=== PATIENT | male | born 1955 | race Caucasian/White ===

== ENCOUNTER → 2017-04-21 | Outpatient (CLI) | payer BC ==
[2017-04-21 16:24] LABS: CH 31.6; HDW 2.68; HGB 14.8 gm/dL (13.0-17.5); MCH 30.8 pg (25.0-35.0); MCV 93.5 fL (80.0-100.0); Mean Platelet Volume 7.1; RBC 4.81 m/uL (4.30-5.90); RDW 14.5 % (11.5-15.5); WBC 5.9 k/uL (3.8-10.6)
[2017-04-21 16:36] LABS: Anion Gap 13 mmol/L; Blood Urea Nitrogen 20 mg/dL (9-20); Carbon Dioxide 25 mmol/L (22-30); Chloride 104 mmol/L (98-107); Non-African American GFR(MDRD) >60 (>60 ml/min/1.73 sqM); Sodium 142 mmol/L (137-145)
== END | disposition home or self-care (01) ==
LOC: LABPAT 15:51
PROVIDERS: ATTEND Internal Medicine Cardiovascular Disease
DX: Z01.812 Encounter for preprocedural laboratory examination (principal); I25.10 Atherosclerotic heart disease of native coronary artery without angina pectoris; R07.9 Chest pain, unspecified
CPT/HCPCS: 80051; 82565; 84520; 85027

== ENCOUNTER → 2017-07-10 | Day surgery (SDC) | payer BC ==
[2017-07-05 10:02] VITALS: BMI 28.3
[~2017-07-10] MED LIST: ALPRAZolam 0.25 MG TAB PO PRN; ALPRAZolam 0.5 MG TAB PO PRN; ASPIRIN 325 MG TAB PO SCH; ASPIRIN 325 MG TAB PO STA; ATORVASTATIN 80 MG TAB PO STA; FENOFIBRATE 160 MG TAB PO SCH; FUROSEMIDE 20 MG TAB PO PRN; IBUPROFEN 800 MG TAB PO SCH; IOHEXOL 350 MG/ML 125ML BOTTLE INJ ONE; IV FLUID CONTINUATION 1,000 ML IV ONE; LIDOCAINE 2% INJ 20 MG/ML (20 ML MDV) ONE; LIDOCAINE 2% INJ 20 MG/ML SQ ONE; LOSARTAN 50 MG TAB PO SCH; METOPROLOL SUCCINATE (ER) 50 MG TAB.ER.24H PO SCH; MIDAZOLAM 2 MG/2 ML VIAL IV ONE; MIDAZOLAM 2 MG/2 ML VIAL ONE; MULTIVITAMINS, THERA 1 EACH TAB PO SCH; NITROGLYCERIN SL TABS 0.4 MG TAB SUBLINGUAL PRN; PANTOPRAZOLE 40 MG TABLET PO SCH; SODIUM CHLORIDE 0.9% 1,000 ML in EMPTY BAG 1 BAG IV ONE; amLODIPine 5 MG TAB ONE; amLODIPine 5 MG TAB PO ONE; amLODIPine 5 MG TAB PO STA; fentaNYL (PF) 50 MCG/ML 2 ML AMP IV ONE; fentaNYL (PF) 50 MCG/ML 2 ML AMP ONE; predniSONE 20 MG TAB PO PRN
[2017-07-10 10:14] VITALS: RESP 16
[2017-07-10 10:45] LABS: Basophils % (A) 0 %; CHCM 32.3; Eosinophils % (A) 0 %; HCT 45.7 % (39.0-53.0); HDW 2.37; HGB 14.8 gm/dL (13.0-17.5); Luc # (Auto) 0.03; Luc % (Auto) 0; Lymphocytes # (A) 0.9 k/uL (1.0-4.8); Lymphocytes % (A) 9 %; MCH 30.3 pg (25.0-35.0); MCHC 32.4 g/dL (31.0-37.0); MCV 93.5 fL (80.0-100.0); Mean Platelet Volume 7.3; Monocytes # (A) 0.3 k/uL (0-1.0); Monocytes % (A) 3 %; Neutrophils # (A) 8.7 k/uL (1.3-7.7); Neutrophils % (A) 87 %; RBC 4.89 m/uL (4.30-5.90); RDW 15.2 % (11.5-15.5); WBC (Perox) 10.16
[2017-07-10 11:09] LABS: Anion Gap 16 mmol/L; Blood Urea Nitrogen 24 mg/dL (9-20); Calcium 9.7 mg/dL (8.4-10.2); Carbon Dioxide 19 mmol/L (22-30); Chloride 108 mmol/L (98-107); Glucose 121 mg/dL (74-99); Non-African American GFR(MDRD) >60 (>60 ml/min/1.73 sqM); Sodium 143 mmol/L (137-145)
[2017-07-10 11:13] LABS: Potassium 4.7 mmol/L (3.5-5.1)
--- NOTE | 2017-07-10 11:50 | P.PCN ---
Date of Procedure: 07/10/17 Preoperative Diagnosis: Recurrent chest pains Postoperative Diagnosis: Stable coronary artery disease Procedure(s) Performed: Left heart catheterization with selective injection of the SHAFFER graft and 2 vein grafts. No LV gram Description of Procedure: HISTORY: This is a 61-year-old gentleman with history of ischemic heart disease and previous bypass surgery with SHAFFER graft to the LAD, vein graft to the diagonal and vein graft to the OM branch. Patient also had stent placement of the RCA. Patient is brought in for cardiac cath because of recurrent chest pains relieved with nitroglycerin. His stress test, however, did not reveal any inducible ischemia. CONSENT:I have discussed the risks, benefits and alternative therapies for the above-mentioned procedure and for both sedation/analgesia as well as necessary blood product administration, if indicated, as they pertain to this patient. The patient has indicated understanding and acceptance of the risks and procedures discussed. PROCEDURE: Patient was brought to the lab in a fasting state. Patient was given some IV sedation. The right groin is infiltrated with lidocaine and right femoral artery was entered using Seldinger technique. A 6-Brazilian catheter was left in place and selective coronary arteriography and left ventriculography was performed. Patient tolerated the procedure well. Femoral angiogram was performed and Angio-Seal was applied for hemostasis. No immediate complications were noted and patient was transferred to [facility] in a stable condition Conscious Sedation: Versed : 1 mg Fentanyl : 50 g Duration : 27 minutes HEMODYNAMICS: . The aortic pressure is about 160/88. Left ankle end-diastolic pressure is about 16. There was no gradient across the aortic valve SELECTIVE CORONARY ARTERIOGRAPHY: LEFT MAIN: This is a long with a diffuse plaque throughout its length. THE LEFT ANTERIOR DESCENDING CORONARY ARTERY: This is totally occluded after the diagonal branch. There is competitive flow in the diagonal branch from the vein graft THE LEFT CIRCUMFLEX AND IS CORONARY ARTERY: . This is totally occluded in the proximal portion THE RIGHT CORONARY ARTERY: . This is a large caliber vessel with a diffuse mild plaque with patent stents in the proximal portion. No Sigmund obstructive disease is noted. THE SHAFFER GRAFT TO THE LAD: This is small and atrophic. THE VEIN GRAFT TO THE OM BRANCH: The vein graft to the OM branch is patent both at proximal and distal anastomosis and also throughout his body. The OM branch, beyond the insertion site is patent. The vein graft to the DIAGONAL: This is patent throat its length and also at the proximal and distal anastomosis. This provides excellent flow to the diagonal and also the LAD distribution. LEFT VENTRICULOGRAPHY: This was not performed FINAL IMPRESSION: . Stable coronary artery disease with patent vein graft to the diagonal and also patent vein graft to the OM branch. The right coronary artery has mild diffuse plaque but no significant focal disease. The stents in the right coronary artery are patent. The SHAFFER graft is atretic. PLAN: Maximal medical therapy with risk factor modification. Prognosis fair PROGNOSIS: []
[2017-07-10 13:24] VITALS: TEMP 98.2
[2017-07-10 18:01] VITALS: PULSE 70
[2017-07-10 18:09] VITALS: BP 152/80
== END | disposition home or self-care (01) ==
LOC: CATHCVL 09:44
PROVIDERS: ATTEND Internal Medicine Cardiovascular Disease
DX: I25.118 Atherosclerotic heart disease of native coronary artery with other forms of angina pectoris (principal); I25.82 Chronic total occlusion of coronary artery; I10 Essential (primary) hypertension; G89.29 Other chronic pain; I47.2 Ventricular tachycardia; Z95.1 Presence of aortocoronary bypass graft; Z87.891 Personal history of nicotine dependence; Z79.82 Long term (current) use of aspirin; Z79.52 Long term (current) use of systemic steroids; Z79.899 Other long term (current) drug therapy; E78.00 Pure hypercholesterolemia, unspecified; Z95.5 Presence of coronary angioplasty implant and graft; Z88.8 Allergy status to other drugs, medicaments and biological substances; Z91.041 Radiographic dye allergy status; Z82.49 Family history of ischemic heart disease and other diseases of the circulatory system
CPT/HCPCS: 93459; 80048; 85025; C1760; C1894; C1769; J2001; J2250; J3010; Q9967

== ENCOUNTER → 2019-01-31 | Outpatient (CLI) | payer BC, MEDICARE ==
--- NOTE | 2019-01-31 14:58 | XR ---
EXAMINATION TYPE: XR chest 2V DATE OF EXAM: 01/31/2019 COMPARISON: Prior chest x-ray 10/21/2013 HISTORY: History cardiovascular disease, Z00.00 TECHNIQUE: Frontal and lateral views of the chest are obtained. FINDINGS: Patient is post median sternotomy. No evident airspace disease, pneumothorax, or pleural e ffusion. Cardiac mediastinal silhouette, pulmonary vascularity and steph are stable. There are promine nt lung volumes, increased AP diameter of the chest suggesting underlying COPD. Coronary artery calci fications are present. IMPRESSION: No acute cardiopulmonary process.
== END | disposition home or self-care (01) ==
LOC: RADXRMAIN 10:53
PROVIDERS: ATTEND Family Medicine
DX: Z00.00 Encounter for general adult medical examination without abnormal findings (principal)
CPT/HCPCS: 71046

== ENCOUNTER 2019-03-14 07:59 | Observation (INO) | payer BC, MEDICARE ==
[2019-03-14] MEDS ORDERED: SODIUM CHLORIDE 0.9% 500 ML 500 ML IV STA (08:29)
[2019-03-14] MEDS ORDERED: KETOROLAC 30 MG/ML 1 ML VIAL IVP STA (08:29)
[2019-03-14] MEDS ORDERED: METOCLOPRAMIDE 5 MG/ML 2 ML VIAL IVP STA (08:29)
[2019-03-14] MEDS ORDERED: SODIUM CHLORIDE 0.9% 1,000 ML IV STA (08:29)
--- NOTE | 2019-03-14 08:56 | ED ---
General Adult HPI - General Chief complaint: Abdominal Pain Stated complaint: Flank pain Time Seen by Provider: 03/14/19 08:13 Source: patient, RN notes reviewed Mode of arrival: wheelchair Limitations: no limitations - History of Present Illness Initial comments: Patient is a pleasant 64-year-old male presenting to the emergency Department with complaints of right-sided flank pain. Onset of symptoms was around an hour ago. Discomfort was sudden and severe. Discomfort is still somewhat severe however improved, rated 7/10. Patient was going to the bathroom at the time of onset. Patient does have nausea without vomiting. No constipation or diarrhea. No fevers. No history of similar symptoms previously. Patient does have history of previous hernia right inguinal region however this feels different. Patient states discomfort is right flank and radiates towards the testicle. - Related Data Home Medications Medication Instructions Recorded Confirmed ALPRAZolam [Xanax] 0.5 mg PO TID PRN 07/02/14 03/14/19 Aspirin 325 mg PO DAILY 07/02/14 03/14/19 Fenofibrate Nanocrystallized 145 mg PO DAILY 07/02/14 03/14/19 [Tricor] Metoprolol Succinate (ER) [Toprol 50 mg PO DAILY 07/02/14 03/14/19 XL] Nitroglycerin Sl Tabs [Nitrostat] 0.4 mg PO Q5M PRN 07/02/14 03/14/19 Omeprazole [PriLOSEC] 20 mg PO DAILY 07/02/14 03/14/19 Furosemide [Lasix] 20 mg PO DAILY PRN 04/24/17 03/14/19 Ibuprofen 800 mg PO BID 04/24/17 03/14/19 Losartan Potassium 100 mg PO DAILY 07/05/17 03/14/19 Multivitamins, Thera [Multivitamin 1 tab PO DAILY 07/05/17 03/14/19 (formulary)] Methocarbamol [Robaxin] 500 mg PO QID PRN 03/14/19 03/14/19 Previous Rx's Medication Instructions Recorded amLODIPine BESYLATE [Norvasc] 5 mg PO DAILY #30 tablet 07/10/17 Allergies Allergy/AdvReac Type Severity Reaction Status Date / Time hydrocodone [From [place]] Allergy Rash/Hives Verified 03/14/19 08:19 Iodinated Contrast- Oral and Allergy Rash/Hives Verified 03/14/19 08:19 IV Dye [Iodinated Contrast Media - IV Dye] shellfish derived Allergy Rash/Hives Verified 03/14/19 08:19 MRI dye Allergy Rash/Hives Uncoded 07/10/17 10:08 Review of Systems ROS Statement: Those systems with pertinent positive or pertinent negative responses have been documented in the HPI. ROS Other: All systems not noted in ROS Statement are negative. Constitutional: Denies: fever Eyes: Denies: eye pain ENT: Denies: ear pain Respiratory: Denies: cough Cardiovascular: Denies: chest pain Endocrine: Denies: fatigue Gastrointestinal: Reports: as per HPI, nausea Genitourinary: Denies: dysuria, hematuria Musculoskeletal: Denies: back pain Skin: Denies: rash Neurological: Denies: weakness Past Medical History Past Medical History: Coronary Artery Disease (CAD), Chest Pain / Angina, GERD/Reflux, Hyperlipidemia, Hypertension, Osteoarthritis (OA) Additional Past Medical History / Comment(s): CHRONIC BACK PAIN, DDD, see Dr. Sapp H & P History of Any Multi-Drug Resistant Organisms: None Reported Past Surgical History: Back Surgery, Coronary Bypass/CABG, Heart Catheterization With Stent, Hernia Repair, Tonsillectomy Additional Past Surgical History / Comment(s): HERNIA X4, HYDROCELE, CABG X3 ( 1997) , CARDIAC STENT X1 (12/30/2002), nick rotator cuff repair Past Anesthesia/Blood Transfusion Reactions: Postoperative Nausea & Vomiting (PONV) Date of Last Stent Placement:: 12/30/2002 Past Psychological History: Anxiety Smoking Status: Former smoker Past Alcohol Use History: Occasional Past Drug Use History: None Reported - Past Family History Father Family Medical History: Diabetes Mellitus, Deep Vein Thrombosis (DVT), Renal Disease Additional Family Medical History / Comment(s): ANEURYSM General Exam Limitations: no limitations General appearance: alert, other (Patient does appear uncomfortable) Head exam: Present: normocephalic Eye exam: Present: normal appearance, PERRL ENT exam: Present: normal oropharynx Neck exam: Present: normal inspection Respiratory exam: Present: normal lung sounds bilaterally Cardiovascular Exam: Present: regular rate, normal rhythm Expanded Peripheral pulses: 2+: Posterior Tibialis (R), Posterior Tibialis (L), Dorsalis Pedis (R), Dorsalis Pedis (L) GI/Abdominal exam: Present: soft, tenderness (Minimal tenderness right flank), normal bowel sounds. Absent: distended, guarding, rebound, rigid, pulsatile mass Extremities exam: Present: normal inspection. Absent: pedal edema, calf tenderness Back exam: Present: normal inspection. Absent: CVA tenderness (R) Neurological exam: Present: alert Psychiatric exam: Present: normal affect, normal mood Skin exam: Present: normal color Course Vital Signs 03/14/19 08:01 Temperature 97.5 F L Pulse Rate 66 Respiratory 20 Rate Blood Pressure 169/103 O2 Sat by Pulse 96 Oximetry Medical Decision Making - Medical Decision Making Patient reevaluated and significantly improved. Discomfort is now 3/10. Patient again reevaluated and despite further medication states his discomfort is starting to increase. Abdomen is soft with mild to moderate tenderness right flank. Patient and family are updated on results. Secondary to continued discomfort patient will be held. Case was discussed in detail with Dr. Douglas, who will admit covering for Dr. Green. She does agree to surgical consultation. - Lab Data Result diagrams: 03/14/19 08:15 03/14/19 08:15 Lab Results 03/14/19 03/14/19 03/14/19 Range/Units 08:15 08:15 08:15 WBC 7.3 (3.8-10.6) k/uL RBC 4.28 L (4.30-5.90) m/uL Hgb 13.0 (13.0-17.5) gm/dL Hct 40.4 (39.0-53.0) % MCV 94.5 (80.0-100.0) fL MCH 30.3 (25.0-35.0) pg MCHC 32.1 (31.0-37.0) g/dL RDW 16.2 H (11.5-15.5) % Plt Count 270 (150-450) k/uL Neutrophils % 50 % Lymphocytes % 33 % Monocytes % 9 % Eosinophils % 4 % Basophils % 1 % Neutrophils # 3.6 (1.3-7.7) k/uL Lymphocytes # 2.4 (1.0-4.8) k/uL Monocytes # 0.7 (0-1.0) k/uL Eosinophils # 0.3 (0-0.7) k/uL Basophils # 0.0 (0-0.2) k/uL Anisocytosis Slight PT 12.9 H (9.0-12.0) sec INR 1.3 H (<1.2) APTT 25.6 (22.0-30.0) sec Sodium 143 (137-145) mmol/L Potassium 4.5 (3.5-5.1) mmol/L Chloride 107 (98-107) mmol/L Carbon Dioxide 23 (22-30) mmol/L Anion Gap 13 mmol/L BUN 24 H (9-20) mg/dL Creatinine 0.97 (0.66-1.25) mg/dL Est GFR (CKD-EPI)AfAm >90 (>60 ml/min/1.73 sqM) Est GFR (CKD-EPI)NonAf 82 (>60 ml/min/1.73 sqM) Glucose 111 H (74-99) mg/dL Calcium 9.0 (8.4-10.2) mg/dL Total Bilirubin 0.4 (0.2-1.3) mg/dL AST 26 (17-59) U/L ALT <6 L (21-72) U/L Alkaline Phosphatase 125 (38-126) U/L Total Protein 11.5 H (6.3-8.2) g/dL Albumin 3.7 (3.5-5.0) g/dL Amylase 67 (30-110) U/L Lipase 162 (23-300) U/L Urine Color Urine Appearance (Clear) Urine pH (5.0-8.0) Ur Specific [place] (1.001-1.035) Urine Protein (Negative) Urine Glucose (UA) (Negative) Urine Ketones (Negative) Urine Blood (Negative) Urine Nitrite (Negative) Urine Bilirubin (Negative) Urine Urobilinogen (<2.0) mg/dL Ur Leukocyte Esterase (Negative) Urine RBC (0-5) /hpf Urine WBC (0-5) /hpf Ur Squamous Epith Cells (0-4) /hpf Urine Mucus (None) /hpf 03/14/19 Range/Units 08:15 WBC (3.8-10.6) k/uL RBC (4.30-5.90) m/uL Hgb (13.0-17.5) gm/dL Hct (39.0-53.0) % MCV (80.0-100.0) fL MCH (25.0-35.0) pg MCHC (31.0-37.0) g/dL RDW (11.5-15.5) % Plt Count (150-450) k/uL Neutrophils % % Lymphocytes % % Monocytes % % Eosinophils % % Basophils % % Neutrophils # (1.3-7.7) k/uL Lymphocytes # (1.0-4.8) k/uL Monocytes # (0-1.0) k/uL Eosinophils # (0-0.7) k/uL Basophils # (0-0.2) k/uL Anisocytosis PT (9.0-12.0) sec INR (<1.2) APTT (22.0-30.0) sec Sodium (137-145) mmol/L Potassium (3.5-5.1) mmol/L Chloride (98-107) mmol/L Carbon Dioxide (22-30) mmol/L Anion Gap mmol/L BUN (9-20) mg/dL Creatinine (0.66-1.25) mg/dL Est GFR (CKD-EPI)AfAm (>60 ml/min/1.73 sqM) Est GFR (CKD-EPI)NonAf (>60 ml/min/1.73 sqM) Glucose (74-99) mg/dL Calcium (8.4-10.2) mg/dL Total Bilirubin (0.2-1.3) mg/dL AST (17-59) U/L ALT (21-72) U/L Alkaline Phosphatase (38-126) U/L Total Protein (6.3-8.2) g/dL Albumin (3.5-5.0) g/dL Amylase (30-110) U/L Lipase (23-300) U/L Urine Color Yellow Urine Appearance Clear (Clear) Urine pH 6.0 (5.0-8.0) Ur Specific [place] 1.012 (1.001-1.035) Urine Protein Negative (Negative) Urine Glucose (UA) Negative (Negative) Urine Ketones Negative (Negative) Urine Blood Large H (Negative) Urine Nitrite Negative (Negative) Urine Bilirubin Negative (Negative) Urine Urobilinogen <2.0 (<2.0) mg/dL Ur Leukocyte Esterase Negative (Negative) Urine RBC >182 H (0-5) /hpf Urine WBC 1 (0-5) /hpf Ur Squamous Epith Cells <1 (0-4) /hpf Urine Mucus Rare H (None) /hpf Disposition Clinical Impression: Abdominal pain Disposition: ADMITTED IP TO THIS HOSP Is patient prescribed a controlled substance at d/c from ED?: No Referrals: Angel Verma DO [Primary Care Provider] - 1-2 days Decision Time: 12:53
[2019-03-14 08:57] LABS: Anisocytosis Slight; Appearance,Urine Clear (Clear); Basophils % (A) 1 %; Bilirubin,Urine Negative (Negative); Blood,Urine Large (Negative); Color,Urine Yellow; Eosinophils # (A) 0.3 k/uL (0-0.7); Eosinophils % (A) 4 %; Glucose,Urine (UA) Negative (Negative); HCT 40.4 % (39.0-53.0); Ketones,Urine Negative (Negative); Leukocyte Esterase,Urine Negative (Negative); Lymphocytes # (A) 2.4 k/uL (1.0-4.8); Lymphocytes % (A) 33 %; MCH 30.3 pg (25.0-35.0); MCHC 32.1 g/dL (31.0-37.0); MCV 94.5 fL (80.0-100.0); Monocytes # (A) 0.7 k/uL (0-1.0); Monocytes % (A) 9 %; Mucus,Urine Rare /hpf; Neutrophils # (A) 3.6 k/uL (1.3-7.7); Neutrophils % (A) 50 %; Nitrite,Urine Negative (Negative); Platelet Count 270 k/uL (150-450); Protein,Urine Negative (Negative); RBC 4.28 m/uL (4.30-5.90); RBC,Urine >182 /hpf (0-5); RDW 16.2 % (11.5-15.5); Specific Gravity,Urine 1.012 (1.001-1.035); Squamous Epithelial Cell,Urine <1 /hpf (0-4); Urobilinogen,Urine <2.0 mg/dL (<2.0); WBC 7.3 k/uL (3.8-10.6); WBC,Urine 1 /hpf (0-5)
[2019-03-14 09:04] LABS: ALT <6 U/L (21-72); AST 26 U/L (17-59); African American GFR (CKD) >90 (>60 ml/min/1.73 sqM); Albumin 3.7 g/dL (3.5-5.0); Alkaline Phosphatase 125 U/L (38-126); Amylase 67 U/L (30-110); Anion Gap 13 mmol/L; Blood Urea Nitrogen 24 mg/dL (9-20); Carbon Dioxide 23 mmol/L (22-30); Chloride 107 mmol/L (98-107); Glucose 111 mg/dL (74-99); Potassium 4.5 mmol/L (3.5-5.1); Sodium 143 mmol/L (137-145); Total Bilirubin 0.4 mg/dL (0.2-1.3)
[2019-03-14 09:07] LABS: INR 1.3 (<1.2); Partial Thromboplastin Time 25.6 sec (22.0-30.0); Prothrombin Time 12.9 sec (9.0-12.0)
--- NOTE | 2019-03-14 09:10 | XR ---
EXAMINATION TYPE: XR KUB DATE OF EXAM: 03/14/2019 9:03 AM CLINICAL HISTORY: Abdominal pain on the right TECHNIQUE: Single upright image of the abdomen is obtained. COMPARISON: None. FINDINGS: Few scattered small bowel air-fluid levels are seen within nondilated centralized bowel, pr edominating right paracentrally. There is a 5 mm calculus in the left upper quadrant. Mild levoscolio sis of the upper lumbar spine. Lung bases are well aerated. Partially visualized enlarged cardiomedia stinal silhouette. No acute osseous pathology. No dilated large or small bowel. No evidence of pneumo peritoneum. Partially visualized sternotomy wires demonstrate dehiscence of 2 of the sternotomy wires . IMPRESSION: Few air-fluid levels within nondilated small bowel suggests mild ileus. Nonobstructing 5 mm probable left renal calculus is also incidentally seen.
[2019-03-14 09:14] LABS: Total Protein 11.5 g/dL (6.3-8.2)
--- NOTE | 2019-03-14 09:30 | CT ---
EXAMINATION TYPE: CT abdomen pelvis wo con DATE OF EXAM: 03/14/2019 COMPARISON: None HISTORY: Lower pelvic pain CT DLP: 803.7 mGycm Automated exposure control for dose reduction was used. TECHNIQUE: Helical acquisition of images was performed from the lung bases through the pelvis. FINDINGS: LUNG BASES: Heart is enlarged and there is coronary artery calcification. Sternotomy wires are seen. LIVER/GB: No significant abnormality is appreciated. PANCREAS: No significant abnormality is seen. SPLEEN: No significant abnormality is seen. ADRENALS: No significant abnormality is seen. KIDNEYS: There are multiple bilateral less than 5 mm renal calculi with no hydronephrosis. ADENOPATHY: None visualized. OSSEOUS STRUCTURES: Multilevel degenerative disc disease noted. Cystic change involving the left hip likely is related to a herniation pit. Mild arthropathy of the hips bilaterally. Sclerotic density i nvolving the anterior, the acetabulum on the left likely related to bone. BOWEL: Bowel gas pattern nonspecific. Diverticulosis of the colon noted. Does appear to be mild diff use bowel wall thickening which may be related to incomplete distention rather than colitis correlate clinically. Appendix not seen with certainty. OTHER: Small fat-containing periumbilical hernia noted. Aorta of normal caliber with atherosclerotic changes. Prostate prominent in size. Incidental note made of a left retroaortic renal vein. IMPRESSION: 1. Nonobstructing bilateral renal calculi 2. Diverticulosis of the colon with no CT evidence of diverticulitis. There does appear to be diffuse mild bowel wall thickening of the colon. This could be on the basis of incomplete distention rather than colitis correlate clinically. No pericolonic inflammatory changes.
[2019-03-14] MEDS ORDERED: HYDROmorphone 1 MG/ML 1 ML SYRINGE IVP STA (10:49)
--- NOTE | 2019-03-14 11:24 | US ---
EXAMINATION TYPE: US scrotum with doppler. Grayscale and color Doppler Duplex imaging performed of t he scrotum. DATE OF EXAM: 03/14/2019 COMPARISON: NONE CLINICAL HISTORY: Pain. RLQ pain that radiates to groin, h/o hydrocelectomy years ago on the right EXAM MEASUREMENTS: TESTICLES: Right Testicle: 4.0 x 3.0 x 2.7 cm Left Testicle: 3.7 x 3.0 x 2.8 cm EPIDIDYMIS HEAD: Right Epididymis: 1.6 cm Left Epididymis: 0.9 cm Doppler performed to assess for testicular vascularity; good bilateral color flow and waveforms are s een. There is no evidence of testicular torsion. Presence of hydroceles: left side only Presence of varicoceles: no IMPRESSION: No sonographic evidence of testicular torsion during the examination. Trace left hydrocel e is incidentally seen.
[2019-03-14] MEDS ORDERED: ONDANSETRON 4 MG/2 ML VIAL IVP STA (12:54)
[2019-03-14] MEDS ORDERED: DICYCLOMINE 10 MG/ML 2 ML AMP IM STA (12:55)
[2019-03-14] MEDS ORDERED: HYDROmorphone 0.5 MG/0.5 ML SYRINGE IVP PRN (12:55)
[2019-03-14] MEDS ORDERED: NALOXONE 0.4 MG/ML 1 ML VIAL IV PRN (12:55)
[2019-03-14] MEDS ORDERED: ONDANSETRON 4 MG/2 ML VIAL IVP PRN (12:55)
--- NOTE | 2019-03-14 13:20 | P.HPIM ---
History of Present Illness H&P Date: 03/14/19 Chief Complaint: Abdominal pain This 64-year-old gentleman patient of Dr. Verma. He has underlying history of CAD hyperglycemia hypertension hyperlipidemia, admitted emergency room secondary to abdominal pain right flank area, 7 out of 10, with nausea and no vomiting. Patient does not have any constipation or diarrhea no fever, no previous symptoms in the past, patient has a previous hernia in the right inguinal area She was seen in emergency room with imaging studies include an abdomen pelvis CT showing bilateral calculi less than 5 mm, with no hydronephrosis, gallbladder and no abnormalities seen, multiple DJD, C6 in the left hip secondary to admission. Sclerotic density involving the anterior acetabulum on the left, abdomen shows diverticulosis of colon with mild diffuse thickening possibly related to incomplete distention rather than colitis fat-containing umbilical hernia aorta of normal caliber with atherosclerotic changes prominent prostate, scrotal ultrasound shows no testicular torsion left hydrocele trace incidentally seen on of 1.3 double basic count 7.3 urinalysis RBC over 182, urine WBC of 1 Review of Systems Constitutional: Reports as per HPI, Denies anorexia, Denies chills, Denies chronic headaches, Denies chronic pain, Denies daytime sleepiness, Denies fatigue, Denies fever, Denies lethargy, Denies malaise, Denies night sweats, Denies poor appetite, Denies sweats, Denies weakness, Denies weight gain, Denies weight loss Ears, nose, mouth and throat: Reports as per HPI Cardiovascular: Reports as per HPI Respiratory: Reports as per HPI Gastrointestinal: Reports as per HPI, Reports abdominal pain, Reports loss of appetite Genitourinary: Reports as per HPI, Reports dysuria, Reports testicular pain Musculoskeletal: Reports as per HPI, Denies arm numbness/tingling, Denies atrophy, Denies fractures, Denies frequent falls, Denies gait dysfunction, Denies hot joints, Denies leg numbness/tingling, Denies limitation of motion, Denies loss of height, Denies low back pain, Denies morning stiffness, Denies muscle cramps, Denies muscle weakness, Denies myalgias, Denies neck pain, Denies neck stiffness, Denies prior amputations, Denies redness of joints, Denies shooting arm pain, Denies shooting leg pain Integumentary: Reports as per HPI, Denies acne, Denies boils, Denies brittle nails, Denies change in hair/nails, Denies color changes, Denies darkening of skin, Denies depigmentation, Denies dryness, Denies foot/leg ulcers, Denies growths, Denies hirsutism, Denies lesions, Denies onychomycosis, Denies prur itus, Denies rash, Denies sores, Denies striae, Denies unusual bruising, Denies wounds Neurological: Reports as per HPI, Denies aphasia, Denies ataxia, Denies balance difficulties, Denies burning pain, Denies change in mentation, Denies change in smell/taste, Denies change in speech, Denies confusion, Denies convulsions, Denies double vision, Denies gait dysfunction, Denies head injury, Denies headaches, Denies hearing difficulties, Denies lack of coordination, Denies loss of vision, Denies memory loss, Denies migraines, Denies motor disturbance, Denies numbness, Denies paralysis, Denies paresthesias, Denies seizures, Denies sensory deficit, Denies spasticity, Denies syncope, Denies tic, Denies tingling, Denies transient paralysis, Denies tremors, Denies vertigo, Denies weakness, Denies visual changes Psychiatric: Reports as per HPI, Denies anhedonia, Denies anxiety, Denies anxiety attacks, Denies change in appetite, Denies change in libido, Denies change in sleep habits, Denies confusion, Denies depression, Denies difficulty concentrating, Denies disorientation, Denies hallucinations, Denies hopelessness, Denies hypersomnia, Denies insomnia, Denies irritability, Denies memory loss, Denies mood swings, Denies paranoia, Denies sadness/tearfulness, Denies sleep disturbances, Denies suicidal ideation Endocrine: Reports as per HPI Hematologic/Lymphatic: Reports as per HPI Allergic/Immunologic: Reports as per HPI, Denies allergic rhinitis, Denies anaphylaxis, Denies angioedema, Denies gluten intolerance, Denies persistent infections, Denies seasonal allergies, Denies urticaria, Denies wheezing Past Medical History Past Medical History: Coronary Artery Disease (CAD), Chest Pain / Angina, GERD/Reflux, Hyperlipidemia, Hypertension, Osteoarthritis (OA) Additional Past Medical History / Comment(s): CHRONIC BACK PAIN, DDD, see Dr. Sapp H & P History of Any Multi-Drug Resistant Organisms: None Reported Past Surgical History: Back Surgery, Coronary Bypass/CABG, Heart Catheterization With Stent, Hernia Repair, Tonsillectomy Additional Past Surgical History / Comment(s): HERNIA X4, HYDROCELE, CABG X3 ( 1997) , CARDIAC STENT X1 (12/30/2002), nick rotator cuff repair Past Anesthesia/Blood Transfusion Reactions: Postoperative Nausea & Vomiting (PONV) Date of Last Stent Placement:: 12/30/2002 Past Psychological History: Anxiety Smoking Status: Former smoker Past Alcohol Use History: Occasional Past Drug Use History: None Reported - Past Family History Father Family Medical History: Diabetes Mellitus, Deep Vein Thrombosis (DVT), Renal Disease Additional Family Medical History / Comment(s): ANEURYSM Medications and Allergies Home Medications Medication Instructions Recorded Confirmed Type ALPRAZolam [Xanax] 0.5 mg PO TID PRN 07/02/14 03/14/19 History Aspirin 325 mg PO DAILY 07/02/14 03/14/19 History Fenofibrate Nanocrystallized 145 mg PO DAILY 07/02/14 03/14/19 History [Tricor] Metoprolol Succinate (ER) [Toprol 50 mg PO DAILY 07/02/14 03/14/19 History XL] Nitroglycerin Sl Tabs [Nitrostat] 0.4 mg PO Q5M PRN 07/02/14 03/14/19 History Omeprazole [PriLOSEC] 20 mg PO DAILY 07/02/14 03/14/19 History Furosemide [Lasix] 20 mg PO DAILY PRN 04/24/17 03/14/19 History Ibuprofen 800 mg PO BID 04/24/17 03/14/19 History Losartan Potassium 100 mg PO DAILY 07/05/17 03/14/19 History Multivitamins, Thera [Multivitamin 1 tab PO DAILY 07/05/17 03/14/19 History (formulary)] amLODIPine BESYLATE [Norvasc] 5 mg PO DAILY #30 tablet 07/10/17 03/14/19 Rx Methocarbamol [Robaxin] 500 mg PO QID PRN 03/14/19 03/14/19 History Allergies Allergy/AdvReac Type Severity Reaction Status Date / Time hydrocodone [From [place]] Allergy Rash/Hives Verified 03/14/19 08:19 Iodinated Contrast- Oral and Allergy Rash/Hives Verified 03/14/19 08:19 IV Dye [Iodinated Contrast Media - IV Dye] shellfish derived Allergy Rash/Hives Verified 03/14/19 08:19 MRI dye Allergy Rash/Hives Uncoded 07/10/17 10:08 Physical Exam Vitals: Vital Signs Temp Pulse Resp BP Pulse Ox 03/14/19 08:01 97.5 F L 66 20 169/103 96 Intake and Output 03/13/19 03/14/19 03/14/19 22:59 06:59 14:59 Other: Voiding Method Toilet Urinal Weight 102.058 kg - Constitutional General appearance: cooperative, no acute distress - EENT Eyes: anicteric sclerae, EOMI, PERRLA, dentition normal, normal appearance ENT: NA/AT, normal oropharynx - Neck Neck: normal ROM - Respiratory Respiratory: bilateral: CTA, negative: diminished, dullness, rales, rhonchi - Cardiovascular Rhythm: regular Heart sounds: normal: S1, S2 Abnormal Heart Sounds: no systolic murmur, no diastolic murmur, no rub, no S3 Gallop, no S4 Gallop, no click, no other - Gastrointestinal General gastrointestinal: normal bowel sounds, soft - Integumentary Integumentary: decreased turgor, normal - Neurologic Neurologic: CNII-XII intact - Musculoskeletal Musculoskeletal: strength equal bilaterally - Psychiatric Psychiatric: A&O x's 3, appropriate affect, intact judgment & insight Results CBC & Chem 7: 03/14/19 08:15 03/14/19 08:15 Labs: Abnormal Lab Results - Last 24 Hours (Table) 03/14/19 03/14/19 03/14/19 Range/Units 08:15 08:15 08:15 RBC 4.28 L (4.30-5.90) m/uL RDW 16.2 H (11.5-15.5) % PT 12.9 H (9.0-12.0) sec INR 1.3 H (<1.2) BUN 24 H (9-20) mg/dL Glucose 111 H (74-99) mg/dL ALT <6 L (21-72) U/L Total Protein 11.5 H (6.3-8.2) g/dL Urine Blood (Negative) Urine RBC (0-5) /hpf Urine Mucus (None) /hpf 03/14/19 Range/Units 08:15 RBC (4.30-5.90) m/uL RDW (11.5-15.5) % PT (9.0-12.0) sec INR (<1.2) BUN (9-20) mg/dL Glucose (74-99) mg/dL ALT (21-72) U/L Total Protein (6.3-8.2) g/dL Urine Blood Large H (Negative) Urine RBC >182 H (0-5) /hpf Urine Mucus Rare H (None) /hpf Thrombosis Risk Factor Assmnt - DVT/VTE Prophylaxis DVT/VTE Prophylaxis: Low risk, early ambulation encouraged Assessment and Plan Plan: 1. acute uncontrolledRenal colic, related with possibly passage of stone, has microscopic hematuria, CAT scan of the abdomen failed to reveal any hydronephrosis, scrotal ultrasound failed to reveal any torsion, continue to IV hydrate, will request ultrasound of the kidneys if pain still persists, initiate Flomax, for UPJ spasms monitor for post void residual, no antibiotic needed, sec ond opinion and general surgery, observe overnight, normal calcium, doubt other metabolic causes. Doubt ischemic colitis, however general surgery will be seen with the patient, had right inguinal hernia repair 3, with mesh, CAT scan failed to reveal any significant abnormalities with the groin area. With straining urine, collect any kidney stone for analysis if available check renal ultrasound, doubt the gallbladder pathology. 2, nephroliathiasis without hydronephrosis, moderate bilateral multiple, possibly had acute passage of right kidney stone, Flomax initiated 2. Hyperproteinemia without proteinuria significance unknown possibly related to hydration and nutrition 3. CAD with prior CABG and cardiac stent, followed with cardiology outpatient currently asymptomatic continue cardiac maintenance home medication 4. GERD, on maintenance PPI 5. Osteoarthritis 6. Hypertension on Norvasc 5 mg daily losartan 100 mg daily metoprolol ER and Lasix 7. Hyperglycemia
[2019-03-14] MEDS: SODIUM CHLORIDE 0.9% 1,000 ML IV SCH ×2 (13:34→20:39)
[2019-03-14] MEDS ORDERED: FUROSEMIDE 20 MG TAB PO PRN (14:11)
[2019-03-14] MEDS ORDERED: NITROGLYCERIN SL TABS 0.4 MG TAB SUBLINGUAL PRN (14:11)
[2019-03-14] MEDS ORDERED: METHOCARBAMOL 500 MG TAB PO PRN (14:11)
[2019-03-14] MEDS ORDERED: ALPRAZolam 0.5 MG TAB PO PRN (14:11)
[2019-03-14 15:20] VITALS: RESP 18
--- NOTE | 2019-03-14 15:52 | US ---
EXAMINATION TYPE: US kidneys/renal and bladder DATE OF EXAM: 03/14/2019 COMPARISON: NONE CLINICAL HISTORY: trnal colic. Right flank pain. No previous hx of renal stones. EXAM MEASUREMENTS: Right Kidney: 12.7 x 6.0 x 5.7 cm Left Kidney: 14.0 x 5.3 x 6.1 cm Right Kidney: No hydronephrosis or masses seen. Left Kidney: Mid echogenic focus seen with shadow = 0.9 x 0.7 cm Bladder: distended, wnl Bilateral Jets seen There is no evidence for hydronephrosis at this point in time. No right-sided nephrolithiasis is see n. No masses are identified. The urinary bladder is anechoic. Bilateral ureteral jets are seen. Heterogenous prostate gland is incidentally seen on few images. IMPRESSION: Nonobstructing left renal calculus measuring 9 mm. No hydronephrosis or nephrolithiasis o f the right kidney. No hydronephrosis on the left.
[2019-03-14] MEDS: HYDROmorphone 1 MG/ML 1 ML SYRINGE IVP PRN ×2 (16:39→22:15)
[2019-03-14] MEDS ORDERED: TAMSULOSIN 0.4 MG CAP.ER.24H PO SCH (18:30)
--- NOTE | 2019-03-14 22:15 | P.GSCN ---
History of Present Illness Consult date: 03/14/19 Requesting physician: Lulu Douglas History of present illness: Patient seen and evaluated. He reports 10 out of 10 pain from the right flank to the right pelvis and testicle. He has history of multiple inguinal hernia surgeries one on the left [address] studies consistent with kidney stones. Denies any left upper and left lower quadrant abdominal pain. CT of the abdomen and pelvis independently reviewed without any free air or free fluid or bowel obstruction. Radiology report also reviewed for questionable colitis however clinical exam disc concordant with reading. Recommend start of diet. Also recommend Flomax including IV fluid hydration for treatment of kidney stones. No surgical intervention needed at this time. Patient may be discharged once medically stable. Past Medical History Past Medical History: Coronary Artery Disease (CAD), Chest Pain / Angina, GERD/Reflux, Hyperlipidemia, Hypertension, Osteoarthritis (OA), Pneumonia, Vascular Disorder Additional Past Medical History / Comment(s): Ischemic heart disease, nonsustained VT, tachycardia, PAD L leg, varicosities, bilateral leg edema at times, hiatal hernia, hemorrhoids, arthritis multiple joints, back pain, DDD, spinal stenosis, vertigo, sinus problems History of Any Multi-Drug Resistant Organisms: None Reported Past Surgical History: Back Surgery, Coronary Bypass/CABG, Heart Catheterization With Stent, Hernia Repair, Tonsillectomy Additional Past Surgical History / Comment(s): Cardiac caths, PCI with stnet to RCA in 2002, 1997 CABG 3 vessel, colonoscopy/benign polypectomy, low back surgery, bilateral rotator cuff repairs, R inguinal hernia repair x3 and L inguinal hernia repair x1, R hydrocele with surgery. Past Anesthesia/Blood Transfusion Reactions: Postoperative Nausea & Vomiting (PONV) Date of Last Stent Placement:: 12/30/2002 Smoking Status: Former smoker - Past Family History Father Family Medical History: CVA/TIA, Diabetes Mellitus, Deep Vein Thrombosis (DVT), Renal Disease, Vascular Disorder Additional Family Medical History / Comment(s): Abdominal aortic aneurysm Mother Family Medical History: Myocardial Infarction (MT) Additional Family Medical History / Comment(s): Mother of a MT at the age of 44yrs. Medications and Allergies Home Medications Medication Instructions Recorded Confirmed Type ALPRAZolam [Xanax] 0.5 mg PO TID PRN 07/02/14 03/14/19 History Aspirin 325 mg PO DAILY 07/02/14 03/14/19 History Fenofibrate Nanocrystallized 145 mg PO DAILY 07/02/14 03/14/19 History [Tricor] Metoprolol Succinate (ER) [Toprol 50 mg PO DAILY 07/02/14 03/14/19 History XL] Nitroglycerin Sl Tabs [Nitrostat] 0.4 mg PO Q5M PRN 07/02/14 03/14/19 History Omeprazole [PriLOSEC] 20 mg PO DAILY 07/02/14 03/14/19 History Furosemide [Lasix] 20 mg PO DAILY PRN 04/24/17 03/14/19 History Ibuprofen 800 mg PO BID 04/24/17 03/14/19 History Losartan Potassium 100 mg PO DAILY 07/05/17 03/14/19 History Multivitamins, Thera [Multivitamin 1 tab PO DAILY 07/05/17 03/14/19 History (formulary)] amLODIPine BESYLATE [Norvasc] 5 mg PO DAILY #30 tablet 07/10/17 03/14/19 Rx Methocarbamol [Robaxin] 500 mg PO QID PRN 03/14/19 03/14/19 History Allergies Allergy/AdvReac Type Severity Reaction Status Date / Time hydrocodone [From [place]] Allergy Rash/Hives Verified 03/14/19 08:19 Iodinated Contrast- Oral and Allergy Rash/Hives Verified 03/14/19 08:19 IV Dye [Iodinated Contrast Media - IV Dye] shellfish derived Allergy Rash/Hives Verified 03/14/19 08:19 MRI dye Allergy Rash/Hives Uncoded 07/10/17 10:08 Surgical - Exam Vital Signs Temp Pulse Resp BP Pulse Ox 97.5 F L 66 20 169/103 96 03/14/19 08:01 03/14/19 08:01 03/14/19 08:01 03/14/19 08:01 03/14/19 08:01 Results - Labs 03/14/19 08:15 03/14/19 08:15 Abnormal Lab Results - Last 24 Hours (Table) 03/14/19 03/14/19 03/14/19 Range/Units 08:15 08:15 08:15 RBC 4.28 L (4.30-5.90) m/uL RDW 16.2 H (11.5-15.5) % PT 12.9 H (9.0-12.0) sec INR 1.3 H (<1.2) BUN 24 H (9-20) mg/dL Glucose 111 H (74-99) mg/dL ALT <6 L (21-72) U/L Total Protein 11.5 H (6.3-8.2) g/dL Urine Blood (Negative) Urine RBC (0-5) /hpf Urine Mucus (None) /hpf 03/14/19 Range/Units 08:15 RBC (4.30-5.90) m/uL RDW (11.5-15.5) % PT (9.0-12.0) sec INR (<1.2) BUN (9-20) mg/dL Glucose (74-99) mg/dL ALT (21-72) U/L Total Protein (6.3-8.2) g/dL Urine Blood Large H (Negative) Urine RBC >182 H (0-5) /hpf Urine Mucus Rare H (None) /hpf Diabetes panel 03/14/19 Range/Units 08:15 Sodium 143 (137-145) mmol/L Potassium 4.5 (3.5-5.1) mmol/L Chloride 107 (98-107) mmol/L Carbon Dioxide 23 (22-30) mmol/L BUN 24 H (9-20) mg/dL Creatinine 0.97 (0.66-1.25) mg/dL Glucose 111 H (74-99) mg/dL Calcium 9.0 (8.4-10.2) mg/dL AST 26 (17-59) U/L ALT <6 L (21-72) U/L Alkaline Phosphatase 125 (38-126) U/L Total Protein 11.5 H (6.3-8.2) g/dL Albumin 3.7 (3.5-5.0) g/dL Calcium panel 03/14/19 Range/Units 08:15 Calcium 9.0 (8.4-10.2) mg/dL Albumin 3.7 (3.5-5.0) g/dL Pituitary panel 03/14/19 Range/Units 08:15 Sodium 143 (137-145) mmol/L Potassium 4.5 (3.5-5.1) mmol/L Chloride 107 (98-107) mmol/L Carbon Dioxide 23 (22-30) mmol/L BUN 24 H (9-20) mg/dL Creatinine 0.97 (0.66-1.25) mg/dL Glucose 111 H (74-99) mg/dL Calcium 9.0 (8.4-10.2) mg/dL Adrenal panel 03/14/19 Range/Units 08:15 Sodium 143 (137-145) mmol/L Potassium 4.5 (3.5-5.1) mmol/L Chloride 107 (98-107) mmol/L Carbon Dioxide 23 (22-30) mmol/L BUN 24 H (9-20) mg/dL Creatinine 0.97 (0.66-1.25) mg/dL Glucose 111 H (74-99) mg/dL Calcium 9.0 (8.4-10.2) mg/dL Total Bilirubin 0.4 (0.2-1.3) mg/dL AST 26 (17-59) U/L ALT <6 L (21-72) U/L Alkaline Phosphatase 125 (38-126) U/L Total Protein 11.5 H (6.3-8.2) g/dL Albumin 3.7 (3.5-5.0) g/dL
[2019-03-15] MEDS: SODIUM CHLORIDE 0.9% 1,000 ML IV SCH (04:09)
[2019-03-15] MEDS ORDERED: PANTOPRAZOLE 40 MG TABLET PO SCH (07:30)
[2019-03-15 08:01] LABS: Basophils % (A) 0 %; Eosinophils # (A) 0.1 k/uL (0-0.7); Eosinophils % (A) 1 %; HCT 37.2 % (39.0-53.0); HGB 11.4 gm/dL (13.0-17.5); Lymphocytes # (A) 1.4 k/uL (1.0-4.8); Lymphocytes % (A) 22 %; MCH 29.2 pg (25.0-35.0); MCHC 30.8 g/dL (31.0-37.0); MCV 94.8 fL (80.0-100.0); Mean Platelet Volume 6.7; Monocytes # (A) 0.4 k/uL (0-1.0); Monocytes % (A) 6 %; Neutrophils # (A) 4.5 k/uL (1.3-7.7); Neutrophils % (A) 69 %; Platelet Count 220 k/uL (150-450); RBC 3.92 m/uL (4.30-5.90); RDW 15.5 % (11.5-15.5); WBC 6.5 k/uL (3.8-10.6)
[2019-03-15 08:14] LABS: African American GFR (CKD) >90 (>60 ml/min/1.73 sqM); Anion Gap 10 mmol/L; Blood Urea Nitrogen 18 mg/dL (9-20); Calcium 8.3 mg/dL (8.4-10.2); Carbon Dioxide 25 mmol/L (22-30); Chloride 106 mmol/L (98-107); Glucose 134 mg/dL (74-99); Potassium 4.5 mmol/L (3.5-5.1); Sodium 141 mmol/L (137-145); Uric Acid 6.8 mg/dL (3.5-8.5)
[2019-03-15 08:57] VITALS: BP 170/88; PULSE 68; TEMP 98.2
[2019-03-15] MEDS ORDERED: amLODIPine 5 MG TAB PO SCH (09:00)
[2019-03-15] MEDS ORDERED: LOSARTAN 50 MG TAB PO SCH (09:00)
[2019-03-15] MEDS ORDERED: METOPROLOL SUCCINATE (ER) 25 MG TAB.ER.24H PO SCH (09:00)
[2019-03-15] MEDS ORDERED: FENOFIBRATE 160 MG TAB PO SCH (09:00)
[2019-03-15] MEDS ORDERED: MULTIVITAMINS, THERA 1 EACH TAB PO SCH (09:00)
[2019-03-15] MEDS ORDERED: PANTOPRAZOLE 40 MG/10 ML VIAL IV SCH (09:00)
--- NOTE | 2019-03-15 12:45 | P.DS ---
Providers Date of admission: 03/14/19 12:55 Expected date of discharge: 03/15/19 Attending physician: Lulu Douglas Consults: 03/14/19 14:13 Consult Physician Routine Consulting Provider: Avel Tavera Consult Reason/Comments: renal colic hematuria Do you want consulting provider notified?: Yes Primary care physician: Angel Verma [facility] Course: This 64-year-old gentleman patient of Dr. Verma. He has underlying history of CAD hyperglycemia hypertension hyperlipidemia, admitted emergency room secondary to abdominal pain right flank area, 7 out of 10, with nausea and no vomiting. Patient does not have any constipation or diarrhea no fever, no previous symptoms in the past, patient has a previous hernia in the right inguinal area She was seen in emergency room with imaging studies include an abdomen pelvis CT showing bilateral calculi less than 5 mm, with no hydronephrosis, gallbladder and no abnormalities seen, multiple DJD, C6 in the left hip secondary to admission. Sclerotic density involving the anterior acetabulum on the left, abdomen shows diverticulosis of colon with mild diffuse thickening possibly related to incomplete distention rather than colitis fat-containing umbilical hernia aorta of normal caliber with atherosclerotic changes prominent prostate, scrotal ultrasound shows no testicular torsion left hydrocele trace incidentally seen on of 1.3 double basic count 7.3 urinalysis RBC over 182, urine WBC of 1 8/2: Patient has been seen by general surgery and questionable colitis has been ruled out based on exam. Patient is currently completely pain free. He has been seen by neurologist and thought is that he has passed a kidney stone. Patient is tolerating diet. He is urinating well. Patient will be discharged home today in stable condition. Discharge diagnoses: 1. Acute uncontrolled renal colic, related to passage of stone 2. Nephroliathiasis without hydronephrosis, moderate bilateral multiple 3. Hyperproteinemia without proteinuria significance unknown 4. CAD with prior CABG and cardiac stent 5. GERD 6. Osteoarthritis, generalized 7. Hypertension 8. Hyperglycemia Discharge plan: Home Impression and plan of care have been directed as dictated by the signing physician. Humera Knight nurse practitioner acting as scribe for signing physician. Patient Condition at Discharge: Good Plan - Discharge Summary Discharge Rx Participant: No New Discharge Prescriptions: New Tamsulosin [Flomax] 0.4 mg PO PC-SUPPER #30 cap.er.24h Continue Omeprazole [PriLOSEC] 20 mg PO DAILY Nitroglycerin Sl Tabs [Nitrostat] 0.4 mg PO Q5M PRN PRN Reason: Chest Pain Metoprolol Succinate (ER) [Toprol XL] 50 mg PO DAILY Fenofibrate Nanocrystallized [Tricor] 145 mg PO DAILY Aspirin 325 mg PO DAILY ALPRAZolam [Xanax] 0.5 mg PO TID PRN PRN Reason: Anxiety Ibuprofen 800 mg PO BID Furosemide [Lasix] 20 mg PO DAILY PRN PRN Reason: Edema Multivitamins, Thera [Multivitamin (formulary)] 1 tab PO DAILY Losartan Potassium 100 mg PO DAILY amLODIPine BESYLATE [Norvasc] 5 mg PO DAILY #30 tablet Methocarbamol [Robaxin] 500 mg PO QID PRN PRN Reason: Pain Discharge Medication List ALPRAZolam [Xanax] 0.5 mg PO TID PRN 07/02/14 [History] Aspirin 325 mg PO DAILY 07/02/14 [History] Fenofibrate Nanocrystallized [Tricor] 145 mg PO DAILY 07/02/14 [History] Metoprolol Succinate (ER) [Toprol XL] 50 mg PO DAILY 07/02/14 [History] Nitroglycerin Sl Tabs [Nitrostat] 0.4 mg PO Q5M PRN 07/02/14 [History] Omeprazole [PriLOSEC] 20 mg PO DAILY 07/02/14 [History] Furosemide [Lasix] 20 mg PO DAILY PRN 04/24/17 [History] Ibuprofen 800 mg PO BID 04/24/17 [History] Losartan Potassium 100 mg PO DAILY 07/05/17 [History] Multivitamins, Thera [Multivitamin (formulary)] 1 tab PO DAILY 07/05/17 [History] amLODIPine BESYLATE [Norvasc] 5 mg PO DAILY #30 tablet 07/10/17 [Rx] Methocarbamol [Robaxin] 500 mg PO QID PRN 03/14/19 [History] Tamsulosin [Flomax] 0.4 mg PO PC-SUPPER #30 cap.er.24h 03/15/19 [Rx] Follow up Appointment(s)/Referral(s): Avel Tavera MD [STAFF PHYSICIAN] - 2 Weeks Angel Verma DO [Primary Care Provider] - 1 Week Activity/Diet/Wound Care/Special Instructions: Take Flomax for 7days. Strain urine at home. Discharge Disposition: HOME SELF-CARE
--- NOTE | 2019-03-15 13:02 | P.GSCN ---
History of Present Illness Consult date: 03/15/19 Reason for Consult: Kidney stones Requesting physician: Lulu Douglas History of present illness: The patient is a 64-year-old white male with no prior history of urolithiasis. Yesterday morning, he experienced acute onset of right flank pain, radiating to the right testicle. This was associated with nausea and vomiting. A computed tomography scan showed bilateral small renal calculi, but no ureteral calculi were seen and there was no evidence of hydronephrosis. He is feeling somewhat better this morning. Review of Systems - Constitutional Reports chills, Denies fever - Gastrointestinal Reports nausea, Reports vomiting - Genitourinary Reports flank pain, Denies dysuria, Denies hematuria, Denies urinary frequency Past Medical History Past Medical History: Coronary Artery Disease (CAD), Chest Pain / Angina, GERD/Reflux, Hyperlipidemia, Hypertension, Osteoarthritis (OA), Pneumonia, Vascular Disorder Additional Past Medical History / Comment(s): Ischemic heart disease, nonsustained VT, tachycardia, PAD L leg, varicosities, bilateral leg edema at times, hiatal hernia, hemorrhoids, arthritis multiple joints, back pain, DDD, spinal stenosis, vertigo, sinus problems History of Any Multi-Drug Resistant Organisms: None Reported Past Surgical History: Back Surgery, Coronary Bypass/CABG, Heart Catheterization With Stent, Hernia Repair, Tonsillectomy Additional Past Surgical History / Comment(s): Cardiac caths, PCI with stnet to RCA in 2002, 1997 CABG 3 vessel, colonoscopy/benign polypectomy, low back surgery, bilateral rotator cuff repairs, R inguinal hernia repair x3 and L inguinal hernia repair x1, R hydrocele with surgery. Past Anesthesia/Blood Transfusion Reactions: Postoperative Nausea & Vomiting (PONV) Date of Last Stent Placement:: 12/30/2002 Smoking Status: Former smoker - Past Family History Father Family Medical History: CVA/TIA, Diabetes Mellitus, Deep Vein Thrombosis (DVT), Renal Disease, Vascular Disorder Additional Family Medical History / Comment(s): Abdominal aortic aneurysm Mother Family Medical History: Myocardial Infarction ([place]) Additional Family Medical History / Comment(s): Mother of a [place] at the age of 44yrs. Medications and Allergies Home Medications Medication Instructions Recorded Confirmed Type ALPRAZolam [Xanax] 0.5 mg PO TID PRN 07/02/14 03/14/19 History Aspirin 325 mg PO DAILY 07/02/14 03/14/19 History Fenofibrate Nanocrystallized 145 mg PO DAILY 07/02/14 03/14/19 History [Tricor] Metoprolol Succinate (ER) [Toprol 50 mg PO DAILY 07/02/14 03/14/19 History XL] Nitroglycerin Sl Tabs [Nitrostat] 0.4 mg PO Q5M PRN 07/02/14 03/14/19 History Omeprazole [PriLOSEC] 20 mg PO DAILY 07/02/14 03/14/19 History Furosemide [Lasix] 20 mg PO DAILY PRN 04/24/17 03/14/19 History Ibuprofen 800 mg PO BID 04/24/17 03/14/19 History Losartan Potassium 100 mg PO DAILY 07/05/17 03/14/19 History Multivitamins, Thera [Multivitamin 1 tab PO DAILY 07/05/17 03/14/19 History (formulary)] amLODIPine BESYLATE [Norvasc] 5 mg PO DAILY #30 tablet 07/10/17 03/14/19 Rx Methocarbamol [Robaxin] 500 mg PO QID PRN 03/14/19 03/14/19 History Tamsulosin [Flomax] 0.4 mg PO PC-SUPPER #30 cap.er.24h 03/15/19 Rx Allergies Allergy/AdvReac Type Severity Reaction Status Date / Time hydrocodone [From [place]] Allergy Rash/Hives Verified 03/14/19 08:19 Iodinated Contrast- Oral and Allergy Rash/Hives Verified 03/14/19 08:19 IV Dye [Iodinated Contrast Media - IV Dye] shellfish derived Allergy Rash/Hives Verified 03/14/19 08:19 MRI dye Allergy Rash/Hives Uncoded 07/10/17 10:08 Surgical - Exam Vital Signs Temp Pulse Resp BP Pulse Ox 97.5 F L 66 20 169/103 96 03/14/19 08:03/14/19 08:03/14/19 08:03/14/19 08:03/14/19 08:01 - General well developed, well nourished, no distress - Respiratory normal respiratory effort - Abdomen Abdomen: soft, tender (Minimal right-sided tenderness to palpation), no guarding, no rigid, no rebound - Genitourinary normal penis with no external lesions, testicles non-tender Results - Labs 03/15/19 07:16 03/15/19 07:16 Abnormal Lab Results - Last 24 Hours (Table) 03/14/19 03/14/19 03/14/19 Range/Units 08:15 08:15 08:15 RBC 4.28 L (4.30-5.90) m/uL RDW 16.2 H (11.5-15.5) % PT 12.9 H (9.0-12.0) sec INR 1.3 H (<1.2) BUN 24 H (9-20) mg/dL Glucose 111 H (74-99) mg/dL ALT <6 L (21-72) U/L Total Protein 11.5 H (6.3-8.2) g/dL Urine Blood (Negative) Urine RBC (0-5) /hpf Urine Mucus (None) /hpf 03/14/19 Range/Units 08:15 RBC (4.30-5.90) m/uL RDW (11.5-15.5) % PT (9.0-12.0) sec INR (<1.2) BUN (9-20) mg/dL Glucose (74-99) mg/dL ALT (21-72) U/L Total Protein (6.3-8.2) g/dL Urine Blood Large H (Negative) Urine RBC >182 H (0-5) /hpf Urine Mucus Rare H (None) /hpf Diabetes panel 03/14/19 Range/Units 08:15 Sodium 143 (137-145) mmol/L Potassium 4.5 (3.5-5.1) mmol/L Chloride 107 (98-107) mmol/L Carbon Dioxide 23 (22-30) mmol/L BUN 24 H (9-20) mg/dL Creatinine 0.97 (0.66-1.25) mg/dL Glucose 111 H (74-99) mg/dL Calcium 9.0 (8.4-10.2) mg/dL AST 26 (17-59) U/L ALT <6 L (21-72) U/L Alkaline Phosphatase 125 (38-126) U/L Total Protein 11.5 H (6.3-8.2) g/dL Albumin 3.7 (3.5-5.0) g/dL Calcium panel 08/01/19 Range/Units 08:15 Calcium 9.0 (8.4-10.2) mg/dL Albumin 3.7 (3.5-5.0) g/dL Pituitary panel 03/14/19 Range/Units 08:15 Sodium 143 (137-145) mmol/L Potassium 4.5 (3.5-5.1) mmol/L Chloride 107 (98-107) mmol/L Carbon Dioxide 23 (22-30) mmol/L BUN 24 H (9-20) mg/dL Creatinine 0.97 (0.66-1.25) mg/dL Glucose 111 H (74-99) mg/dL Calcium 9.0 (8.4-10.2) mg/dL Adrenal panel 03/14/19 Range/Units 08:15 Sodium 143 (137-145) mmol/L Potassium 4.5 (3.5-5.1) mmol/L Chloride 107 (98-107) mmol/L Carbon Dioxide 23 (22-30) mmol/L BUN 24 H (9-20) mg/dL Creatinine 0.97 (0.66-1.25) mg/dL Glucose 111 H (74-99) mg/dL Calcium 9.0 (8.4-10.2) mg/dL Total Bilirubin 0.4 (0.2-1.3) mg/dL AST 26 (17-59) U/L ALT <6 L (21-72) U/L Alkaline Phosphatase 125 (38-126) U/L Total Protein 11.5 H (6.3-8.2) g/dL Albumin 3.7 (3.5-5.0) g/dL - Imaging CT scan - abdomen: report reviewed, image reviewed US - kidney/bladder: report reviewed, image reviewed Assessment and Plan (1) Calculus of kidney Current Visit: Yes Status: Acute Code(s): N20.0 - CALCULUS OF KIDNEY SNOMED Code(s): 88189916 Plan: The patient's symptoms are classic for renal colic. However, the computed tomography scan and ultrasound showed no evidence of ureteral calculi or hydronephrosis. I explained to him that it is possible he passed a calculus prior to the computed tomography scan being performed, and that his symptoms may be gradually resolving. As stated, he is feeling better and wishes to be discharged home today. He was given my card to follow-up as needed. He was encouraged to increase his oral fluid intake (particularly water, lemonade, and orange juice), to decrease the likelihood of future stone formation. Please notify me if I can be of any further assistance.
== END 2019-03-15 12:53 | disposition home or self-care (01) ==
LOC: EC 07:59 → 1SOBS 12:55
PROVIDERS: ADMIT Family Medicine; ATTEND Family Medicine
DX: N20.0 Calculus of kidney (principal); I25.10 Atherosclerotic heart disease of native coronary artery without angina pectoris; I10 Essential (primary) hypertension; E78.5 Hyperlipidemia, unspecified; F41.9 Anxiety disorder, unspecified; E88.09 Other disorders of plasma-protein metabolism, not elsewhere classified; K21.9 Gastro-esophageal reflux disease without esophagitis; R73.9 Hyperglycemia, unspecified; M15.9 Polyosteoarthritis, unspecified; G89.29 Other chronic pain; I47.2 Ventricular tachycardia; Z95.5 Presence of coronary angioplasty implant and graft; Z95.1 Presence of aortocoronary bypass graft; I73.9 Peripheral vascular disease, unspecified; M48.00 Spinal stenosis, site unspecified; I83.90 Asymptomatic varicose veins of unspecified lower extremity; Z79.82 Long term (current) use of aspirin; Z79.899 Other long term (current) drug therapy; Z79.1 Long term (current) use of non-steroidal anti-inflammatories (NSAID); Z91.041 Radiographic dye allergy status; Z88.5 Allergy status to narcotic agent; Z91.013 Allergy to seafood; Z87.01 Personal history of pneumonia (recurrent); Z87.891 Personal history of nicotine dependence; Z86.010 Personal history of colon polyps; Z83.3 Family history of diabetes mellitus; Z83.2 Family history of diseases of the blood and blood-forming organs and certain disorders involving the immune mechanism; Z82.49 Family history of ischemic heart disease and other diseases of the circulatory system; Z84.1 Family history of disorders of kidney and ureter; Z82.3 Family history of stroke
CPT/HCPCS: 96375 ×2; 96376 ×2; 96361; 96374; 99285; 36415; 80053; 80048; 82150; 83605; 83690; 84550; 85025 ×2; 85610; 85730; 81001; 74018; 93975; 76870; 76770; 74176; G0378 ×2; J2765; J2405; J1885; J1170 ×2; C9113

== ENCOUNTER 2019-10-18 10:37 | Emergency (ER) | payer BC, MEDICARE ==
[2019-10-18] MEDS ORDERED: hydrALAZINE HCL 20 MG/ML 1 ML VIAL IVP STA (11:16)
--- NOTE | 2019-10-18 11:16 | ED ---
General Adult HPI - General Chief complaint: Chest Pain Stated complaint: Left rib pain Time Seen by Provider: 10/18/19 11:00 Source: patient, RN notes reviewed, old records reviewed Mode of arrival: ambulatory Limitations: no limitations - History of Present Illness Initial comments: 64-year-old male presenting for evaluation of left-sided chest pain. Pain is been present for the past one week. Pain is localized to the left lateral chest wall. Denies injury. Pain is been constant for one week, worse with movement. Patient is able to pinpoint the exact location of his pain. He was seen by his chiropractor earlier today and recommended that the patient come to the emergency department for evaluation. He has a history of CAD status post CABG. He denies nausea vomiting. Denies diaphoresis. Denies radiating pain. Patient states he otherwise feels well. No lower extremity pain or swelling. No dyspnea. - Related Data Home Medications Medication Instructions Recorded Confirmed ALPRAZolam [Xanax] 0.5 mg PO TID PRN 07/02/14 10/18/19 Aspirin 325 mg PO DAILY 07/02/14 10/18/19 Fenofibrate Nanocrystallized 145 mg PO DAILY 07/02/14 10/18/19 [Tricor] Nitroglycerin Sl Tabs [Nitrostat] 0.4 mg PO Q5M PRN 07/02/14 10/18/19 Omeprazole [PriLOSEC] 20 mg PO DAILY 07/02/14 10/18/19 Furosemide [Lasix] 20 mg PO DAILY PRN 04/24/17 10/18/19 Losartan Potassium 100 mg PO DAILY 07/05/17 10/18/19 Multivitamins, Thera [Multivitamin 1 tab PO DAILY 07/05/17 10/18/19 (formulary)] Black Seed Oil 1 tab PO BID 10/18/19 10/18/19 Ibuprofen [Motrin Ib] 800 mg PO Q8H PRN 10/18/19 10/18/19 Metoprolol Succinate [Toprol XL] 100 mg PO HS 10/18/19 10/18/19 Turmeric/Cerc/Biop 1 tab PO DAILY 10/18/19 10/18/19 Vits A,C,E/Lutein/Minerals 1 tab PO HS 10/18/19 10/18/19 [Ocuvite with Lutein Tablet] tiZANidine HCL [Zanaflex] 2 mg PO DAILY PRN 10/18/19 10/18/19 Previous Rx's Medication Instructions Recorded amLODIPine BESYLATE [Norvasc] 5 mg PO DAILY #30 tablet 07/10/17 Allergies Allergy/AdvReac Type Severity Reaction Status Date / Time hydrocodone [From [place]] Allergy Rash/Hives Verified 10/18/19 12:21 Iodinated Contrast Media Allergy Rash/Hives Verified 10/18/19 12:21 [Iodinated Contrast Media - IV Dye] shellfish derived Allergy Rash/Hives Verified 10/18/19 12:21 MRI dye Allergy Rash/Hives Uncoded 10/18/19 10:44 Review of Systems ROS Statement: Those systems with pertinent positive or pertinent negative responses have been documented in the HPI. ROS Other: All systems not noted in ROS Statement are negative. Past Medical History Past Medical History: Coronary Artery Disease (CAD), Chest Pain / Angina, GERD/Reflux, Hyperlipidemia, Hypertension, Myocardial Infarction ([place]), O steoarthritis (OA), Pneumonia, Vascular Disorder Additional Past Medical History / Comment(s): Ischemic heart disease, nonsustained VT, tachycardia, PAD L leg, varicosities, bilateral leg edema at times, hiatal hernia, hemorrhoids, arthritis multiple joints, back pain, DDD, spinal stenosis, vertigo, sinus problems History of Any Multi-Drug Resistant Organisms: None Reported Past Surgical History: Back Surgery, Coronary Bypass/CABG, Heart Catheterization With Stent, Hernia Repair, Tonsillectomy Additional Past Surgical History / Comment(s): Cardiac caths, PCI with stnet to RCA in 2002, 1997 CABG 3 vessel, colonoscopy/benign polypectomy, low back surgery, bilateral rotator cuff repairs, R inguinal hernia repair x3 and L inguinal hernia repair x1, R hydrocele with surgery. Past Anesthesia/Blood Transfusion Reactions: Postoperative Nausea & Vomiting (PONV) Date of Last Stent Placement:: 12/30/2002 Past Psychological History: Anxiety Smoking Status: Former smoker Past Alcohol Use History: Occasional Past Drug Use History: None Reported - Past Family History Father Family Medical History: CVA/TIA, Diabetes Mellitus, Deep Vein Thrombosis (DVT), Renal Disease, Vascular Disorder Additional Family Medical History / Comment(s): Abdominal aortic aneurysm Mother Family Medical History: Myocardial Infarction ([place]) Additional Family Medical History / Comment(s): Mother of a [place] at the age of 44yrs. General Exam Limitations: no limitations General appearance: alert, in no apparent distress Head exam: Present: atraumatic, normocephalic Eye exam: Present: normal appearance, PERRL ENT exam: Present: normal exam Neck exam: Present: normal inspection. Absent: tenderness, meningismus Respiratory exam: Present: normal lung sounds bilaterally, chest wall tenderness (Left lateral focal tenderness corresponding with the patient's pain complaint.). Absent: respiratory distress, wheezes Cardiovascular Exam: Present: regular rate, normal rhythm GI/Abdominal exam: Present: soft. Absent: distended, tenderness Extremities exam: Present: normal inspection, normal capillary refill. Absent: pedal edema, calf tenderness Neurological exam: Present: alert, oriented X3, CN II-XII intact. Absent: motor sensory deficit Psychiatric exam: Present: normal affect, normal mood Skin exam: Present: warm, dry, intact. Absent: cyanosis, diaphoretic Course Vital Signs 10/18/19 10/18/19 10/18/19 10:42 11:27 11:36 Temperature 97.9 F Pulse Rate 87 74 81 Respiratory 16 18 18 Rate Blood Pressure 200/111 172/109 182/113 O2 Sat by Pulse 99 96 98 Oximetry 10/18/19 11:59 Temperature Pulse Rate Respiratory Rate Blood Pressure 149/107 O2 Sat by Pulse Oximetry EKG Findings - EKG Comments: EKG Findings:: EKG: Normal sinus rhythm, rate of 68, MN interval 186, QRS duration 90, QTC 463, no ST segment elevation Medical Decision Making - Medical Decision Making 64-year-old with focal tenderness on the left lateral chest wall. Worse with movement. Patient does indicate after additional history that he may have twisted the wrong way approximately one week ago at the onset of these symptoms while working on his boat. Chest x-ray negative for focal pneumonia, no pneumothorax, no displaced rib fracture. He had an elevated protein and a minimally elevated alkaline phosphatase, given these elevations, CT was performed which is negative for any acute only pathology in the left lateral rib. I did reevaluate the patient, blood pressure is down trending. Patient is very eager for discharge. Pain is reproducible, atypical, no typical features to suspect a coronary cause of his pain. His vitals are otherwise stable with the exception of elevated blood pressure which patient states he does have very difficult to manage blood pressure and follows closely with his primary care physician on a monthly basis. - Lab Data Result diagrams: 10/18/19 11:13 10/18/19 11:13 Lab Results 10/18/19 10/18/19 10/18/19 Range/Units 11:13 11:13 11:13 WBC 8.7 (3.8-10.6) k/uL RBC 4.40 (4.30-5.90) m/uL Hgb 13.6 (13.0-17.5) gm/dL Hct 41.8 (39.0-53.0) % MCV 95.0 (80.0-100.0) fL MCH 30.9 (25.0-35.0) pg MCHC 32.5 (31.0-37.0) g/dL RDW 15.8 H (11.5-15.5) % Plt Count 270 (150-450) k/uL Neutrophils % 67 % Lymphocytes % 21 % Monocytes % 8 % Eosinophils % 2 % Basophils % 0 % Neutrophils # 5.8 (1.3-7.7) k/uL Lymphocytes # 1.9 (1.0-4.8) k/uL Monocytes # 0.7 (0-1.0) k/uL Eosinophils # 0.2 (0-0.7) k/uL Basophils # 0.0 (0-0.2) k/uL PT 12.2 H (9.0-12.0) sec INR 1.2 H (<1.2) APTT 24.7 (22.0-30.0) sec Sodium 141 (137-145) mmol/L Potassium 4.5 (3.5-5.1) mmol/L Chloride 106 (98-107) mmol/L Carbon Dioxide 21 L (22-30) mmol/L Anion Gap 14 mmol/L BUN 22 H (9-20) mg/dL Creatinine 0.80 (0.66-1.25) mg/dL Est GFR (CKD-EPI)AfAm >90 (>60 ml/min/1.73 sqM) Est GFR (CKD-EPI)NonAf >90 (>60 ml/min/1.73 sqM) Glucose 87 (74-99) mg/dL Calcium 9.5 (8.4-10.2) mg/dL Magnesium 1.8 (1.6-2.3) mg/dL Total Bilirubin 0.4 (0.2-1.3) mg/dL AST 27 (17-59) U/L ALT 19 (4-49) U/L Alkaline Phosphatase 130 H (38-126) U/L Troponin I (0.000-0.034) ng/mL Total Protein 10.7 H (6.3-8.2) g/dL Albumin 3.8 (3.5-5.0) g/dL 10/18/19 Range/Units 11:13 WBC (3.8-10.6) k/uL RBC (4.30-5.90) m/uL Hgb (13.0-17.5) gm/dL Hct (39.0-53.0) % MCV (80.0-100.0) fL MCH (25.0-35.0) pg MCHC (31.0-37.0) g/dL RDW (11.5-15.5) % Plt Count (150-450) k/uL Neutrophils % % Lymphocytes % % Monocytes % % Eosinophils % % Basophils % % Neutrophils # (1.3-7.7) k/uL Lymphocytes # (1.0-4.8) k/uL Monocytes # (0-1.0) k/uL Eosinophils # (0-0.7) k/uL Basophils # (0-0.2) k/uL PT (9.0-12.0) sec INR (<1.2) APTT (22.0-30.0) sec Sodium (137-145) mmol/L Potassium (3.5-5.1) mmol/L Chloride (98-107) mmol/L Carbon Dioxide (22-30) mmol/L Anion Gap mmol/L BUN (9-20) mg/dL Creatinine (0.66-1.25) mg/dL Est GFR (CKD-EPI)AfAm (>60 ml/min/1.73 sqM) Est GFR (CKD-EPI)NonAf (>60 ml/min/1.73 sqM) Glucose (74-99) mg/dL Calcium (8.4-10.2) mg/dL Magnesium (1.6-2.3) mg/dL Total Bilirubin (0.2-1.3) mg/dL AST (17-59) U/L ALT (4-49) U/L Alkaline Phosphatase (38-126) U/L Troponin I <0.012 (0.000-0.034) ng/mL Total Protein (6.3-8.2) g/dL Albumin (3.5-5.0) g/dL Disposition Clinical Impression: Chest wall pain, Hypertension Disposition: HOME SELF-CARE Condition: Fair Instructions (If sedation given, give patient instructions): Chest Pain (ED), Hypertension (ED) Is patient prescribed a controlled substance at d/c from ED?: No Referrals: Angel Verma DO [Primary Care Provider] - 1-2 days Time of Disposition: 13:43
[2019-10-18 11:27] LABS: Basophils % (A) 0 %; Eosinophils # (A) 0.2 k/uL (0-0.7); Eosinophils % (A) 2 %; HCT 41.8 % (39.0-53.0); HGB 13.6 gm/dL (13.0-17.5); Lymphocytes # (A) 1.9 k/uL (1.0-4.8); Lymphocytes % (A) 21 %; MCH 30.9 pg (25.0-35.0); MCHC 32.5 g/dL (31.0-37.0); Mean Platelet Volume 6.8; Monocytes # (A) 0.7 k/uL (0-1.0); Monocytes % (A) 8 %; Neutrophils # (A) 5.8 k/uL (1.3-7.7); Neutrophils % (A) 67 %; Platelet Count 270 k/uL (150-450); RDW 15.8 % (11.5-15.5); WBC 8.7 k/uL (3.8-10.6)
--- NOTE | 2019-10-18 11:42 | XR ---
EXAMINATION TYPE: XR chest 2V DATE OF EXAM: 10/18/2019 COMPARISON: 01/31/2019 HISTORY: Chest pain. Lower rib pain. No known injury. TECHNIQUE: Frontal and lateral views of the chest are obtained. FINDINGS: There is no focal air space opacity, pleural effusion, or pneumothorax seen. The cardiac silhouette size is enlarged with post CABG change. The osseous structures are grossly intact. Mild multilevel degenerative change of the spine. IMPRESSION: No acute cardiopulmonary process. If there is focal rib pain rib series would be recomme nded.
[2019-10-18 11:57] LABS: INR 1.2 (<1.2); Partial Thromboplastin Time 24.7 sec (22.0-30.0); Prothrombin Time 12.2 sec (9.0-12.0)
[2019-10-18 12:11] LABS: ALT 19 U/L (4-49); AST 27 U/L (17-59); African American GFR (CKD) >90 (>60 ml/min/1.73 sqM); Albumin 3.8 g/dL (3.5-5.0); Alkaline Phosphatase 130 U/L (38-126); Anion Gap 14 mmol/L; Blood Urea Nitrogen 22 mg/dL (9-20); Calcium 9.5 mg/dL (8.4-10.2); Carbon Dioxide 21 mmol/L (22-30); Chloride 106 mmol/L (98-107); Glucose 87 mg/dL (74-99); Magnesium 1.8 mg/dL (1.6-2.3); Non-African American GFR(CKD) >90 (>60 ml/min/1.73 sqM); Potassium 4.5 mmol/L (3.5-5.1); Sodium 141 mmol/L (137-145); Total Bilirubin 0.4 mg/dL (0.2-1.3); Total Protein 10.7 g/dL (6.3-8.2)
--- NOTE | 2019-10-18 13:24 | CT ---
EXAMINATION TYPE: CT chest wo con DATE OF EXAM: 10/18/2019 COMPARISON: None HISTORY: Left lateral rib pain. CT DLP: 513.1 mGycm, Automated exposure control for dose reduction was used. CONTRAST: None TECHNIQUE: Axial images were obtained at 5 mm thick sections. Reconstructed images are reviewed on t [employer] computer in the coronal plane. FINDINGS: Portion of the thyroid visualized is normal. No suspicious lung nodules or focal infiltrates are present. There is pleural calcification along the anterior right pleural margin. No enlarged mediastinal or hilar adenopathy is evident. The ascending aorta diameter at the level o f the main pulmonary artery is 3.5 cm. The main pulmonary artery diameter at the bifurcation is 2.4 cm. Dense coronary artery calcification is present. Limited CT sections are obtained through the upper abdomen. Multiple nonobstructing bilateral renal s tones are present. No suspicious rib abnormalities identified on the left. No pneumo thorax is evident. IMPRESSIONS: 1. No suspicious left lateral rib abnormality to account for the patient's left rib pain. 2. Anterior mid right pleural calcified plaque.
[2019-10-18 13:55] VITALS: BP 179/114; PULSE 76; RESP 16; TEMP 97.6
== END 2019-10-18 13:52 | disposition home or self-care (01) ==
LOC: EC 10:37
DX: R07.89 Other chest pain (principal); I10 Essential (primary) hypertension; I25.119 Atherosclerotic heart disease of native coronary artery with unspecified angina pectoris; E78.5 Hyperlipidemia, unspecified; I25.2 Old myocardial infarction; F41.9 Anxiety disorder, unspecified; Z79.82 Long term (current) use of aspirin; Z79.899 Other long term (current) drug therapy; Z88.5 Allergy status to narcotic agent; Z91.041 Radiographic dye allergy status; Z91.013 Allergy to seafood; Z95.1 Presence of aortocoronary bypass graft; Z87.891 Personal history of nicotine dependence
CPT/HCPCS: 36415; 93005; 80053; 83735; 84484; 85025; 85610; 85730; 71046; 71250; 99285; 96374; J0360

== ENCOUNTER → 2020-05-07 | Outpatient (CLI) | payer BC, MEDICARE ==
--- NOTE | 2020-05-08 08:03 | MR ---
EXAMINATION TYPE: MR pam/lspine wo con DATE OF EXAM: 05/07/2020 COMPARISON: MRI lumbar spine July 26, 2013. CT chest October 18, 2019. HISTORY: Mid/lower back pain after heavy lifting. Hx lumbar surgery. TECHNIQUE: Multiplanar, multisequence imaging of the thoracic and lumbar spine are performed without IV contrast. FINDINGS: T-SPINE: FINDINGS: Spinal cord shows normal course, caliber, and signal as it courses the thoracic spine. Sonja tebral body heights and alignment are satisfactory. Disc space heights fairly well maintained. Mild m ultilevel anterior spurring. Bone marrow signal intensity is preserved. Tiny posterior disc herniatio ns noted mildly effacing the anterior thecal sac at T7-T8 and T8-T9 levels on sagittal images. Review of the axial images shows no significant spinal canal stenosis or neural foraminal narrowing a t any thoracic level. Mild facet arthropathy lower thoracic levels. Possible small dermal fatty lesi on axial image 1 series 801 versus external marker. No suspicious incidental finding in the visualize d thorax or upper abdomen. IMPRESSION: Mild multilevel spurring and additional mild multilevel degenerative changes as detailed above. L-SPINE: Sagittal images of the lumbar spine show vertebral body heights to remain satisfactory. Stable grade 1 retrolisthesis L3 on L4. Multilevel disc desiccation is redemonstrated. Fairly moderate multilevel disc space narrowing L1-L2 through the L3-L4 levels with vacuum disc phenomenon, there is heterogeneo us bone uptake to endplate changes L2-L3 and L3-L4 levels with moderate spurring. Interval progressio n from 2013 MRI noted. The conus medullaris remains normal in position and signal ending mid L1 level . Axial images show T12-L1 level to remain within normal limits. Axial images at L1-L2 level show [id number] broad disc bulge mildly effacing anterior thecal sa c with mild facet arthropathy bilaterally mildly effacing right posterior lateral thecal sac. Patent bilateral neural foramina. Slight interval progression from prior MRI. Axial images at L2-L3 level show moderate broad disc bulge effacing anterior thecal sac. There is mod erate facet degenerative change and ligament flavum hypertrophy. There is mild left and moderate righ t-sided inferior neural foraminal narrowing. Degenerative Progression from prior MRI noted. Axial images at the L3-L4 level shows spondylolisthesis with posterior spur disc complex effacing ant erior thecal sac. There is interval bilateral laminectomy defects and spinous process resection. Post erior decompression noted. Moderate to severe lateral facet arthropathy remains present. Mild right a nd moderate left-sided neural foraminal narrowing noted. Axial images at the L4-L5 level show mild to moderate facet arthropathy bilaterally. There is mild br oad disc bulge minimally effacing the anterior thecal sac. There is moderate right and mild to modera te left-sided neural foraminal narrowing noted. Axial images at the L5-S1 level show moderate facet arthropathy bilaterally. There is central disc pr otrusion but spinal canal is preserved. There is suggestion of small intradural cyst or cystic lesion axial image 7 causing anterior displacement of the right-sided nerve roots measuring 5 to 6 mm. This is only identified on one axial level. This is not identified on prior study. It is less well seen o n sagittal sequences. There is [id number] right and moderate to severe left-sided neural forami nal narrowing. Paraspinal muscle bulk is maintained. IMPRESSION: Interval successful posterior decompression L3-L4 level. Slightly more prominent spondylo listhesis L3-L4 level. Multilevel degenerative changes as detailed above with interval progression fr om 2012 MRI.
== END | disposition home or self-care (01) ==
LOC: RADMRIMAIN 16:23
PROVIDERS: ATTEND Family Medicine
DX: M48.061 Spinal stenosis, lumbar region without neurogenic claudication (principal); M51.26 Other intervertebral disc displacement, lumbar region; M43.16 Spondylolisthesis, lumbar region; M47.814 Spondylosis without myelopathy or radiculopathy, thoracic region; Z98.890 Other specified postprocedural states
CPT/HCPCS: 72146; 72148

== ENCOUNTER → 2020-07-03 | Outpatient (CLI) | payer BC, MEDICARE ==
--- NOTE | 2020-07-03 16:04 | CT ---
EXAMINATION TYPE: CT thor lumbar spine wo con DATE OF EXAM: 07/03/2020 COMPARISON: MRI thoracolumbar spine 05/07/2020 HISTORY: chronic back pain, no injury CT DLP: 1844.[address] of the thoracic and lumbar spine was performed. Bone and soft tissue window settings a re submitted as well as coronal and sagittal reconstructions. Mild loss of height involving superior endplates of T10, T11, T12 and to a lesser extent L1. There is no evidence for bony retropulsion. These fractures were not present on prior study of 05/07/2020. The re are multiple lucent lesions throughout the visualized thoracic and lumbar spine compatible with me tastatic disease. Partially imaged sacrum demonstrates large osseous mass. The findings are compatibl e with diffuse metastatic disease. Visualized portions of the ileum also demonstrate lytic lesions. Severe degenerative disc disease at L2-3 and L3-4 with vacuum disc noted. Decompressive laminectomy a t L3-4. Central stenosis at L2-3. IMPRESSION: 1. Multiple lytic lesions are seen throughout the thoracic and lumbar spine including mass within the sacrum and iliac wings as visualized. The findings are compatible with metastatic disease. 2. Loss of vertebral body height involving T10-L1 mild in degree without bony retropulsion. 3 degenerative disc disease and central stenosis at L2-3.
--- NOTE | 2020-07-03 16:37 | XR ---
Scoliosis survey HISTORY: Back pain Frontal lateral views of the thoracic lumbar spine submitted on [address] scan same date. Patient is post median sternotomy. There is a spinal curvature. Artifact noted over the right upper c hest. There is multilevel spondylosis present within the thoracic and lumbar spine. Multilevel loss o f disc height is present at the intervertebral levels in the lumbar spine, especially L3-4, L2-3, L1- 2, there is a anterior wedge compression deformity at T12, to lesser extent T10. Spot compression tho ught to be less than 5 degrees. Posterior right seventh rib fracture is displaced. Sclerosis present in the posterior elements. There are calcified pleural plaques. Low bone mineralization limits exam s ensitivity. Laminectomies have been performed at L3. IMPRESSION: Degenerative disc disease, facet arthropathy, mild spinal curvature. Postop changes. Prob able remote rib fracture. Metastatic disease. Correlate for possible myeloma
== END | disposition home or self-care (01) ==
LOC: RADCTMAIN 15:28
PROVIDERS: ATTEND Orthopaedic Surgery
DX: M48.061 Spinal stenosis, lumbar region without neurogenic claudication (principal); M51.36 Other intervertebral disc degeneration, lumbar region; R22.2 Localized swelling, mass and lump, trunk
CPT/HCPCS: 72082; 72128; 72131

== ENCOUNTER → 2020-07-08 | Outpatient (CLI) | payer BC, MEDICARE ==
--- NOTE | 2020-07-09 14:16 | MR ---
EXAMINATION TYPE: MR lumbar spine wo/w con DATE OF EXAM: 07/08/2020 COMPARISON: CT lumbar spine July 03, 2020 HISTORY: LBP and numbness for 20+ years, BLE weakness, hx laminectomy 4 yrs ago. Spondylosis, lumbar lesion. TECHNIQUE: Multiplanar, multisequence images of the lumbar spine is performed without and with IV contrast, util izing 10 mL intravenous Gadavist FINDINGS: Sagittal images of the lumbar spine show vertebral body heights remaining satisfactory. Per sistent grade 1 retrolisthesis L3 on L4. Multilevel disc desiccation. Moderate to advanced disc space narrowing with heterogeneous Modic type II endplate changes L2-L3 and L3-L4 levels. Moderate to adva nced anterior spurring. Posterior decompression at this level with spinous process resection. The con us medullaris is normal in position and signal ending mid L1 level. No suspicious postcontrast enhanc ement. Mild chronic height loss T12 level redemonstrated. Axial images at T12-L1 level shows mild facet arthropathy bilaterally and ligamentum flavum hypertrop hy. Axial images at L1-L2 level show mild facet arthropathy bilaterally. Mild to moderate broad disc bulg e mildly effaces the anterior thecal sac, there is mild left-sided anterior inferior neural foraminal narrowing. Axial images at L2-L3 level shows moderate facet arthropathy and ligamentum flavum hypertrophy mildly effacing right posterior lateral thecal sac. Posterior spur disc complex mildly effaces the anterior thecal sac. Asymmetric moderate right-sided neural foraminal narrowing due to foraminal disc compone nt axial image 24 and sagittal image 13. Axial images at L3-L4 level show spondylolisthesis. There is moderate facet arthropathy bilaterally. Posterior spinous process resection. Posterior bony projection effaces the left anterolateral thecal sac. Moderate bilateral neural foraminal narrowing is present. Axial images at L4-L5 level mild to moderate facet arthropathy. Mild broad disc bulge with tiny centr al disc protrusion minimally effaces the anterior thecal sac. Patent bilateral neural foramina. Axial images at L5-S1 levels of [id number] facet arthropathy. There is focal central disc protr usion but spinal canal is preserved and there is increased epidural fat. There is mild left and moder ate right-sided inferior neural foraminal narrowing. No suspicious incidental retroperitoneal findings. IMPRESSION: Successful posterior decompression L3 level. Multilevel degenerative changes greatest at L2-L3 and L3-L4 levels as detailed above.
== END | disposition home or self-care (01) ==
LOC: RADMRIMAIN 20:12
PROVIDERS: ATTEND Orthopaedic Surgery
DX: M47.816 Spondylosis without myelopathy or radiculopathy, lumbar region (principal); Z98.890 Other specified postprocedural states
CPT/HCPCS: 72158; A9585

== ENCOUNTER → 2020-07-10 | Outpatient (CLI) | payer BC, MEDICARE ==
--- NOTE | 2020-07-11 09:45 | MR ---
EXAMINATION TYPE: MR cspine/tspine wo/w con DATE OF EXAM: 07/10/2020 COMPARISON: MRI thoracic spine May 07, 2020. MRI cervical spine November 24, 2011. CT thoracic spi ne July 03, 2020. HISTORY: Thoracic lesion, Cervicalgia, back pain. TECHNIQUE: Multiplanar, multisequence imaging of cervical and thoracic spine are performed without an d with IV contrast, patient injected with 10 cc of gadolinium . FINDINGS: Cervical spine: FINDINGS: Coronal images show slight levoconvex scoliotic curvature centered mid to lower cervical sp ine. Sagittal images of the cervical spine show the craniocervical junction to remain within normal l imits. The cervical and upper thoracic spinal cord remains normal in caliber and signal. Vertebral alignment is stable and satisfactory and sagittal images. The vertebral body and intravertebral disk heights are normal. The bone marrow signal intensity shows diffuse low T1 and T2 signal with hetero geneous enhancement. No definitive focal lesion. Axial images show from uncovertebral facet degenerative changes causing mild bilateral neural foramin al narrowing at C3-C4 and C4-C5 levels. There is more prominent uncovertebral facet degenerative oglesby ge causing [id number] bilateral neural foraminal narrowing at C5-C6 level. No disc herniation i s evident. IMPRESSION: Diffuse diminished T1 and T2 signal with heterogeneous enhancement could reflect underlyi ng myeloproliferative disorder. Correlate clinically. Pjvf-[id number] multilevel facet arthropathy. No suspicious focal disc herniation. Thoracic spine: Spinal cord redemonstrates normal course, caliber, and signal as it courses the thoracic spine. Align ment remains satisfactory. New mild height loss involving the superior T10 endplate and mild height l oss involving T12 endplate with linear T1 signal suggesting acute or subacute fracture extending ante riorly. Mild height loss superior T11 endplate. T11 and T12 vertebra sagittal image 9 into the anteri or thecal sac. Mild to moderate anterior spurring lower thoracic spine redemonstrated. Disc space hei ghts maintained. Bone marrow signal intensity shows diffuse low T1 and T2 signal with areas of hetero geneous increased T2 signal now present multifocal late. There areas heterogeneous postcontrast enhan cement with more focal enhancement at several levels including for reference the T2 vertebra sagittal image 6 series 1301 for reference and the T8 vertebra centrally same image for reference. Persistent small multiple focal disc herniations minimally effacing the anterior thecal sac in the mid to lower thoracic spine. Review of the axial images shows no significant spinal canal stenosis or neural foraminal narrowing a t any thoracic level. No suspicious incidental finding in the visualized thorax or upper abdomen. IMPRESSION: Diffuse abnormal bone marrow signal with heterogeneous enhancement. More suspicious focal lesions in the thoracic spine. Correlate for myeloproliferative disorder and/or diffuse osseous meta static disease. New acute or subacute compression type fracture deformities lower thoracic spine with slight retropulsion, possible pathologic fractures.
== END | disposition home or self-care (01) ==
LOC: RADMRIMAIN 07:10
PROVIDERS: ATTEND Orthopaedic Surgery
DX: M47.812 Spondylosis without myelopathy or radiculopathy, cervical region (principal); S24.11 Complete lesion of thoracic spinal cord; R93.7 Abnormal findings on diagnostic imaging of other parts of musculoskeletal system
CPT/HCPCS: 72156; 72157; A9585

== ENCOUNTER → 2020-07-13 | Outpatient (CLI) | payer BC, MEDICARE ==
[2020-07-13 13:38] LABS: Anisocytosis Slight; Basophils % (A) 0 %; Eosinophils # (A) 0.1 k/uL (0-0.7); Eosinophils % (A) 1 %; HGB 13.6 gm/dL (13.0-17.5); Lymphocytes # (A) 1.6 k/uL (1.0-4.8); Lymphocytes % (A) 21 %; MCH 30.9 pg (25.0-35.0); MCHC 33.1 g/dL (31.0-37.0); MCV 93.4 fL (80.0-100.0); Mean Platelet Volume 6.9; Monocytes # (A) 0.6 k/uL (0-1.0); Monocytes % (A) 8 %; Neutrophils # (A) 5.2 k/uL (1.3-7.7); Neutrophils % (A) 68 %; Platelet Count 252 k/uL (150-450); RBC 4.39 m/uL (4.30-5.90); RDW 17.3 % (11.5-15.5); WBC 7.7 k/uL (3.8-10.6)
[2020-07-13 14:50] LABS: Erythrocyte Sedimentation Rate 93 mm/hr (0-15)
[2020-07-14 00:26] LABS: ALT 44 U/L (10-49); AST 28 U/L (14-35); African American GFR (CKD) 102.8 (60.0-200.0); Alkaline Phosphatase 116 U/L (41-126); BUN/Creat Ratio 38.89 Ratio (12.00-20.00); C Reactive Protein <0.4 mg/dL (0.0-0.8); Calcium 9.6 mg/dL (8.7-10.3); Carbon Dioxide 24.7 mmol/L (21.6-31.8); Chloride 97 mmol/L (96-109); Globulin 8.2 g/dL (1.6-3.3); Glucose 88 mg/dL (70-110); Non-African American GFR(CKD) 88.7 (60.0-200.0); Protein, Total 11.4 g/dL (6.2-8.2); Sodium 134 mmol/L (135-145); Total Bilirubin 0.3 mg/dL (0.3-1.2); Total Protein 11.5 g/dL (6.2-8.2)
[2020-07-14 13:17] LABS: Albumin 2.91 g/dL (3.80-4.90); Gamma Globulin 2.11 g/dL (0.70-1.50)
[2020-07-15 11:27] LABS: Free Kappa Lt Chain Qnt, Urine 0.195 mg/dL (0.140-2.420)
== END | disposition home or self-care (01) ==
LOC: LABWHC1 12:40
PROVIDERS: ATTEND Orthopaedic Surgery
DX: C90.00 Multiple myeloma not having achieved remission (principal)
CPT/HCPCS: 36415; 80053; 83883; 84165; 84166; 85025; 85652; 86140; 86335

== ENCOUNTER → 2020-07-20 | Outpatient (CLI) | payer BC, MEDICARE ==
--- NOTE | 2020-07-21 08:42 | CT ---
EXAMINATION TYPE: CT ChestAbdPelvis wo con DATE OF EXAM: 07/20/2020 COMPARISON: Chest CT October 18, 2019. CT abdomen and pelvis March 14, 2019. Recent MRI exams. HISTORY: Multiple myeloma CT DLP: 1500 mGycm. Automated Exposure Control for Dose Reduction was Utilized. TECHNIQUE: CT scan of the thorax, abdomen and pelvis is performed without or lower IV contrast. FINDINGS: LUNGS: Calcified pleural plaque anterior right midlung redemonstrated. Lungs remain predominantly adonay ar. Right lower lung dependent atelectasis. No pleural effusion or pneumothorax. MEDIASTINUM: There are no new greater than 1 cm hilar or mediastinal lymph nodes. No cardiomegaly o r pericardial effusion is seen. Post-CABG changes with mediastinal clips and sternal wires is redemo nstrated. LIVER/GB: No significant abnormality is appreciated. PANCREAS: No significant abnormality is seen. SPLEEN: No significant abnormality is seen. ADRENALS: No significant abnormality is seen. KIDNEYS: Tiny nonobstructing bilateral renal calculi are again seen. No hydronephrosis noted bilatera lly. BOWEL: No significant abnormality is seen. GENITAL ORGANS: Enlarged prostate gland consistent with BPH redemonstrated. LYMPH NODES: No greater than 1cm abdominal or pelvic lymph nodes are appreciated. OSSEOUS STRUCTURES: Extensive bony changes from prior CT studies correlate with recent MRI exams as t here is now diffuse multifocal predominantly lytic with some sclerotic appearance throughout the osse ous structures, largest lytic lesion right acetabulum posterior wall shows breakthrough towards the h ip joint with soft tissue mass axial image 115. Consider making patient nonweightbearing on right hip to prevent pathologic fracture. Smaller lesion left posterior acetabulum noted on same image now chris aking through the anterior wall of the posterior column. There is involvement of the bilateral ribs, small soft tissue component noted in the posterior ninth rib where there is healed pathologic fractur e. Several mild pathologic compression fracture deformities throughout the thoracolumbar spine at sit e of myeloma now present correlates with recent MRI OTHER: No significant additional abnormality is seen. IMPRESSION: Marked diffuse abnormal osseous replacement consistent with significant myeloma developme nt from CT studies March 2019 and October 2019 which correlates with recent MRI. Involvement in both hip joints right larger and more significant than left noted.
== END | disposition home or self-care (01) ==
LOC: RADCTMAIN 16:12
PROVIDERS: ATTEND Orthopaedic Surgery
DX: C90.00 Multiple myeloma not having achieved remission (principal); Z91.048 Other nonmedicinal substance allergy status
CPT/HCPCS: 71250; 74176

== ENCOUNTER → 2020-07-25 | Outpatient (CLI) | payer BC, MEDICARE ==
--- NOTE | 2020-07-27 12:20 | PE ---
EXAMINATION TYPE: PET CT fusion whole body DATE OF EXAM: 07/25/2020 COMPARISON: Whole body CT July 20, 2020. Recent MRI spine studies. HISTORY: Multiple myeloma. TECHNIQUE: Following the intravenous administration of 10.6 mCi of F-18 FDG, whole body images are p erformed from the top of skull to the bottom of feet. Images are reviewed on the computer in the cor onal, axial, and sagittal planes. Reconstructed rotating images are created on independent workstati on and reviewed on the computer. A localization and attenuation correction CT is performed in conju nction with the PET scan. SCAN: Initial Scan FINDINGS: HEAD AND NECK: No areas of abnormal hypermetabolic uptake or suspicious hypermetabolic lytic lesions CHEST, MEDIASTINUM, AND HILAR REGION: No area of abnormal hypermetabolic uptake. ABDOMEN AND PELVIS: No areas of abnormal hypermetabolic uptake. OSSEOUS STRUCTURES: Scattered lytic and sclerotic osseous lesions, for reference there is slightly hy permetabolic left T3 lytic lesion on axial image 103, max SUV is 4.78. There is mild hypermetabolic in anterolateral left mid to lower rib lesion axial image 173, max SUV i s 4.89. Additional mild hypermetabolic lesions correspond to the numerous tiny lytic foci throughout the pelv is including both hips and throughout the abnormal bone in the spine best seen on recent MRI studies. Extremities: No suspicious areas of abnormal hypermetabolic uptake. OTHER CT: Mild calcified plaque bilateral carotid bulb level. Post CABG changes with mediastinal clips and sternal wires. Dependent atelectasis in both lungs. The liver is diffusely low dense consistent with diffuse fatty infiltration. Mild/moderate calcified plaque of the aorta extends into branch vessels. Few scattered pelvic phleboliths. IMPRESSION: Diffuse osseous involvement from myeloma as seen on recent MRI and CT studies correlates with PET/CT. No solid organ involvement or suspicious soft tissue masses to suggest plasmacytoma.
== END | disposition home or self-care (01) ==
LOC: RADPETMAIN 10:26
PROVIDERS: ATTEND Internal Medicine Hematology & Oncology
DX: C90.00 Multiple myeloma not having achieved remission (principal)
CPT/HCPCS: 78816; A9552

== ENCOUNTER 2020-07-30 05:40 | Day surgery (SDC) | payer BC, MEDICARE ==
[2020-07-29 09:04] VITALS: BMI 30.4
[2020-07-30] MEDS ORDERED: LIDOCAINE 1% (10MG/ML) FOR IV START INTRADERMA PRN (05:42)
[2020-07-30] MEDS ORDERED: LACTATED RINGERS 1,000 ML IV SCH (05:42)
[2020-07-30 06:13] VITALS: TEMP 97.8
[2020-07-30] MEDS ORDERED: LACTATED RINGERS 1,000 ML IV ONE (06:23)
[2020-07-30] MEDS ORDERED: PROPOFOL 10 MG/ML 20 ML VIAL IV ONE (07:05)
[2020-07-30 07:47] VITALS: BP 138/81; PULSE 71; RESP 16
[2020-07-30 08:13] LABS: Anisocytosis Slight; HCT 38.9 % (39.0-53.0); HGB 12.3 gm/dL (13.0-17.5); MCHC 31.5 g/dL (31.0-37.0); MCV 95.1 fL (80.0-100.0); Mean Platelet Volume 7.2; Platelet Count 157 k/uL (150-450); RBC 4.09 m/uL (4.30-5.90); RDW 17.1 % (11.5-15.5); Reticulocyte % 1.4 % (0.5-2.0); WBC 5.2 k/uL (3.8-10.6)
[2020-07-30 08:42] LABS: Eosinophils # (M) 0.36 k/uL (0-0.7); Lymphocytes # (M) 1.66 k/uL (1.0-4.8); Monocytes # (M) 0.68 k/uL (0-1.0); Neutrophils % (M) 48 %; Nucleated Red Blood Cells 0 /100 WBC (0-0); Total Cells Counted 100
[2020-07-30 08:43] LABS: Poikilocytosis (M) Present; Rouleaux Present
--- NOTE | 2020-07-30 09:39 | PCN ---
PROCEDURE NOTE DATE OF PROCEDURE: 07/30/2020. PROCEDURE: Bone marrow aspirate and biopsy. SITE: Right iliac crest. ANESTHESIA: Local with IV systemic sedation. PREOPERATIVE DIAGNOSIS: Multiple myeloma. POSTOPERATIVE DIAGNOSIS: Multiple myeloma. DETAILS: Utilizing sterile technique, the skin overlying the right iliac crest was prepared with Betadine and alcohol. After adequate sterile draping, local anesthesia with 1% lidocaine and systemic sedation size 11.4 inch Jamshidi needle was utilized to access the periosteum with ease. A total of 15 mL of aspirate as well as requested 5 mm bone core biopsies were obtained. The patient tolerated the procedure well. There was no immediate procedure-related complications. TOTAL BLOOD LOSS: Less than 1 mL. RESULTS: Pending. MMODL / IJN: [id number] /
== END 2020-07-30 08:05 | disposition home or self-care (01) ==
LOC: OR 05:40
PROVIDERS: ATTEND Internal Medicine Hematology & Oncology
DX: C90.00 Multiple myeloma not having achieved remission (principal); D64.9 Anemia, unspecified; I10 Essential (primary) hypertension; M15.9 Polyosteoarthritis, unspecified; G89.29 Other chronic pain; M54.5 Low back pain; I25.10 Atherosclerotic heart disease of native coronary artery without angina pectoris; E78.5 Hyperlipidemia, unspecified; K21.9 Gastro-esophageal reflux disease without esophagitis; Z91.048 Other nonmedicinal substance allergy status; Z79.891 Long term (current) use of opiate analgesic; Z79.899 Other long term (current) drug therapy; Z79.82 Long term (current) use of aspirin; Z90.89 Acquired absence of other organs; Z98.890 Other specified postprocedural states; Z87.19 Personal history of other diseases of the digestive system; Z87.39 Personal history of other diseases of the musculoskeletal system and connective tissue; Z86.19 Personal history of other infectious and parasitic diseases; Z87.891 Personal history of nicotine dependence; Z95.1 Presence of aortocoronary bypass graft; Z88.5 Allergy status to narcotic agent; Z91.013 Allergy to seafood; Z91.041 Radiographic dye allergy status
CPT/HCPCS: 85025; 85045; 38222; J2704

== ENCOUNTER 2020-09-06 15:47 | Observation (INO) | payer BC, MEDICARE ==
[2020-09-06] MEDS ORDERED: SODIUM CHLORIDE 0.9% 1,000 ML IV ONE (16:13)
[2020-09-06 16:25] LABS: Anisocytosis Slight; HCT 39.7 % (39.0-53.0); HGB 12.7 gm/dL (13.0-17.5); MCH 29.9 pg (25.0-35.0); MCHC 32.1 g/dL (31.0-37.0); MCV 93.1 fL (80.0-100.0); Mean Platelet Volume 12.4; RBC 4.26 m/uL (4.30-5.90); WBC 3.8 k/uL (3.8-10.6)
--- NOTE | 2020-09-06 16:32 | ED ---
General Adult HPI - General Chief complaint: Shortness of Breath Stated complaint: SOB Time Seen by Provider: 09/06/20 15:56 Source: patient Mode of arrival: ambulatory Limitations: no limitations - History of Present Illness Initial comments: Is a 65-year-old male with a history of CAD and recent diagnosis of multiple myeloma who presents emergency department for exertional shortness of breath and lightheadedness. The patient states that this started over the last few days. He states that when he is at rest he has no symptoms. No shortness of breath or lightheadedness however soon as he stands up or attempts to walk he became very lightheaded and short of breath. He states he intermittently gets some chest tightness however does not seem to be related to the other symptoms. He does have nitroglycerin at home that he takes however he states he has not had to take this over the last few days. He states that earlier in the week he did hav e 2 days rate was having quite a bit of nausea and vomiting with diarrhea. Denies any dark or bloody stools or blood in the vomit. He states that he did start on some chemotherapy (Revlimid and velcade) a couple of weeks ago and gets 2 injections per week. He is otherwise tolerated the chemotherapy well. He denies having any orthopnea. Denies any history of congestive heart failure. No heart palpitations. No lower extremity edema or pain. No history of PE or DVT. The patient does have a contrast ALLERGY which he states he gets shortness of breath and hives. No fevers/chills. No cough. He denies any other complaints. - Related Data Home Medications Medication Instructions Recorded Confirmed ALPRAZolam [Xanax] 0.5 mg PO TID PRN 07/02/14 09/06/20 Omeprazole [PriLOSEC] 20 mg PO BID 07/02/14 09/06/20 Losartan Potassium 100 mg PO DAILY 07/05/17 09/06/20 Acetaminophen-Codeine 300-30mg 1 tab PO Q12H PRN 07/14/20 09/06/20 [Tylenol w/codeine #3] Acetaminophen Tab [Tylenol Tab] 1,000 mg PO Q6HR PRN 09/06/20 09/06/20 Acyclovir 400 mg PO BID 09/06/20 09/06/20 Aspirin EC [Ecotrin] 325 mg PO DAILY 09/06/20 09/06/20 Dexamethasone [Decadron] 40 mg PO FR 09/06/20 09/06/20 Lenalidomide [Revlimid] 25 mg PO HS 09/06/20 09/06/20 Metoprolol Succinate (ER) [Toprol 100 mg PO BID 09/06/20 09/06/20 Xl] Morphine Sulfate ER [Ms Contin] 15 mg PO Q12HR PRN 09/06/20 09/06/20 Nitroglycerin Sl Tabs [Nitrostat] 0.4 mg SUBLINGUAL Q5M PRN 09/06/20 09/06/20 Prochlorperazine [Compazine] 10 mg PO QID PRN 09/06/20 09/06/20 Sulfamethox-Tmp 800-160Mg [Bactrim 1 tab PO MOWEFR 09/06/20 09/06/20 DS 800-160 mg] amLODIPine [Norvasc] 10 mg PO DAILY 09/06/20 09/06/20 Allergies Allergy/AdvReac Type Severity Reaction Status Date / Time hydrocodone [From [facility]ave] Allergy Rash/Hives Verified 09/06/20 17:30 Iodinated Contrast Media Allergy Rash/Hives Verified 09/06/20 17:30 [Iodinated Contrast Media - IV Dye] shellfish derived Allergy Rash/Hives Verified 09/06/20 17:30 MRI dye Allergy Rash/Hives Uncoded 07/29/20 08:53 Review of Systems ROS Statement: Those systems with pertinent positive or pertinent negative responses have been documented in the HPI. ROS Other: All systems not noted in ROS Statement are negative. Past Medical History Past Medical History: Coronary Artery Disease (CAD), Cancer, Chest Pain / Angina, GERD/Reflux, Hyperlipidemia, Hypertension, Myocardial Infarction (RI), Osteoarthritis (OA), Pneumonia, Vascular Disorder Additional Past Medical History / Comment(s): Ischemic heart disease, nonsustained VT, tachycardia, PAD L leg, varicosities, bilateral leg edema at times, hiatal hernia, hemorrhoids, arthritis multiple joints, back pain, DDD, spinal stenosis, vertigo, sinus problems, multiple myeloma History of Any Multi-Drug Resistant Organisms: None Reported Past Surgical History: Back Surgery, Coronary Bypass/CABG, Heart Catheterization With Stent, Hernia Repair, Tonsillectomy Additional Past Surgical History / Comment(s): Cardiac caths, PCI with stnet to RCA in 1997 CABG 3 vessel, colonoscopy/benign polypectomy, low back surg geovanna, bilateral rotator cuff repairs, R inguinal hernia repair x3 and L inguinal hernia repair x1, R hydrocele with surgery. Past Anesthesia/Blood Transfusion Reactions: Postoperative Nausea & Vomiting (PONV) Date of Last Stent Placement:: 12/30/2002 Past Psychological History: Anxiety Smoking Status: Former smoker Past Alcohol Use History: None Reported Past Drug Use History: None Reported - Past Family History Father Family Medical History: CVA/TIA, Diabetes Mellitus, Deep Vein Thrombosis (DVT), Renal Disease, Vascular Disorder Additional Family Medical History / Comment(s): Abdominal aortic aneurysm Mother Family Medical History: Myocardial Infarction (RI) Additional Family Medical History / Comment(s): Mother of a RI at the age of 44yrs. General Exam - General Exam Comments Initial Comments: Constitutional: Awake alert Appears comfortable Head: Normocephalic atraumatic , oral mucosa appears dry Eyes: no conjunctival injection No scleral icterus EOMI, no conjunctival pallor Neck: No JVD Supple Heart: Regular rate rhythm normal S1-S2 no murmurs Lungs: Clear to auscultation bilaterally No wheezing No rales Abdomen: Soft nondistended nontender Extremities: Non edematous DP pulses intact Radial pulses intact Neuro: A&Ox3 No focal neurologic deficits Psych: Appropriate mood and affect Limitations: no limitations Course Vital Signs 09/06/20 09/06/20 09/06/20 15:50 16:32 17:36 Temperature 98 F Pulse Rate 75 69 69 Respiratory 18 18 18 Rate Blood Pressure 89/58 80/52 119/67 O2 Sat by Pulse 99 98 98 Oximetry EKG Findings - EKG Comments: EKG Findings:: EKG showing normal sinus rhythm with a rate of 75. There are no abnormal ST segment changes. T-wave inversions in V2 and V3. Also in aVF. QTC is prolonged at 531. Other intervals are normal. No ectopy. Medical Decision Making - Medical Decision Making This is a 65-year-old male who presents him in [facility] for positional lightheadedness and shortness of breath. On admission the patient was found be hypotensive in the 80s over 50s. Otherwise his vital signs are stable. He was afebrile. The patient no focal findings on examination except for very dry oral mucosa. The patient has been having nausea and vomiting with diarrhea earlier in the week however this has subsequently resolved. He has no complaints of any cough. No urinary symptoms. He's been checking himself or fevers at home and has not been febrile at home. Blood work was obtained that showed an elevated BUN when compared to his baseline however creatinine was only minimally increased. CBC see did not show any evidence for leukocytosis or neutropenia. He did have from cytopenia which is new him to 50. Hemoglobin was stable. Lactic acid was 2.1 troponin was negative. His d-dimer did come back elevated and thus a CTA was performed that was unremarkable. At this time there is no evidence for sepsis so and wax were not started. Blood cultures were drawn and pro-calcitonin after speaking with Dr. Venegas about the admission. The patient's blood pressure did improve to high 90s over high 60s. Maps consistently been above 75. The patient otherwise is not tachycardic and is feeling improved at fluids. Going to continue him on fluids hydration, and will repeat lactic and troponin. We will obtain urinalysis for completeness. I suspect this hypotension may be related to his Velcade. Thrombocytopenia likely related to his Revlimid. Patient will be admitted to the hospital for very close monitoring to make sure that there isn't developing sepsis or the patient's blood pressure tends to worsen. Dr. Venegas accepts the admission at this time. - Lab Data Result diagrams: 09/06/20 16:19 09/06/20 16:19 Lab Results 09/06/20 09/06/20 09/06/20 Range/Units 16:05 16:15 16:19 WBC 3.8 (3.8-10.6) k/uL RBC 4.26 L (4.30-5.90) m/uL Hgb 12.7 L (13.0-17.5) gm/dL Hct 39.7 (39.0-53.0) % MCV 93.1 (80.0-100.0) fL MCH 29.9 (25.0-35.0) pg MCHC 32.1 (31.0-37.0) g/dL RDW 18.0 H (11.5-15.5) % Plt Count 50 L D (150-450) k/uL MPV 12.4 Neutrophils % (Manual) 49 % Lymphocytes % (Manual) 13 % Monocytes % (Manual) 38 % Neutrophils # (Manual) 1.86 (1.3-7.7) k/uL Lymphocytes # (Manual) 0.49 L (1.0-4.8) k/uL Monocytes # (Manual) 1.44 H (0-1.0) k/uL Nucleated RBCs 0 (0-0) /100 WBC Manual Slide Review Performed Toxic Vacuolation Present Large Platelets Present Anisocytosis Slight Anisocytosis (manual) Present PT (9.0-12.0) sec INR (<1.2) APTT (22.0-30.0) sec D-Dimer (<0.60) mg/L FEU Sodium (137-145) mmol/L Potassium (3.5-5.1) mmol/L Chloride (98-107) mmol/L Carbon Dioxide (22-30) mmol/L Anion Gap mmol/L BUN (9-20) mg/dL Creatinine (0.66-1.25) mg/dL Est GFR (CKD-EPI)AfAm (>60 ml/min/1.73 sqM) Est GFR (CKD-EPI)NonAf (>60 ml/min/1.73 sqM) Glucose (74-99) mg/dL Plasma Lactic Acid Ivan (0.7-2.0) mmol/L Calcium (8.4-10.2) mg/dL Total Bilirubin (0.2-1.3) mg/dL AST (17-59) U/L ALT (4-49) U/L Alkaline Phosphatase (38-126) U/L Troponin I (0.000-0.034) ng/mL NT-Pro-B Natriuret Pep pg/mL Total Protein (6.3-8.2) g/dL Albumin (3.5-5.0) g/dL Blood Type O Positive Blood Type Confirm O Positive Blood Type Recheck No Previous Record Bld Type Recheck Status CABO Indicated Antibody Screen NEGATIVE Spec Expiration Date 09/09/2020 - 231409/06/20 09/06/20 09/06/20 Range/Units 16:19 16:19 16:19 WBC (3.8-10.6) k/uL RBC (4.30-5.90) m/uL Hgb (13.0-17.5) gm/dL Hct (39.0-53.0) % MCV (80.0-100.0) fL MCH (25.0-35.0) pg MCHC (31.0-37.0) g/dL RDW (11.5-15.5) % Plt Count (150-450) k/uL MPV Neutrophils % (Manual) % Lymphocytes % (Manual) % Monocytes % (Manual) % Neutrophils # (Manual) (1.3-7.7) k/uL Lymphocytes # (Manual) (1.0-4.8) k/uL Monocytes # (Manual) (0-1.0) k/uL Nucleated RBCs (0-0) /100 WBC Manual Slide Review Toxic Vacuolation Large Platelets Anisocytosis Anisocytosis (manual) PT 13.0 H (9.0-12.0) sec INR 1.3 H (<1.2) APTT 23.3 (22.0-30.0) sec D-Dimer 1.28 H (<0.60) mg/L FEU Sodium 141 (137-145) mmol/L Potassium 3.9 (3.5-5.1) mmol/L Chloride 107 (98-107) mmol/L Carbon Dioxide 20 L (22-30) mmol/L Anion Gap 14 mmol/L BUN 61 H (9-20) mg/dL Creatinine 1.10 (0.66-1.25) mg/dL Est GFR (CKD-EPI)AfAm 81 (>60 ml/min/1.73 sqM) Est GFR (CKD-EPI)NonAf 70 (>60 ml/min/1.73 sqM) Glucose 133 H (74-99) mg/dL Plasma Lactic Acid Ivan 2.1 H* (0.7-2.0) mmol/L Calcium 8.0 L (8.4-10.2) mg/dL Total Bilirubin 0.3 (0.2-1.3) mg/dL AST 25 (17-59) U/L ALT 32 (4-49) U/L Alkaline Phosphatase 165 H (38-126) U/L Troponin I (0.000-0.034) ng/mL NT-Pro-B Natriuret Pep pg/mL Total Protein 9.5 H (6.3-8.2) g/dL Albumin 3.7 (3.5-5.0) g/dL Blood Type Blood Type Confirm Blood Type Recheck Bld Type Recheck Status Antibody Screen Spec Expiration Date 09/06/20 09/06/20 Range/Units 16:19 16:19 WBC (3.8-10.6) k/uL RBC (4.30-5.90) m/uL Hgb (13.0-17.5) gm/dL Hct (39.0-53.0) % MCV (80.0-100.0) fL MCH (25.0-35.0) pg MCHC (31.0-37.0) g/dL RDW (11.5-15.5) % Plt Count (150-450) k/uL MPV Neutrophils % (Manual) % Lymphocytes % (Manual) % Monocytes % (Manual) % Neutrophils # (Manual) (1.3-7.7) k/uL Lymphocytes # (Manual) (1.0-4.8) k/uL Monocytes # (Manual) (0-1.0) k/uL Nucleated RBCs (0-0) /100 WBC Manual Slide Review Toxic Vacuolation Large Platelets Anisocytosis Anisocytosis (manual) PT (9.0-12.0) sec INR (<1.2) APTT (22.0-30.0) sec D-Dimer (<0.60) mg/L FEU Sodium (137-145) mmol/L Potassium (3.5-5.1) mmol/L Chloride (98-107) mmol/L Carbon Dioxide (22-30) mmol/L Anion Gap mmol/L BUN (9-20) mg/dL Creatinine (0.66-1.25) mg/dL Est GFR (CKD-EPI)AfAm (>60 ml/min/1.73 sqM) Est GFR (CKD-EPI)NonAf (>60 ml/min/1.73 sqM) Glucose (74-99) mg/dL Plasma Lactic Acid Ivan (0.7-2.0) mmol/L Calcium (8.4-10.2) mg/dL Total Bilirubin (0.2-1.3) mg/dL AST (17-59) U/L ALT (4-49) U/L Alkaline Phosphatase (38-126) U/L Troponin I <0.012 (0.000-0.034) ng/mL NT-Pro-B Natriuret Pep 250 pg/mL Total Protein (6.3-8.2) g/dL Albumin (3.5-5.0) g/dL Blood Type Blood Type Confirm Blood Type Recheck Bld Type Recheck Status Antibody Screen Spec Expiration Date Disposition Clinical Impression: Hypotension, Dehydration, Medication side effect Disposition: ADMITTED IP TO THIS HOSP Condition: Good Referrals: Angel Verma DO [Primary Care Provider] - 1-2 days
--- NOTE | 2020-09-06 16:34 | XR ---
EXAMINATION TYPE: XR chest 2V DATE OF EXAM: 09/06/2020 COMPARISON: 10/18/2019 HISTORY: Short of breath TECHNIQUE: FINDINGS: There is no heart failure nor confluent pneumonic infiltrate. There are chest leads. There are sternal wires. Costophrenic angles are clear. Bony thorax is intact. IMPRESSION: No active cardiopulmonary disease. Normal heart. No change.
[2020-09-06 16:35] LABS: Albumin 3.7 g/dL (3.5-5.0); Potassium 3.9 mmol/L (3.5-5.1); Total Bilirubin 0.3 mg/dL (0.2-1.3); Total Protein 9.5 g/dL (6.3-8.2)
[2020-09-06 16:48] LABS: Platelet Count 50 k/uL (150-450)
[2020-09-06 16:52] LABS: INR 1.3 (<1.2); Partial Thromboplastin Time 23.3 sec (22.0-30.0)
[2020-09-06 16:55] LABS: Anisocytosis (M) Present; Large Platelets Present; Lymphocytes # (M) 0.49 k/uL (1.0-4.8); Monocytes # (M) 1.44 k/uL (0-1.0); Neutrophils # (M) 1.86 k/uL (1.3-7.7); Neutrophils % (M) 49 %; Nucleated Red Blood Cells 0 /100 WBC (0-0); Total Cells Counted 100; Toxic Vacuolation Present
[2020-09-06 16:57] LABS: D-Dimer 1.28 mg/L FEU (<0.60)
[2020-09-06] MEDS ORDERED: SODIUM CHLORIDE 0.9% 1,000 ML IV STA (17:01)
[2020-09-06] MEDS ORDERED: FAMOTIDINE 20 MG/2 ML VIAL IV STA (17:04)
[2020-09-06] MEDS ORDERED: diphenhydrAMINE 50 MG/ML 1 ML VIAL IVP STA (17:04)
[2020-09-06] MEDS ORDERED: methylPREDNISolone SOD SUCCI 125 MG/2 ML VIAL IV STA (17:05)
--- NOTE | 2020-09-06 17:58 | CT ---
EXAMINATION TYPE: CT angio chest DATE OF EXAM: 09/06/2020 COMPARISON: None HISTORY: SOB, elevated d-dimer and history of multiple myeloma. CT DLP: 583.3 mGycm Automated exposure control for dose reduction was used. CONTRAST: Performed with IV Contrast, patient injected with 100ml mL of Isovue 370. There are 3-D post processed images. The lungs are clear of consolidation. There is no evidence of a pulmonary mass. Heart appears borderl ine enlarged. There is no pericardial effusion. There is no pleural effusion. There is some reflux of contrast into the inferior vena cava. There is no mediastinal adenopathy. There are no hilar masses. There is normal contrast opacification of the pulmonary arteries. There are no filling defects. There are multiple osteolytic foci in the thoracic spine. There is compression fractures noted at T12 and T11 and T10 and T8 and T5 vertebra. There is compression deformity up to 30%. Fracture of T12 ap pears more acute. There is also involvement of the RIBS old posterior lower rib fracture. IMPRESSION: No evidence of pulmonary embolism. Mild cardiomegaly. Changes in the bony thorax consistent with mult iple myeloma
[2020-09-06] MEDS: SODIUM CHLORIDE 0.9% 1,000 ML IV SCH (18:14)
[2020-09-06] MEDS ORDERED: NALOXONE 0.4 MG/ML 1 ML VIAL IV PRN (18:22)
[2020-09-06] MEDS ORDERED: CALCIUM GLUCONATE 1 GM in SODIUM CHLORIDE 0.9% 100 ML IVPB ONE (18:26)
[2020-09-06 20:44] LABS: Appearance,Urine Clear (Clear); Bilirubin,Urine Negative (Negative); Blood,Urine Negative (Negative); Color,Urine Colorless; Glucose,Urine (UA) Negative (Negative); Ketones,Urine Negative (Negative); Leukocyte Esterase,Urine Negative (Negative); Nitrite,Urine Negative (Negative); Protein,Urine Negative (Negative); Urobilinogen,Urine <2.0 mg/dL (<2.0)
[2020-09-07] MEDS ORDERED: PROCHLORPERAZINE 10 MG TAB PO PRN
[2020-09-07] MEDS ORDERED: ACETAMINOPHEN TAB 325 MG TAB PO PRN
[2020-09-07] MEDS ORDERED: NITROGLYCERIN SL TABS 0.4 MG TAB SUBLINGUAL PRN
[2020-09-07] MEDS ORDERED: MORPHINE SULFATE ER 15 MG TABLET PO PRN
[2020-09-07] MEDS: ALPRAZolam 0.5 MG TAB PO PRN ×2 (01:38→17:15)
[2020-09-07] MEDS: SODIUM CHLORIDE 0.9% 1,000 ML IV SCH ×3 (02:52→21:03)
[2020-09-07] MEDS: ASPIRIN 325 MG TAB PO SCH (08:56)
[2020-09-07] MEDS: PANTOPRAZOLE 40 MG TABLET PO SCH ×2 (08:56→21:02)
[2020-09-07] MEDS: ACYCLOVIR 200 MG CAP PO SCH ×2 (08:57→21:02)
[2020-09-07] MEDS ORDERED: METOPROLOL SUCCINATE (ER) 100 MG TAB.ER.24H PO SCH (09:00)
[2020-09-07] MEDS ORDERED: LOSARTAN 50 MG TAB PO SCH (09:00)
[2020-09-07] MEDS ORDERED: amLODIPine 10 MG TAB PO SCH (09:00)
[2020-09-07] MEDS ORDERED: SULFAMETHOX-TMP 800-160MG 1 EACH TAB PO SCH (09:00)
[2020-09-07] MEDS: Acetaminophen-Codeine 300-30mg TAB PO PRN ×2 (09:16→21:03)
--- NOTE | 2020-09-07 09:22 | P.HPIM ---
History of Present Illness H&P Date: 09/07/20 HISTORY AND PHYSICAL AND DISCHARGE SUMMARY: HISTORY OF PRESENT ILLNESS This is a 65-year-old male patient of Dr. Verma with past medical history of hypertension, hyperlipidemia, coronary artery disease status post stent in the RCA, three-vessel CABG with SHAFFER graft to the LAD, vein graft to the OM branch, vein graft to the diagonal, multiple myeloma, gastroesophageal reflux disease, nephrolithiasis, generalized osteoarthritis, spinal stenosis, remote history of tobacco use. PET scan 07/27/2020 revealed diffuse osseous involvement from myeloma as seen on MRI and CAT scan studies. No solid organ involvement or suspicious soft tissue masses to suggest plasmacytoma. CAT scan had revealed multiple lytic lesions throughout the spine and pelvis concerning for neoplastic process. Patient was seen by Dr. Sanabria felt well and underwent niya ne marrow biopsy confirmed suspected diagnosis of multiple myeloma in July 2020. Patient was started on Revlimid and velcade a couple weeks ago. He states that his last appointment he was feeling tired and not feeling well in general and had some episodes of diarrhea and vomiting. He now presents with complaints going on for 3 days of difficulty with shortness of breath whenever he walks. He states he is gasping for breath. He states he is okay at rest or when he is laying down. He also has lightheadedness and feels like he is going to pass out. He complains of dry mouth and not much appetite. In general he feels that he is exhausted. Patient came into [facility] emergency center for evaluation. Blood pressure was low at 89/58, heart rate 75, afebrile, pulse ox 99% on room air. EKG was a sinus rhythm at 75. Wrist x-ray reveals no active cardiac pulmonary disease. WBC 3.8, hemoglobin 12.7 platelet count 50. CO2 20 otherwise electrolytes normal, BUN 61 and creatinine 1.1. Blood sugar 133. Lactic acid 2.1. Troponin negative on 2 draws. Alkaline phosphatase 165. Pro- calcitonin 0.28. COVID-19 not detected. Urinalysis negative. D-dimer elevated at 1.28. CAT scan angiogram of the chest revealed no evidence of pulmonary embolism. Mild cardiomegaly. Changes consistent with multiple myeloma. Patient received 2 L of IV fluid bolus and admitted to the observation unit. Consult added for oncology. Orthostatic vital signs are positive. Plan to continue IV fluids until patient's comes this afternoon. We have made changes to the Toprol-XL to once daily only at nighttime and amlodipine decreased to 5 mg daily. Patient is to follow-up with Dr. Verma and Dr. Harvey within the week. Patient will be discharged home today in stable condition. REVIEW OF SYSTEMS Constitutional: No fever, no chills, no night sweats. Reports weight change. Reports fatigue. EENT: No headache. No blurred vision or double vision, no loss of vision. No loss of Hearing, no ringing in the ears, no dizziness. No nasal drainage or congestion. No epistaxis. No sore throat. Lungs: Reports shortness of breath, reports exertional dyspnea, bowel cough, no sputum production. No wheezing. Cardiovascular: No chest pain, no lower extremity edema. No palpitations. No paroxysmal nocturnal dyspnea. No orthopnea. Reports lightheadedness or dizziness. No syncopal episodes. Abdominal: No abdominal pain. No nausea, vomiting. No diarrhea. No constipation. No bloody or tarry stools.. No loss of appetite. Genitourinary: No dysuria, increased frequency, urgency. No urinary retention. Musculoskeletal: No myalgias. No muscle weakness, no gait dysfunction, no frequent falls. No back pain. No neck pain. Integumentary: No wounds, no lesions. No rash or pruritus. No unusual bruising. No change in hair or nails. Neurologic: No aphasia. No facial droop. No change in mentation. No head injury. No headache. No paralysis. No paresthesia. Psychiatric: No depression. No anxiety. No mood swings. Endocrine: No abnormal blood sugars. No weight change. SOCIAL HISTORY Patient was a smoker 2-3 packs per day for 8 years and quit smoking about 40 years ago. He drinks alcohol occasionally. No illicit drug use or marijuana use. He lives at home with his . 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 FAMILY HISTORY Father at age 73 from a stroke. Mother at age 44 from coronary artery disease. Patient has 2 brothers and both are living with history of coronary artery disease. Patient does not have any sisters. Patient has 3 children with no major medical problems. PHYSICAL EXAMINATION Gen: This is a 65-year-old male. He is sitting up on the edge of bed and appears to be comfortable and in no acute distress. Vital signs: Afebrile, heart rate 56, blood pressure 120/71, pulse ox 99% on room air. HEENT: Head is atraumatic, normocephalic. Pupils equal, round. Sclerae is anicteric. Oral mucous membranes slightly dry. NECK: Supple. No JVD. No lymphadenopathy. No thyromegaly. LUNGS: Clear to auscultation. No wheezes or rhonchi. No intercostal retractions. HEART: Regular rate and rhythm. No murmur. ABDOMEN: Soft. Bowel sounds are present. No masses. No tenderness. EXTREMITIES: No pedal edema. No calf tenderness. Dorsalis pedis palpable bilaterally. NEUROLOGICAL: Patient is awake, alert and oriented x3. Cranial nerves 2 through 12 are grossly intact. ASSESSMENT AND PLAN 1. Hypotension with near syncopal episode secondary to dehydration from recent vomiting and diarrhea, decreased oral intake with orthostatic changes. Status post 2 L of IV fluid bolus. Continue IV fluids reduced to 75 mL per hour, orthostatic vital signs, consult with oncology. 2. Recently diagnosed with multiple myeloma, treated with chemotherapy. Consult with oncology. Continue acyclovir and Bactrim. 3. Thrombocytopenia secondary to chemotherapy.. 4. Elevated d-dimer, pulmonary embolism ruled out on CAT scan. 5. Remote history of tobacco use. 6. Hypertension. Patient may be resumed on losartan 100 mg daily with parameters, Toprol-XL 100 mg twice decreased to once daily at bedtime daily, Norvasc 10 mg daily decrease to 5 mg daily 7. Hyperlipidemia. Not currently on statin. 8. History of coronary artery disease with previous CABG and stent. Continue Toprol-XL 100 mg twice daily decreased to once daily at bedtime, aspirin 325 mg daily. 9. History of spinal stenosis and chronic back pain. Continue Tylenol 3 as needed. 10. Generalized anxiety disorder. Continue Xanax 0.5 mg 3 times daily as needed.. Patient Lasix as an observation status. DISCHARGE PLAN Home. Discharge Medication List ALPRAZolam [Xanax] 0.5 mg PO TID PRN 07/02/14 [History] Omeprazole [PriLOSEC] 20 mg PO BID 07/02/14 [History] Losartan Potassium 100 mg PO DAILY 07/05/17 [History] Acetaminophen-Codeine 300-30mg [Tylenol w/codeine #3] 1 tab PO Q12H PRN 07/14/20 [History] Acetaminophen Tab [Tylenol] 1,000 mg PO Q6HR PRN 09/06/20 [History] Acyclovir 400 mg PO BID 09/06/20 [History] Aspirin EC [Ecotrin] 325 mg PO DAILY 09/06/20 [History] Dexamethasone [Decadron] 40 mg PO FR 09/06/20 [History] Lenalidomide [Revlimid] 25 mg PO HS 09/06/20 [History] Morphine Sulfate ER [Ms Contin] 15 mg PO Q12HR PRN 09/06/20 [History] Nitroglycerin Sl Tabs [Nitrostat] 0.4 mg SUBLINGUAL Q5M PRN 09/06/20 [History] Prochlorperazine [Compazine] 10 mg PO QID PRN 09/06/20 [History] Sulfamethox-Tmp 800-160Mg [Bactrim DS 800-160 mg] 1 tab PO MOWEFR 09/06/20 [History] Metoprolol Succinate (ER) [Toprol XL] 100 mg PO HS #0 09/07/20 [Rx] amLODIPine [Norvasc] 5 mg PO DAILY #30 tab 09/07/20 [Rx] Impression and plan of care have been directed as dictated by the signing physician. Humera Knight nurse practitioner acting as scribe for signing physician. Past Medical History Past Medical History: Coronary Artery Disease (CAD), Cancer, Chest Pain / Angina, GERD/Reflux, Hyperlipidemia, Hypertension, Osteoarthritis (OA), Pneumonia, Vascular Disorder Additional Past Medical History / Comment(s): Ischemic heart disease, nonsustained VT, tachycardia, PAD L leg, varicosities, bilateral leg edema at times, hiatal hernia, hemorrhoids, arthritis multiple joints, back pain, DDD, spinal stenosis, vertigo, sinus problems, multiple myeloma History of Any Multi-Drug Resistant Organisms: None Reported Past Surgical History: Back Surgery, Coronary Bypass/CABG, Heart Catheterization With Stent, Hernia Repair, Tonsillectomy Additional Past Surgical History / Comment(s): Cardiac caths, PCI with stnet to RCA in 2002, 1997 CABG 3 vessel, colonoscopy/benign polypectomy, low back surgery, bilateral rotator cuff repairs, R inguinal hernia repair x3 and L inguinal hernia repair x1, R hydrocele with surgery. Past Anesthesia/Blood Transfusion Reactions: Postoperative Nausea & Vomiting (PONV) Date of Last Stent Placement:: 12/30/2002 Past Psychological History: Anxiety Additional Psychological History / Comment(s): Pt resides with his spouse. He uses no assistive device. He drives. Smoking Status: Former smoker Past Alcohol Use History: None Reported Additional Past Alcohol Use History / Comment(s): Pt started smoking in 1968 and quit in 1986 Past Drug Use History: None Reported - Past Family History Father Family Medical History: CVA/TIA, Diabetes Mellitus, Deep Vein Thrombosis (DVT), Renal Disease, Vascular Disorder Additional Family Medical History / Comment(s): Abdominal aortic aneurysm Mother Family Medical History: Myocardial Infarction ([place]) Additional Family Medical History / Comment(s): Mother of a [place] at the age of 44yrs. Medications and Allergies Home Medications Medication Instructions Recorded Confirmed Type ALPRAZolam [Xanax] 0.5 mg PO TID PRN 07/02/14 09/06/20 History Omeprazole [PriLOSEC] 20 mg PO BID 07/02/14 09/06/20 History Losartan Potassium 100 mg PO DAILY 07/05/17 09/06/20 History Acetaminophen-Codeine 300-30mg 1 tab PO Q12H PRN 07/14/20 09/06/20 History [Tylenol w/codeine #3] Acetaminophen Tab [Tylenol] 1,000 mg PO Q6HR PRN 09/06/20 09/06/20 History Acyclovir 400 mg PO BID 09/06/20 09/06/20 History Aspirin EC [Ecotrin] 325 mg PO DAILY 09/06/20 09/06/20 History Dexamethasone [Decadron] 40 mg PO FR 09/06/20 09/06/20 History Lenalidomide [Revlimid] 25 mg PO HS 09/06/20 09/06/20 History Morphine Sulfate ER [Ms Contin] 15 mg PO Q12HR PRN 09/06/20 09/06/20 History Nitroglycerin Sl Tabs [Nitrostat] 0.4 mg SUBLINGUAL Q5M PRN 09/06/20 09/06/20 History Prochlorperazine [Compazine] 10 mg PO QID PRN 09/06/20 09/06/20 History Sulfamethox-Tmp 800-160Mg [Bactrim 1 tab PO MOWEFR 09/06/20 09/06/20 History DS 800-160 mg] Metoprolol Succinate (ER) [Toprol 100 mg PO HS #0 09/07/20 09/06/20 Rx XL] amLODIPine [Norvasc] 5 mg PO DAILY #30 tab 09/07/20 Rx Allergies Allergy/AdvReac Type Severity Reaction Status Date / Time hydrocodone [From Star] Allergy Rash/Hives Verified 09/06/20 17:30 Iodinated Contrast Media Allergy Rash/Hives Verified 09/06/20 17:30 [Iodinated Contrast Media - IV Dye] shellfish derived Allergy Rash/Hives Verified 09/06/20 17:30 MRI dye Allergy Rash/Hives Uncoded 07/29/20 08:53 Physical Exam Vitals: Vital Signs Temp Pulse Pulse Resp BP BP Pulse Ox 09/07/20 02:00 97.6 F 73 18 117/74 98 09/06/20 20:45 97.9 F 70 18 115/68 98 09/06/20 20:15 98.0 F 68 16 110/70 98 09/06/20 20:00 18 09/06/20 18:35 66 18 102/70 98 09/06/20 17:36 69 18 119/67 98 09/06/20 16:32 69 18 80/52 98 09/06/20 15:50 98 F 75 18 89/58 99 Intake and Output 09/06/20 09/07/20 09/07/20 22:59 06:59 14:59 Output Total 700 Balance -700 Output: Urine 700 Other: # Voids 1 Weight 96.162 kg Results CBC & Chem 7: 09/07/20 10:15 09/06/20 16:19 Labs: Abnormal Lab Results - Last 24 Hours (Table) 09/06/20 09/06/20 09/06/20 Range/Units 16:19 16:19 16:19 RBC 4.26 L (4.30-5.90) m/uL Hgb 12.7 L (13.0-17.5) gm/dL RDW 18.0 H (11.5-15.5) % Plt Count 50 L D (150-450) k/uL Lymphocytes # (Manual) 0.49 L (1.0-4.8) k/uL Monocytes # (Manual) 1.44 H (0-1.0) k/uL PT 13.0 H (9.0-12.0) sec INR 1.3 H (<1.2) D-Dimer 1.28 H (<0.60) mg/L FEU Carbon Dioxide 20 L (22-30) mmol/L BUN 61 H (9-20) mg/dL Glucose 133 H (74-99) mg/dL Plasma Lactic Acid Ivan (0.7-2.0) mmol/L Calcium 8.0 L (8.4-10.2) mg/dL Alkaline Phosphatase 165 H (38-126) U/L Total Protein 9.5 H (6.3-8.2) g/dL Procalcitonin (0.02-0.09) ng/mL 09/06/20 09/06/20 Range/Units 16:19 16:19 RBC (4.30-5.90) m/uL Hgb (13.0-17.5) gm/dL RDW (11.5-15.5) % Plt Count (150-450) k/uL Lymphocytes # (Manual) (1.0-4.8) k/uL Monocytes # (Manual) (0-1.0) k/uL PT (9.0-12.0) sec INR (<1.2) D-Dimer (<0.60) mg/L FEU Carbon Dioxide (22-30) mmol/L BUN (9-20) mg/dL Glucose (74-99) mg/dL Plasma Lactic Acid Ivan 2.1 H* (0.7-2.0) mmol/L Calcium (8.4-10.2) mg/dL Alkaline Phosphatase (38-126) U/L Total Protein (6.3-8.2) g/dL Procalcitonin 0.28 H (0.02-0.09) ng/mL Thrombosis Risk Factor Assmnt - Choose All That Apply Each Risk Factor Represents 2 Points: Age 61-74 years, Malignancy Thrombosis Risk Factor Assessment Total Risk Factor Score: 4 Thrombosis Risk Factor Assessment Level: Moderate Risk
[2020-09-07 11:39] LABS: Anisocytosis Slight; Basophils # (A) 0.1 k/uL (0-0.2); Basophils % (A) 2 %; Eosinophils % (A) 0 %; HCT 33.1 % (39.0-53.0); HGB 10.8 gm/dL (13.0-17.5); Hypochromasia Slight; Lymphocytes # (A) 0.3 k/uL (1.0-4.8); Lymphocytes % (A) 9 %; MCH 30.5 pg (25.0-35.0); MCHC 32.6 g/dL (31.0-37.0); MCV 93.6 fL (80.0-100.0); Mean Platelet Volume 13.4; Monocytes # (A) 0.6 k/uL (0-1.0); Monocytes % (A) 16 %; Neutrophils # (A) 2.6 k/uL (1.3-7.7); Neutrophils % (A) 72 %; RBC 3.53 m/uL (4.30-5.90); RDW 17.7 % (11.5-15.5); WBC 3.7 k/uL (3.8-10.6)
[2020-09-07 12:08] LABS: Poikilocytosis (M) Present
[2020-09-07 12:09] LABS: Platelet Count 42 k/uL (150-450)
[2020-09-07 17:12] LABS: African American GFR (CKD) 107.9 (60.0-200.0); Albumin 3.2 g/dL (3.80-4.90); Albumin/Globulin Ratio 0.82 (1.60-3.17); Anion Gap 10.1 mmol/L (4.00-12.00); BUN/Creat Ratio 47.5 Ratio (12.00-20.00); Carbon Dioxide 17.9 mmol/L (21.6-31.8); Globulin 3.9 g/dL (1.6-3.3); Non-African American GFR(CKD) 93.1 (60.0-200.0); Total Bilirubin 0.2 mg/dL (0.3-1.2); Total Protein 7.1 g/dL (6.2-8.2)
--- NOTE | 2020-09-07 19:13 | P.CONS ---
History of Present Illness - Reason for Consult Consult date: 09/07/20 Thrombocytopenia, Multiple Myeloma Requesting physician: Humera Knight - Chief Complaint Syncopal and SOB - History of Present Illness Tom originally presented with progressive low back pain (Has chronic low back pain radiating to lower extremities) along with progressive weakness, loss of stamina ,exercise intolerance, anorexia and weight loss of 15-20 lbs over last 3 months prior to initial evaluation. He is known to Dr. Harvey as his primary oncologist. Past medical history of hypertension, hyperlipidemia, coronary artery disease status post stent in the RCA, three-vessel CABG with SHAFFER graft to the LAD, vein graft to the OM branch, vein graft to the diagonal, multiple myeloma, gastroesophageal reflux disease, nephrolithiasis, generalized osteoarthritis, spinal stenosis, remote history of tobacco use Recent CT Scan ( ordered by Dr Mike) revealed multiple lytic lesions throughout spine & pelvis C/W neoplastic process, recenr CMP (Dr Verma) revealed significant increase in Gloulins with increased BUN. 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 Denies family history of malignancy 08/11/20: Not feeling well > very weak, not eating/drinking well. Bone marrow: 70% plasma cells, PET Scan: diffuse skeletal disease He was started on treatment with RVD, Status POst cycle One Day 11, and on his week of Revlimid. Today he presents to [facility] emergency center for evaluation. COmplaints of light-headed and SOB, overall not feeling well. On admission hypotensive at 89/58, heart rate 75, afebrile, pulse ox 99% on room air. EKG was a sinus rhythm at 75. CTA without evidence of Pulmonary Embolism, CHest xray with no active cardiac pulmonary disease. CBC on admission: WBC 3.8, hemoglobin 12.7 platelet count 50. He was hydrated with 2 L of IV fluid bolus and admitted to the observation unit. Orthostatic vital signs are positive. He continues on IV Hydration and considering this is his week off chemotherapy, he will remain off Revlimid until after discharge and re-evaluation by Dr. Harvey for possible dose change. Review of Systems All systems: negative Constitutional: Reports as per HPI Past Medical History Past Medical History: Coronary Artery Disease (CAD), Cancer, Chest Pain / Angina, GERD/Reflux, Hyperlipidemia, Hypertension, Osteoarthritis (OA), Pneumonia, Vascular Disorder Additional Past Medical History / Comment(s): Ischemic heart disease, nonsustained VT, tachycardia, PAD L leg, varicosities, bilateral leg edema at times, hiatal hernia, hemorrhoids, arthritis multiple joints, back pain, DDD, spinal stenosis, vertigo, sinus problems, multiple myeloma History of Any Multi-Drug Resistant Organisms: None Reported Past Surgical History: Back Surgery, Coronary Bypass/CABG, Heart Catheterization With Stent, Hernia Repair, Tonsillectomy Additional Past Surgical History / Comment(s): Cardiac caths, PCI with stnet to RCA in 2002, 1997 CABG 3 vessel, colonoscopy/benign polypectomy, low back surgery, bilateral rotator cuff repairs, R inguinal hernia repair x3 and L inguinal hernia repair x1, R hydrocele with surgery. Past Anesthesia/Blood Transfusion Reactions: Postoperative Nausea & Vomiting (PONV) Date of Last Stent Placement:: 12/30/2002 Past Psychological History: Anxiety Additional Psychological History / Comment(s): Pt resides with his spouse. He uses no assistive device. He drives. Smoking Status: Former smoker Past Alcohol Use History: None Reported Additional Past Alcohol Use History / Comment(s): Pt started smoking in 1968 and quit in 1986 Past Drug Use History: None Reported - Past Family History Father Family Medical History: CVA/TIA, Diabetes Mellitus, Deep Vein Thrombosis (DVT), Renal Disease, Vascular Disorder Additional Family Medical History / Comment(s): Abdominal aortic aneurysm Mother Family Medical History: Myocardial Infarction ([place]) Additional Family Medical History / Comment(s): Mother of a [place] at the age of 44yrs. Medications and Allergies Home Medications Medication Instructions Recorded Confirmed Type ALPRAZolam [Xanax] 0.5 mg PO TID PRN 07/02/14 09/06/20 History Omeprazole [PriLOSEC] 20 mg PO BID 07/02/14 09/06/20 History Losartan Potassium 100 mg PO DAILY 07/05/17 09/06/20 History Acetaminophen-Codeine 300-30mg 1 tab PO Q12H PRN 07/14/20 09/06/20 History [Tylenol w/codeine #3] Acetaminophen Tab [Tylenol] 1,000 mg PO Q6HR PRN 09/06/20 09/06/20 History Acyclovir 400 mg PO BID 09/06/20 09/06/20 History Aspirin EC [Ecotrin] 325 mg PO DAILY 09/06/20 09/06/20 History Dexamethasone [Decadron] 40 mg PO FR 09/06/20 09/06/20 History Lenalidomide [Revlimid] 25 mg PO HS 09/06/20 09/06/20 History Morphine Sulfate ER [Ms Contin] 15 mg PO Q12HR PRN 09/06/20 09/06/20 History Nitroglycerin Sl Tabs [Nitrostat] 0.4 mg SUBLINGUAL Q5M PRN 09/06/20 09/06/20 History Prochlorperazine [Compazine] 10 mg PO QID PRN 09/06/20 09/06/20 History Sulfamethox-Tmp 800-160Mg [Bactrim 1 tab PO MOWEFR 09/06/20 09/06/20 History DS 800-160 mg] Metoprolol Succinate (ER) [Toprol 100 mg PO HS #0 09/07/20 09/06/20 Rx XL] amLODIPine [Norvasc] 5 mg PO DAILY #30 tab 09/07/20 Rx Allergies Allergy/AdvReac Type Severity Reaction Status Date / Time hydrocodone [From [place]] Allergy Rash/Hives Verified 09/06/20 17:30 Iodinated Contrast Media Allergy Rash/Hives Verified 09/06/20 17:30 [Iodinated Contrast Media - IV Dye] shellfish derived Allergy Rash/Hives Verified 09/06/20 17:30 MRI dye Allergy Rash/Hives Uncoded 07/29/20 08:53 Physical Exam Vitals: Vital Signs Temp Pulse Pulse Pulse Pulse Pulse Resp 09/07/20 14:00 97.9 F 82 18 09/07/20 10:15 90 102 H 84 09/07/20 07:58 98.2 F 56 L 16 09/07/20 02:00 97.6 F 73 18 09/06/20 20:45 97.9 F 70 18 09/06/20 20:15 98.0 F 68 16 09/06/20 20:00 18 BP BP BP BP BP Pulse Ox 09/07/20 14:00 113/74 99 09/07/20 10:15 103/62 80/54 102/52 09/07/20 07:58 120/71 99 09/07/20 02:00 117/74 98 09/06/20 20:45 115/68 98 09/06/20 20:15 110/70 98 09/06/20 20:00 Intake and Output 09/07/20 09/07/20 09/07/20 06:59 14:59 22:59 Intake Total 900 Output Total 700 600 600 Balance -700 -600 300 Intake: Intake, IV Titration 900 Amount Sodium Chloride 0.9% 1, 900 000 ml @ 75 mls/hr IV . [id number] [facility] Rx#:[id number] Output: Urine 700 600 600 Other: # Voids 1 - Constitutional General appearance: cooperative, no acute distress - EENT Oral Thrush Eyes: EOMI, dentition normal ENT: NA/AT - Neck Neck: normal ROM - Respiratory Respiratory: bilateral: diminished (Bilateral lower lobes) - Cardiovascular Heart rate: 110 Rhythm: regularly irregular Heart sounds: normal: S1, S2 leg Peripheral Edema: bilateral: Trace - Gastrointestinal General gastrointestinal: normal bowel sounds, soft - Integumentary Integumentary: pale - Neurologic Neurologic: CNII-XII intact - Musculoskeletal Musculoskeletal: generalized weakness, strength equal bilaterally - Psychiatric Psychiatric: A&O x's 3, appropriate affect, intact judgment & insight Results CBC & Chem 7: 09/07/20 10:15 09/07/20 10:15 Labs: Abnormal Lab Results - Last 24 Hours (Table) 09/06/20 09/07/20 09/07/20 Range/Units 16:19 10:15 10:15 WBC 3.7 L (3.8-10.6) k/uL RBC 3.53 L (4.30-5.90) m/uL Hgb 10.8 L (13.0-17.5) gm/dL Hct 33.1 L (39.0-53.0) % RDW 17.7 H (11.5-15.5) % Plt Count 42 L (150-450) k/uL Lymphocytes # 0.3 L (1.0-4.8) k/uL Chloride 114 H (96-109) mmol/L Carbon Dioxide 17.9 L (21.6-31.8) mmol/L BUN 38.0 H (9.0-27.0) mg/dL BUN/Creatinine Ratio 47.50 H (12.00-20.00) Ratio Glucose 172 H (70-110) mg/dL Calcium 7.0 L (8.7-10.3) mg/dL Total Bilirubin 0.2 L (0.3-1.2) mg/dL Alkaline Phosphatase 162 H (41-126) U/L Albumin 3.20 L (3.80-4.90) g/dL Globulin 3.9 H (1.6-3.3) g/dL Albumin/Globulin Ratio 0.82 L (1.60-3.17) g/dL Procalcitonin 0.28 H (0.02-0.09) ng/mL CT scan - chest: report reviewed Assessment and Plan (1) Dehydration Current Visit: Yes Status: Acute Code(s): E86.0 - DEHYDRATION SNOMED Code(s): 98198849 Plan: Assessment and Recommendations: Multiple Myeloma: - Status Post Cycle 1 day 11, current week off Revlimid - Continue to Hold Revlimid at this time, We will re-evaluate after patient is seen in office. - Re-evaluate Myeloma status Thrombocytopenia: - Likely secondary to Revlimid, Hold Revlimid and will defer dose reduction recommendations to primary oncologist at follow-up following hospitalization - Patient is on Aspirin 325, defer dosage to cardiology at this time, ut recommend to hold NSAIDS, and other anticoagulation if platelets less than 50K - MOnitor for s/s bleeding Hypotensive: - Could be secondary to dehydration, infectious etiology, and/or adrenal ins ufficiency - Check Cortisol level as he takes 40mg dex on Fridays, and this is his week off till Monday. - No Pulmonary embolism on CTA - Infectious work-up pending, evidence of oral localized thrush, treatment ordered - Dehydration - IV hydration bolus's and current continuous fluids continued. Orthostatics positive and to continue monitoring of these per primary team/RNs Thank you for allowing us to participate in the care of this patient, we will follow along with you Physician attest: I have completed the full history and physical and agree with above dictation by SAMUEL Giron. Dictated as a scribe
[2020-09-07] MEDS ORDERED: NON FORMULARY DRUG (Lenalidomide [Revlimid] 25 MG Capsule) PO SCH (21:00)
[2020-09-07] MEDS: FLUCONAZOLE 100 MG TAB PO SCH (21:02)
[2020-09-08 00:54] VITALS: RESP 16
[2020-09-08 05:27] LABS: Ionized Calcium 4.6 mg/dL (4.5-5.3)
[2020-09-08 05:51] LABS: Anisocytosis Slight; HCT 31.4 % (39.0-53.0); Hypochromasia Slight; MCH 29.9 pg (25.0-35.0); MCHC 31.7 g/dL (31.0-37.0); Mean Platelet Volume 12.4; RBC 3.34 m/uL (4.30-5.90); RDW 17.8 % (11.5-15.5); WBC 3.2 k/uL (3.8-10.6)
[2020-09-08 06:10] LABS: Platelet Count 26 k/uL (150-450)
[2020-09-08 07:17] LABS: Lymphocytes # (M) 1.41 k/uL (1.0-4.8); Monocytes # (M) 0.22 k/uL (0-1.0); Neutrophils # (M) 1.57 k/uL (1.3-7.7); Neutrophils % (M) 49 %; Nucleated Red Blood Cells 0 /100 WBC (0-0); Total Cells Counted 100
[2020-09-08] MEDS: SODIUM CHLORIDE 0.9% 1,000 ML IV SCH (07:35)
[2020-09-08 07:50] VITALS: BP 130/74; PULSE 97; TEMP 98.3
[2020-09-08] MEDS ORDERED: MIDODRINE 5 MG TAB PO SCH (08:30)
[2020-09-08] MEDS ORDERED: amLODIPine 5 MG TAB PO SCH (09:00)
[2020-09-08] MEDS ORDERED: LOSARTAN 50 MG TAB PO SCH ×2 (09:00→21:00)
[2020-09-08] MEDS ORDERED: METOPROLOL SUCCINATE (ER) 100 MG TAB.ER.24H PO SCH ×2 (09:00→21:00)
[2020-09-08] MEDS: ACYCLOVIR 200 MG CAP PO SCH (09:22)
[2020-09-08] MEDS: PANTOPRAZOLE 40 MG TABLET PO SCH (09:22)
[2020-09-08] MEDS: ASPIRIN 325 MG TAB PO SCH (09:22)
[2020-09-08] MEDS: FLUCONAZOLE 100 MG TAB PO SCH (09:22)
[2020-09-08 10:00] LABS: Protein, Total 6.2 g/dL (6.2-8.2)
[2020-09-08 10:06] LABS: African American GFR (CKD) 121.4 (60.0-200.0); Albumin/Globulin Ratio 0.91 (1.60-3.17); Anion Gap 7.3 mmol/L (4.00-12.00); BUN/Creat Ratio 41.67 Ratio (12.00-20.00); Calcium 6.9 mg/dL (8.7-10.3); Carbon Dioxide 20.7 mmol/L (21.6-31.8); Globulin 3.3 g/dL (1.6-3.3); Non-African American GFR(CKD) 104.8 (60.0-200.0); Phosphorus 1.4 mg/dL (2.4-5.1); Potassium 3.7 mmol/L (3.5-5.5); Total Bilirubin 0.2 mg/dL (0.3-1.2); Total Protein 6.3 g/dL (6.2-8.2)
[2020-09-08 10:17] LABS: Immunoglobulin M <16.9 mg/dL (40.0-280.0)
--- NOTE | 2020-09-08 10:21 | P.PN ---
Subjective Progress Note Date: 09/08/20 HISTORY OF PRESENT ILLNESS This is a 65-year-old male patient of Dr. Verma with past medical history of hypertension, hyperlipidemia, coronary artery disease status post stent in the RCA, three-vessel CABG with SHAFFER graft to the LAD, vein graft to the OM branch, vein graft to the diagonal, multiple myeloma, gastroesophageal reflux disease, nephrolithiasis, generalized osteoarthritis, spinal stenosis, remote history of tobacco use. PET scan 07/27/2020 revealed diffuse osseous involvement from myeloma as seen on MRI and CAT scan studies. No solid organ involvement or suspicious soft tissue masses to suggest plasmacytoma. CAT scan had revealed multiple lytic lesions throughout the spine and pelvis concerning for neoplastic process. Patient was seen by Dr. Sanabria felt well and underwent bone marrow biopsy confirmed suspected diagnosis of multiple myeloma in July 2020. Patient was started on Revlimid and velcade a couple weeks ago. He states that his last appointment he was feeling tired and not feeling well in general and had some episodes of diarrhea and vomiting. He now presents with complaints going on for 3 days of difficulty with shortness of breath whenever he walks. He states he is gasping for breath. He states he is okay at rest or when he is laying down. He also has lightheadedness and feels like he is going to pass out. He complains of dry mouth and not much appetite. In general he feels that he is exhausted. Patient came into [facility] emergency center for evaluation. Blood pressure was low at 89/58, heart rate 75, afebrile, pulse ox 99% on room air. EKG was a sinus rhythm at 75. Wrist x-ray reveals no active cardiac pulmonary disease. WBC 3.8, hemoglobin 12.7 platelet count 50. CO2 20 otherwise electrolytes normal, BUN 61 and creatinine 1.1. Blood sugar 133. Lactic acid 2.1. Troponin negative on 2 draws. Alkaline phosphatase 165. Pro- calcitonin 0.28. COVID-19 not detected. Urinalysis negative. D-dimer elevated at 1.28. CAT scan angiogram of the chest revealed no evidence of pulmonary embo lism. Mild cardiomegaly. Changes consistent with multiple myeloma. Patient received 2 L of IV fluid bolus and admitted to the observation unit. Consult added for oncology. Orthostatic vital signs are positive. Plan to continue IV fluids until patient's comes this afternoon. We have made changes to the Toprol-XL to once daily only at nighttime and amlodipine decreased to 5 mg daily. Patient is to follow-up with Dr. Verma and Dr. Harvey within the week. Patient will be discharged home today in stable condition. 09/08: Patient was prepared for discharge yesterday but he had continued orthostatic hypotension in the afternoon and the following medication changes were made: Amlodipine was discontinued, losartan decreased to 50 mg and changed to nighttime dosing, Toprol-XL decreased to 50 mg. Midodrine was also started at 5 mg twice daily to hold if systolic pressures greater than 120. Patient will be continued on IV fluids for today, recheck of orthostatics and if impro bernard, discharged home later today. Otherwise, patient will be monitored overnight. Patient is afebrile, heart rate in the 70s and 80s, pulse ox 97% on room air. Repeat blood work reveals WBC 3.2, hemoglobin 10, platelet count 26. Sodium 140, potassium 3.7, chloride 112, CO2 20, BUN 25 and creatinine 0.6. Patient is also seen and followed by oncology. REVIEW OF SYSTEMS Constitutional: No fever, no chills, no night sweats. Reports weight change. Reports fatigue. EENT: No headache. No blurred vision or double vision, no loss of vision. No loss of Hearing, no ringing in the ears, no dizziness. No nasal drainage or congestion. No epistaxis. No sore throat. Lungs: Reports shortness of breath, reports exertional dyspnea, bowel cough, no sputum production. No wheezing. Cardiovascular: No chest pain, no lower extremity edema. No palpitations. Reports lightheadedness or dizziness. No syncopal episodes. Abdominal: No abdominal pain. No nausea, vomiting. No diarrhea. No constipation. No bloody or tarry stools. No loss of appetite. Genitourinary: No dysuria, increased frequency, urgency. No urinary retention. Musculoskeletal: No myalgias. No muscle weakness, no gait dysfunction, no frequent falls. No back pain. No neck pain. Integumentary: No wounds, no lesions. No rash or pruritus. No unusual bruising. No change in hair or nails. Neurologic: No aphasia. No facial droop. No change in mentation. No head injury. No headache. No paralysis. No paresthesia. Psychiatric: No depression. No anxiety. No mood swings. Endocrine: No abnormal blood sugars. No weight change. PHYSICAL EXAMINATION Gen: This is a 65-year-old male. He is in bed and appears to be comfortable and in no acute distress. Vital signs: Afebrile, heart rate 56, blood pressure 120/71, pulse ox 99% on room air. HEENT: Head is atraumatic, normocephalic. Pupils equal, round. Sclerae is anicteric. Oral mucous membranes slightly dry. NECK: Supple. No JVD. No lymphadenopathy. No thyromegaly. LUNGS: Clear to auscultation. No wheezes or rhonchi. No intercostal retractions. HEART: Regular rate and rhythm. No murmur. ABDOMEN: Soft. Bowel sounds are present. No masses. No tenderness. EXTREMITIES: No pedal edema. No calf tenderness. Dorsalis pedis palpable bilaterally. NEUROLOGICAL: Patient is awake, alert and oriented x3. Cranial nerves 2 through 12 are grossly intact. ASSESSMENT AND PLAN 1. Hypotension with near syncopal episode secondary to dehydration from recent vomiting and diarrhea, decreased oral intake with orthostatic changes. Status post 2 L of IV fluid bolus. Continue IV fluids reduced to 75 mL per hour, orthostatic vital signs, consult with oncology. The following medication changes have been made: Amlodipine was discontinued, losartan decreased to 50 mg and changed to nighttime dosing, Toprol-XL decreased to 50 mg. Midodrine was also started at 5 mg twice daily to hold if systolic pressures greater than 120. 2. Recently diagnosed with multiple myeloma, treated with chemotherapy. Consult with oncology. Continue acyclovir and Bactrim. 3. Thrombocytopenia secondary to chemotherapy. Aspirin will be placed on hold. 4. Elevated d-dimer, pulmonary embolism ruled out on CAT scan. 5. Remote history of tobacco use. 6. Hypertension. Amlodipine was discontinued, losartan decreased to 50 mg and changed to nighttime dosing, Toprol-XL decreased to 50 mg. Midodrine was also started at 5 mg twice daily to hold if systolic pressures greater than 120. 7. Hyperlipidemia. Not currently on statin. 8. History of coronary artery disease with previous CABG and stent. Continue Toprol-XL 100 mg twice daily decreased to once daily at bedtime, aspirin 325 mg daily. 9. History of spinal stenosis and chronic back pain. Continue Tylenol 3 as needed. 10. Generalized anxiety disorder. Continue Xanax 0.5 mg 3 times daily as needed.. DISCHARGE PLAN Home. Impression and plan of care have been directed as dictated by the signing physician. Humera Knight nurse practitioner acting as scribe for signing physician. Objective - Vital Signs Vital signs: Vital Signs Temp 98.3 F 09/08/20 07:39 Pulse 97 09/08/20 07:39 Resp 16 09/08/20 07:39 BP 130/74 09/08/20 07:39 Pulse Ox 97 09/08/20 07:39 Intake & Output 09/07/20 09/08/20 09/08/20 18:59 06:59 18:59 Intake Total 900 900 Output Total 1200 1500 Balance -300 -600 Intake: Intake, IV Titration 900 900 Amount Sodium Chloride 0.9% 1, 900 900 000 ml @ 75 mls/hr IV . [id number] [facility] Rx#:[id number] Output: Urine 1200 1500 Other: Voiding Method Urinal # Voids 2 - Labs CBC & Chem 7: 09/08/20 04:25 09/07/20 10:15 Labs: Abnormal Lab Results - Last 24 Hours (Table) 09/07/20 09/07/20 09/08/20 Range/Units 10:15 10:15 04:25 WBC 3.7 L 3.2 L (3.8-10.6) k/uL RBC 3.53 L 3.34 L (4.30-5.90) m/uL Hgb 10.8 L 10.0 L (13.0-17.5) gm/dL Hct 33.1 L 31.4 L (39.0-53.0) % RDW 17.7 H 17.8 H (11.5-15.5) % Plt Count 42 L 26 L (150-450) k/uL Lymphocytes # 0.3 L (1.0-4.8) k/uL Chloride 114 H (96-109) mmol/L Carbon Dioxide 17.9 L (21.6-31.8) mmol/L BUN 38.0 H (9.0-27.0) mg/dL BUN/Creatinine Ratio 47.50 H (12.00-20.00) Ratio Glucose 172 H (70-110) mg/dL Calcium 7.0 L (8.7-10.3) mg/dL Total Bilirubin 0.2 L (0.3-1.2) mg/dL Alkaline Phosphatase 162 H (41-126) U/L Albumin 3.20 L (3.80-4.90) g/dL Globulin 3.9 H (1.6-3.3) g/dL Albumin/Globulin Ratio 0.82 L (1.60-3.17) g/dL Microbiology - Last 24 Hours (Table) 09/06/20 18:29 Blood Culture - Preliminary Blood No Growth after 24 hours
[2020-09-08 10:58] LABS: Free Kappa Lt Chain Qnt, Serum 0.25 mg/dL (0.33-1.94)
--- NOTE | 2020-09-08 14:35 | P.PN ---
Subjective Progress Note Date: 09/08/20 Principal diagnosis: Orthostatic and adrenal insufficient Cortisol is 2.4, likely adrenal insufficient with being on and off high dose steroids during treatment for multiple myeloma. The symptoms of orthostatic hypotension are likely related to multiple factors including dehydration and recent weight loss on multiple BP meds but also his treatment with high dose weekly dexamethasone which has caused a degree of adrenal insufficiency. I did speak with primary team who has altered many of their BP medications, the concern is close primary care physician as outpatient as once his adrenal insufficiency is treated we will need to monitor closely for possible rebound hypertension with recent drop in medications.I did speak with endocrinology regarding a discharge plan appropriate for patient and with primary care. Objective - Vital Signs Vital signs: Vital Signs Temp 98.3 F 09/08/20 07:39 Pulse 97 09/08/20 07:39 Resp 16 09/08/20 07:39 BP 130/74 09/08/20 07:39 Pulse Ox 97 09/08/20 07:39 Intake & Output 09/07/20 09/08/20 09/08/20 18:59 06:59 18:59 Intake Total 900 900 118 Output Total 1200 1500 Balance -300 -600 118 Intake: Intake, IV Titration 900 900 Amount Sodium Chloride 0.9% 1, 900 900 000 ml @ 75 mls/hr IV . [id number] [facility] Rx#:[id number] Oral 118 Output: Urine 1200 1500 Other: Voiding Method Urinal # Voids 2 - Labs CBC & Chem 7: 09/08/20 04:25 09/08/20 04:25 Labs: Abnormal Lab Results - Last 24 Hours (Table) 09/07/20 09/07/20 09/07/20 Range/Units 10:15 19:35 19:35 WBC (3.8-10.6) k/uL RBC (4.30-5.90) m/uL Hgb (13.0-17.5) gm/dL Hct (39.0-53.0) % RDW (11.5-15.5) % Plt Count (150-450) k/uL Chloride 114 H (96-109) mmol/L Carbon Dioxide 17.9 L (21.6-31.8) mmol/L BUN 38.0 H (9.0-27.0) mg/dL BUN/Creatinine Ratio 47.50 H (12.00-20.00) Ratio Glucose 172 H (70-110) mg/dL Calcium 7.0 L (8.7-10.3) mg/dL Phosphorus (2.4-5.1) mg/dL Total Bilirubin 0.2 L (0.3-1.2) mg/dL Alkaline Phosphatase 162 H (41-126) U/L Albumin 3.20 L (3.80-4.90) g/dL Globulin 3.9 H (1.6-3.3) g/dL Albumin/Globulin Ratio 0.82 L (1.60-3.17) g/dL TSH 0.240 L (0.350-5.500) uIU/mL Free T4 1.90 H (0.80-1.80) ng/dL Cortisol 2.6 L (3.10-22.40) ug/dL IgG (700.0-1600.0) mg/dL IgA (60.0-350.0) mg/dL IgM (40.0-280.0) mg/dL Free [place] LC, Quant (0.33-1.94) mg/dL Free Lambda LC, Quant (0.57-2.63) mg/dL 09/08/20 09/08/20 09/08/20 Range/Units 04:25 04:25 04:25 WBC 3.2 L (3.8-10.6) k/uL RBC 3.34 L (4.30-5.90) m/uL Hgb 10.0 L (13.0-17.5) gm/dL Hct 31.4 L (39.0-53.0) % RDW 17.8 H (11.5-15.5) % Plt Count 26 L (150-450) k/uL Chloride 112 H (96-109) mmol/L Carbon Dioxide 20.7 L (21.6-31.8) mmol/L BUN (9.0-27.0) mg/dL BUN/Creatinine Ratio 41.67 H (12.00-20.00) Ratio Glucose (70-110) mg/dL Calcium 6.9 L (8.7-10.3) mg/dL Phosphorus 1.4 L (2.4-5.1) mg/dL Total Bilirubin 0.2 L (0.3-1.2) mg/dL Alkaline Phosphatase 183 H (41-126) U/L Albumin 3.00 L (3.80-4.90) g/dL Globulin (1.6-3.3) g/dL Albumin/Globulin Ratio 0.91 L (1.60-3.17) g/dL TSH (0.350-5.500) uIU/mL Free T4 (0.80-1.80) ng/dL Cortisol (3.10-22.40) ug/dL IgG (700.0-1600.0) mg/dL IgA (60.0-350.0) mg/dL IgM (40.0-280.0) mg/dL Free [place] LC, Quant 0.25 L (0.33-1.94) mg/dL Free Lambda LC, Quant 0.23 L (0.57-2.63) mg/dL 09/08/20 Range/Units 04:25 WBC (3.8-10.6) k/uL RBC (4.30-5.90) m/uL Hgb (13.0-17.5) gm/dL Hct (39.0-53.0) % RDW (11.5-15.5) % Plt Count (150-450) k/uL Chloride (96-109) mmol/L Carbon Dioxide (21.6-31.8) mmol/L BUN (9.0-27.0) mg/dL BUN/Creatinine Ratio (12.00-20.00) Ratio Glucose (70-110) mg/dL Calcium (8.7-10.3) mg/dL Phosphorus (2.4-5.1) mg/dL Total Bilirubin (0.3-1.2) mg/dL Alkaline Phosphatase (41-126) U/L Albumin (3.80-4.90) g/dL Globulin (1.6-3.3) g/dL Albumin/Globulin Ratio (1.60-3.17) g/dL TSH (0.350-5.500) uIU/mL Free T4 (0.80-1.80) ng/dL Cortisol (3.10-22.40) ug/dL IgG 233.0 L (700.0-1600.0) mg/dL IgA 2410.0 H (60.0-350.0) mg/dL IgM <16.9 L (40.0-280.0) mg/dL Free [place] LC, Quant (0.33-1.94) mg/dL Free Lambda LC, Quant (0.57-2.63) mg/dL Microbiology - Last 24 Hours (Table) 09/06/20 18:29 Blood Culture - Preliminary Blood No Growth after 24 hours Assessment and Plan (1) Dehydration Status: Acute Code(s): E86.0 - DEHYDRATION SNOMED Code(s): 50175282 Plan: 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 Bhakta and primary team. ALso discussed with patient and . PLan is to start patient on cortef 10mg in am and 5 pm for 5 of 7 days a week. Hold on day of and day after dexamethasone.
[2020-09-08] MEDS ORDERED: HYDROCORTISONE 10 MG TAB PO SCH (15:30)
[2020-09-08] MEDS: ALPRAZolam 0.5 MG TAB PO PRN (15:48)
[2020-09-08] MEDS ORDERED: METOPROLOL SUCCINATE (ER) 50 MG TAB.ER.24H PO SCH (21:00)
[2020-09-09 13:37] LABS: Albumin 2.48 g/dL (3.80-4.90); Gamma Globulin 0.67 g/dL (0.70-1.50)
[2020-09-11] MEDS ORDERED: dexAMETHasone 4 MG TAB PO SCH (09:00)
== END 2020-09-08 16:09 | disposition home health service (06) ==
LOC: EC 15:47 → 6NMEDSUR 18:23
PROVIDERS: ADMIT Internal Medicine Geriatric Medicine; ATTEND Internal Medicine Geriatric Medicine
DX: I95.9 Hypotension, unspecified (principal); C90.00 Multiple myeloma not having achieved remission; D69.59 Other secondary thrombocytopenia; E27.40 Unspecified adrenocortical insufficiency; E78.5 Hyperlipidemia, unspecified; E86.0 Dehydration; F41.1 Generalized anxiety disorder; I10 Essential (primary) hypertension; I25.10 Atherosclerotic heart disease of native coronary artery without angina pectoris; I25.2 Old myocardial infarction; I95.1 Orthostatic hypotension; M15.9 Polyosteoarthritis, unspecified; T45.1X5A Adverse effect of antineoplastic and immunosuppressive drugs, initial encounter; Z20.822 Contact with and (suspected) exposure to COVID-19; Z79.82 Long term (current) use of aspirin; Z79.899 Other long term (current) drug therapy; Z82.3 Family history of stroke; Z82.49 Family history of ischemic heart disease and other diseases of the circulatory system; Z83.3 Family history of diabetes mellitus; Z87.442 Personal history of urinary calculi; Z87.891 Personal history of nicotine dependence; Z91.041 Radiographic dye allergy status; Z95.1 Presence of aortocoronary bypass graft; Z95.5 Presence of coronary angioplasty implant and graft
CPT/HCPCS: 96361 ×3; 96366 ×3; 96365; 96375; 99285; 36415; 93005; 97162; 86900; 86901; 85379; 84439; 83880; 80053 ×3; 84443; 82330; 82533; 83605; 83615; 84100; 84484; 85025 ×3; 85610; 85730; 86850; 81003; 87040; 82784 ×3; 84165; 87502; 86334; 83883; 84145; 87635; 71046; 71275; G0378 ×3; J1200; J2930; J0610; Q9967

== ENCOUNTER → 2020-10-24 | Outpatient (CLI) | payer BC, MEDICARE ==
--- NOTE | 2020-10-24 11:21 | MR ---
EXAMINATION TYPE: MR lumbar spine wo/w con DATE OF EXAM: 10/24/2020 COMPARISON: 07/08/2020 HISTORY: Multiple myeloma, back pain for 6 months. TECHNIQUE: Multiplanar, multisequence images of the lumbar spine were acquired utilizing 8.5 mL intravenous Gada vist gadolinium contrast. Findings: There are marked multifocal abnormalities scattered throughout the bony lumbar spine including anteri or and posterior elements as well as the sacrum. They display diffuse pathological enhancement and ar e consistent with the provided history of multiple myeloma. There is been significant interval worsen ing compared to the prior study. In addition there been interval increase in the degree of pathological fractures within the lumbar sp ine with increased compression fracture of the inferior endplate of L4, the superior endplate of L1 a nd both endplates at T12. There is also loss of vertebral body height of L3 consistent with patholog ic fracturing. There is no retropulsion. The spinal canal is widely patent without evidence of stenosis. There is mild neural foraminal stenosis at the L3-4, L4-5 and L5-S1 levels bilaterally but this was s een previously and is stable. There are postsurgical changes of wide laminectomy at the L3-4 level. The remaining paraspinal soft tissues are unremarkable. IMPRESSION: Significant worsening of the multiple myeloma involving the lumbar spine and sacrum with increased pa thologic compression fractures at multiple levels as described above.
== END ==
LOC: RADMRIMAIN 08:35
PROVIDERS: ATTEND Internal Medicine Hematology & Oncology
DX: C90.00 Multiple myeloma not having achieved remission (principal); M84.58XA Pathological fracture in neoplastic disease, other specified site, initial encounter for fracture
CPT/HCPCS: 72158; A9585

== ENCOUNTER → 2020-11-30 | Outpatient (CLI) | payer BC, MEDICARE ==
--- NOTE | 2020-11-30 14:30 | US ---
EXAMINATION TYPE: US venous doppler duplex LE RT DATE OF EXAM: 11/30/2020 1:30 PM COMPARISON: NONE CLINICAL HISTORY: 65-year-old male r22.41 swelling. SIDE PERFORMED: Right TECHNIQUE: The lower extremity deep venous system is examined utilizing real time linear array sonog pau with graded compression, doppler sonography and color-flow sonography. FINDINGS: VESSELS IMAGED: Common Femoral Vein Deep Femoral Vein Greater Saphenous Vein * Femoral Vein Popliteal Vein Small Saphenous Vein * Proximal Calf Veins Posterior tibial veins (* superficial vessels) Right Leg: Positive for DVT from upper popliteal vein to lower calf veins. Thrombus is occlusive and suspected acute. IMPRESSION: Exam positive for right lower extremity DVT extending from the upper popliteal vein down into the low er calf veins.
== END | disposition home or self-care (01) ==
LOC: RADUSWWP 12:59
PROVIDERS: ATTEND Internal Medicine Hematology & Oncology
DX: I82.431 Acute embolism and thrombosis of right popliteal vein (principal)

== ENCOUNTER → 2021-01-22 | Outpatient (CLI) | payer BC, MEDICARE ==
--- NOTE | 2021-01-25 05:39 | PE ---
EXAMINATION TYPE: PET CT fusion skull to thigh DATE OF EXAM: 01/22/2021 COMPARISON: Prior PET/CT July 25, 2020 and older studies. HISTORY: Multiple myeloma progress study. Originally diagnosed July 17, 2020 completed radiation treatment in November and chemotherapy this month. TECHNIQUE: Following the intravenous administration of 10.53 mCi of F-18 FDG, whole body images are performed from the top of skull to the bottom of the. Images are reviewed on the computer in the cor onal, axial, and sagittal planes. Reconstructed rotating images are created on independent workstati on and reviewed on the computer. A localization and attenuation correction CT is performed in conju nction with the PET scan. Blood glucose level equals 85. SCAN: Subsequent Scan FINDINGS: HEAD AND NECK: No areas of abnormal hypermetabolic uptake or suspicious hypermetabolic lytic lesions CHEST, MEDIASTINUM, AND HILAR REGION: No area of abnormal hypermetabolic uptake. ABDOMEN AND PELVIS: No areas of abnormal hypermetabolic uptake. OSSEOUS STRUCTURES: Scattered lytic and sclerotic osseous lesions redemonstrated. All lesions current ly ametabolic. Extremities: No suspicious areas of abnormal hypermetabolic uptake. OTHER CT: Mild calcified plaque bilateral carotid bulb level. Post CABG changes with mediastinal clips and sternal wires. Dependent atelectasis in both lungs. Mild/moderate calcified plaque of the aorta extends into branch vessels. Few scattered pelvic phlebol iths. Several mild compression fracture deformities redemonstrated. IMPRESSION: Complete positive treatment response. Diffuse osseous involvement from myeloma as seen on recent MRI and CT studies correlates with PET/CT. No solid organ involvement or suspicious soft tiss ue masses to suggest plasmacytoma. No abnormal hypermetabolic uptake on current study. Interval compl ete resolution.
== END | disposition home or self-care (01) ==
LOC: RADPETMAIN 07:18
PROVIDERS: ATTEND Internal Medicine Hematology & Oncology
DX: C90.00 Multiple myeloma not having achieved remission (principal); Z92.3 Personal history of irradiation
CPT/HCPCS: 78815; A9552

== ENCOUNTER → 2021-06-18 | Outpatient (CLI) | payer BC, MEDICARE ==
--- NOTE | 2021-06-18 11:34 | US ---
EXAMINATION TYPE: US venous doppler duplex LE RT DATE OF EXAM: 06/18/2021 11:02 AM COMPARISON: 11/30/2020 CLINICAL HISTORY: M79.661 PAIN IN RIGHT LE, R22.41 SWELLING OF RIGHT LE. HX of DVT in RLE SIDE PERFORMED: Right TECHNIQUE: The lower extremity deep venous system is examined utilizing real time linear array sonog pau with graded compression, doppler sonography and color-flow sonography. VESSELS IMAGED: Common Femoral Vein Deep Femoral Vein Greater Saphenous Vein * Femoral Vein Popliteal Vein Small Saphenous Vein * Proximal Calf Veins (* superficial vessels) Low level internal echo noted within the right popliteal vein, the vein is not entirely compressible. There is some color flow present, vascular waveform Right Leg: Chronic DVT seen in Right POPV and calf vein IMPRESSION: Residual clot is noted within the popliteal vein but somewhat improved compared to prior exam A Red level critical message alert has been initiated for Erick Harvey MD via the [employer] Critical Results System on 06/18/2021 11:32 AM. This message alert has been sent to Erick Harvey MD via the preferences provided by the clinician for the receipt of Radiology Critical Findings. OrderUp e ID [id number].
== END | disposition home or self-care (01) ==
LOC: RADUSWWP 10:14
PROVIDERS: ATTEND Internal Medicine Hematology & Oncology
DX: I82.531 Chronic embolism and thrombosis of right popliteal vein (principal)

== ENCOUNTER → 2021-07-23 | Outpatient (CLI) | payer BC, MEDICARE ==
--- NOTE | 2021-07-26 09:38 | PE ---
EXAMINATION TYPE: PET CT fusion skull to thigh DATE OF EXAM: 07/23/2021 COMPARISON: Prior PET/CT January 22, 2021 and older studies HISTORY: Multiple myeloma progress study . Originally diagnosed July 17, 2020 and completed chem otherapy December 16, 2020 TECHNIQUE: Following the intravenous administration of 9.32 mCi of F-18 FDG, whole body images are p erformed from the skull base to the midthigh. Images are reviewed on the computer in the coronal, ax ial, and sagittal planes. Reconstructed rotating images are created on independent workstation and r eviewed on the computer. A localization and attenuation correction CT is performed in conjunction w ith the PET scan. Blood glucose level equals 94 SCAN: Subsequent Scan FINDINGS: SKULL BASE AND NECK: No new areas of abnormal hypermetabolic uptake. CHEST, MEDIASTINUM, AND HILAR REGION: No new area of abnormal hypermetabolic uptake. ABDOMEN AND PELVIS: No new areas of abnormal hypermetabolic uptake. Abnormal excretion redemonstrated . OSSEOUS STRUCTURES: Scattered lytic and sclerotic osseous lesions redemonstrated. Findings best ident ified throughout the spine and pelvis. All lesions currently remain ametabolic. OTHER CT: Mild calcified plaque bilateral carotid bulb level redemonstrated. Post CABG changes with mediastinal clips and sternal wires again seen. Dependent atelectasis in both lower lungs redemonstrated. Stable mild cardiomegaly. Mild/moderate calcified plaque of the infrarenal abdominal aorta extends into branch vessels. Small n onobstructing bilateral renal calculi redemonstrated. Few scattered pelvic phleboliths. Several mild compression fracture deformities redemonstrated. IMPRESSION: Diffuse osseous involvement from myeloma redemonstrated. No solid organ involvement or zhao spicious soft tissue masses to suggest plasmacytoma. No new abnormal hypermetabolic uptake on current study to suggest active myeloma recurrence. No significant change from most recent PET/CT.
== END | disposition home or self-care (01) ==
LOC: RADPETMAIN 10:33
PROVIDERS: ATTEND Internal Medicine Hematology & Oncology
DX: C90.00 Multiple myeloma not having achieved remission (principal)
CPT/HCPCS: 78815; A9552

== ENCOUNTER → 2022-05-20 | Outpatient (CLI) | payer BC, MEDICARE ==
--- NOTE | 2022-05-23 16:34 | PE ---
EXAMINATION TYPE: PET CT fusion skull to thigh DATE OF EXAM: 05/20/2022 COMPARISON: Prior PET/CT July 23, 2021 and older studies. HISTORY: Multiple myeloma progress study. Originally diagnosed July 2020 and completed chemother apy December 2020. TECHNIQUE: Following the intravenous administration of 11.0 mCi of F-18 FDG, whole body images are p erformed from the skull base to the midthigh. Images are reviewed on the computer in the coronal, ax ial, and sagittal planes. Reconstructed rotating images are created on independent workstation and r eviewed on the computer. A localization and attenuation correction CT is performed in conjunction w ith the PET scan. Blood glucose level equals 85. SCAN: Subsequent Scan FINDINGS: SKULL BASE AND NECK: No new areas of abnormal hypermetabolic uptake. CHEST, MEDIASTINUM, AND HILAR REGION: No new area of abnormal hypermetabolic uptake. ABDOMEN AND PELVIS: No new areas of abnormal hypermetabolic uptake. Normal excretion redemonstrated. Mild nonspecific bowel uptake again seen. OSSEOUS STRUCTURES: Scattered areas of lytic and sclerotic osseous lesions redemonstrated. Findings b est identified throughout the spine and pelvis. There is new abnormal hypermetabolic uptake T6 vertebra axial image 93 corresponding to subtle sclero sis. Max SUV is 5.3. Dense sclerotic T8 vertebra shows no abnormal hypermetabolic uptake. Mild hyperm etabolic uptake T11 vertebra at site of sclerosis axial image 134, max SUV is 3.48. New hypermetaboli c uptake right L5 level axial image 186. Hypermetabolic uptake left pelvis greatest slight posterior acetabulum axial image 231 where there is subtle sclerotic lesion. OTHER CT: Mild calcified plaque bilateral carotid bulb level is redemonstrated. Post CABG changes with mediastinal clips and sternal wires again seen. Dependent atelectasis in both lower lungs redemonstrated. Stable mild cardiomegaly. Mild/moderate calcified plaque of the infrarenal abdominal aorta extends into branch vessels. Small n onobstructing bilateral renal calculi redemonstrated. Few scattered pelvic phleboliths. Several mild compression fracture deformities near the thoracolumbar junction redemonstrated. IMPRESSION: Diffuse osseous involvement from myeloma redemonstrated. New hypermetabolic osseous lesio ns consistent with active myeloma recurrence as detailed above.
== END | disposition home or self-care (01) ==
LOC: RADXRMAIN 07:50
PROVIDERS: ATTEND Internal Medicine Hematology & Oncology
DX: C90.00 Multiple myeloma not having achieved remission (principal)
CPT/HCPCS: 78815; A9552

== ENCOUNTER → 2022-07-29 | Day surgery (SDC) | payer BC, MEDICARE ==
[2022-07-28 10:10] VITALS: BMI 27.1
[~2022-07-29] MED LIST changes: -ALPRAZolam 0.25 MG TAB PO PRN; -ALPRAZolam 0.5 MG TAB PO PRN; -ASPIRIN 325 MG TAB PO SCH; -ASPIRIN 325 MG TAB PO STA; -ATORVASTATIN 80 MG TAB PO STA; -FENOFIBRATE 160 MG TAB PO SCH; -FUROSEMIDE 20 MG TAB PO PRN; -IBUPROFEN 800 MG TAB PO SCH; -IOHEXOL 350 MG/ML 125ML BOTTLE INJ ONE; -IV FLUID CONTINUATION 1,000 ML IV ONE; +LACTATED RINGERS 1,000 ML IV ONE; +LIDOCAINE 2% (PF) 20 MG/ML 5 ML VIAL SQ ONE; +LIDOCAINE 2% INJ 20 MG/ML (2 ML VIAL) ONE; -LIDOCAINE 2% INJ 20 MG/ML (20 ML MDV) ONE; -LIDOCAINE 2% INJ 20 MG/ML SQ ONE; -LOSARTAN 50 MG TAB PO SCH; -METOPROLOL SUCCINATE (ER) 50 MG TAB.ER.24H PO SCH; -MIDAZOLAM 2 MG/2 ML VIAL IV ONE; -MIDAZOLAM 2 MG/2 ML VIAL ONE; -MULTIVITAMINS, THERA 1 EACH TAB PO SCH; -NITROGLYCERIN SL TABS 0.4 MG TAB SUBLINGUAL PRN; -PANTOPRAZOLE 40 MG TABLET PO SCH; +PROPOFOL 10 MG/ML 20 ML VIAL IV ONE; -SODIUM CHLORIDE 0.9% 1,000 ML in EMPTY BAG 1 BAG IV ONE; -amLODIPine 5 MG TAB ONE; -amLODIPine 5 MG TAB PO ONE; -amLODIPine 5 MG TAB PO STA; -fentaNYL (PF) 50 MCG/ML 2 ML AMP IV ONE; -fentaNYL (PF) 50 MCG/ML 2 ML AMP ONE; -predniSONE 20 MG TAB PO PRN
[2022-07-29 07:45] VITALS: RESP 16
[2022-07-29 07:50] LABS: HCT 38.8 % (39.0-53.0); HGB 12.9 gm/dL (13.0-17.5); MCH 33.3 pg (25.0-35.0); MCHC 33.3 g/dL (31.0-37.0); Macrocytosis Slight; Mean Platelet Volume 7.6; Platelet Count 152 k/uL (150-450); RBC 3.88 m/uL (4.30-5.90); RDW 14.7 % (11.5-15.5); Reticulocyte % 1.3 % (0.5-2.0); WBC 4.5 k/uL (3.8-10.6)
[2022-07-29 08:04] VITALS: BP 129/83; PULSE 76
--- NOTE | 2022-07-29 08:08 | PCN ---
PROCEDURE NOTE PREOPERATIVE DIAGNOSIS: Multiple myeloma. POSTOPERATIVE DIAGNOSIS: Multiple myeloma. SITE: Right iliac crest. ANESTHESIA: Local with IV systemic sedation. DESCRIPTION OF PROCEDURE: Utilizing sterile technique, the skin overlying the right iliac crest was prepared with Betadine and alcohol. After adequate sterile draping, local anesthesia and IV systemic sedation, size 11, 4-inch Jamshidi needle was utilized to access the periosteum with ease. A total of 14 mL of aspirate and 2 cm bone core biopsies were obtained. The patient tolerated the procedure very well. There were no immediate procedure related complications. TOTAL BLOOD LOSS: Less than 1 mL. RESULTS: Pending. MMODL / IJN: [id number] /
[2022-07-29 08:12] LABS: Basophils # (M) 0.05 k/uL (0-0.2); Eosinophils # (M) 0.18 k/uL (0-0.7); Monocytes # (M) 0.36 k/uL (0-1.0); Neutrophils # (M) 2.12 k/uL (1.3-7.7); Neutrophils % (M) 47 %; Nucleated Red Blood Cells 0 /100 WBC (0-0); Total Cells Counted 100
== END ==
LOC: OR 06:47
PROVIDERS: ATTEND Internal Medicine Hematology & Oncology
DX: C90.00 Multiple myeloma not having achieved remission (principal); I10 Essential (primary) hypertension; M15.9 Polyosteoarthritis, unspecified; Z87.891 Personal history of nicotine dependence; Z79.82 Long term (current) use of aspirin; Z91.048 Other nonmedicinal substance allergy status; Z79.891 Long term (current) use of opiate analgesic; Z79.01 Long term (current) use of anticoagulants; Z79.83 Long term (current) use of bisphosphonates; Z79.52 Long term (current) use of systemic steroids; Z79.899 Other long term (current) drug therapy; Z90.89 Acquired absence of other organs; D69.59 Other secondary thrombocytopenia; Z86.718 Personal history of other venous thrombosis and embolism; Z83.2 Family history of diseases of the blood and blood-forming organs and certain disorders involving the immune mechanism; Z86.79 Personal history of other diseases of the circulatory system
CPT/HCPCS: 85025; 85045; 38222; J2704; J2001 ×2

== ENCOUNTER → 2022-08-30 | Outpatient (CLI) | payer BC, MEDICARE ==
--- NOTE | 2022-08-30 10:03 | CT ---
EXAMINATION TYPE: CT thoracic spine w con CT DLP: 964.4 mGycm, Automated exposure control for dose reduction was used. DATE OF EXAM: 08/30/2022 9:16 AM COMPARISON: PET/CT 05/20/2022, MRI thoracic spine 07/10/2020, CT thoracolumbar spine 07/03/2020. CLINICAL INDICATION:Male, 67 years old with history of C90.00 M54.6; PHH, Thoracic spine pain, histo ry of multiple myeloma TECHNIQUE: Axial images of the thoracic spine were obtained after the uneventful administration of 70 cc of Isovue-300 intravenously. Coronal and sagittal reformats were performed. FINDINGS: Normal alignment of the thoracic vertebral bodies. Multiple lucent lesions throughout the visualized thoracic vertebral bodies and posterior elements and ribs again demonstrated. It is diffic ult to determine if there is progression of lesions due to interval number. Multiple height loss due to pathologic fractures involving the thoracic spine again demonstrated. These include the T5, T6, T8 , T10, T11, T12, L1, and L2 superior endplates with central depression. There is mild progression of the T5 and T6 vertebral bodies with approximately 10% height loss centrally. Severe multilevel degene rative disc disease. I do not see any evidence of extradural defects nor significant spinal canal narrowing at any thoraci c vertebral body level. Several bilateral nonobstructive renal calculi identified. Small hiatal hernia. 2.2 x 1.6 cm ovoid zhao bcutaneous lesion in the thoracic right lateral back (series 3, image 53). This likely represents a s ebaceous cyst versus pilomatricoma. IMPRESSION: 1. Multiple lytic lesions are again seen throughout the thoracic spine and ribs consistent with repo rted multiple myeloma. 2. Multiple pathologic fractures involving the superior endplates of T5, T6, T8, T10, T11, T12, L1, and L2 vertebral bodies again demonstrated with mild progression of the T5 and T6 fractures. 3. No significant central canal stenosis.
== END | disposition home or self-care (01) ==
LOC: RADCTMAIN 07:13
PROVIDERS: ATTEND Internal Medicine Hematology & Oncology
DX: C90.00 Multiple myeloma not having achieved remission (principal); M54.6 Pain in thoracic spine; M84.48XA Pathological fracture, other site, initial encounter for fracture
CPT/HCPCS: 82565; 84520; 72129; 36415; Q9967

== ENCOUNTER 2022-11-26 12:27 | Emergency (ER) | payer BC, MEDICARE ==
[2022-11-26] MEDS ORDERED: LIDOCAINE 1% INJ 10MG/ML (30 ML VIAL-PF) SQ ONE (14:02)
--- NOTE | 2022-11-26 14:05 | ED ---
Skin/Abscess/FB HPI - General Chief complaint: Skin/Abscess/Foreign Body Stated complaint: cyst on back Time Seen by Provider: 11/26/22 13:51 Source: patient, RN notes reviewed, old records reviewed Mode of arrival: ambulatory Limitations: no limitations - History of Present Illness Initial comments: This is a nontoxic-appearing 67-year-old male that presents to the emergency room with complaints of an inflamed sebaceous cyst on his back since Monday. Patient states he's had this chronic sebaceous cyst that has been drained before. He was unable to express any purulent drainage from it over the past few days. Started 3 days ago and now unable to sleep due to the discomfort and swelling. Patient denies any fevers. Does have a history of multiple myeloma currently on chemotherapy. States tetanus shot is not up-to-date however he is ALLERGIC and refuses tetanus immunization. MD complaint: abscess/boil -: days(s) (5) Location: back Severity scale (1-10): 4 Quality: constant Consistency: constant Improves with: none Worsens with: palpation Context: other (Chronic sebaceous cyst) Associated symptoms: denies other symptoms Treatments Prior to Arrival: attempted to drain pus at home - Related Data Home Medications Medication Instructions Recorded Confirmed ALPRAZolam [Xanax] 0.5 mg PO TID PRN 07/02/14 07/28/22 Omeprazole [PriLOSEC] 20 mg PO DAILY 07/02/14 07/28/22 Acetaminophen-Codeine 300-30mg 1 tab PO Q12H PRN 07/14/20 07/28/22 [Tylenol w/codeine #3] Acetaminophen Tab [Tylenol] 1,000 mg PO Q6HR PRN 09/06/20 07/28/22 Aspirin EC [Ecotrin] 325 mg PO DAILY 09/06/20 07/28/22 Morphine Sulfate ER [Ms Contin] 30 mg PO Q12HR PRN 09/06/20 07/28/22 Nitroglycerin Sl Tabs [Nitrostat] 0.4 mg SUBLINGUAL Q5M PRN 09/06/20 07/28/22 Prochlorperazine [Compazine] 10 mg PO QID PRN 09/06/20 07/28/22 Metoprolol Succinate (ER) [Toprol 100 mg PO DAILY 07/28/22 07/28/22 XL] Previous Rx's Medication Instructions Recorded Cephalexin [Keflex] 500 mg PO Q6HR 7 Days #28 cap 11/26/22 Allergies Allergy/AdvReac Type Severity Reaction Status Date / Time hydrocodone [From [place]] Allergy Rash/Hives Verified 11/26/22 12:48 Iodinated Contrast Media Allergy Rash/Hives Verified 11/26/22 12:48 [Iodinated Contrast Media - IV Dye] shellfish derived Allergy Rash/Hives Verified 11/26/22 12:48 MRI dye Allergy Rash/Hives Uncoded 11/26/22 12:48 Review of Systems ROS Statement: Those systems with pertinent positive or pertinent negative responses have been documented in the HPI. ROS Other: All systems not noted in ROS Statement are negative. Past Medical History Past Medical History: Coronary Artery Disease (CAD), Cancer, Chest Pain / Angina, GERD/Reflux, Hyperlipidemia, Hypertension, Osteoarthritis (OA), Pneumonia, Vascular Disorder Additional Past Medical History / Comment(s): Ischemic heart disease, nonsustained VT, tachycardia, PAD L leg, varicosities, bilateral leg edema at times, hiatal hernia, hemorrhoids, arthritis multiple joints, back pain, DDD, spinal stenosis, vertigo, sinus problems, multiple myeloma History of Any Multi-Drug Resistant Organisms: None Reported Past Surgical History: Back Surgery, Coronary Bypass/CABG, Heart Catheterization With Stent, Hernia Repair, Tonsillectomy Additional Past Surgical History / Comment(s): Cardiac caths, PCI with stent to RCA in 2002, 1997 CABG 3 vessel, colonoscopy/benign polypectomy, low back surgery, bilateral rotator cuff repairs, R inguinal hernia repair x3 and L inguinal hernia repair x1, R hydrocele with surgery. past bone marrow biospy Past Anesthesia/Blood Transfusion Reactions: Postoperative Nausea & Vomiting (PONV) Date of Last Stent Placement:: 12/30/2002 Past Psychological History: Anxiety, Depression Smoking Status: Former smoker Past Alcohol Use History: None Reported Past Drug Use History: None Reported - Past Family History Father Family Medical History: CVA/TIA, Diabetes Mellitus, Deep Vein Thrombosis (DVT), Renal Disease, Vascular Disorder Additional Family Medical History / Comment(s): Abdominal aortic aneurysm Mother Family Medical History: Myocardial Infarction (ND) Additional Family Medical History / Comment(s): Mother of a ND at the age of 44yrs. General Exam Limitations: no limitations General appearance: alert, in no apparent distress Head exam: Present: atraumatic Eye exam: Absent: periorbital swelling Respiratory exam: Absent: respiratory distress, accessory muscle use Cardiovascular Exam: Present: regular rate Back exam: Present: other (sebaceous cyst right thoracic approximately 4 cm with induration and surrounding cellulitis) Neurological exam: Present: alert, oriented X3 Psychiatric exam: Present: normal affect, normal mood Skin exam: Present: warm, dry, normal color. Absent: cyanosis, diaphoretic, petechiae, pallor Course Vital Signs 11/26/22 11/26/22 12:41 15:35 Temperature 97.8 F 97.6 F Pulse Rate 82 77 Respiratory 18 17 Rate Blood Pressure 141/86 136/70 O2 Sat by Pulse 99 97 Oximetry Procedures - Incision & Drainage Consent Obtained: verbal consent Site: back Anesthetic Used: lidocaine 1% I&D Cleaning Method: Alcohol Wipe, Betadine Scalpel Used: #15 Needle Aspiration Performed?: No I&D Drainage Obtained: Pus, Blood Culture Obtained?: Yes Patient Tolerated Procedure: well, no complications Medical Decision Making - Medical Decision Making 5cm x 4cm abscess incised and drained. Loculations broken up. Culture was sent. Patient was started on Keflex due to his current immunosuppression on chemotherapy for multiple myeloma. He was directed to follow up with his primary care doctor on Monday. Return to the emergency room with a new or concerning symptoms including increased pain or fevers. He is agreeable to this plan of care. Case discussed with Dr. Oviedo Was pt. sent in by a medical professional or institution (, PA, POULTRY HUSBANDRY TEACHER, urgent care, hospital, or usp...) When possible be specific @ -No Did you speak to anyone other than the patient for history (EMS, parent, family, police, friend...)? What history was obtained from this source @ -No Did you review nursing and triage notes (agree or disagree)? Why? @ -I reviewed and agree with nursing and triage notes Were old charts reviewed (outside hosp., previous admission, EMS record, old EKG, old radiological studies, urgent care reports/EKG's, usp records)? Report findings @ -No old charts were reviewed Differential Diagnosis (chest pain, altered mental status, abdominal pain women, abdominal pain men, vaginal bleeding, weakness, fever, dyspnea, syncope, headache, dizziness, GI bleed, back pain, seizure, CVA, palpatations, mental health, musculoskeletal)? @ -Abscess, cyst, cellulitis, mass this is not all inclusive list EKG interpreted by me (3pts min.). @ -n/a X-rays interpreted by me (1pt min.). @ -None done CT interpreted by me (1pt min.). @ -None done U/S interpreted by me (1pt. min.). @ -None done What testing was considered but not performed or refused? (CT, X-rays, U/S, labs)? Why? @ -None What meds were considered but not given or refused? Why? @ -Tetanus was considered however patient refused stating ALLERGIC Did you discuss the management of the patient with other professionals (professionals i.e. , PA, POULTRY HUSBANDRY TEACHER, lab, RT, psych nurse, social services aide, log operations coordinator, teacher, police officer, case packer and sealer)? Give summary @ -No Was smoking cessation discussed for >3mins.? @ -No Was critical care preformed (if so, how long)? @ -No Were there social determinants of health that impacted care today? How? (Homelessness, low income, unemployed, alcoholism, drug addiction, transportation, low edu. Level, literacy, decrease access to med. care, senior care, rehab)? @ -No Was there de-escalation of care discussed even if they declined (Discuss DNR or withdrawal of care, Hospice)? DNR status @ -No What co-morbidities impacted this encounter? (DM, HTN, Smoking, COPD, CAD, Cancer, CVA, ARF, Chemo, Hep., AIDS, mental health diagnosis, sleep apnea, morbid obesity)? @ -Multiple myeloma, GERD, coronary artery disease, angina, hypertension, anxiety, depression Was patient admitted / discharged? Hospital course, mention meds given and route, prescriptions, significant lab abnormalities, going to OR and other pertinent info. @ -Discharged Undiagnosed new problem with uncertain prognosis? @ -No Drug Therapy requiring intensive monitoring for toxicity (Heparin, Nitro, Insulin, Cardizem)? @ -No Were any procedures done? @ -Incision and drainage Diagnosis/symptom? @ -Abscess incision and drainage Acute, or Chronic, or Acute on Chronic? @ -Acute on chronic Uncomplicated (without systemic symptoms) or Complicated (systemic symptoms)? @ -Uncomplicated Side effects of treatment? @ -No Exacerbation, Progression, or Severe Exacerbation? @ -No Poses a threat to life or bodily function? How? (Chest pain, [place], ND, pneumonia, PE, COPD, DKA, ARF, appy, cholecystitis, CVA, Diverticulitis, Homicidal, Suicidal, threat to staff... and all critical care pts) @ -No Disposition Clinical Impression: Abscess Disposition: HOME SELF-CARE Condition: Good Instructions (If sedation given, give patient instructions): Abscess Incision and Drainage (ED) Additional Instructions: Warm moist compresses 3 times a day. Take antibiotics as prescribed. Follow-up with your primary care doctor on Monday. Return with any new or concerning symptoms including fevers, persistent nausea vomiting or increased pain. Prescriptions: Cephalexin [Keflex] 500 mg PO Q6HR 7 Days #28 cap Is patient prescribed a controlled substance at d/c from ED?: No Referrals: Angel Verma DO [Primary Care Provider] - 1-2 days Time of Disposition: 15:03
[2022-11-26 15:47] VITALS: BP 136/70; PULSE 77; RESP 17; TEMP 97.6
== END 2022-11-26 15:35 | disposition home or self-care (01) ==
LOC: EC 12:27
DX: L72.9 Follicular cyst of the skin and subcutaneous tissue, unspecified (principal); L72.3 Sebaceous cyst; I25.10 Atherosclerotic heart disease of native coronary artery without angina pectoris; K21.9 Gastro-esophageal reflux disease without esophagitis; E78.5 Hyperlipidemia, unspecified; I10 Essential (primary) hypertension; M19.90 Unspecified osteoarthritis, unspecified site; F41.9 Anxiety disorder, unspecified; F32.A Depression, unspecified; Z87.891 Personal history of nicotine dependence; Z91.041 Radiographic dye allergy status; Z91.013 Allergy to seafood; Z88.5 Allergy status to narcotic agent; Z79.82 Long term (current) use of aspirin; Z79.899 Other long term (current) drug therapy
CPT/HCPCS: 87070; 87205; 99283; 10060; J2001

== ENCOUNTER → 2023-02-10 | Outpatient (CLI) | payer OTHER, MEDICARE ==
--- NOTE | 2023-02-10 14:50 | PE ---
EXAMINATION TYPE: PET CT fusion skull to thigh DATE OF EXAM: 02/10/2023 COMPARISON: Most recent PET CT May 20, 2022 and older studies. HISTORY: Multiple myeloma TECHNIQUE: Following the intravenous administration of 12.8 mCi of F-18 FDG, whole body images are p erformed from the top of skull to the bottom of feet. Images are reviewed on the computer in the cor onal, axial, and sagittal planes. Reconstructed rotating images are created on independent workstati on and reviewed on the computer. A localization and attenuation correction CT is performed in conju nction with the PET scan. Glucose level equals 84 SCAN: Subsequent Scan FINDINGS: FINDINGS: SKULL BASE AND NECK: No new areas of abnormal hypermetabolic uptake. CHEST, MEDIASTINUM, AND HILAR REGION: No new area of abnormal hypermetabolic uptake. ABDOMEN AND PELVIS: No new areas of abnormal hypermetabolic uptake. Normal excretion redemonstrated. Mild nonspecific bowel uptake again seen. OSSEOUS STRUCTURES: Scattered areas of lytic and sclerotic osseous lesions redemonstrated. Findings b est identified throughout the spine and pelvis. Improved abnormal hypermetabolic uptake at the T6 vertebra on current study. Max SUV is 2.7 versus 5. 3 on prior study. No new or residual areas of abnormal hypermetabolic uptake otherwise identified. Lower extremities: No areas of abnormal hypermetabolic uptake. OTHER CT: Mild calcified plaque bilateral carotid bulb level is redemonstrated. Post CABG changes with mediastinal clips and sternal wires again seen. Dependent atelectasis in both lower lungs redemonstrated. Stable mild cardiomegaly. Mild/moderate calcified plaque of the infrarenal abdominal aorta extends into branch vessels. Tiny no nobstructing bilateral renal calculi redemonstrated. Few scattered pelvic phleboliths. Several mild c ompression fracture deformities near the thoracolumbar junction redemonstrated. IMPRESSION: Diffuse osseous involvement from myeloma redemonstrated. Improving hypermetabolic osseous lesions consistent with positive treatment response noted as detailed above.
== END | disposition home or self-care (01) ==
LOC: RADPETMAIN 08:52
PROVIDERS: ATTEND Internal Medicine Hematology & Oncology
DX: C90.00 Multiple myeloma not having achieved remission (principal)
CPT/HCPCS: 78815; A9552

== ENCOUNTER → 2023-02-16 | Outpatient (CLI) | payer OTHER, MEDICARE ==
[2023-02-16 08:54] LABS: ALT 26 U/L (4-49); AST 26 U/L (17-59); African American GFR (CKD) >90 (>60 ml/min/1.73 sqM); Anion Gap 5 mmol/L; Blood Urea Nitrogen 20 mg/dL (9-20); Calcium 8.2 mg/dL (8.4-10.2); Carbon Dioxide 31 mmol/L (22-30); Chloride 103 mmol/L (98-107); Glucose 83 mg/dL (74-99); Non-African American GFR(CKD) 85 (>60 ml/min/1.73 sqM); Potassium 4.2 mmol/L (3.5-5.1); Sodium 139 mmol/L (137-145)
[2023-02-16 08:59] LABS: NT-Pro-B-Type Natriuretic Pept 234 pg/mL
[2023-02-16 16:28] LABS: Chol/HDL Ratio 2.37 Ratio; LDL Cholesterol,Calculated 11.9 mg/dL (0.0-131.0)
== END | disposition home or self-care (01) ==
LOC: LABWHC1 06:54
PROVIDERS: ATTEND Internal Medicine Cardiovascular Disease
DX: E78.2 Mixed hyperlipidemia (principal); R06.02 Shortness of breath
CPT/HCPCS: 36415; 80048; 80061; 83880; 84450; 84460

== ENCOUNTER 2023-04-16 08:04 | Inpatient (IN) | payer OTHER, MEDICARE ==
[2023-04-16] MEDS ORDERED: methylPREDNISolone SOD SUCCI 125 MG/2 ML VIAL IV STA (08:41)
[2023-04-16] MEDS ORDERED: diphenhydrAMINE 50 MG/ML 1 ML VIAL IVP STA (08:41)
[2023-04-16] MEDS ORDERED: FAMOTIDINE 20 MG/2 ML VIAL IV STA (08:41)
--- NOTE | 2023-04-16 08:57 | XR ---
EXAMINATION TYPE: XR chest 1V portable DATE OF EXAM: 04/16/2023 8:52 AM COMPARISON: Chest radiographs from 10/03/2022 TECHNIQUE: XR chest 1V portable Portable AP radiograph of the chest. CLINICAL INDICATION:Male, 68 years old with history of dyspnea; FINDINGS: Lungs/Pleura: There is no evidence of pleural effusion or pneumothorax. Patchy right basilar opacity. Pulmonary vascularity: Unremarkable. Heart/mediastinum: Cardiomediastinal silhouette is mildly enlarged. Musculoskeletal: No acute osseous pathology. Midline sternotomy wires are noted and stable. Remote fr acture of the posterior right seventh rib. Left shoulder arthropathy. IMPRESSION: Mild cardiomegaly with right basilar opacity favored to represent atelectasis.
[2023-04-16] MEDS ORDERED: SODIUM CHLORIDE 0.9% 1,000 ML IV STA (09:05)
--- NOTE | 2023-04-16 09:15 | ED ---
General Adult HPI - General Chief complaint: Shortness of Breath Stated complaint: KIMANI Time Seen by Provider: 04/16/23 08:09 Source: patient Mode of arrival: ambulatory Limitations: no limitations - History of Present Illness Initial comments: Dictation was produced using [employer] dictation software. please excuse any grammatical, word or spelling errors. Chief Complaint: 68-year-old male test positive for Covid19 4 days ago has recen tly for 10 days presents with body aches and shortness of breath History of Present Illness: Patient 68-year-old male who has past medical history multiple myeloma he is treated with oral and IV chemotherapy. Patient is symptomatic for 10 days. He had a positive covered test 4 days ago. Patient states that his shortness of breath and weakness is been rapidly getting worse. States that he is unable to maintain his breath even with walking short distances or performing minor activities daily living. Denies any chest pain. Denies any fever. He does complain of body aches. Does report that he was vaccinated covered however has not received any boosters. Does complain of chills and fevers. Has not really been eating much the course of the last several days. Patient does take an evaluation medications for her DVT/PE prophylaxis. The ROS documented in this emergency department record has been reviewed and confirmed by me. Those systems with pertinent positive or negative responses have been documented in the HPI. All other systems are other negative and/or noncontributory. - Related Data Home Medications Medication Instructions Recorded Confirmed ALPRAZolam [Xanax] 0.5 mg PO TID PRN 07/02/14 07/28/22 Omeprazole [PriLOSEC] 20 mg PO DAILY 07/02/14 07/28/22 Acetaminophen-Codeine 300-30mg 1 tab PO Q12H PRN 07/14/20 07/28/22 [Tylenol w/codeine #3] Acetaminophen Tab [Tylenol] 1,000 mg PO Q6HR PRN 09/06/20 07/28/22 Aspirin EC [Ecotrin] 325 mg PO DAILY 09/06/20 07/28/22 Morphine Sulfate ER [Ms Contin] 30 mg PO Q12HR PRN 09/06/20 07/28/22 Nitroglycerin Sl Tabs [Nitrostat] 0.4 mg SUBLINGUAL Q5M PRN 09/06/20 07/28/22 Prochlorperazine [Compazine] 10 mg PO QID PRN 09/06/20 07/28/22 Metoprolol Succinate (ER) [Toprol 100 mg PO DAILY 07/28/22 07/28/22 XL] Previous Rx's Medication Instructions Recorded Cephalexin [Keflex] 500 mg PO Q6HR 7 Days #28 cap 11/26/22 Allergies Allergy/AdvReac Type Severity Reaction Status Date / Time hydrocodone [From [facility]] Allergy Rash/Hives Verified 04/16/23 08:08 Iodinated Contrast Media Allergy Rash/Hives Verified 04/16/23 08:08 [Iodinated Contrast Media - IV Dye] shellfish derived Allergy Rash/Hives Verified 04/16/23 08:08 MRI dye Allergy Rash/Hives Uncoded 04/16/23 08:08 Review of Systems ROS Statement: Those systems with pertinent positive or pertinent negative responses have been documented in the HPI. ROS Other: All systems not noted in ROS Statement are negative. Past Medical History Past Medical History: Coronary Artery Disease (CAD), Cancer, Chest Pain / Angina, GERD/Reflux, Hyperlipidemia, Hypertension, Osteoarthritis (OA), Pneumonia, Vascular Disorder Additional Past Medical History / Comment(s): Ischemic heart disease, nonsustained VT, tachycardia, PAD L leg, varicosities, bilateral leg edema at times, hiatal hernia, hemorrhoids, arthritis multiple joints, back pain, DDD, spinal stenosis, vertigo, sinus problems, multiple myeloma History of Any Multi-Drug Resistant Organisms: None Reported Past Surgical History: Back Surgery, Coronary Bypass/CABG, Heart Catheterization With Stent, Hernia Repair, Tonsillectomy Additional Past Surgical History / Comment(s): Cardiac caths, PCI with stent to RCA in 2002, 1997 CABG 3 vessel, colonoscopy/benign polypectomy, low back surgery, bilateral rotator cuff repairs, R inguinal hernia repair x3 and L inguinal hernia repair x1, R hydrocele with surgery. past bone marrow biospy Past Anesthesia/Blood Transfusion Reactions: Postoperative Nausea & Vomiting (PONV) Date of Last Stent Placement:: 12/30/2002 Past Psychological History: Anxiety, Depression Smoking Status: Former smoker Past Alcohol Use History: None Reported Past Drug Use History: None Reported - Past Family History Father Family Medical History: CVA/TIA, Diabetes Mellitus, Deep Vein Thrombosis (DVT), Renal Disease, Vascular Disorder Additional Family Medical History / Comment(s): Abdominal aortic aneurysm Mother Family Medical History: Myocardial Infarction (NE) Additional Family Medical History / Comment(s): Mother of a NE at the age of 44yrs. General Exam - General Exam Comments Initial Comments: PHYSICAL EXAM: General Impression: Alert and oriented x3, dyspneic HEENT: Normocephalic atraumatic, extra-ocular movements intact, pupils equal and reactive to light bilaterally, mucous membranes moist. Cardiovascular: Tachycardic Chest: Able to complete full sentences, no retractions, no tachypnea, lungs clear to auscultation bilaterally Abdomen: abdomen soft, non-tender, non-distended, no organomegaly Musculoskeletal: Pulses present and equal in all extremities, no peripheral edema Motor: no focal deficits noted Neurological: CN II-XII grossly intact, no focal motor or sensory deficits noted Skin: Intact with no visualized rashes Psych: Normal affect and mood Limitations: no limitations Course Vital Signs 04/16/23 04/16/23 04/16/23 08:06 08:18 08:21 Temperature 99 F Pulse Rate 123 H 126 H Respiratory 24 34 H 20 Rate Blood Pressure 153/85 O2 Sat by Pulse 94 L 97 Oximetry 04/16/23 04/16/23 04/16/23 08:30 09:00 09:30 Temperature Pulse Rate 137 H 131 H 124 H Respiratory 26 H 27 H Rate Blood Pressure 142/99 142/99 144/91 O2 Sat by Pulse 97 96 95 Oximetry 04/16/23 04/16/23 10:00 10:30 Temperature Pulse Rate 105 H 112 H Respiratory 48 H Rate Blood Pressure 151/91 163/91 O2 Sat by Pulse 96 Oximetry Medical Decision Making - Medical Decision Making Was pt. sent in by a medical professional or institution (, PA, [employer] DEVELOPER, urgent care, hospital, or [place] [facility]...) When possible be specific @ -No Did you speak to anyone other than the patient for history (EMS, parent, family, police, friend...)? What history was obtained from this source @ -No Did you review nursing and triage notes (agree or disagree)? Why? @ -I reviewed and agree with nursing and triage notes Were old charts reviewed (outside hosp., previous admission, EMS record, old EKG, old radiological studies, urgent care reports/EKG's, [place] [facility] records)? Report findings @ -No old charts were reviewed Differential Diagnosis (chest pain, altered mental status, abdominal pain women, abdominal pain men, vaginal bleeding, musculoskeletal, weakness, fever, dyspnea, syncope, headache, dizziness, GI bleed, back pain, seizure, CVA, palpatations, mental health)? @ -Differential Dyspnea: Coronary syndrome, arrhythmia, tamponade, asthma, COPD, pulmonary embolism, pneumonia, pneumothorax, pulmonary effusion, anaphylaxis, diabetic ketoacidosis, flailed chest, pulmonary contusion, diaphragmatic rupture, anemia, neuromuscular, this is not meant to be an all-inclusive list. EKG interpreted by me (3pts min.). @ -My EKG interpretation: Ventricular rate 135, sinus tachycardia,. 175, QRS 77, QTC 425. No HI prolongation, no QTC prolongation, no ST or T-wave changes noted. Overall, this EKG is unremarkable X-rays interpreted by me (1pt min.). @ -Mild cardiomegaly with basilar opacity on chest x-ray CT interpreted by me (1pt min.). @ -CT angiography of the chest shows groundglass pulmonary opacities. No pulmonary embolism U/S interpreted by me (1pt. min.). @ -None done What testing was considered but not performed or refused? (CT, X-rays, U/S, labs)? Why? @ -None What meds were considered but not given or refused? Why? @ -None Did you discuss the management of the patient with other professionals (prof therons i.e. , PA, [employer] DEVELOPER, lab, RT, psych nurse, social service assistant, ancillary services manager, teacher, family preservation officer, case technician)? Give summary @ -Case discussed Dr. Damon for admission Was smoking cessation discussed for >3mins.? @ -No Was critical care preformed (if so, how long)? @ -No Were there social determinants of health that impacted care today? How? (Homelessness, low income, unemployed, alcoholism, drug addiction, transportation, low edu. Level, literacy, decrease access to med. care, [place] [facility], rehab)? @ -No Was there de-escalation of care discussed even if they declined (Discuss DNR or withdrawal of care, Hospice)? DNR status @ -No What co-morbidities impacted this encounter? (DM, HTN, Smoking, COPD, CAD, Cancer, CVA, ARF, Chemo, Hep., AIDS, mental health diagnosis, sleep apnea, morbid obesity)? @ -None Was patient admitted / discharged? Hospital course, mention meds given and route, prescriptions, significant lab abnormalities, going to OR and other pertinent info. @ -68-year-old male presents emergency department for dyspnea. Vital signs upon arrival shows tachycardia into the 130s. Patient was not dyspneic. Respiratory lungs are clear to auscultation bilaterally. Patient has extensive medical history including multiple myeloma. Oral and IV Chemotherapy. Laboratory Evaluation Shows No Leukocytosis. No Elevated D-Dimer. Lactic Acid Is 3.2 Troponin 0.04. Rest of Labs within Acceptable Limits. Positive for COVID-19. Patient improved after IV fluids however given his degree of dyspnea and metabolic derangement he'll be admitted with consultation pulmonology. Undiagnosed new problem with uncertain prognosis? @ -No Drug Therapy requiring intensive monitoring for toxicity (Heparin, Nitro, Insulin, Cardizem)? @ -No Were any procedures done? @ -No Diagnosis/symptom? Acute, or Chronic, or Acute on Chronic? Uncomplicated (without systemic symptoms) or Complicated (systemic symptoms)? @ -1. Respiratory failure Side effects of treatment? @ -No Exacerbation, Progression, or Severe Exacerbation? @ -No Poses a threat to life or bodily function? How? (Chest pain, USA, NE, pneumonia, PE, COPD, DKA, ARF, appy, cholecystitis, CVA, Diverticulitis, Homicidal, Suicidal, threat to staff... and all critical care pts) @ -yes - Lab Data Result diagrams: 04/16/23 09:29 04/16/23 09:29 Lab Results 04/16/23 04/16/23 04/16/23 Range/Units 08:29 09:29 09:29 WBC 8.3 (3.8-10.6) k/uL RBC 4.62 (4.30-5.90) m/uL Hgb 15.3 (13.0-17.5) gm/dL Hct 46.6 (39.0-53.0) % MCV 100.9 H (80.0-100.0) fL MCH 33.1 (25.0-35.0) pg MCHC 32.8 (31.0-37.0) g/dL RDW 15.6 H (11.5-15.5) % Plt Count 133 L (150-450) k/uL MPV 7.9 Neutrophils % 89 % Lymphocytes % 2 % Monocytes % 8 % Eosinophils % 0 % Basophils % 0 % Neutrophils # 7.3 (1.3-7.7) k/uL Lymphocytes # 0.1 L (1.0-4.8) k/uL Monocytes # 0.7 (0-1.0) k/uL Eosinophils # 0.0 (0-0.7) k/uL Basophils # 0.0 (0-0.2) k/uL Macrocytosis Slight ESR 61 H (0-15) mm/hr PT 11.8 (9.0-12.0) sec INR 1.1 (<1.2) APTT 24.3 (22.0-30.0) sec D-Dimer 0.29 (<0.60) mg/L FEU Sodium (137-145) mmol/L Potassium (3.5-5.1) mmol/L Chloride (98-107) mmol/L Carbon Dioxide (22-30) mmol/L Anion Gap mmol/L BUN (9-20) mg/dL Creatinine (0.66-1.25) mg/dL Est GFR (CKD-EPI)AfAm (>60 ml/min/1.73 sqM) Est GFR (CKD-EPI)NonAf (>60 ml/min/1.73 sqM) Glucose (74-99) mg/dL Lactic Ac Sepsis Rflx Plasma Lactic Acid Ivan (0.7-2.0) mmol/L Calcium (8.4-10.2) mg/dL Ionized Calcium Gissel (4.5-5.3) mg/dL Magnesium (1.6-2.3) mg/dL Total Bilirubin (0.2-1.3) mg/dL AST (17-59) U/L ALT (4-49) U/L Alkaline Phosphatase (38-126) U/L Troponin I (0.000-0.034) ng/mL C-Reactive Protein (<1.0) mg/dL NT-Pro-B Natriuret Pep pg/mL Total Protein (6.3-8.2) g/dL Albumin (3.5-5.0) g/dL Urine Color Urine Appearance (Clear) Urine pH (5.0-8.0) Ur Specific Newborn (1.001-1.035) Urine Protein (Negative) Urine Glucose (UA) (Negative) Urine Ketones (Negative) Urine Blood (Negative) Urine Nitrite (Negative) Urine Bilirubin (Negative) Urine Urobilinogen (<2.0) mg/dL Ur Leukocyte Esterase (Negative) Urine RBC (0-5) /hpf Urine WBC (0-5) /hpf Urine Mucus (None) /hpf Influenza Type A (PCR) Not Detected (Not Detectd) Influenza Type B (PCR) Not Detected (Not Detectd) RSV (PCR) Not Detected (Not Detectd) SARS-CoV-2 (PCR) Detected A (Not Detectd) 04/16/23 04/16/23 04/16/23 Range/Units 09:29 09:29 09:29 WBC (3.8-10.6) k/uL RBC (4.30-5.90) m/uL Hgb (13.0-17.5) gm/dL Hct (39.0-53.0) % MCV (80.0-100.0) fL MCH (25.0-35.0) pg MCHC (31.0-37.0) g/dL RDW (11.5-15.5) % Plt Count (150-450) k/uL MPV Neutrophils % % Lymphocytes % % Monocytes % % Eosinophils % % Basophils % % Neutrophils # (1.3-7.7) k/uL Lymphocytes # (1.0-4.8) k/uL Monocytes # (0-1.0) k/uL Eosinophils # (0-0.7) k/uL Basophils # (0-0.2) k/uL Macrocytosis ESR (0-15) mm/hr PT (9.0-12.0) sec INR (<1.2) APTT (22.0-30.0) sec D-Dimer (<0.60) mg/L FEU Sodium 134 L (137-145) mmol/L Potassium 3.7 (3.5-5.1) mmol/L Chloride 99 (98-107) mmol/L Carbon Dioxide 21 L (22-30) mmol/L Anion Gap 14 mmol/L BUN 19 (9-20) mg/dL Creatinine 0.72 (0.66-1.25) mg/dL Est GFR (CKD-EPI)AfAm >90 (>60 ml/min/1.73 sqM) Est GFR (CKD-EPI)NonAf >90 (>60 ml/min/1.73 sqM) Glucose 213 H (74-99) mg/dL Lactic Ac Sepsis Rflx Plasma Lactic Acid Iavn 3.2 H* (0.7-2.0) mmol/L Calcium 8.9 (8.4-10.2) mg/dL Ionized Calcium Gissel 4.7 (4.5-5.3) mg/dL Magnesium 2.0 (1.6-2.3) mg/dL Total Bilirubin 0.6 (0.2-1.3) mg/dL AST 25 (17-59) U/L ALT 20 (4-49) U/L Alkaline Phosphatase 73 (38-126) U/L Troponin I (0.000-0.034) ng/mL C-Reactive Protein 14.9 H (<1.0) mg/dL NT-Pro-B Natriuret Pep pg/mL Total Protein 6.0 L (6.3-8.2) g/dL Albumin 3.3 L (3.5-5.0) g/dL Urine Color Yellow Urine Appearance Clear (Clear) Urine pH 5.5 (5.0-8.0) Ur Specific Newborn 1.025 (1.001-1.035) Urine Protein 1+ H (Negative) Urine Glucose (UA) 4+ H (Negative) Urine Ketones Negative (Negative) Urine Blood Negative (Negative) Urine Nitrite Negative (Negative) Urine Bilirubin Negative (Negative) Urine Urobilinogen <2.0 (<2.0) mg/dL Ur Leukocyte Esterase Negative (Negative) Urine RBC <1 (0-5) /hpf Urine WBC 2 (0-5) /hpf Urine Mucus Rare H (None) /hpf Influenza Type A (PCR) (Not Detectd) Influenza Type B (PCR) (Not Detectd) RSV (PCR) (Not Detectd) SARS-CoV-2 (PCR) (Not Detectd) 04/16/23 04/16/23 04/16/23 Range/Units 09:29 10:07 11:20 WBC (3.8-10.6) k/uL RBC (4.30-5.90) m/uL Hgb (13.0-17.5) gm/dL Hct (39.0-53.0) % MCV (80.0-100.0) fL MCH (25.0-35.0) pg MCHC (31.0-37.0) g/dL RDW (11.5-15.5) % Plt Count (150-450) k/uL MPV Neutrophils % % Lymphocytes % % Monocytes % % Eosinophils % % Basophils % % Neutrophils # (1.3-7.7) k/uL Lymphocytes # (1.0-4.8) k/uL Monocytes # (0-1.0) k/uL Eosinophils # (0-0.7) k/uL Basophils # (0-0.2) k/uL Macrocytosis ESR (0-15) mm/hr PT (9.0-12.0) sec INR (<1.2) APTT (22.0-30.0) sec D-Dimer (<0.60) mg/L FEU Sodium (137-145) mmol/L Potassium (3.5-5.1) mmol/L Chloride (98-107) mmol/L Carbon Dioxide (22-30) mmol/L Anion Gap mmol/L BUN (9-20) mg/dL Creatinine (0.66-1.25) mg/dL Est GFR (CKD-EPI)AfAm (>60 ml/min/1.73 sqM) Est GFR (CKD-EPI)NonAf (>60 ml/min/1.73 sqM) Glucose (74-99) mg/dL Lactic Ac Sepsis Rflx Y Plasma Lactic Acid Ivan (0.7-2.0) mmol/L Calcium (8.4-10.2) mg/dL Ionized Calcium Gissel (4.5-5.3) mg/dL Magnesium (1.6-2.3) mg/dL Total Bilirubin (0.2-1.3) mg/dL AST (17-59) U/L ALT (4-49) U/L Alkaline Phosphatase (38-126) U/L Troponin I 0.040 H* (0.000-0.034) ng/mL C-Reactive Protein (<1.0) mg/dL NT-Pro-B Natriuret Pep 430 pg/mL Total Protein (6.3-8.2) g/dL Albumin (3.5-5.0) g/dL Urine Color Urine Appearance (Clear) Urine pH (5.0-8.0) Ur Specific Newborn (1.001-1.035) Urine Protein (Negative) Urine Glucose (UA) (Negative) Urine Ketones (Negative) Urine Blood (Negative) Urine Nitrite (Negative) Urine Bilirubin (Negative) Urine Urobilinogen (<2.0) mg/dL Ur Leukocyte Esterase (Negative) Urine RBC (0-5) /hpf Urine WBC (0-5) /hpf Urine Mucus (None) /hpf Influenza Type A (PCR) (Not Detectd) Influenza Type B (PCR) (Not Detectd) RSV (PCR) (Not Detectd) SARS-CoV-2 (PCR) (Not Detectd) Disposition Clinical Impression: Respiratory failure Disposition: [facility] Condition: Fair Referrals: Angel Verma DO [Primary Care Provider] - 1-2 days Decision Time: 12:26
[2023-04-16 09:53] LABS: Ionized Calcium 4.7 mg/dL (4.5-5.3)
[2023-04-16 09:54] LABS: Basophils % (A) 0 %; Eosinophils % (A) 0 %; HCT 46.6 % (39.0-53.0); HGB 15.3 gm/dL (13.0-17.5); Lymphocytes # (A) 0.1 k/uL (1.0-4.8); Lymphocytes % (A) 2 %; MCH 33.1 pg (25.0-35.0); MCHC 32.8 g/dL (31.0-37.0); MCV 100.9 fL (80.0-100.0); Macrocytosis Slight; Mean Platelet Volume 7.9; Monocytes # (A) 0.7 k/uL (0-1.0); Monocytes % (A) 8 %; Neutrophils # (A) 7.3 k/uL (1.3-7.7); Neutrophils % (A) 89 %; Platelet Count 133 k/uL (150-450); RBC 4.62 m/uL (4.30-5.90); RDW 15.6 % (11.5-15.5); WBC 8.3 k/uL (3.8-10.6)
[2023-04-16 09:57] LABS: INR 1.1 (<1.2); Partial Thromboplastin Time 24.3 sec (22.0-30.0); Prothrombin Time 11.8 sec (9.0-12.0)
[2023-04-16 10:04] LABS: ALT 20 U/L (4-49); AST 25 U/L (17-59); African American GFR (CKD) >90 (>60 ml/min/1.73 sqM); Albumin 3.3 g/dL (3.5-5.0); Alkaline Phosphatase 73 U/L (38-126); Anion Gap 14 mmol/L; Blood Urea Nitrogen 19 mg/dL (9-20); Calcium 8.9 mg/dL (8.4-10.2); Carbon Dioxide 21 mmol/L (22-30); Chloride 99 mmol/L (98-107); Glucose 213 mg/dL (74-99); Non-African American GFR(CKD) >90 (>60 ml/min/1.73 sqM); Potassium 3.7 mmol/L (3.5-5.1); Sodium 134 mmol/L (137-145); Total Bilirubin 0.6 mg/dL (0.2-1.3)
[2023-04-16 10:22] LABS: C Reactive Protein 14.9 mg/dL (<1.0)
[2023-04-16 10:35] LABS: Erythrocyte Sedimentation Rate 61 mm/hr (0-15)
--- NOTE | 2023-04-16 11:10 | CT ---
EXAMINATION TYPE: CT angio chest CT DLP: 509 mGycm, Automated exposure control for dose reduction was used. DATE OF EXAM: 04/16/2023 10:58 AM COMPARISON: CTA chest 09/06/2020, chest radiograph 04/16/2023 CLINICAL INDICATION:Male, 68 years old with history of positive D-dimer; Difficulty breathing TECHNIQUE/CONTRAST: CTA scan of the thorax is performed with IV Contrast, patient injected with 100 mL of Isovue 370, pul monary embolism protocol. MIP images are created and reviewed. FINDINGS: Pulmonary Artery: There is no evidence for a filling defect within the pulmonary vasculature to sugge st acute pulmonary embolism. The pulmonary artery is of normal size. Lungs/Pleura: No pleural effusion or pneumothorax. Bibasilar subsegmental groundglass opacities. Righ t sided anterior upper lobe pleural plaque. Few scattered groundglass opacities peripherally within t he bilateral upper lobes and right middle lobe. Airway: Large airways are patent. Heart: Heart is within normal limits for size.. Post CABG changes. Vasculature: No evidence of aortic aneurysm. Mediastinum: No evidence of adenopathy. Musculoskeletal: No acute osseous abnormalities. Multiple pathologic fractures involving T5, T6, T8, T10, T11, T12, and L1 redemonstrated. Multiple lytic lesions identified throughout the vertebral bodi es consistent with reported multiple myeloma. Median sternotomy wires. Remote posterior right-sided r ib fractures. Soft Tissues: Unremarkable. Lower neck: No significant findings. Upper Abdomen: Small hiatal hernia.. Liver is diffusely hypoattenuating consistent with steatosis. IMPRESSION: 1. No evidence of pulmonary embolism. 2. Peripheral groundglass pulmonary opacities consistent with atypical pulmonary infection such as CO VID-19. 3. Redemonstration of right upper lobe calcified pleural plaque likely related to asbestosis exposure . 4. Redemonstration of multiple pathologic fractures involving the visualized thoracolumbar spine due to multiple myeloma. 5. Hepatic steatosis.
[2023-04-16 11:21] LABS: Appearance,Urine Clear (Clear); Bilirubin,Urine Negative (Negative); Blood,Urine Negative (Negative); Color,Urine Yellow; Glucose,Urine (UA) 4+ (Negative); Ketones,Urine Negative (Negative); Leukocyte Esterase,Urine Negative (Negative); Mucus,Urine Rare /hpf; Nitrite,Urine Negative (Negative); PH, Urine 5.5 (5.0-8.0); Protein,Urine 1+ (Negative); RBC,Urine <1 /hpf (0-5); Specific Gravity,Urine 1.025 (1.001-1.035); Urobilinogen,Urine <2.0 mg/dL (<2.0); WBC,Urine 2 /hpf (0-5)
[2023-04-16] MEDS ORDERED: NALOXONE 0.4 MG/ML 1 ML VIAL IV PRN (12:21)
[2023-04-16] MEDS: SODIUM CHLORIDE 0.9% 1,000 ML IV SCH (13:38)
[2023-04-16] MEDS ORDERED: ALBUTEROL NEBULIZED 2.5 MG/3 ML INHALATION PRN (19:52)
[2023-04-16] MEDS: LEVOFLOXACIN 500MG-D5W PMX 500 MG in DEXTROSE/WATER 1 100ML.BAG IVPB SCH (21:52)
[2023-04-16] MEDS: APIXABAN 2.5 MG TABLET PO SCH (21:53)
[2023-04-16] MEDS: methylPREDNISolone SOD SUCCI 40 MG/ML 1 ML VIAL IV SCH (21:53)
[2023-04-16] MEDS: ALPRAZolam 0.5 MG TAB PO PRN (21:53)
[2023-04-16] MEDS: PANTOPRAZOLE 40 MG TABLET PO SCH (21:53)
[2023-04-16] MEDS: ACYCLOVIR 200 MG CAP PO SCH (21:53)
--- NOTE | 2023-04-16 22:44 | P.HPIM ---
History of Present Illness H&P Date: 04/16/23 Chief Complaint: Shortness of breath Patient is a 68-year-old male with a known history of multiple myeloma currently on Pomalyst, recent history of left popliteal DVT diagnosed on 10/10/2022 currently on Eliquis and also diagnosed with COVID 4 days ago presents to ER with complaints of shortness of breath. Patient has been having symptoms for the past 10 days. Patient also has history of hypertension, hyperlipidemia, coronary artery disease status post stent in the RCA, three-vessel CABG, GERD, nephrolithiasis, osteoarthritis, spinal stenosis and remote history of tobacco use. Patient has been having generalized weakness, body aches denied any fever or chills. And also worsening shortness of breath and has been short of breath with minimal activity and has been difficulty daily living due to shortness of breath. Denies any complaints of chest pain. No nausea or vomiting or abdominal pain or diarrhea. He has not been eating well for the past few days.. Patient is on prophylactic antibiotics due to chemotherapy. On Bactrim, acyclovir and Diflucan. Otherwise patient is vaccinated and also had booster dose. Chest x-ray showed mild cardiomegaly with right basilar opacity favored to represent atelectasis. CTA chest showed no evidence of PE. Peripheral groundglass pulmonary opacities consistent with atypical pulmonary infection such as COVID-19. 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 He wants to stop multiple pathologic fractures involving the visualized thoracolumbar spine due to multiple myeloma. Hepatic steatosis. Pulse ox 94% on room air. On admission patient was tachycardic with heart rate 123, Laboratory data showed WBC 8.3 hemoglobin 15.3 and platelets 133, sodium 134, potassium 3.7 chloride 99 bicarb is 21 BUN 14 and creatinine 0.72 and blood sugar is 213 lactic acid 3.2 calcium 8.9 liver NUS not elevated. Troponin 0.040 and CRP level is 14.9. Procalcitonin level 0.35 and proBNP 430. Urinalysis showed 4+ glucose and leukocyte esterase negative. SARS COVID-19 PCR detected. Review of Systems Constitutional: Patient denies any fever or chills . Patient does have generalized weakness, malaise and loss of appetite and body aches. Abdomen: Patient denied any nausea or vomiting or abd. pain Cardiovascular: Patient denies any chest pain. Positive for short of breath no palpitations. No worsening leg swelling. Respiratory: Does have cough without sputum production. Positive for shortness of breath Neurologic: Patient denied any numbness or tingling headache. Musculoskeletal: Patient denies any complaints of joint swelling or deformity. Skin: Negative Psychiatric: Negative Endocrine: No heat or cold intolerance. No recent weight gain. Genitourinary: No dysuria or hematuria. All other 14 point ROS negative except the above Past Medical History Past Medical History: Coronary Artery Disease (CAD), Cancer, Chest Pain / Angina, GERD/Reflux, Hyperlipidemia, Hypertension, Osteoarthritis (OA), Pneumonia, Vascular Disorder Additional Past Medical History / Comment(s): Ischemic heart disease, nonsustained VT, tachycardia, PAD L leg, varicosities, bilateral leg edema at times, hiatal hernia, hemorrhoids, arthritis multiple joints, back pain, DDD, spinal stenosis, vertigo, sinus problems, multiple myeloma History of Any Multi-Drug Resistant Organisms: None Reported Past Surgical History: Back Surgery, Coronary Bypass/CABG, Heart Catheterization With Stent, Hernia Repair, Tonsillectomy Additional Past Surgical History / Comment(s): Cardiac caths, PCI with stent to RCA in 2002, 1997 CABG 3 vessel, colonoscopy/benign polypectomy, low back surgery, bilateral rotator cuff repairs, R inguinal hernia repair x3 and L inguinal hernia repair x1, R hydrocele with surgery. past bone marrow biospy Past Anesthesia/Blood Transfusion Reactions: Postoperative Nausea & Vomiting (PONV) Date of Last Stent Placement:: 12/30/2002 Past Psychological History: Anxiety, Depression Additional Psychological History / Comment(s): Pt resides with his spouse Smoking Status: Former smoker Past Alcohol Use History: None Reported Additional Past Alcohol Use History / Comment(s): Pt started smoking in 1968 and quit in 1986 Past Drug Use History: None Reported Additional Drug Use History / Comment(s): occassional gummies previously - Past Family History Father Family Medical History: CVA/TIA, Diabetes Mellitus, Deep Vein Thrombosis (DVT), Renal Disease, Vascular Disorder Additional Family Medical History / Comment(s): Abdominal aortic aneurysm Mother Family Medical History: Myocardial Infarction ([place]) Additional Family Medical History / Comment(s): Mother of a [place] at the age of 44yrs. Medications and Allergies Home Medications Medication Instructions Recorded Confirmed Type ALPRAZolam [Xanax] 0.5 mg PO BID PRN 07/02/14 04/16/23 History Omeprazole [PriLOSEC] 20 mg PO BID 07/02/14 04/16/23 History Nitroglycerin Sl Tabs [Nitrostat] 0.4 mg SUBLINGUAL Q5M PRN 09/06/20 04/16/23 History Acyclovir [Zovirax] 400 mg PO BID 04/16/23 04/16/23 History Apixaban [Eliquis] 2.5 mg PO BID 04/16/23 04/16/23 History Azithromycin [Zithromax Z Pack] See Taper PO DIRECTED 04/16/23 04/16/23 History Fluconazole [Diflucan] 100 mg PO DAILY 04/16/23 04/16/23 History Furosemide [Lasix] 20 mg PO DAILY 04/16/23 04/16/23 History Morphine Sulfate ER [Ms Contin] 30 mg PO Q12HR 04/16/23 04/16/23 History Pomalyst 4 mg PO DIRECTED 04/16/23 04/16/23 History Sulfamethox-Tmp 800-160Mg [Bactrim 1 tab PO MOWEFR 04/16/23 04/16/23 History DS 800-160 mg] predniSONE See Taper PO DIRECTED 04/16/23 04/16/23 History Allergies Allergy/AdvReac Type Severity Reaction Status Date / Time hydrocodone [From [place]] Allergy Rash/Hives Verified 04/16/23 12:32 Iodinated Contrast Media Allergy Rash/Hives Verified 04/16/23 12:32 [Iodinated Contrast Media - IV Dye] shellfish derived Allergy Rash/Hives Verified 04/16/23 12:32 MRI dye Allergy Rash/Hives Uncoded 04/16/23 08:08 Physical Exam Vitals: Vital Signs Temp Pulse Pulse Resp BP BP Pulse Ox 04/16/23 13:45 97 F L 82 20 134/81 94 L 04/16/23 13:00 83 23 143/89 96 04/16/23 12:30 89 21 137/92 95 04/16/23 12:00 98 20 129/83 95 04/16/23 11:30 111 H 20 136/85 95 04/16/23 11:00 99 150/86 96 04/16/23 10:30 112 H 48 H 163/91 04/16/23 10:00 105 H 151/91 96 04/16/23 09:30 124 H 144/91 95 04/16/23 09:00 131 H 27 H 142/99 96 04/16/23 08:30 137 H 26 H 142/99 97 04/16/23 08:21 126 H 20 97 04/16/23 08:18 34 H 04/16/23 08:06 99 F 123 H 24 153/85 94 L Intake and Output 04/16/23 04/16/23 04/16/23 06:59 14:59 22:59 Other: Weight 90.718 kg PHYSICAL EXAMINATION: Patient is lying in the bed comfortably, no acute distress, awake alert and orie nted.. HEENT: Normocephalic. Neck is supple. Pupils reactive. Nostrils clear. Oral cavity is moist. Neck reveals no JVD, carotid bruits, or thyromegaly. CHEST EXAMINATION: Trachea is central. Symmetrical expansion. Bilateral expiratory wheezing and coarse sounds. Nonlabored breathing.. CARDIAC: Normal S1, S2 with no gallops. No murmurs ABDOMEN: Soft. Bowel sounds present. Nontender. No organomegaly. No abdominal bruits. Extremities: reveal no edema. No clubbing or cyanosis Neurologically awake, alert, oriented x3 with well-coordinated movements. No focal deficits noted Skin: No rash or skin lesions. Psychiatric: Coperative. Nonsuicidal, Musculoskeletal: No joint swelling or deformity. Normal range of motion. Results CBC & Chem 7: 04/16/23 09:29 04/16/23 09:29 Labs: Abnormal Lab Results - Last 24 Hours (Table) 04/16/23 04/16/23 04/16/23 Range/Units 08:29 09:29 09:29 MCV 100.9 H (80.0-100.0) fL RDW 15.6 H (11.5-15.5) % Plt Count 133 L (150-450) k/uL Lymphocytes # 0.1 L (1.0-4.8) k/uL ESR 61 H (0-15) mm/hr Sodium (137-145) mmol/L Carbon Dioxide (22-30) mmol/L Glucose (74-99) mg/dL Plasma Lactic Acid Ivan (0.7-2.0) mmol/L Troponin I (0.000-0.034) ng/mL C-Reactive Protein (<1.0) mg/dL Total Protein (6.3-8.2) g/dL Albumin (3.5-5.0) g/dL Procalcitonin (0.02-0.09) ng/mL Urine Protein 1+ H (Negative) Urine Glucose (UA) 4+ H (Negative) Urine Mucus Rare H (None) /hpf SARS-CoV-2 (PCR) Detected A (Not Detectd) 04/16/23 04/16/23 04/16/23 Range/Units 09:29 09:29 09:29 MCV (80.0-100.0) fL RDW (11.5-15.5) % Plt Count (150-450) k/uL Lymphocytes # (1.0-4.8) k/uL ESR (0-15) mm/hr Sodium 134 L (137-145) mmol/L Carbon Dioxide 21 L (22-30) mmol/L Glucose 213 H (74-99) mg/dL Plasma Lactic Acid Ivan 3.2 H* (0.7-2.0) mmol/L Troponin I 0.040 H* (0.000-0.034) ng/mL C-Reactive Protein 14.9 H (<1.0) mg/dL Total Protein 6.0 L (6.3-8.2) g/dL Albumin 3.3 L (3.5-5.0) g/dL Procalcitonin (0.02-0.09) ng/mL Urine Protein (Negative) Urine Glucose (UA) (Negative) Urine Mucus (None) /hpf SARS-CoV-2 (PCR) (Not Detectd) 04/16/23 Range/Units 09:29 MCV (80.0-100.0) fL RDW (11.5-15.5) % Plt Count (150-450) k/uL Lymphocytes # (1.0-4.8) k/uL ESR (0-15) mm/hr Sodium (137-145) mmol/L Carbon Dioxide (22-30) mmol/L Glucose (74-99) mg/dL Plasma Lactic Acid Ivan (0.7-2.0) mmol/L Troponin I (0.000-0.034) ng/mL C-Reactive Protein (<1.0) mg/dL Total Protein (6.3-8.2) g/dL Albumin (3.5-5.0) g/dL Procalcitonin 0.35 H (0.02-0.09) ng/mL Urine Protein (Negative) Urine Glucose (UA) (Negative) Urine Mucus (None) /hpf SARS-CoV-2 (PCR) (Not Detectd) Thrombosis Risk Factor Assmnt - DVT/VTE Prophylaxis DVT/VTE Prophylaxis: Pharmacologic Prophylaxis ordered - Choose All That Apply Any of the Below Risk Factors Present?: Yes Each Risk Factor Represents 2 Points: Age 61-74 years Thrombosis Risk Factor Assessment Total Risk Factor Score: 2 Thrombosis Risk Factor Assessment Level: Low Risk Assessment and Plan Assessment: Acute COVID-19 pneumonia. Diagnosed 4 days ago. Patient is symptomatic for the past 10 days. Worsening shortness of breath, generalized weakness malaise and loss of appetite secondary to above. Possible secondary bacterial pneumonia involving right lower lobe pneumonia/atelectasis. Procalcitonin level 0.35. Patient with history of left popliteal DVT diagnosed on 10/10/2022 Multiple myeloma currently being treated with Pomalyst Malignancy related pain with history of pathological fractures. On MS Contin at home. Coronary artery disease with history of stent placement to RCA and three-vessel CABG Hypertension Hyperlipidemia Osteoarthritis Nonsustained V. tach Chronic back pain, degenerative disc disease, spinal stenosis, Anxiety/depression Prior history of smoking DVT prophylaxis patient is already on Eliquis Plan: Patient was given IV hydration. Continue with albuterol ablation, Solu-Medrol 40 mg every 8 hourly and oxygen supplementation as needed. Started on antibiotics in the form of Levaquin. Continue with home medications. Pulmonary was consulted for evaluation. LDH and CRP levels ordered. Follow-up closely. Time with Patient: Greater than 30
[2023-04-17] MEDS: MORPHINE SULFATE ER 30 MG TABLET PO SCH ×3 (01:07→23:46)
[2023-04-17] MEDS ORDERED: ALBUTEROL HFA INHALER INHALATION PRN (04:28)
[2023-04-17] MEDS: methylPREDNISolone SOD SUCCI 40 MG/ML 1 ML VIAL IV SCH ×3 (04:54→20:50)
--- NOTE | 2023-04-17 07:05 | P.CNPUL ---
History of Present Illness Consult date: 04/17/23 Requesting physician: Sandro Rowe Reason for consult: other (respiratory failure) Chief complaint: Shortness of breath History of present illness: I am seeing this patient in new consultation today 04/17/2023 for acute dyspnea. Patient is a 68-year-old male with past medical history significant for multiple myeloma currently receiving chemotherapy, neuropathy, coronary artery disease with previous CABG, hyperlipidemia, hypertension, DVT, GERD, and remote history of smoking. His PCP is Dr. Donato. His oncologist is Dr. Harvey. On an outpatient basis, he was prophylactically placed on a combination of Bactrim, Acyclovir, and Diflucan. Patient presented in the emergency room yes terday morning complaining of progressively worsening shortness of breath over the last month, but particularly worse over the last 7 days. He did take a COVID-19 test 4 days ago which was positive. He states that his shortness of breath has become severe, and he could no longer ambulate without much difficulty. He states that he is also had a cough with minimal green sputum production. He also reports generalized malaise and weakness. He denies any fevers, chills, myalgias, hemoptysis. Denies sick contacts. Denies any chest pain, heart palpitations, lower extremity swelling, syncope. On arrival to the emergency room, he did test positive for COVID-19. He has reportedly had his original Covid 19 vaccination, but has not received any booster injections. Chest CTA on arrival showed scattered groundglass opacities particularly within the bibasilar lobes there are also a few scattered groundglass opacities in bilateral upper lobes and right middle lobe. These are concerning for atypical infection such as COVID-19 pneumonia. There was also a right upper lobe calcified pleural plaque likely from previous asbestosis exposure. No evidence of pulmonary embolism. There were multiple pathological fractures seen within the thoracolumbar spine.. Patient is currently sitting up in bed, on room air, in no acute distress. CBC from yesterday shows WBC count of 8.3, hemoglobin 15.3, hematocrit 46.6, platelets 133. BMP from yesterday shows sodium 134, potassium 3.7, chloride 99, serum bicarbonate 21, BUN 19, creatinine 0.72, glucose 213. Lactic acid level was elevated at 3.2 and is down to 1.6. Troponin was 0.04. Procalcitonin elevated at 0.35. He is empirically covered on Levaquin. Afebrile. Patient will be monitored on the cardiac stepdown unit. Review of Systems REVIEW OF SYSTEMS: CONSTITUTIONAL: Denies any recent significant weight loss or weight gain. Denies fever. Admits generalized malaise and generalized weakness EYES: Denies change in vision. EARS, NOSE, MOUTH, THROAT: Denies headaches, denies sore throat. CARDIOVASCULAR: Denies chest pain, palpitations or syncopal episodes. RESPIRATORY: see HPI GASTROINTESTINAL: Denies abdominal pain, nausea and vomiting, or diarrhea. admits reduced appetite GENITOURINARY: Denies hematuria, denies infections. MUSKULOSKELETAL: Denies pain, denies swelling. INTEGUMENTARY: Denies rash, denies eczema. NEUROLOGICAL: Denies recent memory loss, no recent seizure activity. PSYCHIATRIC: Denies anxiety, denies depression. HEMATOLOGIC/LYMPHATIC: Denies anemia, denies enlarged lymph node Past Medical History Past Medical History: Coronary Artery Disease (CAD), Cancer, Chest Pain / Angina, GERD/Reflux, Hyperlipidemia, Hypertension, Osteoarthritis (OA), Pneumonia, Vascular Disorder Additional Past Medical History / Comment(s): Ischemic heart disease, nonsustained VT, tachycardia, PAD L leg, varicosities, bilateral leg edema at times, hiatal hernia, hemorrhoids, arthritis multiple joints, back pain, DDD, spinal stenosis, vertigo, sinus problems, multiple myeloma History of Any Multi-Drug Resistant Organisms: None Reported Past Surgical History: Back Surgery, Coronary Bypass/CABG, Heart Catheterization With Stent, Hernia Repair, Tonsillectomy Additional Past Surgical History / Comment(s): Cardiac caths, PCI with stent to RCA in 2002, 1997 CABG 3 vessel, colonoscopy/benign polypectomy, low back surgery, bilateral rotator cuff repairs, R inguinal hernia repair x3 and L inguinal hernia repair x1, R hydrocele with surgery. past bone marrow biospy Past Anesthesia/Blood Transfusion Reactions: Postoperative Nausea & Vomiting (PONV) Date of Last Stent Placement:: 12/30/2002 Past Psychological History: Anxiety, Depression Additional Psychological History / Comment(s): Pt resides with his spouse Smoking Status: Former smoker Past Alcohol Use History: None Reported Additional Past Alcohol Use History / Comment(s): Pt started smoking in 1968 and quit in 1986 Past Drug Use History: None Reported Additional Drug Use History / Comment(s): occassional gummies previously - Past Family History Father Family Medical History: CVA/TIA, Diabetes Mellitus, Deep Vein Thrombosis (DVT), Renal Disease, Vascular Disorder Additional Family Medical History / Comment(s): Abdominal aortic aneurysm Mother Family Medical History: Myocardial Infarction ([place]) Additional Family Medical History / Comment(s): Mother of a [place] at the age of 44yrs. Medications and Allergies Home Medications Medication Instructions Recorded Confirmed Type ALPRAZolam [Xanax] 0.5 mg PO BID PRN 07/02/14 04/16/23 History Omeprazole [PriLOSEC] 20 mg PO BID 07/02/14 04/16/23 History Nitroglycerin Sl Tabs [Nitrostat] 0.4 mg SUBLINGUAL Q5M PRN 09/06/20 04/16/23 History Acyclovir [Zovirax] 400 mg PO BID 04/16/23 04/16/23 History Apixaban [Eliquis] 2.5 mg PO BID 04/16/23 04/16/23 History Azithromycin [Zithromax Z Pack] See Taper PO DIRECTED 04/16/23 04/16/23 History Fluconazole [Diflucan] 100 mg PO DAILY 04/16/23 04/16/23 History Furosemide [Lasix] 20 mg PO DAILY 04/16/23 04/16/23 History Morphine Sulfate ER [Ms Contin] 30 mg PO Q12HR 04/16/23 04/16/23 History Pomalyst 4 mg PO DIRECTED 04/16/23 04/16/23 History Sulfamethox-Tmp 800-160Mg [Bactrim 1 tab PO MOWEFR 04/16/23 04/16/23 History DS 800-160 mg] predniSONE See Taper PO DIRECTED 04/16/23 04/16/23 History Allergies Allergy/AdvReac Type Severity Reaction Status Date / Time hydrocodone [From [place]] Allergy Rash/Hives Verified 04/16/23 12:32 Iodinated Contrast Media Allergy Rash/Hives Verified 04/16/23 12:32 [Iodinated Contrast Media - IV Dye] shellfish derived Allergy Rash/Hives Verified 04/16/23 12:32 MRI dye Allergy Rash/Hives Uncoded 09/03/23 08:08 Physical Exam Vitals: Vital Signs Temp Pulse Pulse Resp BP BP Pulse Ox 04/17/23 00:00 74 18 128/74 95 04/16/23 20:00 97.5 F L 80 20 130/72 94 L 04/16/23 16:11 97.6 F 79 20 137/74 95 04/16/23 13:45 97 F L 82 20 134/81 94 L 04/16/23 13:00 83 23 143/89 96 04/16/23 12:30 89 21 137/92 95 04/16/23 12:00 98 20 129/83 95 04/16/23 11:30 111 H 20 136/85 95 04/16/23 11:00 99 150/86 96 04/16/23 10:30 112 H 48 H 163/91 04/16/23 10:00 105 H 151/91 96 04/16/23 09:30 124 H 144/91 95 04/16/23 09:00 131 H 27 H 142/99 96 04/16/23 08:30 137 H 26 H 142/99 97 04/16/23 08:21 126 H 20 97 04/16/23 08:18 34 H 04/16/23 08:06 99 F 123 H 24 153/85 94 L Intake and Output 04/16/23 04/16/23 04/17/23 14:59 22:59 06:59 Intake Total 120 Balance 120 Intake: Oral 120 Other: Weight 90.718 kg GENERAL EXAM: Alert, 68-year-old white male appearing stated age, comfortable in no apparent distress. HEAD: Normocephalic and atraumatic EYES: Normal reaction of pupils, equal size. NOSE: Clear with pink turbinates. THROAT: No erythema or exudates. NECK: No masses, no JVD. CHEST: No chest wall deformity. LUNGS: Equal air entry with bibasilar inspiratory crackles. No wheeze, rhonchi or dullness. on room air. No conversational dyspnea or accessory muscle use.. CVS: S1 and S2 normal with no audible murmur, regular rhythm. No extra heart sounds ABDOMEN: No hepatosplenomegaly, active bowel sounds, no guarding or rigidity. SPINE: No scoliosis or deformity SKIN: No rashes CENTRAL NERVOUS SYSTEM: No focal deficits, tone is normal in all 4 extremities. EXTREMITIES: There is no peripheral edema, clubbing, or cyanosis. Peripheral pulses are intact. Results - Laboratory Findings CBC and BMP: 04/16/23 09:04/16/23 09:29 PT/INR, D-dimer PT 11.8 sec (9.0-12.0) 04/16/23 09: INR 1.1 (<1.2) 04/16/23 09: D-Dimer 0.29 mg/L FEU (<0.60) 04/16/23 09:29 Abnormal lab findings: Abnormal Labs 04/16/23 04/16/23 04/16/23 08:29 09:29 09:29 MCV 100.9 H RDW 15.6 H Plt Count 133 L Lymphocytes # 0.1 L ESR 61 H Sodium Carbon Dioxide Glucose Plasma Lactic Acid Ivan Troponin I C-Reactive Protein Total Protein Albumin Procalcitonin Urine Protein 1+ H Urine Glucose (UA) 4+ H Urine Mucus Rare H SARS-CoV-2 (PCR) Detected A 04/16/23 04/16/23 04/16/23 09:29 09:29 09:29 MCV RDW Plt Count Lymphocytes # ESR Sodium 134 L Carbon Dioxide 21 L Glucose 213 H Plasma Lactic Acid Ivan 3.2 H* Troponin I 0.040 H* C-Reactive Protein 14.9 H Total Protein 6.0 L Albumin 3.3 L Procalcitonin Urine Protein Urine Glucose (UA) Urine Mucus SARS-CoV-2 (PCR) 04/16/23 09:29 MCV RDW Plt Count Lymphocytes # ESR Sodium Carbon Dioxide Glucose Plasma Lactic Acid Ivan Troponin I C-Reactive Protein Total Protein Albumin Procalcitonin 0.35 H Urine Protein Urine Glucose (UA) Urine Mucus SARS-CoV-2 (PCR) - Diagnostic Findings Chest x-ray: image reviewed CT scan - chest: image reviewed Assessment and Plan Assessment: Dyspnea, likely secondary to suspected COVID-19 pneumonia, underlying atypical bacterial infection cannot be ruled out. Chest CTA on arrival showed scattered groundglass opacities particularly within the bibasilar lobes there are also a few scattered groundglass opacities in bilateral upper lobes and right middle lobe. These are concerning for atypical infection such as COVID-19 pneumonia. Procalcitonin level elevated at 0.35 Multiple myeloma, currently receiving chemotherapy the form of Pomalyst and steroids, he was prophylactically covered on a combination of Bactrim, acyclovir, and Diflucan on an outpatient basis. Multiple pathological fractures of the thoracolumbar spine including T5, T6, T8, T10, T11, T12, and L1 Mildly elevated troponins, possibly related to supply/demand mismatch Coronary artery disease, with previous CABG Hyperlipidemia Benign essential hypertension history of DVT, anticoagulated on Eliquis Hepatic steatosis GERD Remote history of smoking Plan: Patient's medications, labs, imaging were reviewed On room air continue supportive treatment when necessary Ventolin HFA Empirically covered on antibiotics obtain oncology consult Eliquis has been restarted Protonix for GI prophylaxis We will continue to follow, and further recommendations are forthcoming I have personally seen and examined the patient, performed the documentation and the assessment and plan as written. Number of minutes spent on the visit:20 Time with Patient: Greater than 30
[2023-04-17] MEDS: ACYCLOVIR 200 MG CAP PO SCH ×2 (07:55→20:53)
[2023-04-17] MEDS: PANTOPRAZOLE 40 MG TABLET PO SCH ×2 (07:55→20:50)
[2023-04-17] MEDS: APIXABAN 2.5 MG TABLET PO SCH ×2 (07:55→20:50)
[2023-04-17 09:41] LABS: Basophils % (A) 0 %; Eosinophils % (A) 0 %; HCT 45.4 % (39.0-53.0); HGB 14.6 gm/dL (13.0-17.5); Lymphocytes # (A) 0.2 k/uL (1.0-4.8); Lymphocytes % (A) 4 %; MCH 32.9 pg (25.0-35.0); MCHC 32.2 g/dL (31.0-37.0); MCV 102.1 fL (80.0-100.0); Macrocytosis Slight; Mean Platelet Volume 7.8; Monocytes # (A) 0.7 k/uL (0-1.0); Monocytes % (A) 14 %; Neutrophils # (A) 4.1 k/uL (1.3-7.7); Neutrophils % (A) 79 %; Platelet Count 149 k/uL (150-450); RBC 4.45 m/uL (4.30-5.90); RDW 15.5 % (11.5-15.5); WBC 5.2 k/uL (3.8-10.6)
[2023-04-17 09:59] LABS: African American GFR (CKD) >90 (>60 ml/min/1.73 sqM); Anion Gap 9 mmol/L; Blood Urea Nitrogen 20 mg/dL (9-20); Calcium 8.7 mg/dL (8.4-10.2); Carbon Dioxide 24 mmol/L (22-30); Chloride 104 mmol/L (98-107); Glucose 177 mg/dL (74-99); LDH 174 U/L (120-246); Non-African American GFR(CKD) >90 (>60 ml/min/1.73 sqM); Potassium 3.8 mmol/L (3.5-5.1); Sodium 137 mmol/L (137-145)
[2023-04-17 10:14] LABS: C Reactive Protein 11.6 mg/dL (<1.0)
[2023-04-17] MEDS: SODIUM CHLORIDE 0.9% 1,000 ML IV SCH (10:30)
[2023-04-17] MEDS: ZINC SULFATE 220 MG CAP PO SCH (10:32)
[2023-04-17] MEDS: ASCORBIC ACID 500 MG TAB PO SCH (10:33)
[2023-04-17] MEDS: CHOLECALCIFEROL 125 MCG (5000 IU) TABLET PO SCH (10:33)
[2023-04-17 11:25] LABS: Glucose,Whole Blood 132 mg/dL (70-110)
[2023-04-17] MEDS: ALBUTEROL HFA INHALER INHALATION PRN ×2 (11:53→21:17)
[2023-04-17 14:45] LABS: Glucose,Whole Blood 186 mg/dL (70-110)
--- NOTE | 2023-04-17 15:42 | P.CONS ---
History of Present Illness - Reason for Consult Consult date: 04/17/23 Multiple myeloma - Chief Complaint Weakness with dyspnea on exertion - History of Present Illness Mr. Hoover is a 68-year-old gentleman with a past medical history significant for relapsed multiple myeloma currently on Pomalyst/Darzalex/dexamethasone presenting with increased weakness with dyspnea on exertion. His family was previously at a wedding and following this event, his son contracted COVID-19. His subsequently contracted COVID-19. After both family members were tested positive, he began developing rhinorrhea with sore throat. This was accompanied by progressive weakness and dyspnea on exertion. Around 04/13/2023, he did test positive for COVID-19. He contacted his primary care physician, who prescribed azithromycin and steroids. He noted improvement with cough and whe ezing, but continued to have fatigue with progressive dyspnea on exertion. He did not receive Paxlovid. He received original vaccinations for COVID-19, but did not receive any booster immunizations. He last took Pomalyst 1 to 2 days prior to admission. His last Darzalex maintenance treatment was on 03/29/2023. Given his signs and symptoms, he presented to the ED for additional management. In the ED, vital signs are stable and was afebrile. Labs revealed no acute abnormalities on CBC and no metabolic abnormalities on CMP. CTA of the chest revealed no evidence of pulmonary embolism, but did note groundglass opacities peripherally. COVID-19 PCR was positive on admission with negative influenza A/B and RSV. He was started on methylprednisolone 4 mg IV every 8 hours, levofloxacin 500 mg IV daily, and oral zinc with vitamin C and was admitted to medicine for additional management. Since admission, he notes improvement with his fatigue, but is still noticing dyspnea on exertion walking from the bed to the bathroom. He denies any new signs or symptoms. Review of Systems 14 point review of systems conducted with pertinent positives and negatives as noted per HPI. Past Medical History Past Medical History: Coronary Artery Disease (CAD), Cancer, Chest Pain / Angina, GERD/Reflux, Hyperlipidemia, Hypertension, Osteoarthritis (OA), Pneumonia, Vascular Disorder Additional Past Medical History / Comment(s): Ischemic heart disease, nonsustained VT, tachycardia, PAD L leg, varicosities, bilateral leg edema at times, hiatal hernia, hemorrhoids, arthritis multiple joints, back pain, DDD, spinal stenosis, vertigo, sinus problems, multiple myeloma History of Any Multi-Drug Resistant Organisms: None Reported Past Surgical History: Back Surgery, Coronary Bypass/CABG, Heart Catheterization With Stent, Hernia Repair, Tonsillectomy Additional Past Surgical History / Comment(s): Cardiac caths, PCI with stent to RCA in 2002, 1997 CABG 3 vessel, colonoscopy/benign polypectomy, low back surgery, bilateral rotator cuff repairs, R inguinal hernia repair x3 and L inguinal hernia repair x1, R hydrocele with surgery. past bone marrow biospy Past Anesthesia/Blood Transfusion Reactions: Postoperative Nausea & Vomiting (PONV) Date of Last Stent Placement:: 12/30/2002 Past Psychological History: Anxiety, Depression Additional Psychological History / Comment(s): Pt resides with his spouse Smoking Status: Former smoker Past Alcohol Use History: None Reported Additional Past Alcohol Use History / Comment(s): Pt started smoking in 1968 and quit in 1986 Past Drug Use History: None Reported Additional Drug Use History / Comment(s): occassional gummies previously - Past Family History Father Family Medical History: CVA/TIA, Diabetes Mellitus, Deep Vein Thrombosis (DVT), Renal Disease, Vascular Disorder Additional Family Medical History / Comment(s): Abdominal aortic aneurysm Mother Family Medical History: Myocardial Infarction (AL) Additional Family Medical History / Comment(s): Mother of a AL at the age of 44yrs. Medications and Allergies Home Medications Medication Instructions Recorded Confirmed Type ALPRAZolam [Xanax] 0.5 mg PO BID PRN 07/02/14 04/16/23 History Omeprazole [PriLOSEC] 20 mg PO BID 07/02/14 04/16/23 History Nitroglycerin Sl Tabs [Nitrostat] 0.4 mg SUBLINGUAL Q5M PRN 09/06/20 04/16/23 History Acyclovir [Zovirax] 400 mg PO BID 04/16/23 04/16/23 History Apixaban [Eliquis] 2.5 mg PO BID 04/16/23 04/16/23 History Azithromycin [Zithromax Z Pack] See Taper PO DIRECTED 04/16/23 04/16/23 History Fluconazole [Diflucan] 100 mg PO DAILY 04/16/23 04/16/23 History Furosemide [Lasix] 20 mg PO DAILY 04/16/23 04/16/23 History Morphine Sulfate ER [Ms Contin] 30 mg PO Q12HR 04/16/23 04/16/23 History Pomalyst 4 mg PO DIRECTED 04/16/23 04/16/23 History Sulfamethox-Tmp 800-160Mg [Bactrim 1 tab PO MOWEFR 04/16/23 04/16/23 History DS 800-160 mg] predniSONE See Taper PO DIRECTED 04/16/23 04/16/23 History Allergies Allergy/AdvReac Type Severity Reaction Status Date / Time hydrocodone [From [place]] Allergy Rash/Hives Verified 04/16/23 12:32 Iodinated Contrast Media Allergy Rash/Hives Verified 04/16/23 12:32 [Iodinated Contrast Media - IV Dye] shellfish derived Allergy Rash/Hives Verified 04/16/23 12:32 MRI dye Allergy Rash/Hives Uncoded 04/16/23 08:08 Physical Exam Vitals: Vital Signs Temp Pulse Resp BP Pulse Ox 04/17/23 13:07 99 04/17/23 11:09 97.6 F 99 22 153/98 90 L 04/17/23 07:46 97.9 F 118 H 20 153/92 91 L 04/17/23 04:00 98.2 F 90 18 158/80 96 04/17/23 00:00 74 18 128/74 95 04/16/23 20:00 97.5 F L 80 20 130/72 94 L 04/16/23 16:11 97.6 F 79 20 137/74 95 Intake and Output 04/17/23 04/17/23 04/17/23 06:59 14:59 22:59 Intake Total 720 Balance 720 Intake: Oral 720 Other: Voiding Method Toilet # Voids 1 - Constitutional Seated in bed, no acute distress, diaphoretic General appearance: cooperative, no acute distress - EENT Eyes: EOMI - Respiratory Respiratory: bilateral: other (Inspiratory crackles noted at the mid and lower lung bases bilaterally) - Cardiovascular Rhythm: regular - Gastrointestinal General gastrointestinal: no distended, soft - Integumentary Integumentary: no rash - Neurologic Neurologic: CNII-XII intact Results CBC & Chem 7: 04/17/23 09:14 04/17/23 09:14 Labs: Abnormal Lab Results - Last 24 Hours (Table) 0904/17/23 04/17/23 Range/Units 09:14 09:14 11:23 MCV 102.1 H (80.0-100.0) fL Plt Count 149 L (150-450) k/uL Lymphocytes # 0.2 L (1.0-4.8) k/uL Glucose 177 H (74-99) mg/dL POC Glucose (mg/dL) 132 H (70-110) mg/dL C-Reactive Protein 11.6 H (<1.0) mg/dL 04/17/23 Range/Units 14:34 MCV (80.0-100.0) fL Plt Count (150-450) k/uL Lymphocytes # (1.0-4.8) k/uL Glucose (74-99) mg/dL POC Glucose (mg/dL) 186 H (70-110) mg/dL C-Reactive Protein (<1.0) mg/dL Assessment and Plan (1) COVID-19 in immunocompromised patient Current Visit: Yes Status: Acute Code(s): U07.1 - COVID-19; D84.9 - IMMUNODEFICIENCY, UNSPECIFIED SNOMED Code(s): 352066059 (2) Multiple myeloma in remission Current Visit: Yes Status: Chronic Code(s): C90.01 - MULTIPLE MYELOMA IN REMISSION SNOMED Code(s): 60995500 Plan: #COVID-19 -Contracted COVID-19 from sick contacts, who became positive from wedding the previous week -Vitals are currently stable and is afebrile, but noted to have significant weakness and dyspnea on exertion -Currently on IV methylprednisolone, levofloxacin, zinc, and vitamin C per pulmonology and primary teams -Continue management per pulmonology and primary teams #Relapsed multiple myeloma -Initially diagnosed in July 2020 underwent 6 cycles of RVD with noted CR followed by maintenance treatment with Revlimid and dexamethasone -No consolidation autologous stem cell transplant was performed -Subsequent relapsed disease was treated with combination of pomalidomide/daratumumab/dexamethasone -Last received daratumumab on 03/29/2023 and pomalidomide approximately 1 to 2 days prior to presentation -I advised him to hold pomalidomide at this time and once he is discharged from the hospital -We will arrange follow-up with GAR[employer] ATTENDANT to clinically assess prior to resuming pomalidomide -He should have his next maintenance daratumumab treatment for 04/26/2023 rescheduled for at least 1 week and possibly longer depending on recovery from COVID-19 -Next follow-up with his primary oncologist Dr. Erick Harvey is scheduled for 05/02/2023 at 2 PM -Continue prophylactic acyclovir -No additional management required from a hematology perspective inpatient Mushtaq Harvey MD
[2023-04-17 16:48] LABS: Glucose,Whole Blood 210 mg/dL (70-110)
[2023-04-17] MEDS: INSULIN ASPART (NovoLOG) 100 UNIT/ML VIAL SQ SCH ×2 (17:21→20:51)
[2023-04-17 20:28] LABS: Glucose,Whole Blood 201 mg/dL (70-110)
[2023-04-17] MEDS: LEVOFLOXACIN 500MG-D5W PMX 500 MG in DEXTROSE/WATER 1 100ML.BAG IVPB SCH (20:50)
[2023-04-17] MEDS: ALPRAZolam 0.5 MG TAB PO PRN (23:47)
--- NOTE | 2023-04-18 00:06 | P.PN ---
Subjective Progress Note Date: 04/17/23 Patient is a 68-year-old male with a known history of multiple myeloma currently on Pomalyst, recent history of left popliteal DVT diagnosed on 10/10/2022 currently on Eliquis and also diagnosed with COVID 4 days ago presents to ER with complaints of shortness of breath. Patient has been having symptoms for the past 10 days. Patient also has history of hypertension, hyperlipidemia, coronary artery disea se status post stent in the RCA, three-vessel CABG, GERD, nephrolithiasis, osteoarthritis, spinal stenosis and remote history of tobacco use. Patient has been having generalized weakness, body aches denied any fever or chills. And also worsening shortness of breath and has been short of breath wit h minimal activity and has been difficulty daily living due to shortness of breath. Denies any complaints of chest pain. No nausea or vomiting or abdominal pain or diarrhea. He has not been eating well for the past few days.. Patient is on prophylactic antibiotics due to chemotherapy. On Bactrim, acyclovir and Diflucan. Otherwise patient is vaccinated and also had booster dose. Chest x-ray showed mild cardiomegaly with right basilar opacity favored to represent atelectasis. CTA chest showed no evidence of PE. Peripheral groundglass pulmonary opacities consistent with atypical pulmonary infection such as COVID-19. 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 He wants to stop multiple pathologic fractures involving the visualized thoracolumbar spine due to multiple myeloma. Hepatic steatosis. Pulse ox 94% on room air. On admission patient was tachycardic with heart rate 123, Laboratory data showed WBC 8.3 hemoglobin 15.3 and platelets 133, sodium 134, potassium 3.7 chloride 99 bicarb is 21 BUN 14 and creatinine 0.72 and blood sugar is 213 lactic acid 3.2 calcium 8.9 liver NUS not elevated. Troponin 0.040 and CRP level is 14.9. Procalcitonin level 0.35 and proBNP 430. Urinalysis showed 4+ glucose and leukocyte esterase negative. SARS COVID-19 PCR detected. 2022 Patient is resting in bed. Awake alert and oriented x3. Breathing status is better today. No complaints of chest pain. No nausea vomiting. Patient was able to ambulate to the bathroom. Cough did improve as well. Patient able to tolerate off oral diet better. No fever no chills. Laboratory data showed WBC 5.2 hemoglobin 14.6 and platelets 149 Sodium 137 potassium 3.8 chloride 104 bicarb is 24 BUN 20 and creatinine 0.67. CRP level is 11.6. LDH 174. Pulmonary and oncology is on board. Current medications reviewed. Objective - Vital Signs Vital signs: Vital Signs Temp 98.4 F 04/17/23 15:49 Pulse 110 H 04/17/23 15:49 Resp 20 04/17/23 15:49 BP 160/97 04/17/23 15:49 Pulse Ox 94 L 04/17/23 15:49 FiO2 Intake & Output 04/16/23 04/17/23 04/17/23 18:59 06:59 18:59 Intake Total 120 1320 Balance 120 1320 Weight 90.718 kg Intake: Oral 120 1320 Other: Voiding Method Toilet # Voids 1 - Exam PHYSICAL EXAMINATION: Patient is lying in the bed comfortably, no acute distress, awake alert and oriented.. HEENT: Normocephalic. Neck is supple. Pupils reactive. Nostrils clear. Oral cavity is moist. Neck reveals no JVD, carotid bruits, or thyromegaly. CHEST EXAMINATION: Trachea is central. Symmetrical expansion. Mild expiratory wheeze. No rhonchi or crackles.. CARDIAC: Normal S1, S2 with no gallops. No murmurs ABDOMEN: Soft. Bowel sounds present. Nontender. No organomegaly. No abdominal bruits. Extremities: reveal no edema. No clubbing or cyanosis Neurologically awake, alert, oriented x3 with well-coordinated movements. No focal deficits noted Skin: No rash or skin lesions. Psychiatric: Coperative. Nonsuicidal, Musculoskeletal: No joint swelling or deformity. Normal range of motion. - Labs CBC & Chem 7: 04/17/23 09:14 04/17/23 09:14 Labs: Abnormal Lab Results - Last 24 Hours (Table) 04/17/23 04/17/23 04/17/23 Range/Units 09:14 09:14 11:23 MCV 102.1 H (80.0-100.0) fL Plt Count 149 L (150-450) k/uL Lymphocytes # 0.2 L (1.0-4.8) k/uL Glucose 177 H (74-99) mg/dL POC Glucose (mg/dL) 132 H (70-110) mg/dL C-Reactive Protein 11.6 H (<1.0) mg/dL 04/17/23 04/17/23 Range/Units 14:34 16:44 MCV (80.0-100.0) fL Plt Count (150-450) k/uL Lymphocytes # (1.0-4.8) k/uL Glucose (74-99) mg/dL POC Glucose (mg/dL) 186 H 210 H (70-110) mg/dL C-Reactive Protein (<1.0) mg/dL Assessment and Plan Assessment: Acute COVID-19 pneumonia. Diagnosed 4 days ago. Patient is symptomatic for the past 10 days prior to admission. Worsening shortness of breath, generalized weakness malaise and loss of appetite secondary to above. Possible secondary bacterial pneumonia involving right lower lobe pneumonia/atelectasis. Procalcitonin level 0.35. Patient with history of left popliteal DVT diagnosed on 10/10/2022 Multiple myeloma currently being treated with Pomalyst Malignancy related pain with history of pathological fractures. On MS Contin at home. Coronary artery disease with history of stent placement to RCA and three-vessel CABG Hypertension Hyperlipidemia Osteoarthritis Nonsustained V. tach Chronic back pain, degenerative disc disease, spinal stenosis, Anxiety/depression Prior history of smoking DVT prophylaxis patient is already on Eliquis Plan: Patient was given IV hydration. Continue with albuterol hfa, Solu-Medrol 40 mg every 8 hourly and oxygen supplementation as needed. Started on antibiotics in the form of Levaquin. Procalcitonin is elevated. Continue with home medications. Pulmonary is on board. Follow-up closely. Time with Patient: Greater than 30
[2023-04-18] MEDS: methylPREDNISolone SOD SUCCI 40 MG/ML 1 ML VIAL IV SCH ×3 (05:11→20:13)
[2023-04-18 05:45] LABS: Glucose,Whole Blood 152 mg/dL (70-110)
[2023-04-18] MEDS: INSULIN ASPART (NovoLOG) 100 UNIT/ML VIAL SQ SCH ×4 (06:19→20:20)
[2023-04-18] MEDS: ALBUTEROL HFA INHALER INHALATION PRN ×3 (08:42→15:40)
[2023-04-18] MEDS: APIXABAN 2.5 MG TABLET PO SCH ×2 (09:26→20:13)
[2023-04-18] MEDS: PANTOPRAZOLE 40 MG TABLET PO SCH ×2 (09:27→20:13)
[2023-04-18] MEDS: ACYCLOVIR 200 MG CAP PO SCH ×2 (09:27→20:20)
[2023-04-18] MEDS: ZINC SULFATE 220 MG CAP PO SCH (09:27)
[2023-04-18] MEDS: ASCORBIC ACID 500 MG TAB PO SCH (09:27)
[2023-04-18] MEDS: CHOLECALCIFEROL 125 MCG (5000 IU) TABLET PO SCH (09:27)
[2023-04-18 09:53] LABS: African American GFR (CKD) >90 (>60 ml/min/1.73 sqM); Anion Gap 14 mmol/L; Blood Urea Nitrogen 21 mg/dL (9-20); Calcium 8.7 mg/dL (8.4-10.2); Carbon Dioxide 23 mmol/L (22-30); Chloride 100 mmol/L (98-107); Glucose 224 mg/dL (74-99); Non-African American GFR(CKD) >90 (>60 ml/min/1.73 sqM); Potassium 4.1 mmol/L (3.5-5.1); Sodium 137 mmol/L (137-145)
[2023-04-18] MEDS: SENNOSIDES 8.6 MG TAB PO SCH ×2 (10:02→20:13)
[2023-04-18 11:51] LABS: Glucose,Whole Blood 171 mg/dL (70-110)
[2023-04-18] MEDS: MORPHINE SULFATE ER 30 MG TABLET PO SCH ×2 (12:08→20:13)
[2023-04-18] MEDS: SODIUM CHLORIDE 0.9% 1,000 ML IV SCH (13:45)
--- NOTE | 2023-04-18 13:55 | P.PN ---
Subjective Progress Note Date: 04/18/23 Principal diagnosis: weakness/dyspnea At today's visit patient is resting comfortable in bed. Patient reports improvement in breathing. No acute events overnight Objective - Vital Signs Vital signs: Vital Signs Temp 98.3 F 04/18/23 12:21 Pulse 112 H 04/18/23 12:21 Resp 19 04/18/23 12:21 BP 145/86 04/18/23 12:21 Pulse Ox 94 L 04/18/23 12:21 FiO2 Intake & Output 04/17/23 04/18/23 04/18/23 18:59 06:59 18:59 Intake Total 1320 478 Balance 1320 478 Intake: Oral 1320 478 Other: Voiding Method Toilet Toilet Toilet # Voids 1 1 - Constitutional General appearance: Present: average body habitus, no acute distress - EENT Eyes: Present: anicteric sclerae, EOMI ENT: Present: hearing grossly normal - Respiratory Details: breathing is even and unlabored - Cardiovascular Details: skin warm and dry - Integumentary Integumentary: Absent: cyanotic, jaundiced - Musculoskeletal Musculoskeletal: Present: generalized weakness - Psychiatric Psychiatric: Present: A&O x's 3, appropriate affect, intact judgment & insight - Labs CBC & Chem 7: 04/17/23 09:14 04/18/23 08:47 Labs: Abnormal Lab Results - Last 24 Hours (Table) 04/17/23 04/17/23 04/17/23 Range/Units 14:34 16:44 20:17 BUN (9-20) mg/dL Creatinine (0.66-1.25) mg/dL Glucose (74-99) mg/dL POC Glucose (mg/dL) 186 H 210 H 201 H (70-110) mg/dL 04/18/23 04/18/23 04/18/23 Range/Units 05:43 08:47 11:49 BUN 21 H (9-20) mg/dL Creatinine 0.64 L (0.66-1.25) mg/dL Glucose 224 H (74-99) mg/dL POC Glucose (mg/dL) 152 H 171 H (70-110) mg/dL Assessment and Plan (1) Multiple myeloma Current Visit: Yes Status: Acute Priority: High Code(s): C90.00 - MULTIPLE MYELOMA NOT HAVING ACHIEVED REMISSION SNOMED Code(s): 631886506 (2) COVID-19 in immunocompromised patient Current Visit: Yes Status: Acute Priority: High Code(s): U07.1 - COVID-19; D84.9 - IMMUNODEFICIENCY, UNSPECIFIED SNOMED Code(s): 416334738 Plan: #COVID-19 -Contracted COVID-19 from sick contacts, who became positive from wedding the previous week -Vitals are currently stable and is afebrile, but noted to have significant weakness and dyspnea on exertion -Currently on IV methylprednisolone, levofloxacin, zinc, and vitamin C per pulmonology and primary teams -Continue management per pulmonology and primary teams #Relapsed multiple myeloma -Initially diagnosed in July 2020 underwent 6 cycles of RVD with noted CR followed by maintenance treatment with Revlimid and dexamethasone -No consolidation autologous stem cell transplant was performed -Subsequent relapsed disease was treated with combination of pomalidomide/daratumumab/dexamethasone -Last received daratumumab on 03/29/2023 and pomalidomide approximately 1 to 2 days prior to presentation -I advised him to hold pomalidomide at this time and once he is discharged from the hospital -We will arrange follow-up with T[employer] COMMISSIONER to clinically assess prior to resuming pomalidomide -He should have his next maintenance daratumumab treatment on 04/26/2023 rescheduled for at least 1 week and possibly longer depending on recovery from COVID-19 -Next follow-up with his primary oncologist Dr. Erick Harvey is scheduled for 05/02/2023 at 2 PM -Continue prophylactic acyclovir -Continue eliquis BID. Patient should be maintained on prophylactic dose anticoagulant or SCDs if contraindicated -No additional management required from a hematology perspective inpatient Attests: I have seen and examined pt, performed H&P, developed impression and plan of care. Discussed with dictator. Agree with documentation, dictated as a scribe
--- NOTE | 2023-04-18 13:56 | P.PN ---
Subjective Progress Note Date: 04/18/23 Principal diagnosis: Respiratory failure. I am seeing this patient in new consultation today 04/17/2023 for acute dyspnea. Patient is a 68-year-old male with past medical history significant for multiple myeloma currently receiving chemotherapy, neuropathy, coronary artery disease with previous CABG, hyperlipidemia, hypertension, DVT, GERD, and remote history of smoking. His PCP is Dr. Donato. His oncologist is Dr. Harvey. On an outpatient basis, he was prophylactically placed on a combination of Bactrim, Acyclovir, and Diflucan. Patient presented in the emergency room yesterday morning complaining of progressively worsening shortness of breath over the last month, but particularly worse over the last 7 days. He did take a COVID-19 test 4 days ago which was positive. He states that his shortness of breath has become severe, and he could no longer ambulate without much difficulty. He states that he is also had a cough with minimal green sputum production. He also reports generalized malaise and weakness. He denies any fevers, chills, myalgias, hemoptysis. Denies sick contacts. Denies any chest pain, heart palpitations, lower extremity swelling, syncope. On arrival to the emergency room, he did test positive for COVID-19. He has reportedly had his ramos ginal Covid 19 vaccination, but has not received any booster injections. Chest CTA on arrival showed scattered groundglass opacities particularly within the bibasilar lobes there are also a few scattered groundglass opacities in bilateral upper lobes and right middle lobe. These are concerning for atypical infection such as COVID-19 pneumonia. There was also a right upper lobe calcified pleural plaque likely from previous asbestosis exposure. No evidence of pulmonary embolism. There were multiple pathological fractures seen within the thoracolumbar spine.. Patient is currently sitting up in bed, on room air, in no acute distress. CBC from yesterday shows WBC count of 8.3, hemoglobin 15.3, hematocrit 46.6, platelets 133. BMP from yesterday shows sodium 134, potassium 3.7, chloride 99, serum bicarbonate 21, BUN 19, creatinine 0.72, glucose 213. Lactic acid level was elevated at 3.2 and is down to 1.6. Troponin was 0.04. Procalcitonin elevated at 0.35. He is empirically covered on Levaquin. Afebrile. Patient will be monitored on the cardiac stepdown unit. Progress note dated 04/18/2023. 68-year-old male with a history of multiple myeloma, previous CABG, hyperlipidemia, hypertension, DVT, GERD, and remote tobacco use. The patient is seen today in room 381. Currently he is on room air. The patient is currently on Solu-Medrol, and Levaquin. The patient may have coronavirus associated pneumonia. Labs today include a sodium 137, potassium 4.1, chlorides 100, CO2 23, anion gap 14, BUN 21, and creatinine 0.64. Glucose 224. Calcium 8.7. Objective - Vital Signs Vital signs: Vital Signs Temp 98.3 F 04/18/23 12:21 Pulse 112 H 04/18/23 12:21 Resp 19 04/18/23 12:21 BP 145/86 04/18/23 12:21 Pulse Ox 94 L 04/18/23 12:21 FiO2 Intake & Output 04/17/23 04/18/23 04/18/23 18:59 06:59 18:59 Intake Total 1320 478 Balance 1320 478 Intake: Oral 1320 478 Other: Voiding Method Toilet Toilet Toilet # Voids 1 1 - Exam No acute distress, oriented 3. Room air saturation is 94%. HEENT examination is grossly unremarkable. Neck supple. Full range of motion. No adenopathy thyromegaly or neck vein distention. Cardiovascular examination reveals regular rhythm rate. S1-S2 normal. No S3 or S4. No discernible murmur noted. Heart sounds are distant. Heart rate 102 bpm. Lungs reveal mostly clear breath sounds. Mild scattered rhonchi. No wheezes or crackles. Breath sounds are equal bilaterally. Room air saturation is 94%. Abdomen soft bowel sounds are heard. No masses or tenderness. Extremities are intact. No cyanosis clubbing or edema. Skin is without rash or lesion. Neurologic examination is brief but nonfocal. - Labs CBC & Chem 7: 04/17/23 09:14 04/18/23 08:47 Labs: Abnormal Lab Results - Last 24 Hours (Table) 04/17/23 04/17/23 04/17/23 Range/Units 14:34 16:44 20:17 BUN (9-20) mg/dL Creatinine (0.66-1.25) mg/dL Glucose (74-99) mg/dL POC Glucose (mg/dL) 186 H 210 H 201 H (70-110) mg/dL 04/18/23 04/18/23 04/18/23 Range/Units 05:43 08:47 11:49 BUN 21 H (9-20) mg/dL Creatinine 0.64 L (0.66-1.25) mg/dL Glucose 224 H (74-99) mg/dL POC Glucose (mg/dL) 152 H 171 H (70-110) mg/dL Assessment and Plan Assessment: Dyspnea, likely secondary to suspected COVID-19 pneumonia, underlying atypical bacterial infection cannot be ruled out. Chest CTA on arrival showed scattered groundglass opacities particularly within the bibasilar lobes there are also a few scattered groundglass opacities in bilateral upper lobes and right middle lobe. These are concerning for atypical infection such as COVID-19 pneumonia. Procalcitonin level elevated at 0.35. Multiple myeloma, currently receiving chemotherapy the form of Pomalyst and steroids, he was prophylactically covered on a combination of Bactrim, acyclovir, and Diflucan on an outpatient basis. Multiple pathological fractures of the thoracolumbar spine including T5, T6, T8, T10, T11, T12, and L1. Mildly elevated troponins, possibly related to supply/demand mismatch. Coronary artery disease, with previous CABG. Hyperlipidemia. Benign essential hypertension. History of DVT, anticoagulated on Eliquis. Hepatic steatosis. GERD. Remote history of smoking. Plan: Plan dated 04/18/2023. Labs, x-rays, and medications are reviewed. The patient is currently on room air. He continues on appropriate medications, including Eliquis and Protonix. The patient is being followed by medical oncology. We will continue to make recommendations along the way. The patient's overall prognosis remains guarded. He continues on room air. Labs, x-rays, and medications are all reviewed. Time with Patient: Less than 30
--- NOTE | 2023-04-18 14:20 | P.PN ---
Subjective Progress Note Date: 04/18/23 Patient is a 68-year-old male with a known history of multiple myeloma currently on Pomalyst, recent history of left popliteal DVT diagnosed on 10/10/2022 currently on Eliquis and also diagnosed with COVID 4 days ago presents to ER with complaints of shortness of breath. Patient has been having symptoms for the past 10 days. Patient also has history of hypertension, hyperlipidemia, coronary artery disea se status post stent in the RCA, three-vessel CABG, GERD, nephrolithiasis, osteoarthritis, spinal stenosis and remote history of tobacco use. Patient has been having generalized weakness, body aches denied any fever or chills. And also worsening shortness of breath and has been short of breath wit h minimal activity and has been difficulty daily living due to shortness of breath. Denies any complaints of chest pain. No nausea or vomiting or abdominal pain or diarrhea. He has not been eating well for the past few days.. Patient is on prophylactic antibiotics due to chemotherapy. On Bactrim, acyclovir and Diflucan. Otherwise patient is vaccinated and also had booster dose. Chest x-ray showed mild cardiomegaly with right basilar opacity favored to represent atelectasis. CTA chest showed no evidence of PE. Peripheral groundglass pulmonary opacities consistent with atypical pulmonary infection such as COVID-19. 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 He wants to stop multiple pathologic fractures involving the visualized thoracolumbar spine due to multiple myeloma. Hepatic steatosis. Pulse ox 94% on room air. On admission patient was tachycardic with heart rate 123, Laboratory data showed WBC 8.3 hemoglobin 15.3 and platelets 133, sodium 134, potassium 3.7 chloride 99 bicarb is 21 BUN 14 and creatinine 0.72 and blood sugar is 213 lactic acid 3.2 calcium 8.9 liver NUS not elevated. Troponin 0.040 and CRP level is 14.9. Procalcitonin level 0.35 and proBNP 430. Urinalysis showed 4+ glucose and leukocyte esterase negative. SARS COVID-19 PCR detected. 2022 Patient is resting in bed. Awake alert and oriented x3. Breathing status is better today. No complaints of chest pain. No nausea vomiting. Patient was able to ambulate to the bathroom. Cough did improve as well. Patient able to tolerate off oral diet better. No fever no chills. Laboratory data showed WBC 5.2 hemoglobin 14.6 and platelets 149 Sodium 137 potassium 3.8 chloride 104 bicarb is 24 BUN 20 and creatinine 0.67. CRP level is 11.6. LDH 174. Pulmonary and oncology is on board. Current medications reviewed. 04/18. Patient seen and examined. Not requiring any oxygen, currently on room air. States he feels much better compared to yesterday. States lethargy and weakness is improving REVIEW OF SYSTEMS: CONSTITUTIONAL: No fever, no malaise,. CARDIOVASCULAR: No chest pain, no palpitations, no syncope. PULMONARY: No shortness of breath, no cough, GASTROINTESTINAL: No diarrhea, no nausea, no vomiting, no abdominal pain. NEUROLOGICAL: No headaches, no weakness, PHYSICAL EXAMINATION: GENERAL: The patient is alert and oriented x3, not in any acute distress. Well developed, well nourished. HEENT: Pupils are round and equally reacting to light. EOMI. No scleral icterus. No conjunctival pallor. Normocephalic, atraumatic. No pharyngeal erythema. No thyromegaly. CARDIOVASCULAR: S1 and S2 present. No murmurs, rubs, or gallops. PULMONARY: Chest is clear to auscultation, no wheezing or crackles. ABDOMEN: Soft, nontender, nondistended, normoactive bowel sounds. No palpable organomegaly. MUSCULOSKELETAL: No joint swelling or deformity. EXTREMITIES: No cyanosis, clubbing, or pedal edema. NEUROLOGICAL: Gross neurological examination did not reveal any focal deficits. SKIN: No rashes. Assessment and plan Acute COVID-19 pneumonia. Diagnosed 4 days ago. Patient is symptomatic for the past 10 days prior to admission. Worsening shortness of breath, generalized weakness malaise and loss of appetite secondary to above. Possible secondary bacterial pneumonia involving right lower lobe pneumonia/atelectasis. Procalcitonin level 0.35. Patient with history of left popliteal DVT diagnosed on 10/10/2022 Multiple myeloma currently being treated with Pomalyst Malignancy related pain with history of pathological fractures. On MS Contin at home. Coronary artery disease with history of stent placement to RCA and three-vessel CABG Hypertension Hyperlipidemia Osteoarthritis Nonsustained V. tach Chronic back pain, degenerative disc disease, spinal stenosis, Anxiety/depression Prior history of smoking DVT prophylaxis patient is already on Eliquis Monitor vital signs Monitor CBC Monitor CMP Continue telemetry monitoring Continue Eliquis Continue IV Levaquin Continue Solu-Medrol Pulmonology following ID consulted Hematology oncology following was being treated with combination of pomalidomide/daratumumab/dexamethasone.Last received daratumumab on 03/29/2023 and pomalidomide approximately 1 to 2 days prior to presentation Hematology recommended to hold pomalidomide at this time and once he is discharged from the hospital. Outpatient follow-up with hematology Labs and medication were reviewed.. Continue same treatment. Continue with symptomatic treatment. Resume home medication. Monitor labs and vitals. DVT and GI prophylaxis. Further recommendations as per clinical course of the patient Dictation was produced using [employer] dictation software. please excuse any grammatical, word or spelling errors. Objective - Vital Signs Vital signs: Vital Signs Temp 97.7 F 04/18/23 09:25 Pulse 107 H 04/18/23 09:25 Resp 20 04/18/23 09:25 BP 135/75 04/18/23 09:25 Pulse Ox 91 L 04/18/23 09:25 FiO2 Intake & Output 04/17/23 04/18/23 04/18/23 18:59 06:59 18:59 Intake Total 1320 360 Balance 1320 360 Intake: Oral 1320 360 Other: Voiding Method Toilet Toilet Toilet # Voids 1 1 - Labs CBC & Chem 7: 04/17/23 09:14 04/18/23 08:47 Labs: Abnormal Lab Results - Last 24 Hours (Table) 04/17/23 04/17/23 04/17/23 Range/Units 11:23 14:34 16:44 BUN (9-20) mg/dL Creatinine (0.66-1.25) mg/dL Glucose (74-99) mg/dL POC Glucose (mg/dL) 132 H 186 H 210 H (70-110) mg/dL 04/17/23 04/18/23 04/18/23 Range/Units 20:17 05:43 08:47 BUN 21 H (9-20) mg/dL Creatinine 0.64 L (0.66-1.25) mg/dL Glucose 224 H (74-99) mg/dL POC Glucose (mg/dL) 201 H 152 H (70-110) mg/dL
[2023-04-18 16:15] LABS: Immunoglobulin M <35.0 mg/dL (40.0-280.0)
[2023-04-18 16:23] LABS: Glucose,Whole Blood 240 mg/dL (70-110)
[2023-04-18] MEDS ORDERED: IMMUNE GLOBULIN (GAMMAGARD) 5 GM in EMPTY BAG 1 BAG IV ONE (18:00)
[2023-04-18] MEDS ORDERED: IMMUNE GLOBULIN (GAMMAGARD) 20 GM in EMPTY BAG 1 BAG IV ONE (18:00)
[2023-04-18 20:17] LABS: Glucose,Whole Blood 241 mg/dL (70-110)
[2023-04-18] MEDS: ALPRAZolam 0.5 MG TAB PO PRN (20:20)
--- NOTE | 2023-04-18 21:21 | P.CONS ---
History of Present Illness - Reason for Consult Consult date: 04/18/23 - History of Present Illness Patient is a 68-year-old male with a past medical history significant for coronary artery disease reflux hypertension hyperlipidemia osteoarthritis apparently tested positive for COVID-19 about 2 weeks ago patient mention he did call his primary care physician who did put him on steroids and antibiotics he did have some improvement initially however over the last day or 2 before pre sentation to hospital patient complaining of increasing shortness of breath unable to catch her breath the patient also have a cough moderate intensity with occasional whitish to yellowish sputum no hemoptysis denies any pleuritic chest pain P denies any nausea vomiting no abdominal pain or any diarrhea on presentation to hospital he did have a low-grade fever of 99 degrees forearm height patient was mildly hypoxic however currently doing well on room air patient did have a normal white count kidney function has been normal CRP was 14.9 Pro-Talib 0.35 urine was negative tested positive for COVID patient did have a chest x-ray mild cardiomegaly with a right basilar opacity favored to represent atelectasis also have a CT angiogram of the chest that was negative for PE did have peripheral groundglass opacity consistent with atypical pneumonia and redemonstration of right upper lobe calcified plaque likely asbestos exposure patient is currently on a combination of Eliquis ascorbic acid Solu-Medrol and zinc in addition to the Levaquin infectious was consulted today for further management of antibiotic therapy Past Medical History Past Medical History: Coronary Artery Disease (CAD), Cancer, Chest Pain / Angina, GERD/Reflux, Hyperlipidemia, Hypertension, Osteoarthritis (OA), Pneumonia, Vascular Disorder Additional Past Medical History / Comment(s): Ischemic heart disease, nonsustained VT, tachycardia, PAD L leg, varicosities, bilateral leg edema at times, hiatal hernia, hemorrhoids, arthritis multiple joints, back pain, DDD, spinal stenosis, vertigo, sinus problems, multiple myeloma History of Any Multi-Drug Resistant Organisms: None Reported Past Surgical History: Back Surgery, Coronary Bypass/CABG, Heart Catheterization With Stent, Hernia Repair, Tonsillectomy Additional Past Surgical History / Comment(s): Cardiac caths, PCI with stent to RCA in 2002, 1997 CABG 3 vessel, colonoscopy/benign polypectomy, low back surgery, bilateral rotator cuff repairs, R inguinal hernia repair x3 and L inguinal hernia repair x1, R hydrocele with surgery. past bone marrow biospy Past Anesthesia/Blood Transfusion Reactions: Postoperative Nausea & Vomiting (PONV) Date of Last Stent Placement:: 12/30/2002 Past Psychological History: Anxiety, Depression Additional Psychological History / Comment(s): Pt resides with his spouse Smoking Status: Former smoker Past Alcohol Use History: None Reported Additional Past Alcohol Use History / Comment(s): Pt started smoking in 1968 and quit in 1986 Past Drug Use History: None Reported Additional Drug Use History / Comment(s): occassional gummies previously - Past Family History Father Family Medical History: CVA/TIA, Diabetes Mellitus, Deep Vein Thrombosis (DVT), Renal Disease, Vascular Disorder Additional Family Medical History / Comment(s): Abdominal aortic aneurysm Mother Family Medical History: Myocardial Infarction (GA) Additional Family Medical History / Comment(s): Mother of a GA at the age of 44yrs. Medications and Allergies Home Medications Medication Instructions Recorded Confirmed Type ALPRAZolam [Xanax] 0.5 mg PO BID PRN 07/02/14 04/16/23 History Omeprazole [PriLOSEC] 20 mg PO BID 07/02/14 04/16/23 History Nitroglycerin Sl Tabs [Nitrostat] 0.4 mg SUBLINGUAL Q5M PRN 09/06/20 04/16/23 History Acyclovir [Zovirax] 400 mg PO BID 04/16/23 04/16/23 History Apixaban [Eliquis] 2.5 mg PO BID 04/16/23 04/16/23 History Fluconazole [Diflucan] 100 mg PO DAILY 04/16/23 04/16/23 History Furosemide [Lasix] 20 mg PO DAILY 04/16/23 04/16/23 History Morphine Sulfate ER [Ms Contin] 30 mg PO Q12HR 04/16/23 04/16/23 History Pomalyst 4 mg PO DIRECTED 04/16/23 04/16/23 History Sulfamethox-Tmp 800-160Mg [Bactrim 1 tab PO MOWEFR 04/16/23 04/16/23 History DS 800-160 mg] Albuterol Inhaler [Ventolin Hfa 2 puff INHALATION RT-QID PRN 30 04/21/23 Rx Inhaler] Days #1 each Levofloxacin [Levaquin] 750 mg PO DAILY 2 Days #2 tab 04/21/23 Rx Metoprolol Succinate (ER) [Toprol 12.5 mg PO DAILY 30 Days #30 tab 04/21/23 Rx XL] predniSONE [Deltasone] See Taper PO DAILY 8 Days #10 tab 04/21/23 Rx Allergies Allergy/AdvReac Type Severity Reaction Status Date / Time hydrocodone [From [place]] Allergy Rash/Hives Verified 04/16/23 12:32 Iodinated Contrast Media Allergy Rash/Hives Verified 04/16/23 12:32 [Iodinated Contrast Media - IV Dye] shellfish derived Allergy Rash/Hives Verified 04/16/23 12:32 MRI dye Allergy Rash/Hives Uncoded 04/16/23 08:08 Physical Exam Vitals: Vital Signs Temp Pulse Resp BP Pulse Ox 04/18/23 12:21 98.3 F 112 H 19 145/86 94 L 04/18/23 09:25 97.7 F 107 H 20 135/75 91 L 04/18/23 04:00 97.3 F L 78 120/83 94 L 04/17/23 23:56 98.4 F 90 141/94 92 L 04/17/23 20:00 98.1 F 102 H 128/90 96 04/17/23 15:49 98.4 F 110 H 20 160/97 94 L Intake and Output 04/17/23 04/18/23 04/18/23 22:59 06:59 14:59 Intake Total 600 360 Balance 600 360 Intake: Oral 600 360 Other: Voiding Method Toilet Toilet Toilet # Voids 1 1 Results CBC & Chem 7: 04/21/23 08:05 04/21/23 08:05 Labs: Abnormal Lab Results - Last 24 Hours (Table) 04/17/23 04/17/23 04/17/23 Range/Units 14:34 16:44 20:17 BUN (9-20) mg/dL Creatinine (0.66-1.25) mg/dL Glucose (74-99) mg/dL POC Glucose (mg/dL) 186 H 210 H 201 H (70-110) mg/dL 04/18/23 04/18/23 04/18/23 Range/Units 05:43 08:47 11:49 BUN 21 H (9-20) mg/dL Creatinine 0.64 L (0.66-1.25) mg/dL Glucose 224 H (74-99) mg/dL POC Glucose (mg/dL) 152 H 171 H (70-110) mg/dL Assessment and Plan Plan: 1patient presented hospital with increasing shortness of breath likely multifactorial in this patient diagnosed with COVID-19 on home test about 2 weeks ago now presented hospital worsening shortness of breath patient is currently out of the therapeutic window for remdesivir and clinic suspicious know for a second infection pneumonia as no evidence of any consolidation on the CT angiogram of the chest 2-patient to continue the current supportive treatment with Solu-Medrol zinc ascorbic acid along with Eliquis 3-obtain sputum for Gram stain and culture We will follow on clinical condition and cultures to further adjust medication if needed Thank you for this consultation we will follow the patient along with you Dictation was produced using [employer] dictation software. please excuse any grammatical, word or spelling errors. Time with Patient: Greater than 30
[2023-04-18] MEDS: LEVOFLOXACIN 500MG-D5W PMX 500 MG in DEXTROSE/WATER 1 100ML.BAG IVPB SCH (22:36)
[2023-04-19 06:07] LABS: Glucose,Whole Blood 170 mg/dL (70-110)
[2023-04-19] MEDS: INSULIN ASPART (NovoLOG) 100 UNIT/ML VIAL SQ SCH ×4 (06:11→20:46)
[2023-04-19] MEDS: methylPREDNISolone SOD SUCCI 40 MG/ML 1 ML VIAL IV SCH ×3 (06:11→20:45)
[2023-04-19] MEDS: ZINC SULFATE 220 MG CAP PO SCH (08:28)
[2023-04-19] MEDS: CHOLECALCIFEROL 125 MCG (5000 IU) TABLET PO SCH (08:29)
[2023-04-19] MEDS: ACYCLOVIR 200 MG CAP PO SCH ×2 (08:29→20:46)
[2023-04-19] MEDS: MORPHINE SULFATE ER 30 MG TABLET PO SCH ×2 (08:29→20:45)
[2023-04-19] MEDS: ASCORBIC ACID 500 MG TAB PO SCH (08:29)
[2023-04-19] MEDS: PANTOPRAZOLE 40 MG TABLET PO SCH ×2 (08:29→20:47)
[2023-04-19] MEDS: APIXABAN 2.5 MG TABLET PO SCH ×2 (08:30→20:46)
[2023-04-19] MEDS: SENNOSIDES 8.6 MG TAB PO SCH ×2 (08:30→20:45)
[2023-04-19] MEDS: ALBUTEROL HFA INHALER INHALATION PRN ×3 (08:46→21:17)
[2023-04-19 09:51] LABS: Albumin 3.7 d/dL (3.8-4.9); Protein, Total 5.9 d/dL (6.2-8.2)
[2023-04-19 11:53] LABS: Glucose,Whole Blood 245 mg/dL (70-110)
--- NOTE | 2023-04-19 11:56 | P.PN ---
Subjective Progress Note Date: 04/19/23 Principal diagnosis: weakness/dyspnea At today's visit patient is resting comfortable in bed. Patient reports improvement in breathing. Reports persisting cough and generalized weakness. No acute events overnight Objective - Vital Signs Vital signs: Vital Signs Temp 97.5 F L 04/19/23 08:33 Pulse 92 04/19/23 08:33 Resp 20 04/19/23 08:33 BP 161/86 04/19/23 08:33 Pulse Ox 94 L 04/19/23 08:33 FiO2 Intake & Output 04/18/23 04/19/23 04/19/23 18:59 06:59 18:59 Intake Total 598 10 360 Balance 598 10 360 Intake: IV 10 Invasive Line 2 10 Oral 598 360 Other: Voiding Method Toilet Toilet Toilet # Voids 3 2 - Constitutional General appearance: Present: average body habitus, no acute distress - EENT Eyes: Present: anicteric sclerae, EOMI ENT: Present: hearing grossly normal - Respiratory Details: breathing is even and unlabored - Cardiovascular Details: skin warm and dry - Integumentary Integumentary: Absent: cyanotic - Neurologic Neurologic Comment(s): grossly intact - Musculoskeletal Musculoskeletal: Present: generalized weakness - Psychiatric Psychiatric: Present: A&O x's 3, appropriate affect, intact judgment & insight - Labs CBC & Chem 7: 04/17/23 09:14 04/18/23 08:47 Labs: Abnormal Lab Results - Last 24 Hours (Table) 04/18/23 04/18/23 04/18/23 Range/Units 08:47 11:49 16:18 POC Glucose (mg/dL) 171 H 240 H (70-110) mg/dL Total Protein (PEP) 5.9 L (6.2-8.2) d/dL Albumin (PEP) 3.7 L (3.8-4.9) d/dL IgG 506.0 L (700.0-1600.0) mg/dL IgM <35.0 L (40.0-280.0) mg/dL 04/18/23 04/19/23 Range/Units 20:16 06:06 POC Glucose (mg/dL) 241 H 170 H (70-110) mg/dL Total Protein (PEP) (6.2-8.2) d/dL Albumin (PEP) (3.8-4.9) d/dL IgG (700.0-1600.0) mg/dL IgM (40.0-280.0) mg/dL Assessment and Plan (1) Multiple myeloma Current Visit: Yes Status: Acute Priority: High Code(s): C90.00 - MULTIPLE MYELOMA NOT HAVING ACHIEVED REMISSION SNOMED Code(s): 523628092 (2) COVID-19 in immunocompromised patient Current Visit: Yes Status: Acute Priority: High Code(s): U07.1 - COVID-19; D84.9 - IMMUNODEFICIENCY, UNSPECIFIED SNOMED Code(s): 687465462 Plan: #COVID-19 -Contracted COVID-19 from sick contacts, who became positive from wedding the previous week -Vitals are currently stable and is afebrile, but noted to have significant weakness and dyspnea on exertion -Currently on IV methylprednisolone, levofloxacin, zinc, and vitamin C per pulmonology and primary teams -Continue management per pulmonology and primary teams #Relapsed multiple myeloma -Initially diagnosed in July 2020 underwent 6 cycles of RVD with noted CR followed by maintenance treatment with Revlimid and dexamethasone -No consolidation autologous stem cell transplant was performed -Subsequent relapsed disease was treated with combination of pomalidomide/daratumumab/dexamethasone -Last received daratumumab on 03/29/2023 and pomalidomide approximately 1 to 2 days prior to presentation -I advised him to hold pomalidomide at this time and once he is discharged from the hospital -We will arrange follow-up with OCCUPATIONAL HYGIENIST to clinically assess prior to resuming pomalidomide -He should have his next maintenance daratumumab treatment on 04/26/2023 rescheduled for at least 1 week and possibly longer depending on recovery from COVID-19 -Next follow-up with his primary oncologist Dr. Erick Harvey is scheduled for 05/02/2023 at 2 PM -Immunoglobins revealed IgG 506, SPEP pending. Due to current COVID infection and hx of MM on active treatment, 1 dose IVIG was ordered for immune support -Continue prophylactic acyclovir -Continue eliquis BID. Patient should be maintained on prophylactic dose anticoagulant or SCDs if contraindicated Attests: I have seen and examined pt, performed H&P, developed impression and plan of care. Discussed with dictator. Agree with documentation, dictated as a scribe
--- NOTE | 2023-04-19 12:33 | P.PN ---
Subjective Progress Note Date: 04/19/23 Principal diagnosis: Respiratory failure. I am seeing this patient in new consultation today 04/17/2023 for acute dyspnea. Patient is a 68-year-old male with past medical history significant for multiple myeloma currently receiving chemotherapy, neuropathy, coronary artery disease with previous CABG, hyperlipidemia, hypertension, DVT, GERD, and remote history of smoking. His PCP is Dr. Donato. His oncologist is Dr. Harvey. On an outpatient basis, he was prophylactically placed on a combination of Bactrim, Acyclovir, and Diflucan. Patient presented in the emergency room yesterday morning complaining of progressively worsening shortness of breath over the last month, but particularly worse over the last 7 days. He did take a COVID-19 test 4 days ago which was positive. He states that his shortness of breath has become severe, and he could no longer ambulate without much difficulty. He states that he is also had a cough with minimal green sputum production. He also reports generalized malaise and weakness. He denies any fevers, chills, myalgias, hemoptysis. Denies sick contacts. Denies any chest pain, heart palpitations, lower extremity swelling, syncope. On arrival to the emergency room, he did test positive for COVID-19. He has reportedly had his ramos ginal Covid 19 vaccination, but has not received any booster injections. Chest CTA on arrival showed scattered groundglass opacities particularly within the bibasilar lobes there are also a few scattered groundglass opacities in bilateral upper lobes and right middle lobe. These are concerning for atypical infection such as COVID-19 pneumonia. There was also a right upper lobe calcified pleural plaque likely from previous asbestosis exposure. No evidence of pulmonary embolism. There were multiple pathological fractures seen within the thoracolumbar spine.. Patient is currently sitting up in bed, on room air, in no acute distress. CBC from yesterday shows WBC count of 8.3, hemoglobin 15.3, hematocrit 46.6, platelets 133. BMP from yesterday shows sodium 134, potassium 3.7, chloride 99, serum bicarbonate 21, BUN 19, creatinine 0.72, glucose 213. Lactic acid level was elevated at 3.2 and is down to 1.6. Troponin was 0.04. Procalcitonin elevated at 0.35. He is empirically covered on Levaquin. Afebrile. Patient will be monitored on the cardiac stepdown unit. Progress note dated 04/18/2023. 68-year-old male with a history of multiple myeloma, previous CABG, hyperlipidemia, hypertension, DVT, GERD, and remote tobacco use. The patient is seen today in room 381. Currently he is on room air. The patient is currently on Solu-Medrol, and Levaquin. The patient may have coronavirus associated pneumonia. Labs today include a sodium 137, potassium 4.1, chlorides 100, CO2 23, anion gap 14, BUN 21, and creatinine 0.64. Glucose 224. Calcium 8.7. Progress note dated 04/19/2023. 68-year-old male with history of multiple myeloma, previous bypass surgery, dyslipidemia, hypertension, DVT, gastroesophageal reflux disease, and remote tobacco use. The patient is seen today in room 381. Currently, the patient's on room air. The chest x-ray is ordered for tomorrow, April 20. He has no complaints. He is maintained on Solu-Medrol and Levaquin. The patient may have coronavirus associated pneumonia. Glucose today is 245. Objective - Vital Signs Vital signs: Vital Signs Temp 97.6 F 04/19/23 11:50 Pulse 131 H 04/19/23 11:50 Resp 18 04/19/23 11:50 BP 122/76 04/19/23 11:50 Pulse Ox 93 L 04/19/23 11:50 FiO2 Intake & Output 04/18/23 04/19/23 04/19/23 18:59 06:59 18:59 Intake Total 598 10 360 Balance 598 10 360 Intake: IV 10 Invasive Line 2 10 Oral 598 360 Other: Voiding Method Toilet Toilet Toilet # Voids 3 2 - Exam No acute distress, oriented 3. Room air saturation is 93%. HEENT examination is grossly unremarkable. Neck supple. Full range of motion. No adenopathy thyromegaly or neck vein distention. Cardiovascular examination reveals regular rhythm rate. S1-S2 normal. No S3 or S4. No discernible murmur noted. Heart sounds are distant. Heart rate 92 bpm. Lungs reveal mostly clear breath sounds. Mild scattered rhonchi. No wheezes or crackles. Breath sounds are equal bilaterally. Room air saturation is 93%. Abdomen soft bowel sounds are heard. No masses or tenderness. Extremities are intact. No cyanosis clubbing or edema. Skin is without rash or lesion. Neurologic examination is brief but nonfocal. - Labs CBC & Chem 7: 04/17/23 09:14 04/18/23 08:47 Labs: Abnormal Lab Results - Last 24 Hours (Table) 04/18/23 04/18/23 04/18/23 Range/Units 08:47 16:18 20:16 POC Glucose (mg/dL) 240 H 241 H (70-110) mg/dL Total Protein (PEP) 5.9 L (6.2-8.2) d/dL Albumin (PEP) 3.7 L (3.8-4.9) d/dL IgG 506.0 L (700.0-1600.0) mg/dL IgM <35.0 L (40.0-280.0) mg/dL 04/19/23 04/19/23 Range/Units 06:06 11:50 POC Glucose (mg/dL) 170 H 245 H (70-110) mg/dL Total Protein (PEP) (6.2-8.2) d/dL Albumin (PEP) (3.8-4.9) d/dL IgG (700.0-1600.0) mg/dL IgM (40.0-280.0) mg/dL Assessment and Plan Assessment: Dyspnea, likely secondary to suspected COVID-19 pneumonia, underlying atypical bacterial infection cannot be ruled out. Chest CTA on arrival showed scattered groundglass opacities particularly within the bibasilar lobes there are also a few scattered groundglass opacities in bilateral upper lobes and right middle lobe. These are concerning for atypical infection such as COVID-19 pneumonia. Procalcitonin level elevated at 0.35. Multiple myeloma, currently receiving chemotherapy the form of Pomalyst and steroids, he was prophylactically covered on a combination of Bactrim, acyclovir, and Diflucan on an outpatient basis. Multiple pathological fractures of the thoracolumbar spine including T5, T6, T8, T10, T11, T12, and L1. Mildly elevated troponins, possibly related to supply/demand mismatch. Coronary artery disease, with previous CABG. Hyperlipidemia. Benign essential hypertension. History of DVT, anticoagulated on Eliquis. Hepatic steatosis. GERD. Remote history of smoking. Plan: Plan dated 04/18/2023. Labs, x-rays, and medications are reviewed. The patient is currently on room air. He continues on appropriate medications, including Eliquis and Protonix. The patient is being followed by medical oncology. We will continue to make recommendations along the way. The patient's overall prognosis remains guarded. He continues on room air. Labs, x-rays, and medications are all reviewed. Plan dated 04/19/2023. The patient appears to be relatively stable. We ordered a chest x-ray for tomorrow, April 20. Currently he is on room air. Saturations are 93%. He's not receiving any IV fluids. We will continue to follow the patient and make recommendations along the way. Prognosis is guarded. Time with Patient: Less than 30
--- NOTE | 2023-04-19 12:40 | P.PN ---
Subjective Progress Note Date: 04/19/23 Patient is a 68-year-old male with a known history of multiple myeloma currently on Pomalyst, recent history of left popliteal DVT diagnosed on 10/10/2022 currently on Eliquis and also diagnosed with COVID 4 days ago presents to ER with complaints of shortness of breath. Patient has been having symptoms for the past 10 days. Patient also has history of hypertension, hyperlipidemia, coronary artery disea se status post stent in the RCA, three-vessel CABG, GERD, nephrolithiasis, osteoarthritis, spinal stenosis and remote history of tobacco use. Patient has been having generalized weakness, body aches denied any fever or chills. And also worsening shortness of breath and has been short of breath wit h minimal activity and has been difficulty daily living due to shortness of breath. Denies any complaints of chest pain. No nausea or vomiting or abdominal pain or diarrhea. He has not been eating well for the past few days.. Patient is on prophylactic antibiotics due to chemotherapy. On Bactrim, acyclovir and Diflucan. Otherwise patient is vaccinated and also had booster dose. Chest x-ray showed mild cardiomegaly with right basilar opacity favored to represent atelectasis. CTA chest showed no evidence of PE. Peripheral groundglass pulmonary opacities consistent with atypical pulmonary infection such as COVID-19. 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 He wants to stop multiple pathologic fractures involving the visualized thoracolumbar spine due to multiple myeloma. Hepatic steatosis. Pulse ox 94% on room air. On admission patient was tachycardic with heart rate 123, Laboratory data showed WBC 8.3 hemoglobin 15.3 and platelets 133, sodium 134, potassium 3.7 chloride 99 bicarb is 21 BUN 14 and creatinine 0.72 and blood sugar is 213 lactic acid 3.2 calcium 8.9 liver NUS not elevated. Troponin 0.040 and CRP level is 14.9. Procalcitonin level 0.35 and proBNP 430. Urinalysis showed 4+ glucose and leukocyte esterase negative. SARS COVID-19 PCR detected. 2022 Patient is resting in bed. Awake alert and oriented x3. Breathing status is better today. No complaints of chest pain. No nausea vomiting. Patient was able to ambulate to the bathroom. Cough did improve as well. Patient able to tolerate off oral diet better. No fever no chills. Laboratory data showed WBC 5.2 hemoglobin 14.6 and platelets 149 Sodium 137 potassium 3.8 chloride 104 bicarb is 24 BUN 20 and creatinine 0.67. CRP level is 11.6. LDH 174. Pulmonary and oncology is on board. Current medications reviewed. 04/18. Patient seen and examined. Not requiring any oxygen, currently on room air. States he feels much better compared to yesterday. States lethargy and weakness is improving 04/19. Patient seen and examined. Patient received 1 treatment of immunoglobin per hematology oncology yesterday. States he feels better REVIEW OF SYSTEMS: CONSTITUTIONAL: No fever, no malaise,. CARDIOVASCULAR: No chest pain, no palpitations, no syncope. PULMONARY: No shortness of breath, no cough, GASTROINTESTINAL: No diarrhea, no nausea, no vomiting, no abdominal pain. NEUROLOGICAL: No headaches, no weakness, PHYSICAL EXAMINATION: GENERAL: The patient is alert and oriented x3, not in any acute distress. Well developed, well nourished. HEENT: Pupils are round and equally reacting to light. EOMI. No scleral icterus. No conjunctival pallor. Normocephalic, atraumatic. No pharyngeal erythema. No thyromegaly. CARDIOVASCULAR: S1 and S2 present. No murmurs, rubs, or gallops. PULMONARY: Chest is clear to auscultation, no wheezing or crackles. ABDOMEN: Soft, nontender, nondistended, normoactive bowel sounds. No palpable organomegaly. MUSCULOSKELETAL: No joint swelling or deformity. EXTREMITIES: No cyanosis, clubbing, or pedal edema. NEUROLOGICAL: Gross neurological examination did not reveal any focal deficits. SKIN: No rashes. Assessment and plan Acute COVID-19 pneumonia. Diagnosed 4 days ago. Patient is symptomatic for the past 10 days prior to admission. Worsening shortness of breath, generalized weakness malaise and loss of appetite secondary to above. Possible secondary bacterial pneumonia involving right lower lobe pneumonia/atelectasis. Procalcitonin level 0.35. Patient with history of left popliteal DVT diagnosed on 10/10/2022 Multiple myeloma currently being treated with Pomalyst Malignancy related pain with history of pathological fractures. On MS Contin at home. Coronary artery disease with history of stent placement to RCA and three-vessel CABG Hypertension Hyperlipidemia Osteoarthritis Nonsustained V. tach Chronic back pain, degenerative disc disease, spinal stenosis, Anxiety/depression Prior history of smoking DVT prophylaxis patient is already on Eliquis Monitor vital signs Monitor CBC Monitor CMP Continue telemetry monitoring Continue Eliquis Continue IV Levaquin Continue Solu-Medrol Pulmonology following Hematology oncology following was being treated with combination of pomalidomide/daratumumab/dexamethasone.Last received daratumumab on 03/29/2023 and pomalidomide approximately 1 to 2 days prior to presentation Hematology recommended to hold pomalidomide at this time and once he is discharged from the hospital. Outpatient follow-up with hematology. Patient received immunoglobulins on 04/18 ID following Labs and medication were reviewed.. Continue same treatment. Continue with s ymptomatic treatment. Resume home medication. Monitor labs and vitals. DVT and GI prophylaxis. Further recommendations as per clinical course of the patient Dictation was produced using [employer] dictation software. please excuse any grammatical, word or spelling errors. Objective - Vital Signs Vital signs: Vital Signs Temp 97.5 F L 04/19/23 08:33 Pulse 92 04/19/23 08:33 Resp 20 04/19/23 08:33 BP 161/86 04/19/23 08:33 Pulse Ox 94 L 04/19/23 08:33 FiO2 Intake & Output 04/18/23 04/19/23 04/19/23 18:59 06:59 18:59 Intake Total 598 10 360 Balance 598 10 360 Intake: IV 10 Invasive Line 2 10 Oral 598 360 Other: Voiding Method Toilet Toilet # Voids 3 2 - Labs CBC & Chem 7: 04/17/23 09:14 04/18/23 08:47 Labs: Abnormal Lab Results - Last 24 Hours (Table) 04/18/23 04/18/23 04/18/23 Range/Units 08:47 11:49 16:18 POC Glucose (mg/dL) 171 H 240 H (70-110) mg/dL Total Protein (PEP) 5.9 L (6.2-8.2) d/dL Albumin (PEP) 3.7 L (3.8-4.9) d/dL IgG 506.0 L (700.0-1600.0) mg/dL IgM <35.0 L (40.0-280.0) mg/dL 04/18/23 04/19/23 Range/Units 20:16 06:06 POC Glucose (mg/dL) 241 H 170 H (70-110) mg/dL Total Protein (PEP) (6.2-8.2) d/dL Albumin (PEP) (3.8-4.9) d/dL IgG (700.0-1600.0) mg/dL IgM (40.0-280.0) mg/dL
[2023-04-19] MEDS: SODIUM CHLORIDE 0.9% 1,000 ML IV SCH (12:54)
[2023-04-19 16:51] LABS: Glucose,Whole Blood 240 mg/dL (70-110)
[2023-04-19 18:26] LABS: Gamma Globulin 0.53 d/dL (0.70-1.50)
[2023-04-19 20:20] LABS: Glucose,Whole Blood 228 mg/dL (70-110)
[2023-04-19] MEDS: LEVOFLOXACIN 500MG-D5W PMX 500 MG in DEXTROSE/WATER 1 100ML.BAG IVPB SCH (20:46)
[2023-04-19] MEDS: ALPRAZolam 0.5 MG TAB PO PRN (20:53)
[2023-04-20] MEDS: methylPREDNISolone SOD SUCCI 40 MG/ML 1 ML VIAL IV SCH ×2 (04:58→12:13)
[2023-04-20 06:34] LABS: Glucose,Whole Blood 128 mg/dL (70-110)
[2023-04-20] MEDS: INSULIN ASPART (NovoLOG) 100 UNIT/ML VIAL SQ SCH ×4 (06:48→23:08)
[2023-04-20] MEDS: ALBUTEROL HFA INHALER INHALATION PRN ×3 (08:10→17:10)
[2023-04-20 08:43] LABS: HCT 43.3 % (39.0-53.0); HGB 13.7 gm/dL (13.0-17.5); MCH 32.5 pg (25.0-35.0); MCHC 31.6 g/dL (31.0-37.0); MCV 102.8 fL (80.0-100.0); Macrocytosis Slight; Mean Platelet Volume 8.6; Platelet Count 118 k/uL (150-450); RBC 4.21 m/uL (4.30-5.90); RDW 15.5 % (11.5-15.5); WBC 3.2 k/uL (3.8-10.6)
[2023-04-20] MEDS: APIXABAN 2.5 MG TABLET PO SCH ×2 (08:49→19:41)
[2023-04-20] MEDS: MORPHINE SULFATE ER 30 MG TABLET PO SCH ×2 (08:49→19:41)
[2023-04-20] MEDS: SENNOSIDES 8.6 MG TAB PO SCH ×2 (08:49→19:41)
[2023-04-20] MEDS: ZINC SULFATE 220 MG CAP PO SCH (08:49)
[2023-04-20] MEDS: ASCORBIC ACID 500 MG TAB PO SCH (08:50)
[2023-04-20] MEDS: PANTOPRAZOLE 40 MG TABLET PO SCH ×2 (08:50→19:41)
[2023-04-20] MEDS: ACYCLOVIR 200 MG CAP PO SCH ×2 (08:50→19:40)
[2023-04-20] MEDS: CHOLECALCIFEROL 125 MCG (5000 IU) TABLET PO SCH (08:50)
[2023-04-20 09:17] LABS: ALT 31 U/L (4-49); AST 26 U/L (17-59); African American GFR (CKD) >90 (>60 ml/min/1.73 sqM); Albumin 2.8 g/dL (3.5-5.0); Alkaline Phosphatase 82 U/L (38-126); Anion Gap 7 mmol/L; Blood Urea Nitrogen 20 mg/dL (9-20); Calcium 8.2 mg/dL (8.4-10.2); Carbon Dioxide 27 mmol/L (22-30); Chloride 100 mmol/L (98-107); Glucose 178 mg/dL (74-99); Non-African American GFR(CKD) >90 (>60 ml/min/1.73 sqM); Potassium 4.3 mmol/L (3.5-5.1); Sodium 134 mmol/L (137-145); Total Bilirubin 0.5 mg/dL (0.2-1.3)
--- NOTE | 2023-04-20 09:22 | XR ---
EXAMINATION TYPE: XR chest 1V portable DATE OF EXAM: 04/20/2023 COMPARISON: 04/16/2023 HISTORY: Cough TECHNIQUE: Single frontal view of the chest is obtained. FINDINGS: Heart size is upper limits of normal with reduced inspiration and median sternotomy change s. Subsegmental changes at the left lung base. Chronic rib deformity is noted. No overt failure or pn eumothorax. A possible small granuloma right upper lobe. IMPRESSION: Favor basilar atelectasis over pneumonia.
[2023-04-20 11:34] LABS: Glucose,Whole Blood 117 mg/dL (70-110)
[2023-04-20 12:13] VITALS: BMI 27.1
[2023-04-20] MEDS: SODIUM CHLORIDE 0.9% 1,000 ML IV SCH (12:59)
--- NOTE | 2023-04-20 13:01 | P.PN ---
Subjective Progress Note Date: 04/20/23 Principal diagnosis: Respiratory failure. I am seeing this patient in new consultation today 04/17/2023 for acute dyspnea. Patient is a 68-year-old male with past medical history significant for multiple myeloma currently receiving chemotherapy, neuropathy, coronary artery disease with previous CABG, hyperlipidemia, hypertension, DVT, GERD, and remote history of smoking. His PCP is Dr. Donato. His oncologist is Dr. Harvey. On an outpatient basis, he was prophylactically placed on a combination of Bactrim, Acyclovir, and Diflucan. Patient presented in the emergency room yesterday morning complaining of progressively worsening shortness of breath over the last month, but particularly worse over the last 7 days. He did take a COVID-19 test 4 days ago which was positive. He states that his shortness of breath has become severe, and he could no longer ambulate without much difficulty. He states that he is also had a cough with minimal green sputum production. He also reports generalized malaise and weakness. He denies any fevers, chills, myalgias, hemoptysis. Denies sick contacts. Denies any chest pain, heart palpitations, lower extremity swelling, syncope. On arrival to the emergency room, he did test positive for COVID-19. He has reportedly had his ramos ginal Covid 19 vaccination, but has not received any booster injections. Chest CTA on arrival showed scattered groundglass opacities particularly within the bibasilar lobes there are also a few scattered groundglass opacities in bilateral upper lobes and right middle lobe. These are concerning for atypical infection such as COVID-19 pneumonia. There was also a right upper lobe calcified pleural plaque likely from previous asbestosis exposure. No evidence of pulmonary embolism. There were multiple pathological fractures seen within the thoracolumbar spine.. Patient is currently sitting up in bed, on room air, in no acute distress. CBC from yesterday shows WBC count of 8.3, hemoglobin 15.3, hematocrit 46.6, platelets 133. BMP from yesterday shows sodium 134, potassium 3.7, chloride 99, serum bicarbonate 21, BUN 19, creatinine 0.72, glucose 213. Lactic acid level was elevated at 3.2 and is down to 1.6. Troponin was 0.04. Procalcitonin elevated at 0.35. He is empirically covered on Levaquin. Afebrile. Patient will be monitored on the cardiac stepdown unit. Progress note dated 04/18/2023. 68-year-old male with a history of multiple myeloma, previous CABG, hyperlipidemia, hypertension, DVT, GERD, and remote tobacco use. The patient is seen today in room 381. Currently he is on room air. The patient is currently on Solu-Medrol, and Levaquin. The patient may have coronavirus associated pneumonia. Labs today include a sodium 137, potassium 4.1, chlorides 100, CO2 23, anion gap 14, BUN 21, and creatinine 0.64. Glucose 224. Calcium 8.7. Progress note dated 04/19/2023. 68-year-old male with history of multiple myeloma, previous bypass surgery, dyslipidemia, hypertension, DVT, gastroesophageal reflux disease, and remote tobacco use. The patient is seen today in room 381. Currently, the patient's on room air. The chest x-ray is ordered for tomorrow, April 20. He has no complaints. He is maintained on Solu-Medrol and Levaquin. The patient may have coronavirus associated pneumonia. Glucose today is 245. Progress note dated 04/20/2023. 68-year-old male seen again in room 381. The patient is currently doing reasonably well. His room air saturations are 93%. He continues on Solu- Medrol, and Levaquin. Currently labs include a white count of 3.2, hemoglobin 13.7, hematocrit 43.3, and a platelet count of 118,000. Sodium 134, potassium 4.3, chlorides 100, CO2 27, BUN 20, and creatinine 0.58. Albumin is 2.8. Chest x-ray is reviewed, by radiology, and their impression is basilar atelectasis, versus pneumonia. Objective - Vital Signs Vital signs: Vital Signs Temp 97.7 F 04/20/23 12:30 Pulse 96 04/20/23 12:30 Resp 16 04/20/23 12:30 BP 151/70 04/20/23 12:30 Pulse Ox 96 04/20/23 12:30 FiO2 Intake & Output 04/19/23 04/20/23 04/20/23 18:59 06:59 18:59 Intake Total 720 420 Balance 720 420 Weight 90.718 kg Intake: Oral 720 420 Other: Voiding Method Toilet Toilet Toilet # Voids 3 240 # Bowel Movements 1 - Exam No acute distress, oriented 3. Room air saturation is 96 %. HEENT examination is grossly unremarkable. Neck supple. Full range of motion. No adenopathy thyromegaly or neck vein distention. Cardiovascular examination reveals regular rhythm rate. S1-S2 normal. No S3 or S4. No discernible murmur noted. Heart sounds are distant. Heart rate 96 bpm. Lungs reveal mostly clear breath sounds. Mild scattered rhonchi. No wheezes or crackles. Breath sounds are equal bilaterally. Room air saturation is 96 %. Abdomen soft bowel sounds are heard. No masses or tenderness. Extremities are intact. No cyanosis clubbing or edema. Skin is without rash or lesion. Neurologic examination is brief but nonfocal. - Labs CBC & Chem 7: 04/20/23 08:20 04/20/23 08:20 Labs: Abnormal Lab Results - Last 24 Hours (Table) 04/18/23 04/19/23 04/19/23 Range/Units 08:47 07:35 16:48 WBC (3.8-10.6) k/uL RBC (4.30-5.90) m/uL MCV (80.0-100.0) fL Plt Count (150-450) k/uL Sodium (137-145) mmol/L Creatinine (0.66-1.25) mg/dL Glucose (74-99) mg/dL POC Glucose (mg/dL) 240 H (70-110) mg/dL Calcium (8.4-10.2) mg/dL Total Protein (6.3-8.2) g/dL Albumin (3.5-5.0) g/dL Zeqdd-7-Rvjfpyoqz 0.52 H (0.10-0.40) d/dL Zfwpc-2-Gekrtrmwx 1.12 H (0.60-1.00) d/dL Gamma Globulins 0.53 L (0.70-1.50) d/dL Procalcitonin 0.29 H (0.02-0.09) ng/mL 04/19/23 04/20/23 04/20/23 Range/Units 20:19 06:33 08:20 WBC 3.2 L (3.8-10.6) k/uL RBC 4.21 L (4.30-5.90) m/uL MCV 102.8 H (80.0-100.0) fL Plt Count 118 L (150-450) k/uL Sodium (137-145) mmol/L Creatinine (0.66-1.25) mg/dL Glucose (74-99) mg/dL POC Glucose (mg/dL) 228 H 128 H (70-110) mg/dL Calcium (8.4-10.2) mg/dL Total Protein (6.3-8.2) g/dL Albumin (3.5-5.0) g/dL Akwis-4-Tpfubbvua (0.10-0.40) d/dL Wilpt-4-Mbgshihoo (0.60-1.00) d/dL Gamma Globulins (0.70-1.50) d/dL Procalcitonin (0.02-0.09) ng/mL 04/20/23 04/20/23 Range/Units 08:20 11:33 WBC (3.8-10.6) k/uL RBC (4.30-5.90) m/uL MCV (80.0-100.0) fL Plt Count (150-450) k/uL Sodium 134 L (137-145) mmol/L Creatinine 0.58 L (0.66-1.25) mg/dL Glucose 178 H (74-99) mg/dL POC Glucose (mg/dL) 117 H (70-110) mg/dL Calcium 8.2 L (8.4-10.2) mg/dL Total Protein 6.0 L (6.3-8.2) g/dL Albumin 2.8 L (3.5-5.0) g/dL Hbqxw-9-Lblkqmswi (0.10-0.40) d/dL Jqwvw-5-Wcqtefieb (0.60-1.00) d/dL Gamma Globulins (0.70-1.50) d/dL Procalcitonin (0.02-0.09) ng/mL Assessment and Plan Assessment: Dyspnea, likely secondary to suspected COVID-19 pneumonia, underlying atypical bacterial infection cannot be ruled out. Chest CTA on arrival showed scattered groundglass opacities particularly within the bibasilar lobes there are also a few scattered groundglass opacities in bilateral upper lobes and right middle lobe. These are concerning for atypical infection such as COVID-19 pneumonia. Procalcitonin level elevated at 0.35. Multiple myeloma, currently receiving chemotherapy the form of Pomalyst and steroids, he was prophylactically covered on a combination of Bactrim, acyclovir, and Diflucan on an outpatient basis. Multiple pathological fractures of the thoracolumbar spine including T5, T6, T8, T10, T11, T12, and L1. Mildly elevated troponins, possibly related to supply/demand mismatch. Coronary artery disease, with previous CABG. Hyperlipidemia. Benign essential hypertension. History of DVT, anticoagulated on Eliquis. Hepatic steatosis. GERD. Remote history of smoking. Plan: Plan dated 04/18/2023. Labs, x-rays, and medications are reviewed. The patient is currently on room air. He continues on appropriate medications, including Eliquis and Protonix. The patient is being followed by medical oncology. We will continue to make recommendations along the way. The patient's overall prognosis remains guarded. He continues on room air. Labs, x-rays, and medications are all reviewed. Plan dated 04/19/2023. The patient appears to be relatively stable. We ordered a chest x-ray for tomorrow, April 20. Currently he is on room air. Saturations are 93%. He's not receiving any IV fluids. We will continue to follow the patient and make recommendations along the way. Prognosis is guarded. Plan dated 04/20/2023. The patient appears to be doing reasonably well. The chest x-rays reviewed. Labs, x-rays, and medications are reviewed. Clinically, the patient appears to be stable. His room air saturation is 96%. He continues on Solu-Medrol, and Levaquin. We will continue to follow make recommendations along the way. Prognosis is certainly guarded. Time with Patient: Less than 30
--- NOTE | 2023-04-20 13:21 | P.PN ---
Subjective Progress Note Date: 04/20/23 68-year-old male with a known history of multiple myeloma currently on Pomalyst, recent history of left popliteal DVT diagnosed on 10/10/2022 currently on Eliquis and also diagnosed with COVID 4 days ago presents to ER with complaints of shortness of breath. Patient has been having symptoms for the past 10 days. Patient also has history of hypertension, hyperlipidemia, coronary artery disease status post stent in the RCA, three-vessel CABG, GERD, nephrolithiasis, osteoarthritis, spinal stenosis and remote history of tobacco use. Patient has been having generalized weakness, body aches denied any fever or chills. And also worsening shortness of breath and has been short of breath with minimal activity and has been difficulty daily living due to shortness of breath. Denies any complaints of chest pain. No nausea or vomiting or abdominal pain or diarrhea. He has not been eating well for the past few days.. Patient is on prophylactic antibiotics due to chemotherapy. On Bactrim, acyclovir and Diflucan. Otherwise patient is vaccinated and also had booster dose. Chest x-ray showed mild cardiomegaly with right basilar opacity favored to represent atelectasis. CTA chest showed no evidence of PE. Peripheral groundglass pulmonary opacities consistent with atypical pulmonary infection such as COVID-19. 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 He wants to stop multiple pathologic fractures involving the visualized thoracolumbar spine due to multiple myeloma. Hepatic steatosis. Pulse ox 94% on room air. On admission patient was tachycardic with heart rate 123, Laboratory data showed WBC 8.3 hemoglobin 15.3 and platelets 133, sodium 134, potassium 3.7 chloride 99 bicarb is 21 BUN 14 and creatinine 0.72 and blood sugar is 213 lactic acid 3.2 calcium 8.9 liver NUS not elevated. Troponin 0.040 and CRP level is 14.9. Procalcitonin level 0.35 and proBNP 430. Urinalysis showed 4+ glucose and leukocyte esterase negative. SARS COVID-19 PCR detected. 2022 Patient is resting in bed. Awake alert and oriented x3. Breathing status is better today. No complaints of chest pain. No nausea vomiting. Patient was able to ambulate to the bathroom. Cough did improve as well. Patient able to tolerate off oral diet better. No fever no chills. Laboratory data showed WBC 5.2 hemoglobin 14.6 and platelets 149 Sodium 137 potassium 3.8 chloride 104 bicarb is 24 BUN 20 and creatinine 0.67. CRP level is 11.6. LDH 174. Pulmonary and oncology is on board. Current medications reviewed. 04/18. Patient seen and examined. Not requiring any oxygen, currently on room air. States he feels much better compared to yesterday. States lethargy and weakness is improving 04/19. Patient seen and examined. Patient received 1 treatment of immunoglobin per hematology oncology yesterday. States he feels better 04/20: Patient assessed at bedside. Care plan discussed with infectious disease we'll discharge on Levaquin to complete total 7 day course, will wean down on IV Solu-Medrol to oral prednisone and monitor overnight potential discharge within the next 24 hours will wait for recommendations from pulmonary medicine Objective - Vital Signs Vital signs: Vital Signs Temp 97.7 F 04/20/23 12:30 Pulse 96 04/20/23 12:30 Resp 16 04/20/23 12:30 BP 151/70 04/20/23 12:30 Pulse Ox 96 04/20/23 12:30 FiO2 Intake & Output 04/19/23 04/20/23 04/20/23 18:59 06:59 18:59 Intake Total 720 420 Balance 720 420 Weight 90.718 kg Intake: Oral 720 420 Other: Voiding Method Toilet Toilet Toilet # Voids 3 240 # Bowel Movements 1 - Exam PHYSICAL EXAMINATION: GENERAL: The patient is alert and oriented x3, not in any acute distress. Well d eveloped, well nourished. HEENT: Pupils are round and equally reacting to light. EOMI. CARDIOVASCULAR: S1 and S2 present. No murmurs, rubs, or gallops. PULMONARY: Decreased breath sounds bilaterally ABDOMEN: Soft, nontender, nondistended, normoactive bowel sounds. No palpable organomegaly. MUSCULOSKELETAL: No joint swelling or deformity. EXTREMITIES: No cyanosis, clubbing, or pedal edema. NEUROLOGICAL: Gross neurological examination did not reveal any focal deficits. - Labs CBC & Chem 7: 04/20/23 08:20 04/20/23 08:20 Labs: Abnormal Lab Results - Last 24 Hours (Table) 04/18/23 04/19/23 04/19/23 Range/Units 08:47 07:35 16:48 WBC (3.8-10.6) k/uL RBC (4.30-5.90) m/uL MCV (80.0-100.0) fL Plt Count (150-450) k/uL Sodium (137-145) mmol/L Creatinine (0.66-1.25) mg/dL Glucose (74-99) mg/dL POC Glucose (mg/dL) 240 H (70-110) mg/dL Calcium (8.4-10.2) mg/dL Total Protein (6.3-8.2) g/dL Albumin (3.5-5.0) g/dL Bpuue-1-Deqgeflcz 0.52 H (0.10-0.40) d/dL Qjmop-0-Kgdalrhuy 1.12 H (0.60-1.00) d/dL Gamma Globulins 0.53 L (0.70-1.50) d/dL Procalcitonin 0.29 H (0.02-0.09) ng/mL 04/19/23 04/20/23 04/20/23 Range/Units 20:19 06:33 08:20 WBC 3.2 L (3.8-10.6) k/uL RBC 4.21 L (4.30-5.90) m/uL MCV 102.8 H (80.0-100.0) fL Plt Count 118 L (150-450) k/uL Sodium (137-145) mmol/L Creatinine (0.66-1.25) mg/dL Glucose (74-99) mg/dL POC Glucose (mg/dL) 228 H 128 H (70-110) mg/dL Calcium (8.4-10.2) mg/dL Total Protein (6.3-8.2) g/dL Albumin (3.5-5.0) g/dL Goxay-0-Cmnlkjrvm (0.10-0.40) d/dL Stmzr-4-Ayxzxruqk (0.60-1.00) d/dL Gamma Globulins (0.70-1.50) d/dL Procalcitonin (0.02-0.09) ng/mL 04/20/23 04/20/23 Range/Units 08:20 11:33 WBC (3.8-10.6) k/uL RBC (4.30-5.90) m/uL MCV (80.0-100.0) fL Plt Count (150-450) k/uL Sodium 134 L (137-145) mmol/L Creatinine 0.58 L (0.66-1.25) mg/dL Glucose 178 H (74-99) mg/dL POC Glucose (mg/dL) 117 H (70-110) mg/dL Calcium 8.2 L (8.4-10.2) mg/dL Total Protein 6.0 L (6.3-8.2) g/dL Albumin 2.8 L (3.5-5.0) g/dL Kjssy-0-Fksphikxs (0.10-0.40) d/dL Ioqcc-0-Nhvamjrzq (0.60-1.00) d/dL Gamma Globulins (0.70-1.50) d/dL Procalcitonin (0.02-0.09) ng/mL Assessment and Plan Assessment: Assessment and plan Acute COVID-19 pneumonia. . Patient symptomatic for the past 10 days prior to admission. bacterial pneumonia involving right lower lobe pneumonia/atelectasis. Procalcitonin level 0.35. Patient with history of left popliteal DVT diagnosed on 10/10/2022 Multiple myeloma currently being treated with Pomalyst Malignancy related pain with history of pathological fractures. On MS Contin at home. Coronary artery disease with history of stent placement to RCA and three-vessel CABG Hypertension Hyperlipidemia Osteoarthritis Nonsustained V. tach Chronic back pain, degenerative disc disease, spinal stenosis, Anxiety/depression Prior history of smoking * Continue patient on Levaquin, to complete total 7 day course of antibiotic * In regards to shortness of breath secondary to Covid 19 pneumonia. Continue patient on IV Solu-Medrol transition to oral prednisone * Continue patient on albuterol as needed, steroids weaned down * History of myeloma continue patient on acyclovir for prophylaxis * Continue patient on correctional insulin
[2023-04-20] MEDS: predniSONE 20 MG TAB PO SCH (16:30)
[2023-04-20 16:31] LABS: Glucose,Whole Blood 224 mg/dL (70-110)
[2023-04-20] MEDS: LEVOFLOXACIN 500MG-D5W PMX 500 MG in DEXTROSE/WATER 1 100ML.BAG IVPB SCH (19:40)
[2023-04-20] MEDS: ALPRAZolam 0.5 MG TAB PO PRN (19:41)
[2023-04-20 20:33] LABS: Glucose,Whole Blood 238 mg/dL (70-110)
[2023-04-21 05:56] LABS: Glucose,Whole Blood 115 mg/dL (70-110)
[2023-04-21] MEDS: INSULIN ASPART (NovoLOG) 100 UNIT/ML VIAL SQ SCH ×4 (06:54→20:36)
[2023-04-21] MEDS: CHOLECALCIFEROL 125 MCG (5000 IU) TABLET PO SCH (08:44)
[2023-04-21] MEDS: PANTOPRAZOLE 40 MG TABLET PO SCH ×2 (08:44→20:38)
[2023-04-21] MEDS: SENNOSIDES 8.6 MG TAB PO SCH ×2 (08:44→20:37)
[2023-04-21] MEDS: ASCORBIC ACID 500 MG TAB PO SCH (08:45)
[2023-04-21] MEDS: ZINC SULFATE 220 MG CAP PO SCH (08:45)
[2023-04-21] MEDS: APIXABAN 2.5 MG TABLET PO SCH ×2 (08:45→20:37)
[2023-04-21] MEDS: predniSONE 20 MG TAB PO SCH (08:45)
[2023-04-21] MEDS: MORPHINE SULFATE ER 30 MG TABLET PO SCH ×2 (08:45→20:37)
[2023-04-21] MEDS: ACYCLOVIR 200 MG CAP PO SCH ×2 (08:45→20:38)
[2023-04-21 09:11] LABS: HCT 46.4 % (39.0-53.0); HGB 15.1 gm/dL (13.0-17.5); MCH 33.6 pg (25.0-35.0); MCHC 32.7 g/dL (31.0-37.0); MCV 102.8 fL (80.0-100.0); Macrocytosis Slight; Mean Platelet Volume 8.7; Platelet Count 146 k/uL (150-450); RBC 4.51 m/uL (4.30-5.90); RDW 15.5 % (11.5-15.5); WBC 3.3 k/uL (3.8-10.6)
[2023-04-21 09:45] LABS: African American GFR (CKD) >90 (>60 ml/min/1.73 sqM); Anion Gap 8 mmol/L; Blood Urea Nitrogen 24 mg/dL (9-20); Calcium 8.5 mg/dL (8.4-10.2); Carbon Dioxide 28 mmol/L (22-30); Chloride 100 mmol/L (98-107); Glucose 121 mg/dL (74-99); Non-African American GFR(CKD) >90 (>60 ml/min/1.73 sqM); Potassium 4.2 mmol/L (3.5-5.1); Sodium 136 mmol/L (137-145)
[2023-04-21] MEDS: SODIUM CHLORIDE 0.9% 1,000 ML IV SCH (11:16)
[2023-04-21 11:56] LABS: Glucose,Whole Blood 165 mg/dL (70-110)
--- NOTE | 2023-04-21 12:32 | P.PN ---
Subjective Progress Note Date: 04/21/23 Principal diagnosis: Respiratory failure. I am seeing this patient in new consultation today 04/17/2023 for acute dyspnea. Patient is a 68-year-old male with past medical history significant for multiple myeloma currently receiving chemotherapy, neuropathy, coronary artery disease with previous CABG, hyperlipidemia, hypertension, DVT, GERD, and remote history of smoking. His PCP is Dr. Donato. His oncologist is Dr. Harvey. On an outpatient basis, he was prophylactically placed on a combination of Bactrim, Acyclovir, and Diflucan. Patient presented in the emergency room yesterday morning complaining of progressively worsening shortness of breath over the last month, but particularly worse over the last 7 days. He did take a COVID-19 test 4 days ago which was positive. He states that his shortness of breath has become severe, and he could no longer ambulate without much difficulty. He states that he is also had a cough with minimal green sputum production. He also reports generalized malaise and weakness. He denies any fevers, chills, myalgias, hemoptysis. Denies sick contacts. Denies any chest pain, heart palpitations, lower extremity swelling, syncope. On arrival to the emergency room, he did test positive for COVID-19. He has reportedly had his ramos ginal Covid 19 vaccination, but has not received any booster injections. Chest CTA on arrival showed scattered groundglass opacities particularly within the bibasilar lobes there are also a few scattered groundglass opacities in bilateral upper lobes and right middle lobe. These are concerning for atypical infection such as COVID-19 pneumonia. There was also a right upper lobe calcified pleural plaque likely from previous asbestosis exposure. No evidence of pulmonary embolism. There were multiple pathological fractures seen within the thoracolumbar spine.. Patient is currently sitting up in bed, on room air, in no acute distress. CBC from yesterday shows WBC count of 8.3, hemoglobin 15.3, hematocrit 46.6, platelets 133. BMP from yesterday shows sodium 134, potassium 3.7, chloride 99, serum bicarbonate 21, BUN 19, creatinine 0.72, glucose 213. Lactic acid level was elevated at 3.2 and is down to 1.6. Troponin was 0.04. Procalcitonin elevated at 0.35. He is empirically covered on Levaquin. Afebrile. Patient will be monitored on the cardiac stepdown unit. Progress note dated 04/18/2023. 68-year-old male with a history of multiple myeloma, previous CABG, hyperlipidemia, hypertension, DVT, GERD, and remote tobacco use. The patient is seen today in room 381. Currently he is on room air. The patient is currently on Solu-Medrol, and Levaquin. The patient may have coronavirus associated pneumonia. Labs today include a sodium 137, potassium 4.1, chlorides 100, CO2 23, anion gap 14, BUN 21, and creatinine 0.64. Glucose 224. Calcium 8.7. Progress note dated 04/19/2023. 68-year-old male with history of multiple myeloma, previous bypass surgery, dyslipidemia, hypertension, DVT, gastroesophageal reflux disease, and remote tobacco use. The patient is seen today in room 381. Currently, the patient's on room air. The chest x-ray is ordered for tomorrow, April 20. He has no complaints. He is maintained on Solu-Medrol and Levaquin. The patient may have coronavirus associated pneumonia. Glucose today is 245. Progress note dated 04/20/2023. 68-year-old male seen again in room 381. The patient is currently doing reasonably well. His room air saturations are 93%. He continues on Solu- Medrol, and Levaquin. Currently labs include a white count of 3.2, hemoglobin 13.7, hematocrit 43.3, and a platelet count of 118,000. Sodium 134, potassium 4.3, chlorides 100, CO2 27, BUN 20, and creatinine 0.58. Albumin is 2.8. Chest x-ray is reviewed, by radiology, and their impression is basilar atelectasis, versus pneumonia. Progress note dated 04/21/2023. 68-year-old male seen in room 381. The patient appears to be doing relatively well. Currently, the patient is on room air, with saturations between 93% and 94%. He continues on appropriate medications including corticosteroids and antibiotics. White count is 3.3, hemoglobin 15.1, hematocrit 46.4, with a platelet count of 146,000. Sodium 136, potassium 4.2, chlorides 100, CO2 28, BUN 24, and creatinine 0.6. Chest x-ray from April 20, has been reviewed. Objective - Vital Signs Vital signs: Vital Signs Temp 97.7 F 04/21/23 08:45 Pulse 80 04/21/23 12:00 Resp 18 04/21/23 12:00 BP 158/109 04/21/23 12:00 Pulse Ox 94 L 04/21/23 12:00 FiO2 Intake & Output 04/20/23 04/21/23 04/21/23 18:59 06:59 18:59 Intake Total 1218 480 Balance 1218 480 Weight 90.718 kg Intake: Oral 1218 480 Other: Voiding Method Toilet Toilet # Voids 2 - Exam No acute distress, oriented 3. Room air saturation is 94 %. HEENT examination is grossly unremarkable. Neck supple. Full range of motion. No adenopathy thyromegaly or neck vein distention. Cardiovascular examination reveals regular rhythm rate. S1-S2 normal. No S3 or S4. No discernible murmur noted. Heart sounds are distant. Heart rate 80 bpm. Lungs reveal mostly clear breath sounds. Mild scattered rhonchi. No wheezes or crackles. Breath sounds are equal bilaterally. Room air saturation is 94 %. Abdomen soft bowel sounds are heard. No masses or tenderness. Extremities are intact. No cyanosis clubbing or edema. Skin is without rash or lesion. Neurologic examination is brief but nonfocal. - Labs CBC & Chem 7: 04/21/23 08:05 04/21/23 08:05 Labs: Abnormal Lab Results - Last 24 Hours (Table) 04/20/23 04/20/23 04/21/23 Range/Units 16:30 20:32 05:55 WBC (3.8-10.6) k/uL MCV (80.0-100.0) fL Plt Count (150-450) k/uL Sodium (137-145) mmol/L BUN (9-20) mg/dL Creatinine (0.66-1.25) mg/dL Glucose (74-99) mg/dL POC Glucose (mg/dL) 224 H 238 H 115 H (70-110) mg/dL 04/21/23 04/21/23 04/21/23 Range/Units 08:05 08:05 11:55 WBC 3.3 L (3.8-10.6) k/uL MCV 102.8 H (80.0-100.0) fL Plt Count 146 L (150-450) k/uL Sodium 136 L (137-145) mmol/L BUN 24 H (9-20) mg/dL Creatinine 0.60 L (0.66-1.25) mg/dL Glucose 121 H (74-99) mg/dL POC Glucose (mg/dL) 165 H (70-110) mg/dL Assessment and Plan Assessment: Dyspnea, likely secondary to suspected COVID-19 pneumonia, underlying atypical bacterial infection cannot be ruled out. Chest CTA on arrival showed scattered groundglass opacities particularly within the bibasilar lobes there are also a few scattered groundglass opacities in bilateral upper lobes and right middle lobe. These are concerning for atypical infection such as COVID-19 pneumonia. Procalcitonin level elevated at 0.35. Multiple myeloma, currently receiving chemotherapy the form of Pomalyst and steroids, he was prophylactically covered on a combination of Bactrim, acyclovir, and Diflucan on an outpatient basis. Multiple pathological fractures of the thoracolumbar spine including T5, T6, T8, T10, T11, T12, and L1. Mildly elevated troponins, possibly related to supply/demand mismatch. Coronary artery disease, with previous CABG. Hyperlipidemia. Benign essential hypertension. History of DVT, anticoagulated on Eliquis. Hepatic steatosis. GERD. Remote history of smoking. Plan: Plan dated 04/18/2023. Labs, x-rays, and medications are reviewed. The patient is currently on room air. He continues on appropriate medications, including Eliquis and Protonix. The patient is being followed by medical oncology. We will continue to make recommendations along the way. The patient's overall prognosis remains guarded. He continues on room air. Labs, x-rays, and medications are all reviewed. Plan dated 04/19/2023. The patient appears to be relatively stable. We ordered a chest x-ray for tomorrow, April 20. Currently he is on room air. Saturations are 93%. He's not receiving any IV fluids. We will continue to follow the patient and make recommendations along the way. Prognosis is guarded. Plan dated 04/20/2023. The patient appears to be doing reasonably well. The chest x-rays reviewed. Labs, x-rays, and medications are reviewed. Clinically, the patient appears to be stable. His room air saturation is 96%. He continues on Solu-Medrol, and Levaquin. We will continue to follow make recommendations along the way. Prognosis is certainly guarded. Plan dated 04/21/2023. The patient appears to be reasonably stable from the pulmonary standpoint. Room air saturations are between 93%, and 95%. Labs, x-rays, and medications are reviewed. The patient continues on appropriate medications. We will continue to follow the patient and make recommendations along the way. Prognosis is guarded. Discharge plans are underway. Time with Patient: Less than 30
--- NOTE | 2023-04-21 13:07 | P.DS ---
Providers Date of admission: 04/16/23 12:22 Expected date of discharge: 04/21/23 Attending physician: Liam Vidal Consults: 04/16/23 12:21 Consult Physician Routine Consulting Provider: Harsha Shi Consult Reason/Comments: respiratory failure Do you want consulting provider notified?: Yes 04/17/23 06:42 Consult Physician Routine Consulting Provider: Mushtaq Harvey Consult Reason/Comments: mutliple myeloma, known to group Do you want consulting provider notified?: Yes, Notify in am 04/18/23 11:21 Consult Physician Routine Consulting Provider: Judah Sheppard Consult Reason/Comments: covid 19, pneumonia Do you want consulting provider notified?: Yes Primary care physician: [facility] Course: 68-year-old male with a known history of multiple myeloma currently on Pomalyst, recent history of left popliteal DVT diagnosed on 10/10/2022 currently on Eliquis and also diagnosed with COVID 4 days ago presents to ER with complaints of shortness of breath. Patient has been having symptoms for the past 10 days. Patient also has history of hypertension, hyperlipidemia, coronary artery disease status post stent in the RCA, three-vessel CABG, GERD, nephrolithiasis, osteoarthritis, spinal stenosis and remote history of tobacco use. Patient has been having generalized weakness, body aches denied any fever or chills. And also worsening shortness of breath and has been short of breath with minimal activity and has been difficulty daily living due to shortness of breath. Denies any complaints of chest pain. No nausea or vomiting or abdominal pain or diarrhea. He has not been eating well for the past few days.. Patient is on prophylactic antibiotics due to chemotherapy. On Bactrim, acyclovir and Diflucan. Otherwise patient is vaccinated and also had booster dose. Chest x-ray showed mild cardiomegaly with right basilar opacity favored to represent atelectasis. CTA chest showed no evidence of PE. Peripheral groundglass pulmonary opacities consistent with atypical pulmonary infection such as COVID-19. 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 He wants to stop multiple pathologic fractures involving the visualized thoracolumbar spine due to multiple myeloma. Hepatic steatosis. Pulse ox 94% on room air. On admission patient was tachycardic with heart rate 123, Laboratory data showed WBC 8.3 hemoglobin 15.3 and platelets 133, sodium 134, potassium 3.7 chloride 99 bicarb is 21 BUN 14 and creatinine 0.72 and blood sugar is 213 lactic acid 3.2 calcium 8.9 liver NUS not elevated. Troponin 0.040 and CRP level is 14.9. Procalcitonin level 0.35 and proBNP 430. Urinalysis showed 4+ glucose and leukocyte esterase negative. SARS COVID-19 PCR detected. 2022 Patient is resting in bed. Awake alert and oriented x3. Breathing status is better today. No complaints of chest pain. No nausea vomiting. Patient was able to ambulate to the bathroom. Cough did improve as well. Patient able to tolerate off oral diet better. No fever no chills. Laboratory data showed WBC 5.2 hemoglobin 14.6 and platelets 149 Sodium 137 potassium 3.8 chloride 104 bicarb is 24 BUN 20 and creatinine 0.67. CRP level is 11.6. LDH 174. Pulmonary and oncology is on board. 04/18. Patient seen and examined. Not requiring any oxygen, currently on room air. States he feels much better compared to yesterday. States lethargy and weakness is improving 04/19. Patient seen and examined. Patient received 1 treatment of immunoglobin per hematology oncology yesterday. States he feels better 04/20: Patient assessed at bedside. Care plan discussed with infectious disease we'll discharge on Levaquin to complete total 7 day course, will wean down on IV Solu-Medrol to oral prednisone and monitor overnight potential discharge within the next 24 hours will wait for recommendations from pulmonary medicine 04/21: Patient remained on room air. IV antibiotics transitioned to oral, prednisone tapered dose given. Nonsustained V. tach few beats noted started on metoprolol patient remains hemodynamically stable we'll discharge home. Per chart review patient does have history of nostril weak in the past. Beta jo will initiate with dysrhythmias. PHYSICAL EXAMINATION: GENERAL: The patient is alert and oriented x3, not in any acute distress. Well developed, well nourished. HEENT: Pupils are round and equally reacting to light. EOMI. CARDIOVASCULAR: S1 and S2 present. No murmurs, rubs, or gallops. PULMONARY: Decreased breath sounds bilaterally ABDOMEN: Soft, nontender, nondistended, normoactive bowel sounds. No palpable organomegaly. MUSCULOSKELETAL: No joint swelling or deformity. EXTREMITIES: No cyanosis, clubbing, or pedal edema. NEUROLOGICAL: Gross neurological examination did not reveal any focal deficits. Assessment: Assessment and plan Acute COVID-19 pneumonia. bacterial pneumonia involving right lower lobe pneumonia/atelectasis. Procalcitonin level 0.35. Patient with history of left popliteal DVT diagnosed on 10/10/2022 Multiple myeloma currently being treated with Pomalyst Malignancy related pain with history of pathological fractures. On MS Contin at home. Coronary artery disease with history of stent placement to RCA and three-vessel CABG Hypertension Hyperlipidemia Osteoarthritis Nonsustained V. tach Chronic back pain, degenerative disc disease, spinal stenosis, Anxiety/depression Prior history of smoking * Continue patient on Levaquin, to complete total 7 day course of antibiotic. day 6 /7 * In regards to shortness of breath secondary to Covid 19 pneumonia. Patient placed on tapered dose of prednisone. Albuterol prescription provided * Continue patient on albuterol as needed, steroids weaned down, tapered dose provided * In regards to history of nonsustained V. tach initiated on low-dose metoprolol * History of myeloma continue patient on acyclovir for prophylaxis, Bactrim, fluconazole home medications continued Patient Condition at Discharge: Fair Plan - Discharge Summary Discharge Rx Participant: No New Discharge Prescriptions: New Levofloxacin [Levaquin] 750 mg PO DAILY 2 Days #2 tab Metoprolol Succinate (ER) [Toprol XL] 12.5 mg PO DAILY 30 Days #30 tab predniSONE [Deltasone] See Taper PO DAILY 8 Days #10 tab Albuterol Inhaler [Ventolin Hfa Inhaler] 2 puff INHALATION RT-QID PRN 30 Days #1 each PRN Reason: Shortness Of Breath Or Wheezing Continue Omeprazole [PriLOSEC] 20 mg PO BID ALPRAZolam [Xanax] 0.5 mg PO BID PRN PRN Reason: Anxiety Nitroglycerin Sl Tabs [Nitrostat] 0.4 mg SUBLINGUAL Q5M PRN PRN Reason: Chest Pain Sulfamethox-Tmp 800-160Mg [Bactrim DS 800-160 mg] 1 tab PO MOWEFR Pomalyst 4 mg PO DIRECTED Furosemide [Lasix] 20 mg PO DAILY Apixaban [Eliquis] 2.5 mg PO BID Acyclovir [Zovirax] 400 mg PO BID Fluconazole [Diflucan] 100 mg PO DAILY Morphine Sulfate ER [Ms Contin] 30 mg PO Q12HR Discontinued predniSONE See Taper PO DIRECTED Azithromycin [Zithromax Z Pack] See Taper PO DIRECTED Discharge Medication List ALPRAZolam [Xanax] 0.5 mg PO BID PRN 07/02/14 [History] Omeprazole [PriLOSEC] 20 mg PO BID 07/02/14 [History] Nitroglycerin Sl Tabs [Nitrostat] 0.4 mg SUBLINGUAL Q5M PRN 09/06/20 [History] Acyclovir [Zovirax] 400 mg PO BID 04/16/23 [History] Apixaban [Eliquis] 2.5 mg PO BID 04/16/23 [History] Fluconazole [Diflucan] 100 mg PO DAILY 04/16/23 [History] Furosemide [Lasix] 20 mg PO DAILY 04/16/23 [History] Morphine Sulfate ER [Ms Contin] 30 mg PO Q12HR 04/16/23 [History] Pomalyst 4 mg PO DIRECTED 04/16/23 [History] Sulfamethox-Tmp 800-160Mg [Bactrim DS 800-160 mg] 1 tab PO MOWEFR 04/16/23 [History] Albuterol Inhaler [Ventolin Hfa Inhaler] 2 puff INHALATION RT-QID PRN 30 Days #1 each 04/21/23 [Rx] Levofloxacin [Levaquin] 750 mg PO DAILY 2 Days #2 tab 04/21/23 [Rx] Metoprolol Succinate (ER) [Toprol XL] 12.5 mg PO DAILY 30 Days #30 tab 04/21/23 [Rx] predniSONE [Deltasone] See Taper PO DAILY 8 Days #10 tab 04/21/23 [Rx] Follow up Appointment(s)/Referral(s): Angel Verma DO [Primary Care Provider] - 1-2 days Erick Harvey MD [STAFF PHYSICIAN] - 05/02/23 2:00 pm Patient Instructions/Handouts: COVID-19 (Coronavirus Disease 2019) (DC) Discharge Disposition: HOME SELF-CARE
[2023-04-21] MEDS: METOPROLOL SUCCINATE (ER) 25 MG TAB.ER.24H PO SCH (13:50)
--- NOTE | 2023-04-21 14:17 | P.PN ---
Subjective Progress Note Date: 04/21/23 68-year-old male with a known history of multiple myeloma currently on Pomalyst, recent history of left popliteal DVT diagnosed on 10/10/2022 currently on Eliquis and also diagnosed with COVID 4 days ago presents to ER with complaints of shortness of breath. Patient has been having symptoms for the past 10 days. Patient also has history of hypertension, hyperlipidemia, coronary artery disease status post stent in the RCA, three-vessel CABG, GERD, nephrolithiasis, osteoarthritis, spinal stenosis and remote history of tobacco use. Patient has been having generalized weakness, body aches denied any fever or chills. And also worsening shortness of breath and has been short of breath with minimal activity and has been difficulty daily living due to shortness of breath. Denies any complaints of chest pain. No nausea or vomiting or abdominal pain or diarrhea. He has not been eating well for the past few days.. Patient is on prophylactic antibiotics due to chemotherapy. On Bactrim, acyclovir and Diflucan. Otherwise patient is vaccinated and also had booster dose. Chest x-ray showed mild cardiomegaly with right basilar opacity favored to represent atelectasis. CTA chest showed no evidence of PE. Peripheral groundglass pulmonary opacities consistent with atypical pulmonary infection such as COVID-19. 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 He wants to stop multiple pathologic fractures involving the visualized thoracolumbar spine due to multiple myeloma. Hepatic steatosis. Pulse ox 94% on room air. On admission patient was tachycardic with heart rate 123, Laboratory data showed WBC 8.3 hemoglobin 15.3 and platelets 133, sodium 134, potassium 3.7 chloride 99 bicarb is 21 BUN 14 and creatinine 0.72 and blood sugar is 213 lactic acid 3.2 calcium 8.9 liver NUS not elevated. Troponin 0.040 and CRP level is 14.9. Procalcitonin level 0.35 and proBNP 430. Urinalysis showed 4+ glucose and leukocyte esterase negative. SARS COVID-19 PCR detected. 2022 Patient is resting in bed. Awake alert and oriented x3. Breathing status is better today. No complaints of chest pain. No nausea vomiting. Patient was able to ambulate to the bathroom. Cough did improve as well. Patient able to tolerate off oral diet better. No fever no chills. Laboratory data showed WBC 5.2 hemoglobin 14.6 and platelets 149 Sodium 137 potassium 3.8 chloride 104 bicarb is 24 BUN 20 and creatinine 0.67. CRP level is 11.6. LDH 174. Pulmonary and oncology is on board. Current medications reviewed. 04/18. Patient seen and examined. Not requiring any oxygen, currently on room air. States he feels much better compared to yesterday. States lethargy and weakness is improving 04/19. Patient seen and examined. Patient received 1 treatment of immunoglobin per hematology oncology yesterday. States he feels better 04/20: Patient assessed at bedside. Care plan discussed with infectious disease we'll discharge on Levaquin to complete total 7 day course, will wean down on IV Solu-Medrol to oral prednisone and monitor overnight potential discharge within the next 24 hours will wait for recommendations from pulmonary medicine 04/21: Patient seen and evaluated bedside, plan was to discharge patient home however patient started having back discomfort and noted to have nonsustained V. tach. A follow-up EKG has been ordered. At this time patient will be monitored overnight. We will start patient on metoprolol and monitor for hemodynamic instability Objective - Vital Signs Vital signs: Vital Signs Temp 97.7 F 04/21/23 08:45 Pulse 80 04/21/23 12:00 Resp 18 04/21/23 12:00 BP 158/109 04/21/23 12:00 Pulse Ox 94 L 04/21/23 12:00 FiO2 Intake & Output 04/20/23 04/21/23 04/21/23 18:59 06:59 18:59 Intake Total 1218 660 Balance 1218 660 Weight 90.718 kg Intake: Oral 1218 660 Other: Voiding Method Toilet Toilet # Voids 2 - Exam PHYSICAL EXAMINATION: GENERAL: The patient is alert and oriented x3, not in any acute distress. Well developed, well nourished. HEENT: Pupils are round and equally reacting to light. EOMI. CARDIOVASCULAR: S1 and S2 present. No murmurs, rubs, or gallops. PULMONARY: Decreased breath sounds bilaterally ABDOMEN: Soft, nontender, nondistended, normoactive bowel sounds. No palpable organomegaly. MUSCULOSKELETAL: No joint swelling or deformity. EXTREMITIES: No cyanosis, clubbing, or pedal edema. NEUROLOGICAL: Gross neurological examination did not reveal any focal deficits. - Labs CBC & Chem 7: 04/21/23 08:05 04/21/23 08:05 Labs: Abnormal Lab Results - Last 24 Hours (Table) 04/20/23 04/20/23 04/21/23 Range/Units 16:30 20:32 05:55 WBC (3.8-10.6) k/uL MCV (80.0-100.0) fL Plt Count (150-450) k/uL Sodium (137-145) mmol/L BUN (9-20) mg/dL Creatinine (0.66-1.25) mg/dL Glucose (74-99) mg/dL POC Glucose (mg/dL) 224 H 238 H 115 H (70-110) mg/dL 04/21/23 04/21/23 04/21/23 Range/Units 08:05 08:05 11:55 WBC 3.3 L (3.8-10.6) k/uL MCV 102.8 H (80.0-100.0) fL Plt Count 146 L (150-450) k/uL Sodium 136 L (137-145) mmol/L BUN 24 H (9-20) mg/dL Creatinine 0.60 L (0.66-1.25) mg/dL Glucose 121 H (74-99) mg/dL POC Glucose (mg/dL) 165 H (70-110) mg/dL Assessment and Plan Assessment: Assessment and plan Acute COVID-19 pneumonia. . Patient symptomatic for the past 10 days prior to admission. bacterial pneumonia involving right lower lobe pneumonia/atelectasis. Procalcitonin level 0.35. Patient with history of left popliteal DVT diagnosed on 10/10/2022 Multiple myeloma currently being treated with Pomalyst Malignancy related pain with history of pathological fractures. On MS Contin at home. Coronary artery disease with history of stent placement to RCA and three-vessel CABG Hypertension Hyperlipidemia Osteoarthritis Nonsustained V. tach Chronic back pain, degenerative disc disease, spinal stenosis, Anxiety/depression Prior history of smoking * Continue patient on Levaquin, to complete total 7 day course of antibiotic, day 6 of 7 * In regards to shortness of breath secondary to Covid 19 pneumonia. Continue patient on IV Solu-Medrol transition to oral prednisone, will discharge on reviewing * Continue patient on albuterol as needed, steroids weaned down * History of myeloma continue patient on acyclovir for prophylaxis * In regards to nonsustained V. tach patient started on metoprolol
[2023-04-21 16:27] LABS: Glucose,Whole Blood 243 mg/dL (70-110)
--- NOTE | 2023-04-21 16:30 | P.PN ---
Subjective Progress Note Date: 04/21/23 Principal diagnosis: Pneumonia Patient is a 68-year-old male with a past medical history significant for coronary artery disease reflux hypertension hyperlipidemia osteoarthritis apparently tested positive for COVID-19 about 2 weeks ago, treated now presenting with steroids and Zithromax initial improvement did have subsequent worsening of his symptom for the patient presented to the hospital CT neck, chest was negative for PE did shows peripheral groundglass opacities. On today's evaluation that is 04/21/2023, the patient denies having any fever or any chills, the patient is breathing comfortably on room air, the patient denies having any chest pain patient cough is decreased intensity mostly dry in nature, no nausea no vomiting no abdominal pain and no diarrhea has been reported. Patient did have a problem with arrhythmia but denies any palpitation Patient did have a white count of 3.3, creatinine is 0.60 Objective - Vital Signs Vital signs: Vital Signs Temp 97.7 F 04/21/23 08:45 Pulse 80 04/21/23 12:00 Resp 18 04/21/23 12:00 BP 158/109 04/21/23 12:00 Pulse Ox 94 L 04/21/23 12:00 FiO2 Intake & Output 04/20/23 04/21/23 04/21/23 18:59 06:59 18:59 Intake Total 1218 480 Balance 1218 480 Weight 90.718 kg Intake: Oral 1218 480 Other: Voiding Method Toilet Toilet # Voids 2 - Exam GENERAL DESCRIPTION: An elderly male lying in bed in no distress RESPIRATORY SYSTEM: Unlabored breathing , decreased breath sounds at bases HEART: S1 S2 regular rate and rhythm , ABDOMEN: Soft , no tenderness EXTREMITIES: No edema feet - Labs CBC & Chem 7: 04/21/23 08:05 04/21/23 08:05 Labs: Abnormal Lab Results - Last 24 Hours (Table) 04/20/23 04/20/23 04/21/23 Range/Units 16:30 20:32 05:55 WBC (3.8-10.6) k/uL MCV (80.0-100.0) fL Plt Count (150-450) k/uL Sodium (137-145) mmol/L BUN (9-20) mg/dL Creatinine (0.66-1.25) mg/dL Glucose (74-99) mg/dL POC Glucose (mg/dL) 224 H 238 H 115 H (70-110) mg/dL 04/21/23 04/21/23 04/21/23 Range/Units 08:05 08:05 11:55 WBC 3.3 L (3.8-10.6) k/uL MCV 102.8 H (80.0-100.0) fL Plt Count 146 L (150-450) k/uL Sodium 136 L (137-145) mmol/L BUN 24 H (9-20) mg/dL Creatinine 0.60 L (0.66-1.25) mg/dL Glucose 121 H (74-99) mg/dL POC Glucose (mg/dL) 165 H (70-110) mg/dL Assessment and Plan (1) COVID-19 in immunocompromised patient Current Visit: Yes Status: Acute Priority: High Code(s): U07.1 - COVID-19; D84.9 - IMMUNODEFICIENCY, UNSPECIFIED SNOMED Code(s): 841206128 (2) Pneumonia Current Visit: Yes Status: Acute Code(s): J18.9 - PNEUMONIA, UNSPECIFIED ORGANISM SNOMED Code(s): 574577783 Plan: 1patient presented hospital with increasing shortness of breath likely multifactorial in this patient diagnosed with COVID-19 on home test about 2 weeks ago now presented hospital worsening shortness of breath patient is currently out of the therapeutic window for remdesivir and clinical suspicious low for a secondary bacterial infection pneumonia as no evidence of any consolidation on the CT angiogram of the chest however not entirely excluded 2-patient to continue supportive treatment for underlying covid 19 3-with the patient developing arrhythmia and we will discontinue Levaquin start the patient on Omnicef and check his inflammatory markers with a.m. lab Dictation was produced using [employer] dictation software. please excuse any grammatical, word or spelling errors. Time with Patient: Less than 30
[2023-04-21 20:13] LABS: Glucose,Whole Blood 198 mg/dL (70-110)
--- NOTE | 2023-04-21 20:18 | P.PN ---
Subjective Progress Note Date: 04/21/23 Principal diagnosis: weakness/dyspnea At today's visit patient is resting comfortable in bed. Patient reports improvement in breathing. Reports persisting cough. SPO2 94% on room air Objective - Vital Signs Vital signs: Vital Signs Temp 97.7 F 04/21/23 08:45 Pulse 74 04/21/23 15:25 Resp 16 04/21/23 15:25 BP 120/82 04/21/23 15:25 Pulse Ox 98 04/21/23 15:25 FiO2 Intake & Output 04/21/23 04/21/23 04/22/23 06:59 18:59 06:59 Intake Total 1020 Balance 1020 Intake: Oral 1020 Other: Voiding Method Toilet # Voids 2 - Constitutional General appearance: Present: average body habitus, no acute distress - EENT Eyes: Present: anicteric sclerae, EOMI ENT: Present: hearing grossly normal - Respiratory Details: breathing is even and unlabored - Cardiovascular Details: skin warm and dry - Integumentary Integumentary: Absent: cyanotic, jaundiced - Neurologic Neurologic Comment(s): grossly intact - Musculoskeletal Musculoskeletal: Present: generalized weakness - Psychiatric Psychiatric: Present: A&O x's 3, appropriate affect, intact judgment & insight - Labs CBC & Chem 7: 04/21/23 08:05 04/21/23 08:05 Labs: Abnormal Lab Results - Last 24 Hours (Table) 04/20/23 04/21/23 04/21/23 Range/Units 20:32 05:55 08:05 WBC 3.3 L (3.8-10.6) k/uL MCV 102.8 H (80.0-100.0) fL Plt Count 146 L (150-450) k/uL Sodium (137-145) mmol/L BUN (9-20) mg/dL Creatinine (0.66-1.25) mg/dL Glucose (74-99) mg/dL POC Glucose (mg/dL) 238 H 115 H (70-110) mg/dL 04/21/23 04/21/23 04/21/23 Range/Units 08:05 11:55 16:26 WBC (3.8-10.6) k/uL MCV (80.0-100.0) fL Plt Count (150-450) k/uL Sodium 136 L (137-145) mmol/L BUN 24 H (9-20) mg/dL Creatinine 0.60 L (0.66-1.25) mg/dL Glucose 121 H (74-99) mg/dL POC Glucose (mg/dL) 165 H 243 H (70-110) mg/dL Assessment and Plan (1) Multiple myeloma Current Visit: Yes Status: Acute Priority: High Code(s): C90.00 - MULTIPLE MYELOMA NOT HAVING ACHIEVED REMISSION SNOMED Code(s): 645200208 (2) COVID-19 in immunocompromised patient Current Visit: Yes Status: Acute Priority: High Code(s): U07.1 - COVID-19; D84.9 - IMMUNODEFICIENCY, UNSPECIFIED SNOMED Code(s): 801122054 Plan: #COVID-19 -Contracted COVID-19 from sick contacts, who became positive from wedding the previous week -Vitals are currently stable and is afebrile, but noted to have significant weakness and dyspnea on exertion. Breathing/SOB has improved since admission -Has been transitioned to cefdinir and prednisone. Continues zinc, and vitamin C per pulmonology and primary teams -Continue management per pulmonology and primary teams #Relapsed multiple myeloma -Initially diagnosed in July 2020 underwent 6 cycles of RVD with noted CR followed by maintenance treatment with Revlimid and dexamethasone -No consolidation autologous stem cell transplant was performed -Subsequent relapsed disease was treated with combination of pomalidomide/daratumumab/dexamethasone -Last received daratumumab on 03/29/2023 and pomalidomide approximately 1 to 2 days prior to presentation -I advised him to hold pomalidomide at this time and once he is discharged from the hospital, until 10 days post symptom onset, at which time instructed pt to retest with at home COVID test. Once he obtains negative test he can resume pomalidomide -His next maintenance daratumumab treatment on 04/26/2023 will be rescheduled for at least 1 week. He has follow-up with his primary oncologist Dr. Erick Harvey on 05/02, at which time he will be reevaluated prior to resuming daratumumab -Immunoglobins revealed IgG 506. Due to current COVID infection and hx of MM on active treatment, 1 dose IVIG was given for immune support. SPEP unable to exclude quantifiable small paraprotein in the gamma region -Continue prophylactic acyclovir -Continue eliquis BID. Patient should be maintained on prophylactic dose anticoagulant or SCDs if contraindicated Attests: I have seen and examined pt, performed H&P, developed impression and plan of care. Discussed with dictator. Agree with documentation, dictated as a scribe
[2023-04-21] MEDS: CEFDINIR 300 MG CAP PO SCH (20:43)
[2023-04-21] MEDS ORDERED: LEVOFLOXACIN 750 MG TAB PO SCH (21:00)
[2023-04-22 06:13] LABS: Glucose,Whole Blood 94 mg/dL (70-110)
[2023-04-22] MEDS: INSULIN ASPART (NovoLOG) 100 UNIT/ML VIAL SQ SCH ×2 (06:27→12:13)
[2023-04-22] MEDS: predniSONE 20 MG TAB PO SCH (08:08)
[2023-04-22] MEDS: PANTOPRAZOLE 40 MG TABLET PO SCH (08:09)
[2023-04-22] MEDS: APIXABAN 2.5 MG TABLET PO SCH (08:09)
[2023-04-22] MEDS: CEFDINIR 300 MG CAP PO SCH (08:09)
[2023-04-22] MEDS: METOPROLOL SUCCINATE (ER) 25 MG TAB.ER.24H PO SCH (08:09)
[2023-04-22] MEDS: SENNOSIDES 8.6 MG TAB PO SCH (08:09)
[2023-04-22] MEDS: ZINC SULFATE 220 MG CAP PO SCH (08:09)
[2023-04-22] MEDS: ASCORBIC ACID 500 MG TAB PO SCH (08:09)
[2023-04-22] MEDS: CHOLECALCIFEROL 125 MCG (5000 IU) TABLET PO SCH (08:09)
[2023-04-22] MEDS: MORPHINE SULFATE ER 30 MG TABLET PO SCH (08:10)
[2023-04-22] MEDS: ACYCLOVIR 200 MG CAP PO SCH (08:10)
[2023-04-22 08:20] VITALS: RESP 18; TEMP 97.4
[2023-04-22 09:37] LABS: ALT 31 U/L (4-49); AST 32 U/L (17-59); African American GFR (CKD) >90 (>60 ml/min/1.73 sqM); Albumin 2.7 g/dL (3.5-5.0); Alkaline Phosphatase 82 U/L (38-126); Anion Gap 8 mmol/L; Blood Urea Nitrogen 23 mg/dL (9-20); C Reactive Protein <0.5 mg/dL (<1.0); Calcium 8.2 mg/dL (8.4-10.2); Carbon Dioxide 25 mmol/L (22-30); Chloride 101 mmol/L (98-107); Glucose 167 mg/dL (74-99); Non-African American GFR(CKD) >90 (>60 ml/min/1.73 sqM); Potassium 3.8 mmol/L (3.5-5.1); Sodium 134 mmol/L (137-145); Total Bilirubin 0.6 mg/dL (0.2-1.3); Total Protein 5.9 g/dL (6.3-8.2)
[2023-04-22 09:58] LABS: HCT 46.3 % (39.0-53.0); HGB 14.7 gm/dL (13.0-17.5); Hypochromasia Slight; MCH 33.3 pg (25.0-35.0); MCHC 31.9 g/dL (31.0-37.0); MCV 104.4 fL (80.0-100.0); Macrocytosis Moderate; Mean Platelet Volume 8.9; Platelet Count 152 k/uL (150-450); RBC 4.43 m/uL (4.30-5.90); RDW 15.5 % (11.5-15.5); WBC 2.8 k/uL (3.8-10.6)
[2023-04-22 11:36] LABS: Glucose,Whole Blood 128 mg/dL (70-110)
--- NOTE | 2023-04-22 11:47 | P.PN ---
Subjective Progress Note Date: 04/22/23 Principal diagnosis: Respiratory failure. I am seeing this patient in new consultation today 04/17/2023 for acute dyspnea. Patient is a 68-year-old male with past medical history significant for multiple myeloma currently receiving chemotherapy, neuropathy, coronary artery disease with previous CABG, hyperlipidemia, hypertension, DVT, GERD, and remote history of smoking. His PCP is Dr. Donato. His oncologist is Dr. Harvey. On an outpatient basis, he was prophylactically placed on a combination of Bactrim, Acyclovir, and Diflucan. Patient presented in the emergency room yesterday morning complaining of progressively worsening shortness of breath over the last month, but particularly worse over the last 7 days. He did take a COVID-19 test 4 days ago which was positive. He states that his shortness of breath has become severe, and he could no longer ambulate without much difficulty. He states that he is also had a cough with minimal green sputum production. He also reports generalized malaise and weakness. He denies any fevers, chills, myalgias, hemoptysis. Denies sick contacts. Denies any chest pain, heart palpitations, lower extremity swelling, syncope. On arrival to the emergency room, he did test positive for COVID-19. He has reportedly had his ramos ginal Covid 19 vaccination, but has not received any booster injections. Chest CTA on arrival showed scattered groundglass opacities particularly within the bibasilar lobes there are also a few scattered groundglass opacities in bilateral upper lobes and right middle lobe. These are concerning for atypical infection such as COVID-19 pneumonia. There was also a right upper lobe calcified pleural plaque likely from previous asbestosis exposure. No evidence of pulmonary embolism. There were multiple pathological fractures seen within the thoracolumbar spine.. Patient is currently sitting up in bed, on room air, in no acute distress. CBC from yesterday shows WBC count of 8.3, hemoglobin 15.3, hematocrit 46.6, platelets 133. BMP from yesterday shows sodium 134, potassium 3.7, chloride 99, serum bicarbonate 21, BUN 19, creatinine 0.72, glucose 213. Lactic acid level was elevated at 3.2 and is down to 1.6. Troponin was 0.04. Procalcitonin elevated at 0.35. He is empirically covered on Levaquin. Afebrile. Patient will be monitored on the cardiac stepdown unit. Progress note dated 04/18/2023. 68-year-old male with a history of multiple myeloma, previous CABG, hyperlipidemia, hypertension, DVT, GERD, and remote tobacco use. The patient is seen today in room 381. Currently he is on room air. The patient is currently on Solu-Medrol, and Levaquin. The patient may have coronavirus associated pneumonia. Labs today include a sodium 137, potassium 4.1, chlorides 100, CO2 23, anion gap 14, BUN 21, and creatinine 0.64. Glucose 224. Calcium 8.7. Progress note dated 04/19/2023. 68-year-old male with history of multiple myeloma, previous bypass surgery, dyslipidemia, hypertension, DVT, gastroesophageal reflux disease, and remote tobacco use. The patient is seen today in room 381. Currently, the patient's on room air. The chest x-ray is ordered for tomorrow, April 20. He has no complaints. He is maintained on Solu-Medrol and Levaquin. The patient may have coronavirus associated pneumonia. Glucose today is 245. Progress note dated 04/20/2023. 68-year-old male seen again in room 381. The patient is currently doing reasonably well. His room air saturations are 93%. He continues on Solu- Medrol, and Levaquin. Currently labs include a white count of 3.2, hemoglobin 13.7, hematocrit 43.3, and a platelet count of 118,000. Sodium 134, potassium 4.3, chlorides 100, CO2 27, BUN 20, and creatinine 0.58. Albumin is 2.8. Chest x-ray is reviewed, by radiology, and their impression is basilar atelectasis, versus pneumonia. Progress note dated 04/21/2023. 68-year-old male seen in room 381. The patient appears to be doing relatively well. Currently, the patient is on room air, with saturations between 93% and 94%. He continues on appropriate medications including corticosteroids and antibiotics. White count is 3.3, hemoglobin 15.1, hematocrit 46.4, with a platelet count of 146,000. Sodium 136, potassium 4.2, chlorides 100, CO2 28, BUN 24, and creatinine 0.6. Chest x-ray from April 20, has been reviewed. Progress note dated 04/22/2023. 68-year-old male seen again in room 381. He is on room air. No IV fluids. His saturations are excellent. From the pulmonary perspective, the patient should be discharged. White count 2.8, hemoglobin 14.7, hematocrit 46.3, with a normal platelet count. Sodium 134, potassium 3.8, chlorides 101, CO2 25, BUN 23, and creatinine 0.69. Objective - Vital Signs Vital signs: Vital Signs Temp 97.4 F L 04/22/23 08:19 Pulse 95 04/22/23 08:19 Resp 18 04/22/23 08:19 BP 134/84 04/22/23 08:19 Pulse Ox 95 04/22/23 08:19 FiO2 Intake & Output 04/21/23 04/22/23 04/22/23 18:59 06:59 18:59 Intake Total 1020 240 Balance 1020 240 Intake: Oral 1020 240 Other: Voiding Method Toilet # Voids 1 - Exam No acute distress, oriented 3. Room air saturation is 95 %. HEENT examination is grossly unremarkable. Neck supple. Full range of motion. No adenopathy thyromegaly or neck vein distention. Cardiovascular examination reveals regular rhythm rate. S1-S2 normal. No S3 or S4. No discernible murmur noted. Heart sounds are distant. Heart rate 95 bpm. Lungs reveal mostly clear breath sounds. Mild scattered rhonchi. No wheezes or crackles. Breath sounds are equal bilaterally. Room air saturation is 95 %. Abdomen soft bowel sounds are heard. No masses or tenderness. Extremities are intact. No cyanosis clubbing or edema. Skin is without rash or lesion. Neurologic examination is brief but nonfocal. - Labs CBC & Chem 7: 04/22/23 08:40 04/22/23 08:40 Labs: Abnormal Lab Results - Last 24 Hours (Table) 04/21/23 04/21/23 04/21/23 Range/Units 11:55 16:26 20:12 WBC (3.8-10.6) k/uL MCV (80.0-100.0) fL Sodium (137-145) mmol/L BUN (9-20) mg/dL Glucose (74-99) mg/dL POC Glucose (mg/dL) 165 H 243 H 198 H (70-110) mg/dL Calcium (8.4-10.2) mg/dL Total Protein (6.3-8.2) g/dL Albumin (3.5-5.0) g/dL 04/22/23 04/22/23 04/22/23 Range/Units 08:40 08:40 11:35 WBC 2.8 L (3.8-10.6) k/uL MCV 104.4 H (80.0-100.0) fL Sodium 134 L (137-145) mmol/L BUN 23 H (9-20) mg/dL Glucose 167 H (74-99) mg/dL POC Glucose (mg/dL) 128 H (70-110) mg/dL Calcium 8.2 L (8.4-10.2) mg/dL Total Protein 5.9 L (6.3-8.2) g/dL Albumin 2.7 L (3.5-5.0) g/dL Assessment and Plan Assessment: Dyspnea, likely secondary to suspected COVID-19 pneumonia, underlying atypical bacterial infection cannot be ruled out. Chest CTA on arrival showed scattered groundglass opacities particularly within the bibasilar lobes there are also a few scattered groundglass opacities in bilateral upper lobes and right middle lobe. These are concerning for atypical infection such as COVID-19 pneumonia. Procalcitonin level elevated at 0.35. Multiple myeloma, currently receiving chemotherapy the form of Pomalyst and steroids, he was prophylactically covered on a combination of Bactrim, acyclovir, and Diflucan on an outpatient basis. Multiple pathological fractures of the thoracolumbar spine including T5, T6, T8, T10, T11, T12, and L1. Mildly elevated troponins, possibly related to supply/demand mismatch. Coronary artery disease, with previous CABG. Hyperlipidemia. Benign essential hypertension. History of DVT, anticoagulated on Eliquis. Hepatic steatosis. GERD. Remote history of smoking. Plan: Plan dated 04/18/2023. Labs, x-rays, and medications are reviewed. The patient is currently on room air. He continues on appropriate medications, including Eliquis and Protonix. The patient is being followed by medical oncology. We will continue to make recommendations along the way. The patient's overall prognosis remains guarded. He continues on room air. Labs, x-rays, and medications are all reviewed. Plan dated 04/19/2023. The patient appears to be relatively stable. We ordered a chest x-ray for tomorrow, April 20. Currently he is on room air. Saturations are 93%. He's not receiving any IV fluids. We will continue to follow the patient and make recommendations along the way. Prognosis is guarded. Plan dated 04/20/2023. The patient appears to be doing reasonably well. The chest x-rays reviewed. Labs, x-rays, and medications are reviewed. Clinically, the patient appears to be stable. His room air saturation is 96%. He continues on Solu-Medrol, and Levaquin. We will continue to follow make recommendations along the way. Prognosis is certainly guarded. Plan dated 04/21/2023. The patient appears to be reasonably stable from the pulmonary standpoint. Room air saturations are between 93%, and 95%. Labs, x-rays, and medications are reviewed. The patient continues on appropriate medications. We will continue to follow the patient and make recommendations along the way. Prognosis is guarded. Discharge plans are underway. Plan dated 04/22/2023. The patient's currently on room air. He feels great. He should be discharged home. No additional recommendations are made. Prognosis is thought to be very good. Time with Patient: Less than 30
--- NOTE | 2023-04-22 12:32 | P.DS ---
Providers Date of admission: 04/16/23 12:22 Expected date of discharge: 04/22/23 Attending physician: Liam Vidal Consults: 04/16/23 12:21 Consult Physician Routine Consulting Provider: Harsha Shi Consult Reason/Comments: respiratory failure Do you want consulting provider notified?: Yes 04/17/23 06:42 Consult Physician Routine Consulting Provider: Mushtaq Harvey Consult Reason/Comments: mutliple myeloma, known to group Do you want consulting provider notified?: Yes, Notify in am 04/18/23 11:21 Consult Physician Routine Consulting Provider: Judah Sheppard Consult Reason/Comments: covid 19, pneumonia Do you want consulting provider notified?: Yes Primary care physician: [facility] Hospital Course: 68-year-old male with a known history of multiple myeloma currently on Pomalyst, recent history of left popliteal DVT diagnosed on 10/10/2022 currently on Eliquis and also diagnosed with COVID 4 days ago presents to ER with complaints of shortness of breath. Patient has been having symptoms for the past 10 days. Patient also has history of hypertension, hyperlipidemia, coronary artery disease status post stent in the RCA, three-vessel CABG, GERD, nephrolithiasis, osteoarthritis, spinal stenosis and remote history of tobacco use. Patient has been having generalized weakness, body aches denied any fever or chills. And also worsening shortness of breath and has been short of breath with minimal activity and has been difficulty daily living due to shortness of breath. Denies any complaints of chest pain. No nausea or vomiting or abdominal pain or diarrhea. He has not been eating well for the past few days.. Patient is on prophylactic antibiotics due to chemotherapy. On Bactrim, acyclovir and Diflucan. Otherwise patient is vaccinated and also had booster dose. Chest x-ray showed mild cardiomegaly with right basilar opacity favored to represent atelectasis. CTA chest showed no evidence of PE. Peripheral groundglass pulmonary opacities consistent with atypical pulmonary infection such as COVID-19. 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 He wants to stop multiple pathologic fractures involving the visualized thoracolumbar spine due to multiple myeloma. Hepatic steatosis. Pulse ox 94% on room air. On admission patient was tachycardic with heart rate 123, Laboratory data showed WBC 8.3 hemoglobin 15.3 and platelets 133, sodium 134, potassium 3.7 chloride 99 bicarb is 21 BUN 14 and creatinine 0.72 and blood sugar is 213 lactic acid 3.2 calcium 8.9 liver NUS not elevated. Troponin 0.040 and CRP level is 14.9. Procalcitonin level 0.35 and proBNP 430. Urinalysis showed 4+ glucose and leukocyte esterase negative. SARS COVID-19 PCR detected. 2022 Patient is resting in bed. Awake alert and oriented x3. Breathing status is better today. No complaints of chest pain. No nausea vomiting. Patient was able to ambulate to the bathroom. Cough did improve as well. Patient able to tolerate off oral diet better. No fever no chills. Laboratory data showed WBC 5.2 hemoglobin 14.6 and platelets 149 Sodium 137 potassium 3.8 chloride 104 bicarb is 24 BUN 20 and creatinine 0.67. CRP level is 11.6. LDH 174. Pulmonary and oncology is on board. 04/18. Patient seen and examined. Not requiring any oxygen, currently on room air. States he feels much better compared to yesterday. States lethargy and weakness is improving 04/19. Patient seen and examined. Patient received 1 treatment of immunoglobin per hematology oncology yesterday. States he feels better 04/20: Patient assessed at bedside. Care plan discussed with infectious disease we'll discharge on Levaquin to complete total 7 day course, will wean down on IV Solu-Medrol to oral prednisone and monitor overnight potential discharge within the next 24 hours will wait for recommendations from pulmonary medicine 04/21: Patient remained on room air. IV antibiotics transitioned to oral, prednisone tapered dose given. Nonsustained V. tach few beats noted started on metoprolol patient remains hemodynamically stable we'll discharge home. Per chart review patient does have history of nostril weak in the past. Beta jo will initiate with dysrhythmias. 04/22: Patient was monitored overnight after patient had back pain and episode of nonsustained V. tach. Patient was started on beta jo and monitor remained stable hence discharged home in a stable condition all questions answered. Antibiotic was changed from Levaquin to cefdinir as well due to concern for prolongation of QTC PHYSICAL EXAMINATION: GENERAL: The patient is alert and oriented x3, not in any acute distress. Well developed, well nourished. HEENT: Pupils are round and equally reacting to light. EOMI. CARDIOVASCULAR: S1 and S2 present. No murmurs, rubs, or gallops. PULMONARY: Decreased breath sounds bilaterally ABDOMEN: Soft, nontender, nondistended, normoactive bowel sounds. No palpable organomegaly. MUSCULOSKELETAL: No joint swelling or deformity. EXTREMITIES: No cyanosis, clubbing, or pedal edema. NEUROLOGICAL: Gross neurological examination did not reveal any focal deficits. Assessment: Assessment and plan Acute COVID-19 pneumonia. bacterial pneumonia involving right lower lobe pneumonia/atelectasis. Procalcit onin level 0.35. Patient with history of left popliteal DVT diagnosed on 10/10/2022 Multiple myeloma currently being treated with Pomalyst Malignancy related pain with history of pathological fractures. On MS Contin at home. Coronary artery disease with history of stent placement to RCA and three-vessel CABG Hypertension Hyperlipidemia Osteoarthritis Nonsustained V. tach Chronic back pain, degenerative disc disease, spinal stenosis, Anxiety/depression Prior history of smoking * In regards to pneumonia patient was even Levaquin which has been transitioned to Ceftin. Prescription provided * In regards to shortness of breath secondary to Covid 19 pneumonia. Patient placed on tapered dose of prednisone. Albuterol prescription provided * Continue patient on albuterol as needed, steroids weaned down, tapered dose provided * In regards to history of nonsustained V. tach initiated on low-dose metoprolol * History of myeloma continue patient on acyclovir for prophylaxis, Bactrim, fluconazole home medications continued Patient Condition at Discharge: Fair Plan - Discharge Summary Discharge Rx Participant: No New Discharge Prescriptions: New Metoprolol Succinate (ER) [Toprol XL] 12.5 mg PO DAILY 30 Days #30 tab predniSONE [Deltasone] See Taper PO DAILY 8 Days #10 tab Albuterol Inhaler [Ventolin Hfa Inhaler] 2 puff INHALATION RT-QID PRN 30 Days #1 each PRN Reason: Shortness Of Breath Or Wheezing Cefdinir [Omnicef] 300 mg PO BID 3 Days #6 cap Continue Omeprazole [PriLOSEC] 20 mg PO BID ALPRAZolam [Xanax] 0.5 mg PO BID PRN PRN Reason: Anxiety Nitroglycerin Sl Tabs [Nitrostat] 0.4 mg SUBLINGUAL Q5M PRN PRN Reason: Chest Pain Sulfamethox-Tmp 800-160Mg [Bactrim DS 800-160 mg] 1 tab PO MOWEFR Pomalyst 4 mg PO DIRECTED Furosemide [Lasix] 20 mg PO DAILY Apixaban [Eliquis] 2.5 mg PO BID Acyclovir [Zovirax] 400 mg PO BID Fluconazole [Diflucan] 100 mg PO DAILY Morphine Sulfate ER [Ms Contin] 30 mg PO Q12HR Discontinued predniSONE See Taper PO DIRECTED Azithromycin [Zithromax Z Pack] See Taper PO DIRECTED Discharge Medication List ALPRAZolam [Xanax] 0.5 mg PO BID PRN 07/02/14 [History] Omeprazole [PriLOSEC] 20 mg PO BID 07/02/14 [History] Nitroglycerin Sl Tabs [Nitrostat] 0.4 mg SUBLINGUAL Q5M PRN 09/06/20 [History] Acyclovir [Zovirax] 400 mg PO BID 04/16/23 [History] Apixaban [Eliquis] 2.5 mg PO BID 04/16/23 [History] Fluconazole [Diflucan] 100 mg PO DAILY 04/16/23 [History] Furosemide [Lasix] 20 mg PO DAILY 04/16/23 [History] Morphine Sulfate ER [Ms Contin] 30 mg PO Q12HR 04/16/23 [History] Pomalyst 4 mg PO DIRECTED 04/16/23 [History] Sulfamethox-Tmp 800-160Mg [Bactrim DS 800-160 mg] 1 tab PO MOWEFR 04/16/23 [History] Albuterol Inhaler [Ventolin Hfa Inhaler] 2 puff INHALATION RT-QID PRN 30 Days #1 each 04/21/23 [Rx] Metoprolol Succinate (ER) [Toprol XL] 12.5 mg PO DAILY 30 Days #30 tab 04/21/23 [Rx] predniSONE [Deltasone] See Taper PO DAILY 8 Days #10 tab 04/21/23 [Rx] Cefdinir [Omnicef] 300 mg PO BID 3 Days #6 cap 04/22/23 [Rx] Follow up Appointment(s)/Referral(s): Angel Verma DO [Primary Care Provider] - 1-2 days Erick Harvey MD [STAFF PHYSICIAN] - 05/02/23 2:00 pm Patient Instructions/Handouts: COVID-19 (Coronavirus Disease 2019) (DC) Discharge Disposition: HOME SELF-CARE
[2023-04-22 13:31] VITALS: BP 127/70; PULSE 96
[2023-04-22 15:40] LABS: Band Neutrophils % 1 %; Eosinophils # (M) 0.06 k/uL (0-0.7); Lymphocytes # (M) 0.53 k/uL (1.0-4.8); Metamyelocytes # (M) 0.03 k/uL (0); Metamyelocytes % 1 %; Monocytes # (M) 0.53 k/uL (0-1.0); Neutrophils % (M) 58 %; Nucleated Red Blood Cells 0 /100 WBC (0-0); Total Cells Counted 100
--- NOTE | 2023-04-25 20:05 | CDI ---
Documentation Clarification Form Date: 04/25/2023 07:53:37 PM From: Mariela Hanson Phone: Admit Date: 04/16/2023 12:22:00 PM Patient Name: Tom Hoover Visit Number: [id number] Discharge Date: 04/22/2023 01:40:00 PM ATTENTION: The Clinical Documentation Specialists (CDI) and [facility] Coding Staff appreciate your assistance in clarifying documentation. Please respond to the clarification below the line at the bottom and electronically sign. The CDI & [facility] Coding staff will review the response and follow-up if needed. Please note: Queries are made part of the Legal Health Record. If you have any questions, please contact the author of this message via ITS. Dr. Bam Olvera Your patient has respiratory failure per ED Note and following Consult and Progress Notes. Based on this information and the findings below, is there an additional diagnosis that is clinically appropriate for this patient? History/Risk Factors: 68yo M, AcuteCOVID-19 PNA, bacterial PNA, Multiple myeloma, malignancyrelatedpainpathological fractures, CAD sp CABG, HTN, HLD, OA, NSVT, DDD, CBP,spinal stenosis, anxiety, depression Tobacco use: former smoker Clinical Indicators: Vital signs: T 99 F Pulse 123 H 126 H Resp 24 34 H 20 BP153/85 O2 Sat 94 L 97 Treatment: Continue with albuterol hfa, Solu-Medrol 40 mg every 8 hourly andoxygensupplementation as needed. Not requiring anyoxygen, currently on room air. Is there an additional diagnosis that is clinically appropriate for this patient? [ y ] Acute Hypoxic Respiratory Failure (pO2 <60 mm Hg or SpO2 <91% on room air) [ ] Acute Hypercapnic Respiratory Failure (pCO2 >50 and pH <7.35) [ ] Acute on Chronic Respiratory Failure [ ] Other Diagnosis, please specify [ ] Unable to determine (Template Last Revised: October 2020) MTDD
== END 2023-04-22 13:40 | disposition home or self-care (01) | DRG 177 ==
LOC: EC 08:04 → 3SCARD 12:22
PROVIDERS: ADMIT Hospitalist; ATTEND Hospitalist
DX: U07.1 COVID-19 (principal); J12.82 Pneumonia due to coronavirus disease 2019; J15.9 Unspecified bacterial pneumonia; J96.01 Acute respiratory failure with hypoxia; C90.02 Multiple myeloma in relapse; I47.20 Ventricular tachycardia, unspecified; J44.0 Chronic obstructive pulmonary disease with (acute) lower respiratory infection; D84.821 Immunodeficiency due to drugs; J94.8 Other specified pleural conditions; M84.48XA Pathological fracture, other site, initial encounter for fracture; J98.11 Atelectasis; I73.9 Peripheral vascular disease, unspecified; I11.9 Hypertensive heart disease without heart failure; K76.0 Fatty (change of) liver, not elsewhere classified; F32.A Depression, unspecified; G89.3 Neoplasm related pain (acute) (chronic); I25.10 Atherosclerotic heart disease of native coronary artery without angina pectoris; E78.5 Hyperlipidemia, unspecified; F41.9 Anxiety disorder, unspecified; K21.9 Gastro-esophageal reflux disease without esophagitis; I83.92 Asymptomatic varicose veins of left lower extremity; M15.9 Polyosteoarthritis, unspecified; G62.9 Polyneuropathy, unspecified; R63.0 Anorexia; R77.8 Other specified abnormalities of plasma proteins; M48.00 Spinal stenosis, site unspecified; Z77.090 Contact with and (suspected) exposure to asbestos; Z79.01 Long term (current) use of anticoagulants; Z86.718 Personal history of other venous thrombosis and embolism; Z87.311 Personal history of (healed) other pathological fracture; Z95.5 Presence of coronary angioplasty implant and graft; Z95.1 Presence of aortocoronary bypass graft; Z87.891 Personal history of nicotine dependence; Z79.899 Other long term (current) drug therapy; Z79.82 Long term (current) use of aspirin; Z88.8 Allergy status to other drugs, medicaments and biological substances; Z91.041 Radiographic dye allergy status; Z91.013 Allergy to seafood; Z79.61 Long term (current) use of immunomodulator
CPT/HCPCS: 36415; 71045; 71275; 80048; 80053; 81001; 82330; 82784; 83605; 83615; 83735; 83880; 84145; 84165; 84484; 85025; 85027; 85379; 85610; 85652; 85730; 86140; 87636; 93005; 94640; 96361; 96374; 96375; 99285

== ENCOUNTER → 2023-09-26 | Outpatient (CLI) | payer MEDICARE ==
--- NOTE | 2023-09-26 15:11 | US ---
EXAMINATION TYPE: US venous doppler duplex LE LT DATE OF EXAM: 09/26/2023 3:00 PM COMPARISON: NONE CLINICAL INDICATION: Male, 68 years old with history of LLE; R22.42 MASS AND LUMP, LEFT LOWER LIMB; p rior clots in right leg; currently on Eloquist for those, new onset of left leg swelling SIDE PERFORMED: left TECHNIQUE: The lower extremity deep venous system is examined utilizing real time linear array sonog pau with graded compression, doppler sonography and color-flow sonography. VESSELS IMAGED: Common Femoral Vein Deep Femoral Vein Greater Saphenous Vein * Femoral Vein Popliteal Vein Small Saphenous Vein * Proximal Calf Veins Posterior tibial veins (* superficial vessels) Left Leg: neg for LLE DVT Results called to in the office at the time of the exam. IMPRESSION: No evidence for DVT within the left lower extremity.
== END | disposition home or self-care (01) ==
LOC: RADUSWWP 14:16
PROVIDERS: ATTEND Internal Medicine Hematology & Oncology
DX: R22.42 Localized swelling, mass and lump, left lower limb (principal); Z86.718 Personal history of other venous thrombosis and embolism

== ENCOUNTER 2023-12-08 09:50 | Day surgery (SDC) | payer MEDICARE ==
[2023-12-07 10:12] VITALS: BMI 29.8
[~2023-12-08 09:50] MED LIST changes: -LACTATED RINGERS 1,000 ML IV ONE; +LIDOCAINE 1% (10MG/ML) FOR IV START INTRADERMA PRN; -LIDOCAINE 2% (PF) 20 MG/ML 5 ML VIAL SQ ONE; -LIDOCAINE 2% INJ 20 MG/ML (2 ML VIAL) ONE; -PROPOFOL 10 MG/ML 20 ML VIAL IV ONE
[2023-12-08] MEDS: LACTATED RINGERS 1,000 ML IV SCH (10:05)
[2023-12-08 10:21] LABS: Glucose,Whole Blood 110 mg/dL (70-110)
[2023-12-08 10:27] VITALS: RESP 16; TEMP 97.2
[2023-12-08] MEDS ORDERED: LIDOCAINE 1% INJ 10MG/ML (20 ML MDV) ONE (11:21)
[2023-12-08] MEDS ORDERED: PROPOFOL 10 MG/ML 20 ML VIAL IV ONE (11:21)
--- NOTE | 2023-12-08 11:35 | P.PCN ---
Date of Procedure: 12/08/23 Procedure(s) Performed: BRIEF HISTORY: Patient is a 68-year-old, pleasant, white male discussion of endoscopies about evaluation of progressive dysphagia. Solids and liquids for the last 7 to 8 months duration. He does have longstanding history of GERD for several years. He was diagnosed with multiple myeloma and underwent radiation therapy about a year ago for bone mets and since then dysphagia has been progressively getting worse.. PROCEDURE PERFORMED: Esophagogastroduodenoscopy with dilation biopsy. PREOPERATIVE DIAGNOSIS: Globus/progressive dysphagia to solids of unusual. IV sedation per anesthesia. PROCEDURE: After informed consent was obtained, the patient was brought into the endoscopy unit. IV sedation was administered by Anesthesia under continuous monitoring. Initially the Olympus GIF-140 video endoscope was inserted into the mouth. Esophagus intubated without any difficulty. It was gradually advanced into the stomach and duodenum and carefully examined. The bulb and the second part of the duodenum appeared normal. The scope at this time was withdrawn to the stomach, adequately insufflated with air, and upon careful examination, mucosa of the antrum, body, cardia and the fundus appeared normal. The scope was then withdrawn into the esophagus. Hernia noted. The GE junction was located at 39 cm from the incisors. There was a widely patent distal esophageal Schatzki's ring that was dilated using 18 to 20 mm TTS balloon in a sequential fashion. The esophagus appeared normal. There were no erosions or ulcerations seen. Multiple biopsies were done for the mid and distal esophagus to evaluate for eosinophilic esophagitis. And the patient tolerated the procedure well. IMPRESSION: 1. Distal esophageal Schatzki's ring status post balloon dilation using 18 to 20 mm TTS balloon. 2. Small hiatal hernia. RECOMMENDATIONS: The findings of this examination were discussed with the patient as well as his family. He was advised to apparently liquid diet for 2 hours. Follow-up with the biopsy results. Follow-up in the office in 3 to 4 weeks. He continues to have persistent dysphagia will consider esophageal manometry to evaluate for esophageal dysmotility..
[2023-12-08 12:45] VITALS: BP 135/87; PULSE 93
== END 2023-12-08 12:25 | disposition home or self-care (01) ==
LOC: ORWHC2ENDO 09:50
PROVIDERS: ATTEND Internal Medicine Gastroenterology
DX: K22.2 Esophageal obstruction (principal); K44.9 Diaphragmatic hernia without obstruction or gangrene; K21.9 Gastro-esophageal reflux disease without esophagitis; I25.10 Atherosclerotic heart disease of native coronary artery without angina pectoris; I47.10 Supraventricular tachycardia, unspecified; I10 Essential (primary) hypertension; E78.5 Hyperlipidemia, unspecified; J44.9 Chronic obstructive pulmonary disease, unspecified; F41.9 Anxiety disorder, unspecified; F32.A Depression, unspecified; C90.00 Multiple myeloma not having achieved remission; I73.9 Peripheral vascular disease, unspecified; Z87.891 Personal history of nicotine dependence; Z79.01 Long term (current) use of anticoagulants; Z79.51 Long term (current) use of inhaled steroids; Z79.899 Other long term (current) drug therapy; Z92.3 Personal history of irradiation; Z88.5 Allergy status to narcotic agent; Z91.041 Radiographic dye allergy status; Z88.8 Allergy status to other drugs, medicaments and biological substances
CPT/HCPCS: 88305; 43239; 43249; J2001; J2704; C1726

== ENCOUNTER 2025-01-27 12:02 | Inpatient (IN) | payer MEDICARE ==
--- NOTE | 2025-01-27 12:38 | ED ---
General Adult HPI - General Chief complaint: Altered Mental Status Stated complaint: Rib pain Time Seen by Provider: 01/27/25 12:06 Source: patient, family, RN notes reviewed Mode of arrival: ambulatory Limitations: no limitations - History of Present Illness Initial comments: Patient is a 70-year-old male present to the emergency department with concerns for change in mental status. Son is present helps provide history. Patient has been more confused over the past couple weeks, especially the past week. Patient is forgetful. Patient is unclear where he is at at times. Patient is feeling off balance. Patient has blurred vision. Patient has not fallen. Patient did have an episode 2 weeks ago while working in the garage where he hurt his left rib. Patient has some discomfort there still however has some on the right side now as well. - Related Data Home Medications Medication Instructions Recorded Confirmed ALPRAZolam [Xanax] 0.5 mg PO BID 07/02/14 01/27/25 Apixaban [Eliquis] 2.5 mg PO BID 04/16/23 01/27/25 Morphine Sulfate ER [Ms Contin] 30 mg PO BID 04/16/23 01/27/25 Metoprolol Succinate (ER) [Toprol 25 mg PO HS 12/07/23 01/27/25 XL] Albuterol Sulfate [Albuterol 2 puff INHALATION RT-Q6H PRN 01/27/25 01/27/25 Sulfate Hfa] Aspirin EC [Ecotrin] 325 mg PO DAILY 01/27/25 01/27/25 Nitroglycerin Sl Tabs [Nitrostat] 0.4 mg SUBLINGUAL Q5M PRN 01/27/25 01/27/25 Omeprazole [PriLOSEC] 20 mg PO BID 01/27/25 01/27/25 Sennosides [Senokot] 8.6 mg PO BID 01/27/25 01/27/25 Allergies Allergy/AdvReac Type Severity Reaction Status Date / Time hydrocodone [From [place]] Allergy Rash/Hives Verified 01/27/25 14:49 Iodinated Contrast Media Allergy Rash/Hives Verified 01/27/25 14:49 [Iodinated Contrast Media - IV Dye] shellfish derived Allergy Rash/Hives Verified 01/27/25 14:49 MRI dye Allergy Rash/Hives Uncoded 06/16/25 12:16 Review of Systems ROS Statement: Those systems with pertinent positive or pertinent negative responses have been documented in the HPI. ROS Other: All systems not noted in ROS Statement are negative. Constitutional: Denies: fever Eyes: Denies: eye pain ENT: Denies: ear pain Respiratory: Denies: cough, dyspnea Cardiovascular: Reports: as per HPI, chest pain Gastrointestinal: Denies: abdominal pain Genitourinary: Denies: dysuria Musculoskeletal: Denies: back pain Neurological: Reports: as per HPI, confusion, abnormal gait. Denies: headache, weakness Past Medical History Past Medical History: Coronary Artery Disease (CAD), Cancer, Chest Pain / Angina, GERD/Reflux, Hyperlipidemia, Hypertension, Osteoarthritis (OA), Pneumonia, Vascular Disorder Additional Past Medical History / Comment(s): Ischemic heart disease, nonsustained VT, tachycardia, PAD L leg, varicosities, bilateral leg edema at times, hiatal hernia, hemorrhoids, back pain, DDD, spinal stenosis, vertigo, sinus problems, multiple myeloma History of Any Multi-Drug Resistant Organisms: None Reported Past Surgical History: Back Surgery, Coronary Bypass/CABG, Heart Catheterization With Stent, Hernia Repair, Orthopedic Surgery, Tonsillectomy Additional Past Surgical History / Comment(s): 1997 CABG 3 vessel, colonoscopy/benign polypectomy, low back surgery, bilateral rotator cuff repairs, HERNIA REPAIRS X5, R hydrocele with surgery, past bone marrow biospy Past Anesthesia/Blood Transfusion Reactions: Postoperative Nausea & Vomiting (PONV) Date of Last Stent Placement:: 12/30/2002 Past Psychological History: Anxiety, Depression Smoking Status: Former smoker Past Alcohol Use History: None Reported Past Drug Use History: None Reported - Past Family History Father Family Medical History: CVA/TIA, Diabetes Mellitus, Deep Vein Thrombosis (DVT), Renal Disease, Vascular Disorder Additional Family Medical History / Comment(s): Abdominal aortic aneurysm Mother Family Medical History: Myocardial Infarction (NM) Additional Family Medical History / Comment(s): Mother of a NM at the age of 44yrs. General Exam Limitations: no limitations General appearance: alert, in no apparent distress Head exam: Present: atraumatic Eye exam: Present: normal appearance, PERRL, EOMI Neck exam: Present: normal inspection. Absent: tenderness Respiratory exam: Present: normal lung sounds bilaterally, chest wall tenderness (Left lateral lower rib) Cardiovascular Exam: Present: regular rate, normal rhythm Expanded Peripheral pulses: 2+: Radial (R), Radial (L), Posterior Tibialis (R), Posterior Tibialis (L) GI/Abdominal exam: Present: soft. Absent: tenderness, pulsatile mass Extremities exam: Present: normal inspection. Absent: pedal edema, calf tenderness Neurological exam: Present: alert, CN II-XII intact. Absent: motor sensory deficit Expanded Patient oriented to: Present: person, place. Absent: time Cranial nerves: EOM's Intact: Normal, Facial Sensation: Normal Sensory exam: Upper Extremity Light Touch: Normal, Lower Extremity Light Touch: Normal Motor strength exam: RUE: 5, LUE: 5, RLE: 4, LLE: 4 Eye Response: (4) open spontaneously Motor Response: (6) obeys commands Verbal Response: (4) confused conversation Psychiatric exam: Present: normal affect, normal mood Skin exam: Present: normal color Course Vital Signs 01/27/25 01/27/25 01/27/25 12:12 12:16 14:58 Temperature 98.0 F Pulse Rate 102 H 98 90 Respiratory 20 16 20 Rate Blood Pressure 162/100 178/97 149/94 O2 Sat by Pulse 95 97 94 L Oximetry Medical Decision Making - Medical Decision Making Was pt. sent in by a medical professional or institution (TOD Maxwell, METAL WASHING MACHINE OPERATOR, urgent care, hospital, or correction...) When possible be specific @ -No Did you speak to anyone other than the patient for history (EMS, parent, family, police, friend...)? What history was obtained from this source @ -Son is present and helps provide history including patient's symptoms and onset Did you review nursing and triage notes (agree or disagree)? Why? @ -I reviewed and agree with nursing and triage notes Were old charts reviewed (outside hosp., previous admission, EMS record, old EKG, old radiological studies, urgent care reports/EKG's, correction records)? Report findings @ -No old charts were reviewed Differential Diagnosis (chest pain, altered mental status, abdominal pain women, abdominal pain men, vaginal bleeding, weakness, fever, dyspnea, syncope, headache, dizziness, GI bleed, back pain, seizure, CVA, palpatations, mental health, musculoskeletal)? @ -Differential Altered Mental Status: Hypoglycemia, DKA, hypercapnia, ETOH, overdose, CO poisoning, trauma, myxedema coma, HTN encephalopathy, infection, encephalitis, psychosis, intercranial hemorrhage, hepatic encephalopathy, meningitis, CVA, this is not meant to be an all-inclusive list EKG interpreted by me (3pts min.). @ -As above X-rays interpreted by me (1pt min.). @ -Chest x-ray and rib x-ray show old rib fracture CT interpreted by me (1pt min.). @ -CT brain without acute abnormality U/S interpreted by me (1pt. min.). @ -None done What testing was considered but not performed or refused? (CT, X-rays, U/S, labs)? Why? @ -None What meds were considered but not given or refused? Why? @ -None Did you discuss the management of the patient with other professionals (professionals i.e. , PA, METAL WASHING MACHINE OPERATOR, lab, RT, psych nurse, high school social science teacher, chair pad maker, teacher, agricultural technical officer, watch case polisher)? Give summary @ -Case was discussed with Dr. Freeman who will admit his patient Was smoking cessation discussed for >3mins.? @ -No Was critical care preformed (if so, how long)? @ -No Were there social determinants of health that impacted care today? How? (Homelessness, low income, unemployed, alcoholism, drug addiction, transportation, low edu. Level, literacy, decrease access to med. care, long-term, rehab)? @ -No Was there de-escalation of care discussed even if they declined (Discuss DNR or withdrawal of care, Hospice)? DNR status @ -No What co-morbidities impacted this encounter? (DM, HTN, Smoking, COPD, CAD, Ca ncer, CVA, ARF, Chemo, Hep., AIDS, mental health diagnosis, sleep apnea, morbid obesity)? @ -None Was patient admitted / discharged? Hospital course, mention meds given and route, prescriptions, significant lab abnormalities, going to OR and other pertinent info. @ -Patient presents with rib discomfort. Patient also with progressive intermittent change in mental status. Patient reevaluated. Patient and family updated on results and plan. Patient will be admitted with neurology consult. Admission orders written. Undiagnosed new problem with uncertain prognosis? @ -No Drug Therapy requiring intensive monitoring for toxicity (Heparin, Nitro, Insulin, Cardizem)? @ -No Were any procedures done? @ -No Diagnosis/symptom? @ -Altered mental status Acute, or Chronic, or Acute on Chronic? @ -Acute Uncomplicated (without systemic symptoms) or Complicated (systemic symptoms)? @ -Default Side effects of treatment? @ -No Exacerbation, Progression, or Severe Exacerbation? @ -No Poses a threat to life or bodily function? How? (Chest pain, [place], NM, pneumonia, PE, COPD, DKA, ARF, appy, cholecystitis, CVA, Diverticulitis, Homicidal, Suicidal, threat to staff... and all critical care pts) @ -No - Lab Data Result diagrams: 01/27/25 12:34 01/27/25 13:23 Lab Results 01/27/25 01/27/25 01/27/25 Range/Units 12:34 13:23 13:23 WBC 4.82 (4.50-10.00) 10*3/uL RBC 3.91 L (4.40-5.60) 10*6/uL Hgb 12.4 L (13.0-17.0) g/dL Hct 36.8 L (39.6-50.0) % MCV 94.1 (80.0-97.0) fL MCH 31.7 (27.0-32.0) pg MCHC 33.7 (32.0-37.0) g/dL Plt Count 123 L (140-440) 10*3/uL MPV 9.9 (9.5-12.2) fL Immature Gran % (Auto) 1.0 % Neutrophils % 46.7 % Lymphocytes % 32.2 % Monocytes % 13.9 % Eosinophils % 5.8 % Basophils % 0.4 % Immature Gran # 0.05 H (0.00-0.04) 10*3/uL Neutrophils # 2.25 (1.80-7.70) 10*3/uL Lymphocytes # 1.55 (0.90-5.00) 10*3/uL Monocytes # 0.67 (0.20-1.00) 10*3/uL Eosinophils # 0.28 (0.04-0.35) 10*3/uL Basophils # 0.02 (0.00-0.10) 10*3/uL Immature Plt Fraction 1.9 (1.1-6.1) % PT (10.0-12.5) sec INR (<1.2) APTT (22.0-30.0) sec Sodium 142 (137-145) mmol/L Potassium 4.5 (3.5-5.1) mmol/L Chloride 98 (98-107) mmol/L Carbon Dioxide 28 (22-30) mmol/L Anion Gap 16 mmol/L BUN 20 (9-20) mg/dL Creatinine 1.35 H (0.66-1.25) mg/dL Est GFR (CKD-EPI)AfAm 61 (>60 ml/min/1.73 sqM) Est GFR (CKD-EPI)NonAf 52 (>60 ml/min/1.73 sqM) Glucose 107 H (74-99) mg/dL POC Glucose (mg/dL) (70-110) mg/dL POC Glu Beef Boner ID Calcium 12.6 H (8.4-10.2) mg/dL Total Bilirubin 0.6 (0.2-1.3) mg/dL AST 107 H (17-59) U/L ALT 55 H (4-49) U/L Alkaline Phosphatase 113 (38-126) U/L Troponin I 0.017 (0.000-0.034) ng/mL Total Protein 13.0 H (6.3-8.2) g/dL Albumin 3.4 L (3.5-5.0) g/dL Urine Color Urine Appearance (Clear) Urine pH (5.0-8.0) Ur Specific [employer] (1.001-1.035) Urine Protein (Negative) Urine Glucose (UA) (Negative) Urine Ketones (Negative) Urine Blood (Negative) Urine Nitrite (Negative) Urine Bilirubin (Negative) Urine Urobilinogen (<2.0) mg/dL Ur Leukocyte Esterase (Negative) Urine RBC (0-5) /hpf Urine WBC (0-5) /hpf Urine Mucus (None) /hpf Serum Alcohol <10 mg/dL 01/27/25 01/27/25 01/27/25 Range/Units 13:23 14:16 14:58 WBC (4.50-10.00) 10*3/uL RBC (4.40-5.60) 10*6/uL Hgb (13.0-17.0) g/dL Hct (39.6-50.0) % MCV (80.0-97.0) fL MCH (27.0-32.0) pg MCHC (32.0-37.0) g/dL Plt Count (140-440) 10*3/uL MPV (9.5-12.2) fL Immature Gran % (Auto) % Neutrophils % % Lymphocytes % % Monocytes % % Eosinophils % % Basophils % % Immature Gran # (0.00-0.04) 10*3/uL Neutrophils # (1.80-7.70) 10*3/uL Lymphocytes # (0.90-5.00) 10*3/uL Monocytes # (0.20-1.00) 10*3/uL Eosinophils # (0.04-0.35) 10*3/uL Basophils # (0.00-0.10) 10*3/uL Immature Plt Fraction (1.1-6.1) % PT 14.4 H (10.0-12.5) sec INR 1.4 H (<1.2) APTT 30.3 H (22.0-30.0) sec Sodium (137-145) mmol/L Potassium (3.5-5.1) mmol/L Chloride (98-107) mmol/L Carbon Dioxide (22-30) mmol/L Anion Gap mmol/L BUN (9-20) mg/dL Creatinine (0.66-1.25) mg/dL Est GFR (CKD-EPI)AfAm (>60 ml/min/1.73 sqM) Est GFR (CKD-EPI)NonAf (>60 ml/min/1.73 sqM) Glucose (74-99) mg/dL POC Glucose (mg/dL) 107 (70-110) mg/dL POC Glu Beef Boner ID [place] [employer] Calcium (8.4-10.2) mg/dL Total Bilirubin (0.2-1.3) mg/dL AST (17-59) U/L ALT (4-49) U/L Alkaline Phosphatase (38-126) U/L Troponin I (0.000-0.034) ng/mL Total Protein (6.3-8.2) g/dL Albumin (3.5-5.0) g/dL Urine Color Light Yellow Urine Appearance Clear (Clear) Urine pH 6.0 (5.0-8.0) Ur Specific [employer] 1.012 (1.001-1.035) Urine Protein Negative (Negative) Urine Glucose (UA) Negative (Negative) Urine Ketones Negative (Negative) Urine Blood Large H (Negative) Urine Nitrite Negative (Negative) Urine Bilirubin Negative (Negative) Urine Urobilinogen <2.0 (<2.0) mg/dL Ur Leukocyte Esterase Trace H (Negative) Urine RBC 133 H (0-5) /hpf Urine WBC 7 H (0-5) /hpf Urine Mucus Rare H (None) /hpf Serum Alcohol mg/dL Disposition Clinical Impression: Altered mental status Disposition: ADMITTED IP TO THIS HOSP Is patient prescribed a controlled substance at d/c from ED?: No Referrals: Tyson Freeman DO [Primary Care Provider] - 1-2 days Time of Disposition: 17:09
[2025-01-27 12:58] LABS: Basophils # (A) 0.02 10*3/uL (0.00-0.10); Basophils % (A) 0.4 %; Eosinophils # (A) 0.28 10*3/uL (0.04-0.35); Eosinophils % (A) 5.8 %; HCT 36.8 % (39.6-50.0); HGB 12.4 g/dL (13.0-17.0); Immature Platelet Fraction 1.9 % (1.1-6.1); Lymphocytes # (A) 1.55 10*3/uL (0.90-5.00); Lymphocytes % (A) 32.2 %; MCH 31.7 pg (27.0-32.0); MCHC 33.7 g/dL (32.0-37.0); MCV 94.1 fL (80.0-97.0); Mean Platelet Volume 9.9 fL (9.5-12.2); Monocytes # (A) 0.67 10*3/uL (0.20-1.00); Monocytes % (A) 13.9 %; Neutrophils # (A) 2.25 10*3/uL (1.80-7.70); Neutrophils % (A) 46.7 %; Platelet Count 123 10*3/uL (140-440); RBC 3.91 10*6/uL (4.40-5.60); RDW 14.7 % (11.5-14.5); WBC 4.82 10*3/uL (4.50-10.00)
--- NOTE | 2025-01-27 13:01 | CT ---
EXAMINATION TYPE: CT brain wo con DATE OF EXAM: 01/27/2025 12:56 PM COMPARISON: . CLINICAL INDICATION: Male, 70 years old with history of Altered mental status, AMS TECHNIQUE: Brain: Axial CT images of the brain were obtained with coronal and sagittal reformats created and rev iewed. Contrast used: None. Oral contrast used: None. CT DLP: 1225.4 mGycm, Automated exposure control for dose reduction was used. FINDINGS: Brain: Extra-axial spaces: No abnormal extra-axial fluid collections. Ventricular system: Dilatation in proportion to cerebral atrophy. Cerebral parenchyma: Cerebral atrophy. No acute intraparenchymal hemorrhage or mass effect. The ames -white junction is well differentiated. Scattered hypoattenuating areas are seen within the white mat ter. Cerebellum: Unremarkable. Mass effect: No evidence of midline shift. Intracranial vasculature: Atherosclerotic calcifications of the intracranial vessels. Soft tissues: Normal. Calvarium/osseous structures: No depressed skull fracture. Paranasal sinuses and mastoid air cells: Mild scattered paranasal sinus disease. Visualized orbits: Bilateral aphakia IMPRESSION: 1. No acute intracranial process. 2. Nonspecific white matter changes, likely secondary to chronic small vessel ischemic disease. [facility], , 01/27/2025 12:59 PM
--- NOTE | 2025-01-27 13:43 | XR ---
EXAMINATION TYPE: XR chest 2V DATE OF EXAM: 01/27/2025 1:14 PM COMPARISON: None. CLINICAL INDICATION: Male, 70 years old with history of altered mental status, TECHNIQUE: XR chest 2V view(s) obtained. FINDINGS: The heart size is normal. The pulmonary vasculature is normal. The lungs are clear. IMPRESSION: 1. No acute pulmonary process. [facility], , 01/27/2025 1:41 PM
[2025-01-27 13:54] LABS: ALT 55 U/L (4-49); AST 107 U/L (17-59); African American GFR (CKD) 61 (>60 ml/min/1.73 sqM); Albumin 3.4 g/dL (3.5-5.0); Alcohol <10 mg/dL; Alkaline Phosphatase 113 U/L (38-126); Anion Gap 16 mmol/L; Blood Urea Nitrogen 20 mg/dL (9-20); Calcium 12.6 mg/dL (8.4-10.2); Carbon Dioxide 28 mmol/L (22-30); Chloride 98 mmol/L (98-107); Glucose 107 mg/dL (74-99); Non-African American GFR(CKD) 52 (>60 ml/min/1.73 sqM); Potassium 4.5 mmol/L (3.5-5.1); Sodium 142 mmol/L (137-145); Total Bilirubin 0.6 mg/dL (0.2-1.3)
[2025-01-27 14:18] LABS: Glucose,Whole Blood 107 mg/dL (70-110)
[2025-01-27 14:25] LABS: INR 1.4 (<1.2); Partial Thromboplastin Time 30.3 sec (22.0-30.0); Prothrombin Time 14.4 sec (10.0-12.5)
--- NOTE | 2025-01-27 15:08 | XR ---
EXAMINATION TYPE: XR ribs bilateral DATE OF EXAM: 01/27/2025 1:14 PM COMPARISON: None. CLINICAL INDICATION: Male, 70 years old with history of pain, pain TECHNIQUE: 2 view(s) obtained. FINDINGS: There appears be an old posterior right seventh rib fracture. No acute rib fractures identified. No p neumothorax is evident. There is an infiltrate at the left costophrenic angle. Correlate for atelectasis or pneumonia. IMPRESSION: 1. No acute rib fractures identified. 2. Infiltrate at the left base. [facility], , 01/27/2025 3:06 PM
[2025-01-27 15:13] LABS: Appearance,Urine Clear (Clear); Bilirubin,Urine Negative (Negative); Blood,Urine Large (Negative); Color,Urine Light Yellow; Glucose,Urine (UA) Negative (Negative); Ketones,Urine Negative (Negative); Leukocyte Esterase,Urine Trace (Negative); Mucus,Urine Rare /hpf; Nitrite,Urine Negative (Negative); Protein,Urine Negative (Negative); RBC,Urine 133 /hpf (0-5); Specific Gravity,Urine 1.012 (1.001-1.035); Urobilinogen,Urine <2.0 mg/dL (<2.0); WBC,Urine 7 /hpf (0-5)
[2025-01-27] MEDS ORDERED: NALOXONE 0.4 MG/ML 1 ML VIAL IV PRN (17:09)
[2025-01-27] MEDS ORDERED: ALBUTEROL NEBULIZED 2.5 MG/3 ML INHALATION PRN (17:11)
[2025-01-27] MEDS: MORPHINE SULFATE ER 30 MG TABLET PO SCH (18:09)
[2025-01-27] MEDS: METOPROLOL SUCCINATE (ER) 25 MG TAB.ER.24H PO SCH (18:50)
--- NOTE | 2025-01-27 20:34 | US ---
EXAMINATION TYPE: US carotid duplex BILAT DATE OF EXAM: 01/27/2025 COMPARISON: NONE CLINICAL INDICATION: Male, 70 years old with history of ams; AMS TECHNIQUE: Grayscale, color Doppler and spectral Doppler evaluation of the bilateral carotid systems and vertebral arteries. Indirect Doppler criteria was utilized. FINDINGS: EXAM MEASUREMENTS: RIGHT: Peak Systolic Velocity (PSV) cm/sec ----- Right CCA: 101 ----- Right ICA: 111 ----- Right ECA: 131 ICA/CCA ratio: 1.1 RIGHT: End Diastole cm/sec ----- Right CCA: 18.8 ----- Right ICA: 23.4 ----- Right ECA: 11.5 LEFT: Peak Systolic Velocity (PSV) cm/sec ----- Left CCA: 102 ----- Left ICA: 110 ----- Left ECA: 156 ICA/CCA ratio: 1.08 LEFT: End Diastole cm/sec ----- Left CCA: 18.0 ----- Left ICA: 25.2 ----- Left ECA: 0.0 VERTEBRALS (direction of flow): Right Vertebral: Antegrade Left Vertebral: Antegrade Rhythm: Normal SOCIAL WELFARE ADMINISTRATOR NOTES: small amount of plaque seen bilateral bifurcations. no elevated velocities seen on today's study There are multiple indeterminate hypoechoic possibly cystic lesions throughout the right neck. Color Doppler imaging shows patency with blood flow throughout the carotid artery. Spectral waveforms are within normal limits. IMPRESSION: 1. Right: No hemodynamically significant stenosis. 2. Left: No hemodynamically significant stenosis. 3. Indeterminate hypoechoic cystic lesions throughout the right neck measuring up to 1.9 cm in short access. Recommend CT neck with IV contrast for further evaluation. Criteria for Assigning % of Stenosis / Diameter reduction (Estimation based on the indirect measurements of the internal carotid artery velocities (ICA PSV). 1. Normal (no stenosis)=ICA PSV < 180 cm/s: ratio < 2.0: ICA EDV<40 cm/s. 2. Less than 50% stenosis=ICA PSV < 180 cm/s: ratio < 2.0: ICA EDV<40 cm/s. 3. 50 to 69% stenosis=ICA PSV of 180 to 230 cm/s: ration 2.0 ? 4.0: ICA EDV 40-100 cm/s. PSV 125-180 cm/sec and ICA/CCA PSV Ratio ? 2.0 is also consistent with 50-69% stenosis 4. Greater than 70% stenosis to near occlusion= ICA PSV > 230 cm/s: ratio > 4.0: ICA EDV > 100 cm/s. 5. Near occlusion= ICA PSV velocities may be low or undetectable: variable ratio and ICA EDV. 6. Total occlusion=unable to detect flow. [facility], , 01/27/2025 8:32 PM
[2025-01-27] MEDS ORDERED: MORPHINE SULFATE ER 30 MG TABLET PO SCH (21:00)
[2025-01-27] MEDS: amLODIPine 5 MG TAB PO SCH (22:00)
[2025-01-27] MEDS: APIXABAN 2.5 MG TABLET PO SCH (22:00)
[2025-01-27] MEDS: PANTOPRAZOLE 40 MG TABLET PO SCH (22:01)
[2025-01-27] MEDS: SENNOSIDES 8.6 MG TAB PO SCH (22:01)
[2025-01-27] MEDS: ALPRAZolam 0.5 MG TAB PO SCH (22:12)
[2025-01-28 08:02] LABS: Basophils # (A) 0.02 X 10*3/uL (0.00-0.10); Basophils % (A) 0.4 %; Eosinophils # (A) 0.25 X 10*3/uL (0.04-0.35); Eosinophils % (A) 4.8 %; HCT 34.9 % (37.2-50.0); HGB 11.1 g/dL (12.0-17.0); Lymphocytes # (A) 1.42 X 10*3/uL (0.90-5.00); MCH 30.2 pg (27.0-32.0); MCHC 31.8 g/dL (32.0-37.0); MCV 95.1 FL (80.0-97.0); Mean Platelet Volume 10.3 FL (9.5-12.2); Monocytes # (A) 0.66 X 10*3/uL (0.20-1.00); Monocytes % (A) 12.5 %; NRBC Per 100 WBC 0 X 10*3/uL (0.00-0.01); Neutrophils # (A) 2.86 X 10*3/uL (1.80-7.70); Neutrophils % (A) 54.3 %; Platelet Count 134 X 10*3/uL (140-440); RBC 3.67 X 10*6/uL (4.10-5.60); WBC 5.26 X 10*3/uL (4.50-10.00)
[2025-01-28 08:23] LABS: ALT 46 U/L (8-49); AST 86 U/L (13-35); Albumin 2.8 g/dL (3.8-4.9); Albumin/Globulin Ratio 0.31 Ratio (1.60-3.17); Alkaline Phosphatase 64 U/L (41-126); BUN/Creat Ratio 14.31 Ratio (12.00-20.00); Blood Urea Nitrogen 18.6 mg/dL (9.0-27.0); Calcium 12.3 mg/dL (8.7-10.3); Carbon Dioxide 26.3 mmol/L (21.6-31.8); Chloride 96 mmol/L (96-109); Globulin 9.1 g/dL (1.6-3.3); Glucose 115 mg/dL (70-110); Magnesium 1.7 mg/dL (1.5-2.4); Potassium 3.9 mmol/L (3.5-5.5); Sodium 136 mmol/L (135-145); Total Bilirubin 0.4 mg/dL (0.3-1.2); Total Protein 11.9 g/dL (6.2-8.2)
[2025-01-28] MEDS ORDERED: METOPROLOL SUCCINATE (ER) 25 MG TAB.ER.24H PO SCH (09:15)
[2025-01-28] MEDS: methylPREDNISolone SOD SUCCI 125 MG/2 ML VIAL IV ONE (09:24)
[2025-01-28] MEDS: MAGNESIUM SULFATE-D5W PMX 1 GM in DEXTROSE/WATER 1 100ML.BAG IVPB ONE (09:25)
[2025-01-28] MEDS: hydrALAZINE HCL 50 MG TAB PO SCH (09:25)
[2025-01-28] MEDS: FAMOTIDINE 20 MG/2 ML VIAL IV ONE (09:25)
[2025-01-28] MEDS: diphenhydrAMINE 50 MG/ML 1 ML VIAL IVP ONE (09:25)
[2025-01-28] MEDS: ASPIRIN 325 MG TAB PO SCH (09:26)
[2025-01-28] MEDS: METOPROLOL SUCCINATE (ER) 25 MG TAB.ER.24H PO SCH ×2 (09:48→22:34)
[2025-01-28] MEDS: POTASSIUM CHLORIDE ER 20 MEQ TAB.ER PO STA (09:48)
[2025-01-28] MEDS: ZOLEDRONIC ACID 4 MG in SODIUM CHLORIDE 0.9% 100 ML IV ONE (11:28)
--- NOTE | 2025-01-28 11:28 | CT ---
EXAMINATION TYPE: CT neck chest w con DATE OF EXAM: 01/28/2025 11:00 AM COMPARISON: 04/16/2023 02/10/2023. CLINICAL INDICATION: Male, 70 years old with history of indeterminate hypoechoic cystic lesions right neck;, indeterminate hypoechoic cystic lesions right neck TECHNIQUE: Standard enhanced CT of the neck and chest. Axial sections with coronal and sagittal refo rmats were obtained. Contrast used:100 ml mL of Isovue 300 with IV Contrast, (none if empty) Oral contrast used: (none if empty) CT DLP: 1190 mGycm, Automated exposure control for dose reduction was used. FINDINGS: Brain: Visualized portions are grossly unremarkable. Orbits: Bilaterally aphakia. Sinuses: Grossly unremarkable. Spaces of the neck: Clear and symmetric. Musculoskeletal: Subacute rib fractures noted on the left involving left ribs 5 6 Right skull base de structive mass within the mastoid air cells measuring 21 x 20 mm. Lymph nodes: Multiple prominent lymph nodes are seen in the bilateral neck measuring up to 15 mm on t he right lymph nodes are seen in the supraclavicular region also measuring up to [address] mph node also seen at the level of T3 measuring up to 13 mm. No cystic lesion definitively visualized findings are thought to represent lymph nodes on ultrasound. Vascular structures: Visualized major arteries are patent without evidence of aneurysm. Thoracic Inlet/airway: Airway is patent. The lung apices are clear. Soft tissues/Thyroid: Thyroid and remainder of the soft tissues are unremarkable. Other: none. LUNGS/ PLEURA: No evidence for focal consolidation or pneumothorax. Trace left pleural effusion. Pleu ral calcifications along the right anterolateral chest wall.. AIRWAY: Patent and unremarkable. HEART: Cardiomegaly is demonstrated. Moderate to severe coronary artery calcifications present. MEDIASTINUM: No gross evidence of adenopathy. VASCULATURE: No aortic aneurysm. MUSCULOSKELETAL: Destructive mass in the posterior elements of C3 involving the right lamina, spinous process and right facet.r additional lucent lesion measuring 11 mm and T8. Multilevel wedging of the vertebral bodies with vacuum this film facet joint arthropathy and osteophytes. Sternotomy wires pre sent. SOFT TISSUES/LYMPH NODES: Unremarkable. LOWER NECK: No significant findings. UPPER ABDOMEN: Nonobstructing left 3 mm renal calculus. Nonobstructing right 3 mm renal calculus. No hydronephrosis. Hepatic steatosis. IMPRESSION: 1. Multiple right-sided neck lymph nodes, right supraclavicular lymph nodes, right paraspinal lymph node concerning for malignancy. Including the right mastoid air cells, C3 vertebral body, T8 vertebra l body, concerning for malignancy. Follow-up PET/CTs recommended. No cystic lesion definitively visua lized findings likely represent lymph nodes on ultrasound. 2. 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 Further workup with MRI brain recom mended. 3. Hepatic steatosis. 4. Bilateral nonobstructing renal calculi. 5. Moderate to severe coronary artery atherosclerosis. 6. Mild cardiomegaly. 7. Subacute left ribs 5 and 6 fractures suggested. [facility], , 01/28/2025 11:25 AM
[2025-01-28] MEDS: hydrALAZINE HCL 20 MG/ML 1 ML VIAL IVP STA ×2 (13:21→13:27)
--- NOTE | 2025-01-28 13:49 | P.HPIM ---
History of Present Illness H&P Date: 01/28/25 Chief Complaint: Change in mental status This is a 70-year-old gentleman with past medical history significant for multiple myeloma, status post chemo and radiation-off treatment since 10/20/2023- oncologist is Dr. Harvey-, DVT-anticoagulated on Eliquis, hiatal hernia, gastroesophageal reflux disease, dysphagia ,status post dilation with biopsies reported benign pathology 12/05 ( Dr. Parris Clements), CAD, cardiac stents, CABG hypertension, hyperlipidemia, nephrolithiasis, osteoarthritis, spinal stenosis status post surgical repair, hepatic steatosis, former nicotine dependence, recent COVID infection in September 2024 and multiple other medical issues presented to the ER with complaints of increased confusion, forgetfulness, noticed by the family over the last couple weeks, progressed in the last week. Denies chest pain, palpitations, shortness of breath. at bedside providing majority of the information in addition to EHR. reports up until about 2 weeks ago patient was able to use power tools in the garage, became increasingly disoriented to the point he was alert and oriented to person, sometimes place, but not to time/date, accompanied by balance issues with near falls.Patient repeatedly complaining of having "water in his right ear, discomfort with decreased hearing".additionally complains of bilateral blurred vision and difficulty seeing. further discloses patient has ongoing difficulty swallowing with choking on first bite-both thin and thick foods and liquids, not accompanied with coughing. patient was scheduled to follow-up with his PCP this January 31 .on admission, hypertensive, hypercalcemia with calcium of 12.6. Brain CT reported no acute intracranial process. No midline shift. Visualized orbits-bilateral aphakia.Chest x-ray reported no acute pulmonary process. Bilateral ribs x-ray reported no acute rib fractures identified, infiltrate at left base-at the left costophrenic angle.Carotid Doppler reported no hemodynamic significant stenosis, indeterminate hypoechoic cystic lesions throughout the right neck measuring up to 1.9 cm in short access. CT of neck ordered. Afebrile, normal WBC. Labs: Hemoglobin 12.4, 11.1, platelets 134, INR 1.4, sodium 136 potassium 3.9, bicarb 26.3 BUN 18.6, creatinine 1.3 GFR 52 glucose 115, calcium 12.6, 12.3, magnesium 1.7, troponins 0.017. T. bili 0.6, 0.4 AST 107, 86, ALT 55, 46, alk phos within normal limits. Serum alcohol less than 10. UA reported large blood. Review of Systems ROS Statement: Those systems with pertinent positive or pertinent negative responses have been documented in the HPI. ROS Other: All systems not noted in ROS Statement are negative. Past Medical History Past Medical History: Coronary Artery Disease (CAD), Cancer, Chest Pain / Angina, GERD/Reflux, Hyperlipidemia, Hypertension, Osteoarthritis (OA), Pneumonia, Vascular Disorder Additional Past Medical History / Comment(s): Ischemic heart disease, nonsustained VT, tachycardia, PAD L leg, varicosities, bilateral leg edema at times, hiatal hernia, hemorrhoids, back pain, DDD, spinal stenosis, vertigo, sinus problems, multiple myeloma History of Any Multi-Drug Resistant Organisms: None Reported Past Surgical History: Back Surgery, Coronary Bypass/CABG, Heart Catheterization With Stent, Hernia Repair, Orthopedic Surgery, Tonsillectomy Additional Past Surgical History / Comment(s): 1997 CABG 3 vessel, colonoscopy/benign polypectomy, low back surgery, bilateral rotator cuff repairs, HERNIA REPAIRS X5, R hydrocele with surgery, past bone marrow biospy Past Anesthesia/Blood Transfusion Reactions: Postoperative Nausea & Vomiting (PONV) Date of Last Stent Placement:: 12/30/2002 Smoking Status: Former smoker - Past Family History Father Family Medical History: CVA/TIA, Diabetes Mellitus, Deep Vein Thrombosis (DVT), Renal Disease, Vascular Disorder Additional Family Medical History / Comment(s): Abdominal aortic aneurysm Mother Family Medical History: Myocardial Infarction ([place]) Additional Family Medical History / Comment(s): Mother of a [place] at the age of 44yrs. Medications and Allergies Home Medications Medication Instructions Recorded Confirmed Type ALPRAZolam [Xanax] 0.5 mg PO BID 07/02/14 01/27/25 History Apixaban [Eliquis] 2.5 mg PO BID 04/16/23 01/27/25 History Morphine Sulfate ER [Ms Contin] 30 mg PO BID 04/16/23 01/27/25 History Metoprolol Succinate (ER) [Toprol 25 mg PO HS 12/07/23 01/27/25 History XL] Albuterol Sulfate [Albuterol 2 puff INHALATION RT-Q6H PRN 01/27/25 01/27/25 History Sulfate Hfa] Aspirin EC [Ecotrin] 325 mg PO DAILY 01/27/25 01/27/25 History Nitroglycerin Sl Tabs [Nitrostat] 0.4 mg SUBLINGUAL Q5M PRN 01/27/25 01/27/25 History Omeprazole [PriLOSEC] 20 mg PO BID 01/27/25 01/27/25 History Sennosides [Senokot] 8.6 mg PO BID 01/27/25 01/27/25 History Allergies Allergy/AdvReac Type Severity Reaction Status Date / Time hydrocodone [From [place]] Allergy Rash/Hives Verified 01/27/25 14:49 Iodinated Contrast Media Allergy Rash/Hives Verified 01/27/25 14:49 [Iodinated Contrast Media - IV Dye] shellfish derived Allergy Rash/Hives Verified 01/27/25 14:49 MRI dye Allergy Rash/Hives Uncoded 01/27/25 12:16 Physical Exam Vitals: Vital Signs Temp Pulse Pulse Resp BP BP Pulse Ox 01/28/25 07:05 98.1 F 108 H 16 185/103 93 L 01/28/25 01:52 98.3 F 110 H 17 185/97 98 01/28/25 00:01 97.7 F 105 H 18 197/104 94 L 01/27/25 21:45 95 186/113 01/27/25 18:50 97 165/110 01/27/25 18:28 98.2 F 101 H 18 192/110 95 01/27/25 18:14 68 16 156/68 98 01/27/25 17:00 93 20 137/79 93 L 01/27/25 14:58 90 20 149/94 94 L 01/27/25 12:16 98 16 178/97 97 01/27/25 12:12 98.0 F 102 H 20 162/100 95 Intake and Output 01/27/25 01/28/25 01/28/25 22:59 06:59 14:59 Output Total 500 500 Balance -500 -500 Output: Urine 500 500 Other: Voiding Method Urinal Weight 104.326 kg PHYSICAL EXAMINATION: This is an elderly gentleman , alert and oriented to person ,NAD HEENT: Normocephalic. Neck is supple. Pupils reactive. Neck: Supple, no JVD, CHEST EXAMINATION: Unlabored, equal air entry, essentially clear to auscultation CARDIAC: Normal S1, S2 with no gallops. No murmurs. ABDOMEN: Soft. Nondistended, nontender, bowel sounds present. No organomegaly. Extremities: no edema. No clubbing or cyanosis. Neurological: Cranial nerves II through XII grossly intact. Skin: No rash, warm and dry. Results CBC & Chem 7: 01/29/25 05:36 01/29/25 05:36 Labs: Abnormal Lab Results - Last 24 Hours (Table) 01/27/25 01/27/25 01/27/25 Range/Units 12:34 13:23 13:23 RBC 3.91 L (4.40-5.60) 10*6/uL Hgb 12.4 L (13.0-17.0) g/dL Hct 36.8 L (39.6-50.0) % MCHC (32.0-37.0) g/dL RDW (11.5-14.5) % Plt Count 123 L (140-440) 10*3/uL Immature Gran # 0.05 H (0.00-0.04) 10*3/uL PT 14.4 H (10.0-12.5) sec INR 1.4 H (<1.2) APTT 30.3 H (22.0-30.0) sec Anion Gap (4.00-12.00) mmol/L Creatinine 1.35 H (0.66-1.25) mg/dL Est GFR (CKD-EPI) (>=60) Glucose 107 H (74-99) mg/dL Calcium 12.6 H (8.4-10.2) mg/dL AST 107 H (17-59) U/L ALT 55 H (4-49) U/L Total Protein 13.0 H (6.3-8.2) g/dL Albumin 3.4 L (3.5-5.0) g/dL Globulin (1.6-3.3) g/dL Albumin/Globulin Ratio (1.60-3.17) Ratio Urine Blood (Negative) Ur Leukocyte Esterase (Negative) Urine RBC (0-5) /hpf Urine WBC (0-5) /hpf Urine Mucus (None) /hpf 01/27/25 01/28/25 01/28/25 Range/Units 14:58 04:34 04:34 RBC 3.67 L (4.40-5.60) 10*6/uL Hgb 11.1 L (13.0-17.0) g/dL Hct 34.9 L (39.6-50.0) % MCHC 31.8 L (32.0-37.0) g/dL RDW 15.0 H (11.5-14.5) % Plt Count 134 L (140-440) 10*3/uL Immature Gran # 0.05 H (0.00-0.04) 10*3/uL PT (10.0-12.5) sec INR (<1.2) APTT (22.0-30.0) sec Anion Gap 13.70 H (4.00-12.00) mmol/L Creatinine (0.66-1.25) mg/dL Est GFR (CKD-EPI) 59 L (>=60) Glucose 115 H (74-99) mg/dL Calcium 12.3 H (8.4-10.2) mg/dL AST 86 H (17-59) U/L ALT (4-49) U/L Total Protein 11.9 H (6.3-8.2) g/dL Albumin 2.8 L (3.5-5.0) g/dL Globulin 9.1 H (1.6-3.3) g/dL Albumin/Globulin Ratio 0.31 L (1.60-3.17) Ratio Urine Blood Large H (Negative) Ur Leukocyte Esterase Trace H (Negative) Urine RBC 133 H (0-5) /hpf Urine WBC 7 H (0-5) /hpf Urine Mucus Rare H (None) /hpf Thrombosis Risk Factor Assmnt - Choose All That Apply Any of the Below Risk Factors Present?: No Other Risk Factors: Yes Each Risk Factor Represents 2 Points: Age 61-74 years Other congenital or acquired thrombophilia - If yes, enter type in comment: No Thrombosis Risk Factor Assessment Total Risk Factor Score: 2 Thrombosis Risk Factor Assessment Level: Low Risk Assessment and Plan Assessment: Change in mental status, progressed over the last 2 weeks, accompanied by mult iple complaints of right ear discomfort with decreased hearing, bilateral blurred vision-difficulty seeing, imbalance. Hypercalcemia Acute metabolic encephalopathy secondary to the above Right neck cystic lesions reported per carotid ultrasound, CT ordered Multiple myeloma, history of Hypertension uncontrolled Right ear, new onset of decreased hearing,"water in Ear" Bilateral aphakia reported per brain CT History of multiple pathological fractures of the thoracolumbar spine including T5, T6, T8, T10, T11, T12 and L1 Malignancy related pain with history of pathological fractures, on MS Contin at home Coronary artery disease with history of stents, CABG Hypertension Hyperlipidemia History of DVT, anticoagulated on Eliquis Osteoarthritis Chronic back pain, degenerative disc disease, spinal stenosis, surgical repair Gastroesophageal reflux disease Anxiety/depression Prior nicotine dependence Plan: Continue on current medication regimen ,monitoring and symptomatic treatment. Echo pending. Carotid ultrasound reported right neck cystic lesions up to 1.9 cm recommending follow-up with CT-CT with IV contrast ordered with prophylaxis in regards to patient's allergy to iodine. Hypercalcemia in a patient off treatment x 1 year for his multiple myeloma, oncology consulted. Close monitoring of calcium with repeat labs ordered. Bead Cutter consulted. Hydralazine added to antihypertensives. Neurology consult in place, recommendations pending. The impression and plan of care has been dictated as directed. : I performed a history and examination of this patient, discussed the same with the dictator. I agree with the dictator's note ,documented as a scribe. Any additional findings or plans will be noted.
--- NOTE | 2025-01-28 16:10 | P.CNNES ---
History of Present Illness Consult date: 01/28/25 Requesting physician: Jovan Oviedo Reason for Consult: ams History of Present Illness: This is a 70-year-old gentleman with a history of multiple myeloma who presents to the emergency department because of altered mental status. History is obtained by the patient's is at bedside. Pete the patient has been sleeping a lot unsteady on his feet as having some difficulty recognizing his accounts for the past couple days. Per the patient has a history of multiple myeloma and it seems it is recently relapse per . As well has nodule of right side of neck. Some of the work-up during this hospital visit consisted of: Creatinine is 1.35, calcium is 12.6, AST is 107 ALT is 55. I reviewed the rest of the lab work CT of the head is reported as no acute intracranial process. I personally reviewed the CT of the head and agree there is no acute ischemia or any bleed noted. The skull has some osteolytic in my opinion Carotid duplex: No hemodynamically significant stenosis of her bilateral internal carotid artery. Indeterminate hypoechoic cystic lesion throughout the right neck measuring 1.9 cm in short axis. CT of the neck is reported as multiple right sided neck lymph nodes concerning for malignancy including the right mastoid air cell, C3 vertebral body, T8 vertebral artery, concerning for malignancy. Review of Systems Limited as per HPI. Past Medical History Past Medical History: Coronary Artery Disease (CAD), Cancer, Chest Pain / Angina, GERD/Reflux, Hyperlipidemia, Hypertension, Osteoarthritis (OA), Pneumonia, Vascular Disorder Additional Past Medical History / Comment(s): Ischemic heart disease, nonsustained VT, tachycardia, PAD L leg, varicosities, bilateral leg edema at times, hiatal hernia, hemorrhoids, back pain, DDD, spinal stenosis, vertigo, sinus problems, multiple myeloma History of Any Multi-Drug Resistant Organisms: None Reported Past Surgical History: Back Surgery, Coronary Bypass/CABG, Heart Catheterization With Stent, Hernia Repair, Orthopedic Surgery, Tonsillectomy Additional Past Surgical History / Comment(s): 1997 CABG 3 vessel, colonoscopy/benign polypectomy, low back surgery, bilateral rotator cuff repairs, HERNIA REPAIRS X5, R hydrocele with surgery, past bone marrow biospy Past Anesthesia/Blood Transfusion Reactions: Postoperative Nausea & Vomiting (PONV) Date of Last Stent Placement:: 12/30/2002 Smoking Status: Former smoker - Past Family History Father Family Medical History: CVA/TIA, Diabetes Mellitus, Deep Vein Thrombosis (DVT), Renal Disease, Vascular Disorder Additional Family Medical History / Comment(s): Abdominal aortic aneurysm Mother Family Medical History: Myocardial Infarction ([place]) Additional Family Medical History / Comment(s): Mother of a [place] at the age of 44yrs. Medications and Allergies Home Medications Medication Instructions Recorded Confirmed Type ALPRAZolam [Xanax] 0.5 mg PO BID 07/02/14 01/27/25 History Apixaban [Eliquis] 2.5 mg PO BID 04/16/23 01/27/25 History Morphine Sulfate ER [Ms Contin] 30 mg PO BID 04/16/23 01/27/25 History Metoprolol Succinate (ER) [Toprol 25 mg PO HS 12/07/23 01/27/25 History XL] Albuterol Sulfate [Albuterol 2 puff INHALATION RT-Q6H PRN 01/27/25 01/27/25 History Sulfate Hfa] Aspirin EC [Ecotrin] 325 mg PO DAILY 01/27/25 01/27/25 History Nitroglycerin Sl Tabs [Nitrostat] 0.4 mg SUBLINGUAL Q5M PRN 01/27/25 01/27/25 History Omeprazole [PriLOSEC] 20 mg PO BID 01/27/25 01/27/25 History Sennosides [Senokot] 8.6 mg PO BID 01/27/25 01/27/25 History Allergies Allergy/AdvReac Type Severity Reaction Status Date / Time hydrocodone [From [place]] Allergy Rash/Hives Verified 01/27/25 14:49 Iodinated Contrast Media Allergy Rash/Hives Verified 01/27/25 14:49 [Iodinated Contrast Media - IV Dye] shellfish derived Allergy Rash/Hives Verified 01/27/25 14:49 MRI dye Allergy Rash/Hives Uncoded 01/27/25 12:16 Physical Examination - Vital Signs Vital Signs: Vital Signs Temp Pulse Pulse Resp BP BP Pulse Ox 01/28/25 13:41 109 H 16 161/82 95 01/28/25 12:29 98.1 F 96 16 178/111 95 01/28/25 11:20 185/110 01/28/25 10:00 16 01/28/25 07:05 98.1 F 108 H 16 185/103 93 L 01/28/25 01:52 98.3 F 110 H 17 185/97 98 01/28/25 00:01 97.7 F 105 H 18 197/104 94 L 01/27/25 21:45 95 186/113 01/27/25 18:50 97 165/110 01/27/25 18:28 98.2 F 101 H 18 192/110 95 01/27/25 18:14 68 16 156/68 98 01/27/25 17:00 93 20 137/79 93 L Intake and Output 01/28/25 01/28/25 01/28/25 06:59 14:59 22:59 Intake Total 480 Output Total 500 200 Balance -500 280 Intake: Oral 480 Output: Urine 500 200 Other: Voiding Method Urinal # Voids 1 General: Lying in bed and is not in acute distress. Neuro: The patient is very sleepy during the examination but he is awake able to voice. He is oriented to self and correctly states the current month. He correctly states he is in the hospital. He is able to name his correctly. He is able to identify objects such as pen and watch. No aphasia from limited language Pupils are round about 3 mm and reactive to light. No facial weakness. No dysarthria. Motor: The strength is very limited but he is able to lift up briefly uppers and lowers above gravity. Results - Laboratory Findings CBC and BMP: 01/28/25 04:34 01/28/25 04:34 Abnormal Lab Findings: Abnormal Labs 01/27/25 01/27/25 01/27/25 12:34 13:23 13:23 RBC 3.91 L Hgb 12.4 L Hct 36.8 L MCHC RDW Plt Count 123 L Immature Gran # 0.05 H PT 14.4 H INR 1.4 H APTT 30.3 H Anion Gap Creatinine 1.35 H Est GFR (CKD-EPI) Glucose 107 H Calcium 12.6 H AST 107 H ALT 55 H Total Protein 13.0 H Albumin 3.4 L Globulin Albumin/Globulin Ratio Urine Blood Ur Leukocyte Esterase Urine RBC Urine WBC Urine Mucus 01/27/25 01/28/25 01/28/25 14:58 04:34 04:34 RBC 3.67 L Hgb 11.1 L Hct 34.9 L MCHC 31.8 L RDW 15.0 H Plt Count 134 L Immature Gran # 0.05 H PT INR APTT Anion Gap 13.70 H Creatinine Est GFR (CKD-EPI) 59 L Glucose 115 H Calcium 12.3 H AST 86 H ALT Total Protein 11.9 H Albumin 2.8 L Globulin 9.1 H Albumin/Globulin Ratio 0.31 L Urine Blood Large H Ur Leukocyte Esterase Trace H Urine RBC 133 H Urine WBC 7 H Urine Mucus Rare H Assessment and Plan Assessment: This is a 70-year-old gentleman with history of multiple myeloma who presents to the emergency department because of altered mental status, unsteady gait and more sleepy than normal. Seems that his multiple myeloma is in relapse patient has lymph nodes on the right side of the neck multiple of them concerning for malignancy as well as they are concerning for malignancy over the C3 and T8 and mastoid region. Altered mental status seems due to metabolic encephalopathy and patient has hypercalcemia, ADRIEL as well as transaminitis History of multiple myeloma and is in relapse Has multiple lymph nodes of the right side of neck and C3, T8 and mastoid co ncerning for malignancy on CT Hypercalcemia Transaminitis ADRIEL Plan: I ordered ammonia level, B12. Consider MRI Brain with and without or PET scan. Oncology is consulted. Our MRI is currently out of service for today and unsure when will be in use. Will defer the rest of the medical management to primary other specialist The plan is discussed with the patient's . Thank you for the consultation. Time with Patient: Greater than 30
--- NOTE | 2025-01-28 17:27 | P.CONS ---
History of Present Illness - Reason for Consult Consult date: 01/28/25 multiple myelooma, confusion Requesting physician: Mariela Atkins - Chief Complaint confusion - History of Present Illness Mr. Hoover is a 68-year-old gentleman with a past medical history significant for multiple myeloma previously on treatment with Pomalyst/Darzalex/de xamethasone presenting with increased confusion over the last couple days. Patient has been off treatment since October 2023. He was put on treatment holiday for 2 months at patients request but pt has decided since, to continue off of treatment. Recent myeloma labs showed increasing M-Jsohua. Patient presented to the ER for worsening confusion over the last 5 days. Upon admit calcium was noted at 12.6. WBC 5.2, hemoglobin 11.1, platelets 135,000. Previous hemoglobin in clinic on 01/02 was 15.3. At today's visit patient is quite lethargic, however was premedicated for CT scan with IV benadryl. reports prior to admission patient was complaining of lower anterior rib pain. Chest x-ray showed no acute pulmonary processes. Rib x-rays negative for acute rib fractures. CT neck and chest pending. Review of Systems 10 point ROS is negative except as stated in the HPI Past Medical History Past Medical History: Coronary Artery Disease (CAD), Cancer, Chest Pain / Angina, GERD/Reflux, Hyperlipidemia, Hypertension, Osteoarthritis (OA), Pneumonia, Vascular Disorder Additional Past Medical History / Comment(s): Ischemic heart disease, nonsustained VT, tachycardia, PAD L leg, varicosities, bilateral leg edema at times, hiatal hernia, hemorrhoids, back pain, DDD, spinal stenosis, vertigo, sinus problems, multiple myeloma History of Any Multi-Drug Resistant Organisms: None Reported Past Surgical History: Back Surgery, Coronary Bypass/CABG, Heart Catheterization With Stent, Hernia Repair, Orthopedic Surgery, Tonsillectomy Additional Past Surgical History / Comment(s): 1997 CABG 3 vessel, colonoscopy/benign polypectomy, low back surgery, bilateral rotator cuff repairs, HERNIA REPAIRS X5, R hydrocele with surgery, past bone marrow biospy Past Anesthesia/Blood Transfusion Reactions: Postoperative Nausea & Vomiting (PONV) Date of Last Stent Placement:: 12/30/2002 Smoking Status: Former smoker - Past Family History Father Family Medical History: CVA/TIA, Diabetes Mellitus, Deep Vein Thrombosis (DVT), Renal Disease, Vascular Disorder Additional Family Medical History / Comment(s): Abdominal aortic aneurysm Mother Family Medical History: Myocardial Infarction ([place]) Additional Family Medical History / Comment(s): Mother of a [place] at the age of 44yrs. Medications and Allergies Home Medications Medication Instructions Recorded Confirmed Type ALPRAZolam [Xanax] 0.5 mg PO BID 07/02/14 01/27/25 History Apixaban [Eliquis] 2.5 mg PO BID 04/16/23 01/27/25 History Morphine Sulfate ER [Ms Contin] 30 mg PO BID 04/16/23 01/27/25 History Metoprolol Succinate (ER) [Toprol 25 mg PO HS 12/07/23 01/27/25 History XL] Albuterol Sulfate [Albuterol 2 puff INHALATION RT-Q6H PRN 01/27/25 01/27/25 History Sulfate Hfa] Aspirin EC [Ecotrin] 325 mg PO DAILY 01/27/25 01/27/25 History Nitroglycerin Sl Tabs [Nitrostat] 0.4 mg SUBLINGUAL Q5M PRN 01/27/25 01/27/25 History Omeprazole [PriLOSEC] 20 mg PO BID 01/27/25 01/27/25 History Sennosides [Senokot] 8.6 mg PO BID 01/27/25 01/27/25 History Allergies Allergy/AdvReac Type Severity Reaction Status Date / Time hydrocodone [From [place]] Allergy Rash/Hives Verified 01/27/25 14:49 Iodinated Contrast Media Allergy Rash/Hives Verified 01/27/25 14:49 [Iodinated Contrast Media - IV Dye] shellfish derived Allergy Rash/Hives Verified 01/27/25 14:49 MRI dye Allergy Rash/Hives Uncoded 01/27/25 12:16 Physical Exam Vitals: Vital Signs Temp Pulse Pulse Resp BP BP Pulse Ox 01/28/25 12:29 98.1 F 96 16 178/111 95 01/28/25 11:20 185/110 01/28/25 10:00 16 01/28/25 07:05 98.1 F 108 H 16 185/103 93 L 01/28/25 01:52 98.3 F 110 H 17 185/97 98 01/28/25 00:01 97.7 F 105 H 18 197/104 94 L 01/27/25 21:45 95 186/113 01/27/25 18:50 97 165/110 01/27/25 18:28 98.2 F 101 H 18 192/110 95 01/27/25 18:14 68 16 156/68 98 01/27/25 17:00 93 20 137/79 93 L 01/27/25 14:58 90 20 149/94 94 L Intake and Output 01/27/25 01/28/25 01/28/25 22:59 06:59 14:59 Intake Total 240 Output Total 500 500 Balance -500 -500 240 Intake: Oral 240 Output: Urine 500 500 Other: Voiding Method Urinal Urinal Weight 104.326 kg - Constitutional General appearance: no acute distress - EENT Eyes: anicteric sclerae, EOMI ENT: hearing grossly normal - Respiratory breathing is even and unlabored - Cardiovascular skin warm and dry - Integumentary Integumentary: no cyanotic, no jaundiced - Neurologic obtunded Results CBC & Chem 7: 01/28/25 04:34 01/28/25 04:34 Labs: Abnormal Lab Results - Last 24 Hours (Table) 01/27/25 01/27/25 01/27/25 Range/Units 13:23 13:23 14:58 RBC (4.10-5.60) X 10*6/uL Hgb (12.0-17.0) g/dL Hct (37.2-50.0) % MCHC (32.0-37.0) g/dL RDW (11.5-14.5) % Plt Count (140-440) X 10*3/uL Immature Gran # (0.00-0.04) X 10*3/uL PT 14.4 H (10.0-12.5) sec INR 1.4 H (<1.2) APTT 30.3 H (22.0-30.0) sec Anion Gap (4.00-12.00) mmol/L Creatinine 1.35 H (0.66-1.25) mg/dL Est GFR (CKD-EPI) (>=60) Glucose 107 H (74-99) mg/dL Calcium 12.6 H (8.4-10.2) mg/dL AST 107 H (17-59) U/L ALT 55 H (4-49) U/L Total Protein 13.0 H (6.3-8.2) g/dL Albumin 3.4 L (3.5-5.0) g/dL Globulin (1.6-3.3) g/dL Albumin/Globulin Ratio (1.60-3.17) Ratio Urine Blood Large H (Negative) Ur Leukocyte Esterase Trace H (Negative) Urine RBC 133 H (0-5) /hpf Urine WBC 7 H (0-5) /hpf Urine Mucus Rare H (None) /hpf 01/28/25 01/28/25 Range/Units 04:34 04:34 RBC 3.67 L (4.10-5.60) X 10*6/uL Hgb 11.1 L (12.0-17.0) g/dL Hct 34.9 L (37.2-50.0) % MCHC 31.8 L (32.0-37.0) g/dL RDW 15.0 H (11.5-14.5) % Plt Count 134 L (140-440) X 10*3/uL Immature Gran # 0.05 H (0.00-0.04) X 10*3/uL PT (10.0-12.5) sec INR (<1.2) APTT (22.0-30.0) sec Anion Gap 13.70 H (4.00-12.00) mmol/L Creatinine (0.66-1.25) mg/dL Est GFR (CKD-EPI) 59 L (>=60) Glucose 115 H (74-99) mg/dL Calcium 12.3 H (8.4-10.2) mg/dL AST 86 H (17-59) U/L ALT (4-49) U/L Total Protein 11.9 H (6.3-8.2) g/dL Albumin 2.8 L (3.5-5.0) g/dL Globulin 9.1 H (1.6-3.3) g/dL Albumin/Globulin Ratio 0.31 L (1.60-3.17) Ratio Urine Blood (Negative) Ur Leukocyte Esterase (Negative) Urine RBC (0-5) /hpf Urine WBC (0-5) /hpf Urine Mucus (None) /hpf Chest x-ray: report reviewed Assessment and Plan (1) Hypercalcemia of malignancy Current Visit: Yes Status: Acute Priority: High Code(s): E83.52 - HYPERCALCEMIA SNOMED Code(s): 26346873 (2) Altered mental status Current Visit: Yes Status: Acute Priority: High Code(s): R41.82 - ALTERED MENTAL STATUS, UNSPECIFIED SNOMED Code(s): 829070734 (3) Multiple myeloma Current Visit: Yes Status: Acute Priority: High Code(s): C90.00 - MULTIPLE MYELOMA NOT HAVING ACHIEVED REMISSION SNOMED Code(s): 959421762 Plan: Altered mental status, confusion, hypercalcemia: Presented with confusion over the last 5 days -Upon admit calcium was noted at 12.6. -1 dose zometa ordered -IV hydration started -Continue to monitor calcium levels Multiple myeloma: -Oncology history as dictated in the HPI -Was previously on treatment with Pomalyst/Darzalex/dexamethasone, has been off treatment the last 1 year. He was put on treatment holiday for 2 months at patients request but pt has decided since, to continue off of treatment and has been in observation. Recent myeloma labs showed increasing M-Joshua -On admit hypercalcemia and progressing anemia noted. Concern for disease progression. Discussed with at bedside -Recommended restarting treatment. Will schedule clinic f/u upon discharge to further discuss treatment options Case discussed with his oncologist Dr. Harvey Case briefly discussed with admitting team
[2025-01-28] MEDS: SODIUM CHLORIDE 0.9% 1,000 ML IV SCH (17:49)
--- NOTE | 2025-01-28 18:00 | CA ---
Transthoracic Echo Report Name: Tom Hoover Age: 70 Gender: M : 1955 Exam Date: 01/28/2025 11:38 Exam Location: [facility] Ht (in): 74 Wt (lb): 230 Ordering Physician: Jovan Oviedo DO Attending/Referring Phys: Jawbone Breaker Kate Nielsen RDCS Procedure CPT: Indications: ams Cardiac Hx: Technical Quality: Poor Contrast 1: Definity Total Dose (mL): 2 Contrast 2: Total Dose (mL): MEASUREMENTS (Male / Female) Normal Values 2D ECHO LV Diastolic Diameter PLAX 5.2 cm 4.2 - 5.9 / 3.9 - 5.3 cm LV Systolic Diameter PLAX 3.8 cm IVS Diastolic Thickness 1.3 cm 0.6 - 1.0 / 0.6 - 0.9 cm LVPW Diastolic Thickness 1.2 cm 0.6 - 1.0 / 0.6 - 0.9 cm LV Relative Wall Thickness 0.5 RV Internal Dim ED PLAX 3.2 cm LVOT Diameter 2.2 cm LA Systolic Diameter LX 4.9 cm 3.0 - 4.0 / 2.7 - 3.8 cm LA Volume 74.8 cm??? 18 - 58 / 22 - 52 cm??? LA Volume Index 31.8 cm???/m??? 16 - 28 cm???/m??? M-MODE Aortic Root Diameter MM 3.3 cm LA Systolic Diameter MM 5.1 cm LA Ao Ratio MM 1.5 AV Cusp Separation MM 2.0 cm DOPPLER AV Peak Velocity 131.5 cm/s AV Peak Gradient 6.9 mmHg AV Mean Velocity 88.3 cm/s AV Mean Gradient 3.5 mmHg AV Velocity Time Integral 28.2 cm LVOT Peak Velocity 89.0 cm/s LVOT Peak Gradient 3.2 mmHg LVOT Velocity Time Integral 17.7 cm LVOT Stroke Volume 67.6 cm??? LVOT Stroke Volume Index 29.3 ml/m??? LVOT Cardiac Index 2729.3 cm???/min???m??? AV Area Cont Eq vti 2.4 cm??? AV Area Cont Eq pk 2.6 cm??? MV Area PHT 3.5 cm??? Mitral E Point Velocity 106.2 cm/s Mitral A Point Velocity 1.3 cm/s Mitral E to A Ratio 84.2 MV Deceleration Time 215.7 ms TR Peak Velocity 269.3 cm/s TR Peak Gradient 29.0 mmHg Right Atrial Pressure 8.0 mmHg Pulmonary Artery Systolic Pressu 37.0 mmHg Right Ventricular Systolic Press 37.0 mmHg PV Peak Velocity 122.1 cm/s PV Peak Gradient 6.0 mmHg FINDINGS Left Ventricle Left ventricular ejection fraction is estimated at 55-60 %. Mildly increased septal wall thickness. Normal left ventricular systolic function with no obvious regional wall motion abnormalities. Left ventricular cavity size normal. Right Ventricle Normal right ventricular size and function. Mild pulmonary hypertension. Right Atrium Mild right atrial dilatation. Left Atrium Moderately increased left atrial diameter. Mitral Valve Structurally normal mitral valve. Mild mitral regurgitation. No mitral stenosis. Aortic Valve Trileaflet aortic valve. Diffuse thickening (sclerosis) of the aortic valve cusps without reduced excursion. No aortic stenosis. No aortic regurgitation. Tricuspid Valve Structurally normal tricuspid valve.Moderate tricuspid regurgitation. No tricuspid stenosis. Pulmonic Valve Structurally normal pulmonic valve. Mild pulmonic regurgitation. No pulmonic regurgitation. Pericardium No pericardial or pleural effusion. Aorta Normal size aortic root and proximal ascending aorta. CONCLUSIONS Left ventricular ejection fraction 55 to 60% Mild increased left ventricular thickness Mild mitral regurgitation Moderate tricuspid regurgitation No pericardial effusion Previewed by: Dr. Doug Mckenna DO (Electronically Signed) Final Date: 28 January 2025 17:59
[2025-01-29 06:17] LABS: Ionized Calcium 5.8 mg/dL (4.5-5.3)
[2025-01-29 07:57] LABS: Glucose,Whole Blood 139 mg/dL (70-110)
[2025-01-29 08:12] LABS: Basophils # (A) 0.01 X 10*3/uL (0.00-0.10); Basophils % (A) 0.1 %; Eosinophils # (A) 0 X 10*3/uL (0.04-0.35); Eosinophils % (A) 0 %; HCT 34.5 % (37.2-50.0); HGB 11.2 g/dL (12.0-17.0); Lymphocytes # (A) 1.06 X 10*3/uL (0.90-5.00); Lymphocytes % (A) 14.7 %; MCH 30.9 pg (27.0-32.0); MCHC 32.5 g/dL (32.0-37.0); Mean Platelet Volume 10.2 FL (9.5-12.2); Monocytes # (A) 0.79 X 10*3/uL (0.20-1.00); NRBC Per 100 WBC 0 X 10*3/uL (0.00-0.01); Neutrophils # (A) 5.29 X 10*3/uL (1.80-7.70); Neutrophils % (A) 73.5 %; Platelet Count 128 X 10*3/uL (140-440); RBC 3.63 X 10*6/uL (4.10-5.60); RDW 15.4 % (11.5-14.5)
[2025-01-29 08:46] LABS: Blood Urea Nitrogen 32.9 mg/dL (9.0-27.0); Glucose 113 mg/dL (70-110)
[2025-01-29 08:47] LABS: Carbon Dioxide 23.2 mmol/L (21.6-31.8); Chloride 100 mmol/L (96-109); Potassium 3.7 mmol/L (3.5-5.5); Sodium 139 mmol/L (135-145)
--- NOTE | 2025-01-29 15:26 | P.PN ---
Subjective Progress Note Date: 01/29/25 I am following up with the patient and he is accompanied by his son who he feels patient mentation is improving. Patient himself feels he is doing better. Objective - Vital Signs Vital signs: Vital Signs Temp 98.5 F 01/29/25 14:00 Pulse 66 01/29/25 14:00 Resp 18 01/29/25 14:00 BP 115/72 01/29/25 14:00 Pulse Ox 93 L 01/29/25 14:00 FiO2 Intake & Output 01/28/25 01/29/25 01/29/25 18:59 06:59 18:59 Intake Total 1230 418 Output Total 200 Balance 1030 418 Intake: Oral 1230 418 Output: Urine 200 Other: Voiding Method Urinal Urinal Urinal Diaper Diaper Incontinent Incontinent # Voids 5 1 - Exam General: Lying in bed and is not in acute distress. Neuro: The patient is more awake and responsive today compared to yesterday. Is oriented to self, place. Is able to name his son's name correctly. Is following simple commands. No aphasia. Pupils are round, equal and reactive to light. No facial weakness. Strength is 5/5 throughout. Sensation is normal to touch throughout. Some of the work-up during this hospital visit consisted of: Creatinine is 1.35, calcium is 12.6, AST is 107 ALT is 55. Ammonia is 38 Vitamin B12: 403 I reviewed the rest of the lab work CT of the head is reported as no acute intracranial process. I personally reviewed the CT of the head and agree there is no acute ischemia or any bleed noted. The skull has some osteolytic in my opinion Carotid duplex: No hemodynamically significant stenosis of her bilateral internal carotid artery. Indeterminate hypoechoic cystic lesion throughout the right neck measuring 1.9 cm in short axis. CT of the neck is reported as multiple right sided neck lymph nodes concerning for malignancy including the right mastoid air cell, C3 vertebral body, T8 vertebral artery, concerning for malignancy. - Labs CBC & Chem 7: 01/29/25 05:36 01/29/25 05:36 Labs: Abnormal Lab Results - Last 24 Hours (Table) 01/28/25 01/29/25 01/29/25 Range/Units 17:29 05:36 05:36 RBC 3.63 L (4.10-5.60) X 10*6/uL Hgb 11.2 L (12.0-17.0) g/dL Hct 34.5 L (37.2-50.0) % RDW 15.4 H (11.5-14.5) % Plt Count 128 L (140-440) X 10*3/uL Immature Gran # 0.05 H (0.00-0.04) X 10*3/uL Eosinophils # 0 L (0.04-0.35) X 10*3/uL Anion Gap 15.80 H (4.00-12.00) mmol/L BUN 32.9 H (9.0-27.0) mg/dL Est GFR (CKD-EPI) 54 L (>=60) BUN/Creatinine Ratio 23.50 H (12.00-20.00) Ratio Glucose 113 H (70-110) mg/dL POC Glucose (mg/dL) (70-110) mg/dL Calcium 11.0 H (8.7-10.3) mg/dL Ionized Calcium Gissel 5.8 H (4.5-5.3) mg/dL Ammonia 38 H (<30) umol/L 01/29/25 Range/Units 07:55 RBC (4.10-5.60) X 10*6/uL Hgb (12.0-17.0) g/dL Hct (37.2-50.0) % RDW (11.5-14.5) % Plt Count (140-440) X 10*3/uL Immature Gran # (0.00-0.04) X 10*3/uL Eosinophils # (0.04-0.35) X 10*3/uL Anion Gap (4.00-12.00) mmol/L BUN (9.0-27.0) mg/dL Est GFR (CKD-EPI) (>=60) BUN/Creatinine Ratio (12.00-20.00) Ratio Glucose (70-110) mg/dL POC Glucose (mg/dL) 139 H (70-110) mg/dL Calcium (8.7-10.3) mg/dL Ionized Calcium Gissel (4.5-5.3) mg/dL Ammonia (<30) umol/L Assessment and Plan Assessment: This is a 70-year-old gentleman with history of multiple myeloma who presents to the emergency department because of altered mental status, unsteady gait and more sleepy than normal. Seems that his multiple myeloma is in relapse patient has lymph nodes on the right side of the neck multiple of them concerning for malignancy as well as they are concerning for malignancy over the C3 and T8 and mastoid region. Altered mental status seems due to metabolic encephalopathy and patient has hypercalcemia, ADRIEL as well as transaminitis--mentation improving Minimal elevation of ammonia (38 and normal is <30) History of multiple myeloma and is in relapse Has multiple lymph nodes of the right side of neck and C3, T8 and mastoid concerning for malignancy on CT Hypercalcemia Transaminitis ADRIEL Plan: I Consider MRI Brain with and without or PET scan. Oncology is consulted. Our MRI is currently out of service still and unsure when will be in use. Will defer the rest of the medical management to primary other specialist The plan is discussed with the patient's son who is at bedside. Time with Patient: Less than 30
--- NOTE | 2025-01-29 20:13 | P.PN ---
Subjective Progress Note Date: 01/29/25 Pt showing significant improvement in mentation today. A&O x3. Calcium improved, 11.0 today Objective - Vital Signs Vital signs: Vital Signs Temp 98.5 F 01/29/25 14:00 Pulse 66 01/29/25 14:00 Resp 18 01/29/25 14:00 BP 115/72 01/29/25 14:00 Pulse Ox 93 L 01/29/25 14:00 FiO2 Intake & Output 01/28/25 01/29/25 01/29/25 18:59 06:59 18:59 Intake Total 1230 418 Output Total 200 Balance 1030 418 Intake: Oral 1230 418 Output: Urine 200 Other: Voiding Method Urinal Urinal Urinal Diaper Diaper Incontinent Incontinent # Voids 5 1 - Constitutional General appearance: Present: average body habitus, no acute distress - EENT Eyes: Present: anicteric sclerae, EOMI ENT: Present: hearing grossly normal - Respiratory Details: breathing is even and unlabored - Cardiovascular Details: skin warm and dry - Integumentary Integumentary: Absent: cyanotic, jaundiced - Musculoskeletal Musculoskeletal: Present: strength equal bilaterally - Psychiatric Psychiatric: Present: A&O x's 3 - Labs CBC & Chem 7: 01/29/25 05:36 01/29/25 05:36 Labs: Abnormal Lab Results - Last 24 Hours (Table) 01/28/25 01/29/25 01/29/25 Range/Units 17:29 05:36 05:36 RBC 3.63 L (4.10-5.60) X 10*6/uL Hgb 11.2 L (12.0-17.0) g/dL Hct 34.5 L (37.2-50.0) % RDW 15.4 H (11.5-14.5) % Plt Count 128 L (140-440) X 10*3/uL Immature Gran # 0.05 H (0.00-0.04) X 10*3/uL Eosinophils # 0 L (0.04-0.35) X 10*3/uL Anion Gap 15.80 H (4.00-12.00) mmol/L BUN 32.9 H (9.0-27.0) mg/dL Est GFR (CKD-EPI) 54 L (>=60) BUN/Creatinine Ratio 23.50 H (12.00-20.00) Ratio Glucose 113 H (70-110) mg/dL POC Glucose (mg/dL) (70-110) mg/dL Calcium 11.0 H (8.7-10.3) mg/dL Ionized Calcium Gissel 5.8 H (4.5-5.3) mg/dL Ammonia 38 H (<30) umol/L // Range/Units 07:55 RBC (4.10-5.60) X 10*6/uL Hgb (12.0-17.0) g/dL Hct (37.2-50.0) % RDW (11.5-14.5) % Plt Count (140-440) X 10*3/uL Immature Gran # (0.00-0.04) X 10*3/uL Eosinophils # (0.04-0.35) X 10*3/uL Anion Gap (4.00-12.00) mmol/L BUN (9.0-27.0) mg/dL Est GFR (CKD-EPI) (>=60) BUN/Creatinine Ratio (12.00-20.00) Ratio Glucose (70-110) mg/dL POC Glucose (mg/dL) 139 H (70-110) mg/dL Calcium (8.7-10.3) mg/dL Ionized Calcium Gissel (4.5-5.3) mg/dL Ammonia (<30) umol/L - Imaging and Cardiology CT scan - chest: report reviewed Assessment and Plan (1) Hypercalcemia of malignancy Current Visit: Yes Status: Acute Priority: High Code(s): E83.52 - HYPERCALCEMIA SNOMED Code(s): 68757874 (2) Altered mental status Current Visit: Yes Status: Acute Priority: High Code(s): R41.82 - ALTERED MENTAL STATUS, UNSPECIFIED SNOMED Code(s): 216081993 (3) Multiple myeloma Current Visit: Yes Status: Acute Priority: High Code(s): C90.00 - MULTIPLE MYELOMA NOT HAVING ACHIEVED REMISSION SNOMED Code(s): 018621139 Plan: Altered mental status, confusion, hypercalcemia: Presented with confusion over the last 5 days -Upon admit calcium was noted at 12.6. -1 dose zometa ordered. Continues on IV hydration -Mentation significantly improved -Calcium 11.0 today -Continue to monitor calcium levels Multiple myeloma: -Oncology history as dictated in the HPI -Was previously on treatment with Pomalyst/Darzalex/dexamethasone, has been off treatment the last 1 year. He was put on treatment holiday for 2 months at patients request but pt has decided since, to continue off of treatment and has been in observation. Recent myeloma labs showed increasing M-Joshua -On admit hypercalcemia and progressing anemia noted. Concern for disease progression. -CT neck and chest with contrast showed multiple right-sided neck lymph nodes, right supraclavicular lymph nodes right paraspinal lymph node. Including right mastoid air cells, C3 vertebral body, T8 vertebral body. No cystic lesions definitively visualized, likely representing lymph nodes. 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 Subacute left ribs 5th and 6th fractures noted Will obtain brain MRI to further evaluate right mastoid air cell destructive mass noted on CT scan. Patient is reporting persisting right ear pain as well as intermittent headaches. -Recommended restarting treatment. Will schedule clinic f/u upon discharge to further discuss treatment options Case discussed with his oncologist Dr. Harvey Patient and family updated on POC. All questions and concerns addressed
[2025-01-29] MEDS ORDERED: Potassium Replacement Protocol 1 EACH MISC MISCELLANE PRN (21:50)
[2025-01-30] MEDS: ACETAMINOPHEN TAB 500 MG TAB PO PRN (00:24)
[2025-01-30 02:17] VITALS: TEMP 98.3
[2025-01-30 07:24] VITALS: BP 161/82; PULSE 106; RESP 17
[2025-01-30 08:40] LABS: BUN/Creat Ratio 22.71 Ratio (12.00-20.00); Blood Urea Nitrogen 31.8 mg/dL (9.0-27.0); Chloride 102 mmol/L (96-109); Glucose 111 mg/dL (70-110); Potassium 3.5 mmol/L (3.5-5.5); Sodium 136 mmol/L (135-145)
--- NOTE | 2025-01-30 12:50 | P.PN ---
Subjective Progress Note Date: 01/30/25 I am following-up with the patient and he is accompanied with his who states he is doing well. The MRI machine is still down and patient wants to go home and obtain MRI as outpatient. Objective - Vital Signs Vital signs: Vital Signs Temp 98.3 F 01/30/25 06:50 Pulse 106 H 01/30/25 06:50 Resp 17 01/30/25 08:15 BP 161/82 01/30/25 06:50 Pulse Ox 96 01/30/25 06:50 FiO2 Intake & Output 01/29/25 01/30/25 01/30/25 18:59 06:59 18:59 Output Total 1800 Balance -1800 Output: Urine 1800 Other: Voiding Method Urinal Urinal Diaper Diaper Incontinent Incontinent # Voids 2 800 - Exam General: Lying in bed and is not in acute distress. Neuro: The patient is more awake and responsive today compared to yesterday. Is oriented to self, place. Is able to name his son's name correctly. Is following simple commands. No aphasia. Pupils are round, equal and reactive to light. No facial weakness. Strength is 5/5 throughout. Sensation is normal to touch throughout. Some of the work-up during this hospital visit consisted of: Creatinine is 1.35, calcium is 12.6, AST is 107 ALT is 55. Ammonia is 38 Vitamin B12: 403 I reviewed the rest of the lab work CT of the head is reported as no acute intracranial process. I personally rev iewed the CT of the head and agree there is no acute ischemia or any bleed noted. The skull has some osteolytic in my opinion Carotid duplex: No hemodynamically significant stenosis of her bilateral internal carotid artery. Indeterminate hypoechoic cystic lesion throughout the right neck measuring 1.9 cm in short axis. CT of the neck is reported as multiple right sided neck lymph nodes concerning for malignancy including the right mastoid air cell, C3 vertebral body, T8 vertebral artery, concerning for malignancy. - Labs CBC & Chem 7: 01/29/25 05:36 01/30/25 06:09 Labs: Abnormal Lab Results - Last 24 Hours (Table) 01/30/25 Range/Units 06:09 Carbon Dioxide 21.0 L (21.6-31.8) mmol/L Anion Gap 13.00 H (4.00-12.00) mmol/L BUN 31.8 H (9.0-27.0) mg/dL Est GFR (CKD-EPI) 54 L (>=60) BUN/Creatinine Ratio 22.71 H (12.00-20.00) Ratio Glucose 111 H (70-110) mg/dL Assessment and Plan Assessment: This is a 70-year-old gentleman with history of multiple myeloma who presents to the emergency department because of altered mental status, unsteady gait and more sleepy than normal. Seems that his multiple myeloma is in relapse patient has lymph nodes on the right side of the neck multiple of them concerning for malignancy as well as they are concerning for malignancy over the C3 and T8 and mastoid region. Altered mental status seems due to metabolic encephalopathy and patient has hypercalcemia, ADRIEL as well as transaminitis--mentation improving Minimal elevation of ammonia (38 and normal is <30) History of multiple myeloma and is in relapse Has multiple lymph nodes of the right side of neck and C3, T8 and mastoid concerning for malignancy on CT Hypercalcemia Transaminitis ADRIEL Plan: Consider MRI Brain with and without or PET scan. Oncology is consulted. Our MRI is currently out of service still and unsure when will be in use. From neurological perspective this can be considered as outpatient but will defer that final decision to Oncology team. Will defer the rest of the medical management to primary other specialist Upon discharge, recommend the patient to follow-up with outpatient neurologist within 2-3 weeks. Otherwise, no additional neurological work-up. The plan is discussed with the patient and his who is at bedside. Time with Patient: Less than 30
--- NOTE | 2025-01-30 17:31 | P.PN ---
Subjective Progress Note Date: 01/29/25 H&P Date: 01/28/25 Chief Complaint: Change in mental status This is a 70-year-old gentleman with past medical history significant for multiple myeloma, status post chemo and radiation-off treatment since 10/20/2023- oncologist is Dr. Harvey-, DVT-anticoagulated on Eliquis, hiatal hernia, gastroesophageal reflux disease, dysphagia ,status post dilation with biopsies reported benign pathology 12/05 ( Dr. Parris Clements), CAD, cardiac stents, CABG hypertension, hyperlipidemia, nephrolithiasis, osteoarthritis, spinal stenosis status post surgical repair, hepatic steatosis, former nicotine dependence, recent COVID infection in September 2024 and multiple other medical issues presented to the ER with complaints of increased confusion, forgetfulness, noticed by the family over the last couple weeks, progressed in the last week. Denies chest pain, palpitations, shortness of breath. at bedside providing majority of the information in addition to EHR. reports up until about 2 weeks ago patient was able to use power tools in the garage, became increasingly disoriented to the point he was alert and oriented to person, sometimes place, but not to time/date, accompanied by balance issues with near falls.Patient repeatedly complaining of having "water in his right ear, discomfort with decreased hearing".additionally complains of bilateral blurred vision and difficulty seeing. further discloses patient has ongoing difficulty swallowing with choking on first bite-both thin and thick foods and liquids, not accompanied with coughing. patient was scheduled to follow-up with his PCP this January 31 .on admission, hypertensive, hypercalcemia with calcium of 12.6. Brain CT reported no acute intracranial process. No midline shift. Visualized orbits-bilateral aphakia.Chest x-ray reported no acute pulmonary process. Bilateral ribs x-ray reported no acute rib fractures identified, infiltrate at left base-at the left costophrenic angle.Carotid Doppler reported no hemodynamic significant stenosis, indeterminate hypoechoic cystic lesions throughout the right neck measuring up to 1.9 cm in short access. CT of neck ordered. Afebrile, normal WBC. Labs: Hemoglobin 12.4, 11.1, platelets 134, INR 1.4, sodium 136 potassium 3.9, bicarb 26.3 BUN 18.6, creatinine 1.3 GFR 52 glucose 115, calcium 12.6, 12.3, magnesium 1.7, troponins 0.017. T. bili 0.6, 0.4 AST 107, 86, ALT 55, 46, alk phos within normal limits. Serum alcohol less than 10. UA reported large blood. 01/29/2025 CT of neck and chest reported bilateral aphakia, multiple right-sided neck lymph nodes, right supraclavicular lymph nodes, right paraspinal lymph node concerning for malignancy including the right mastoid air cells, C3 vertebral body, T8 vertebral body concerning for malignancy. Follow-up PET/CTs recommended. 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 Maintained on Zometa, calcium trending down currently 11. Sensorium improving. ambulated to bathroom, showered with assist, tolerated exertion well. BP significantly improved better controlled. Echo reported normal LV function, moderate tricuspid regurgitation. Objective - Vital Signs Vital signs: Vital Signs Temp 98.2 F 01/29/25 20:00 Pulse 111 H 01/29/25 20:00 Resp 16 01/29/25 20:00 BP 144/75 01/29/25 20:00 Pulse Ox 93 L 01/29/25 20:00 FiO2 Intake & Output 01/29/25 01/29/25 01/30/25 06:59 18:59 06:59 Intake Total 418 Balance 418 Intake: Oral 418 Other: Voiding Method Urinal Urinal Diaper Diaper Incontinent Incontinent # Voids 1 2 - Exam PHYSICAL EXAMINATION: GENERAL: alert and oriented to person ,NAD HEENT: Normocephalic. Neck is supple, right neck vasquez. Pupils reactive. Neck: Supple, no JVD CHEST EXAMINATION: Unlabored, equal air entry, essentially clear to auscultation CARDIAC: Normal S1, S2 with no gallops. No murmurs. ABDOMEN: Soft. Nondistended, nontender, bowel sounds present. Extremities: no edema. No clubbing or cyanosis. Neurological: Cranial nerves II through XII grossly intact. Skin: No rash, warm and dry. - Labs CBC & Chem 7: 01/29/25 05:36 01/30/25 06:09 Labs: Abnormal Lab Results - Last 24 Hours (Table) 01/29/25 01/29/25 01/29/25 Range/Units 05:36 05:36 07:55 RBC 3.63 L (4.10-5.60) X 10*6/uL Hgb 11.2 L (12.0-17.0) g/dL Hct 34.5 L (37.2-50.0) % RDW 15.4 H (11.5-14.5) % Plt Count 128 L (140-440) X 10*3/uL Immature Gran # 0.05 H (0.00-0.04) X 10*3/uL Eosinophils # 0 L (0.04-0.35) X 10*3/uL Anion Gap 15.80 H (4.00-12.00) mmol/L BUN 32.9 H (9.0-27.0) mg/dL Est GFR (CKD-EPI) 54 L (>=60) BUN/Creatinine Ratio 23.50 H (12.00-20.00) Ratio Glucose 113 H (70-110) mg/dL POC Glucose (mg/dL) 139 H (70-110) mg/dL Calcium 11.0 H (8.7-10.3) mg/dL Ionized Calcium Gissel 5.8 H (4.5-5.3) mg/dL Assessment and Plan Assessment: Change in mental status, progressed over the last 2 weeks, accompanied by multiple complaints of right ear discomfort with decreased hearing, bilateral blurred vision-difficulty seeing, imbalance. Hypercalcemia, Zometa initiated Acute metabolic encephalopathy secondary to the above, improving Right neck cystic lesions reported per carotid ultrasound, CT CT of neck and chest reported multiple right-sided neck lymph nodes, right supraclavicular lymph nodes, right paraspinal lymph node concerning for malignancy including the right mastoid air cells, C3 vertebral body, T8 vertebral body concerning for malignancy. Follow-up PET/CTs recommended. 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 abstract manager consulted. Follow-up with abstract manager OP. Multiple myeloma, history of ADRIEL Hepatic steatosis, serum alcohol less than 10 ,transaminitis- improved Hypertension controlled Right ear, new onset of decreased hearing,"water in Ear" Bilateral aphakia reported per brain CT History of multiple pathological fractures of the thoracolumbar spine including T5, T6, T8, T10, T11, T12 and L1 Malignancy related pain with history of pathological fractures, on MS Contin at home Coronary artery disease with history of stents, CABG Hypertension Hyperlipidemia History of DVT, anticoagulated on Eliquis Osteoarthritis Chronic back pain, degenerative disc disease, spinal stenosis, surgical repair Gastroesophageal reflux disease Anxiety/depression Prior nicotine dependence Plan: Continue on current medication regimen ,monitoring and symptomatic treatment. IV fluid hydration. continues on Zometa with calcium levels trending down .close monitoring of calcium with repeat labs ordered. Our MRI is currently out of service, oncology will do further imaging outpatient. Discharge planning in progress for tomorrow with continued improvement. The impression and plan of care has been dictated as directed. : I performed a history and examination of this patient, discussed the same with the dictator. I agree with the dictator's note ,documented as a scribe. Any additional findings or plans will be noted.
--- NOTE | 2025-01-31 01:12 | EEG ---
ELECTROENCEPHALOGRAM REPORT CLINICAL HISTORY: This is a 70-year-old gentleman with altered mental status. The video EEG is obtained to evaluate for seizure epileptiform activity. RELEVANT MEDICATION: Xanax and morphine. EEG TYPE: This is a routine 21 channel EEG with video using the 10/20 electrode system. DESCRIPTION: Wakefulness is obtained. During awake state, the posterior-dominant rhythm consists of [id number] voltage of 10-10.5 hertz activity that is well modulated and well sustained. There is no physiological stage 2 sleep architecture. There is no focal slowing. Interictal and ictal is none. ACTIVATION PROCEDURE: Photic stimulation did not evoke posterior driving response. There is no abnormality during the photic stimulation. Hyperventilation is not performed. CLINICAL INTERPRETATION: This is a normal routine EEG during awake state. There is no focal slowing, epileptiform discharge, or seizure on the EEG. A normal routine EEG does not rule out underlying epilepsy. Clinical correlation is recommended. ZONIA / JAIDEN: [id number] /
--- NOTE | 2025-01-31 14:16 | P.DS ---
Providers Date of admission: 01/27/25 17:10 Expected date of discharge: 01/30/25 Attending physician: Tyson Freeman Consults: 01/27/25 17:09 Consult Physician Urgent Consulting Provider: Lucas Shi Consult Reason/Comments: ams Do you want consulting provider notified?: Yes 01/28/25 09:25 Consult Physician Routine Consulting Provider: Mushtaq Harvey Consult Reason/Comments: LOC change, hx multiple myeloma Do you want consulting provider notified?: Yes 01/28/25 09:44 Consult Physician Routine Consulting Provider: Francis Najera Consult Reason/Comments: blurred vision,bilateral Aphakia per carotid us Do you want consulting provider notified?: Yes Primary care physician: Tyson Freeman [facility] Course: Final Diagnoses: Change in mental status, progressed over the last 2 weeks, accompanied by multiple complaints of right ear discomfort with decreased hearing, bilateral blurred vision-difficulty seeing, imbalance. Hypercalcemia, Zometa initiated. Acute metabolic encephalopathy secondary to the above, significantly improved Right neck cystic lesions reported per carotid ultrasound, CT CT of neck and chest reported multiple right-sided neck lymph nodes, right supraclavicular lymph nodes, right paraspinal lymph node concerning for malignancy including the right mastoid air cells, C3 vertebral body, T8 vertebral body concerning for malignancy. Follow-up PET/CTs recommended. 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 reduction furnace operator consulted. Follow-up with reduction furnace operator OP. Multiple myeloma, history of ADRIEL Hepatic steatosis, serum alcohol less than 10 ,transaminitis- improved Hypertension controlled Right ear, new onset of decreased hearing,"water in Ear" Bilateral aphakia reported per brain CT History of multiple pathological fractures of the thoracolumbar spine including T5, T6, T8, T10, T11, T12 and L1 Malignancy related pain with history of pathological fractures, on MS Contin at home Coronary artery disease with history of stents, CABG Hypertension Hyperlipidemia History of DVT, anticoagulated on Eliquis Osteoarthritis Chronic back pain, degenerative disc disease, spinal stenosis, surgical repair Gastroesophageal reflux disease Anxiety/depression Prior nicotine dependence Hospital course:This is a 70-year-old gentleman with past medical history significant for multiple myeloma, status post chemo and radiation-off treatment since 10/20/2023-oncologist is Dr. Harvey-, DVT-anticoagulated on Eliquis, hiatal hernia, gastroesophageal reflux disease, dysphagia ,status post dilation with biopsies reported benign pathology 12/05 ( Dr. Parris Clements), CAD, cardiac stents, CABG hypertension, hyperlipidemia, nephrolithiasis, osteoarthritis, spinal stenosis status post surgical repair, hepatic steatosis, former nicotine dependence, recent COVID infection in September 2024 and multiple other medical issues presented to the ER with complaints of increased confusion, forgetfulness, noticed by the family over the last couple weeks, progressed in the last week. Denies chest pain, palpitations, shortness of breath. at bedside providing majority of the information in addition to EHR. reports up until about 2 weeks ago patient was able to use power tools in the garage, became increasingly disoriented to the point he was alert and oriented to person, sometimes place, but not to time/date, accompanied by balance issues with near falls.Patient repeatedly complaining of having "water in his right ear, discomfort with decreased hearing".additionally complains of bilateral blurred vision and difficulty seeing. further discloses patient has ongoing difficulty swallowing with choking on first bite-both thin and thick foods and liquids, not accompanied with coughing. patient was scheduled to follow-up with his PCP this January 31 .on admission, hypertensive, hypercalcemia with calcium of 12.6. Brain CT reported no acute intracranial process. No midline shift. Visualized orbits-bilateral aphakia.Chest x-ray reported no acute pulmonary process. Bilateral ribs x-ray reported no acute rib fractures identified, infiltrate at left base-at the left costophrenic angle.Carotid Doppler reported no hemodynamic significant stenosis, indeterminate hypoechoic cystic lesions throughout the right neck measuring up to 1.9 cm in short access. CT of neck ordered. Afebrile, normal WBC. Labs: Hemoglobin 12.4, 11.1, platelets 134, INR 1.4, sodium 136 potassium 3.9, bicarb 26.3 BUN 18.6, creatinine 1.3 GFR 52 glucose 115, calcium 12.6, 12.3, magnesium 1.7, troponins 0.017. T. bili 0.6, 0.4 AST 107, 86, ALT 55, 46, alk phos within normal limits. Serum alcohol less than 10. UA reported large blood. 01/29/2025 CT of neck and chest reported bilateral aphakia, multiple right-sided neck lymph nodes, right supraclavicular lymph nodes, right paraspinal lymph node concerning for malignancy including the right mastoid air cells, C3 vertebral body, T8 vertebral body concerning for malignancy. Follow-up PET/CTs recommended. 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 Maintained on Zometa, calcium trending down currently 11. Sensorium improving. ambulated to bathroom, showered with assist, tolerated exertion well. BP significantly improved better controlled. Echo reported normal LV function, moderate tricuspid regurgitation. IV fluid hydration. continues on Zometa with calcium levels trending down .close monitoring of calcium with repeat labs ordered. Our MRI is currently out of service, oncology will do further imaging outpatient. Discharge planning in progress for tomorrow with continued improvement. Significant clinical improvement. Calcium decreased to 9. Evaluated, treated and cleared by both oncology and neurology for discharge. Patient eager to go home, requesting to do MRI outpatient, as our MRI machine is still down; to be arranged as per oncology. Patient will be discharged home today in a stable condition with guarded prognosis. The impression and plan of care has been dictated as directed. : I performed a history and examination of this patient, discussed the same with the dictator. I agree with the dictator's note ,documented as a scribe. Any additional findings or plans will be noted. Patient Condition at Discharge: Stable Plan - Discharge Summary New Discharge Prescriptions: New hydrALAZINE HCL [Apresoline] 50 mg PO QID #120 tab amLODIPine [Norvasc] 5 mg PO DAILY #30 tab Continue ALPRAZolam [Xanax] 0.5 mg PO BID Apixaban [Eliquis] 2.5 mg PO BID Omeprazole [PriLOSEC] 20 mg PO BID Sennosides [Senokot] 8.6 mg PO BID Aspirin EC [Ecotrin] 325 mg PO DAILY Morphine Sulfate ER [Ms Contin] 30 mg PO BID Nitroglycerin Sl Tabs [Nitrostat] 0.4 mg SUBLINGUAL Q5M PRN PRN Reason: Chest Pain Albuterol Sulfate [Albuterol Sulfate Hfa] 2 puff INHALATION RT-Q6H PRN PRN Reason: Shortness Of Breath Changed Metoprolol Succinate (ER) [Toprol XL] 25 mg PO BID #60 tab Discharge Medication List ALPRAZolam [Xanax] 0.5 mg PO BID 07/02/14 [History] Apixaban [Eliquis] 2.5 mg PO BID 04/16/23 [History] Morphine Sulfate ER [Ms Contin] 30 mg PO BID 04/16/23 [History] Albuterol Sulfate [Albuterol Sulfate Hfa] 2 puff INHALATION RT-Q6H PRN 01/27/25 [History] Aspirin EC [Ecotrin] 325 mg PO DAILY 01/27/25 [History] Nitroglycerin Sl Tabs [Nitrostat] 0.4 mg SUBLINGUAL Q5M PRN 01/27/25 [History] Omeprazole [PriLOSEC] 20 mg PO BID 01/27/25 [History] Sennosides [Senokot] 8.6 mg PO BID 01/27/25 [History] Metoprolol Succinate (ER) [Toprol XL] 25 mg PO BID #60 tab 01/30/25 [Rx] amLODIPine [Norvasc] 5 mg PO DAILY #30 tab 01/30/25 [Rx] hydrALAZINE HCL [Apresoline] 50 mg PO QID #120 tab 01/30/25 [Rx] Follow up Appointment(s)/Referral(s): Mushtaq Harvey MD [STAFF PHYSICIAN] - 02/06/25 10:30 am Tyson Freeman DO [Primary Care Provider] - 01/31/25 9:00 am (Please keep our existing appt.) [facility] [NON-[facility]] - 1 Week Patient Instructions/Handouts: Metoprolol (By mouth), Hydralazine (By mouth), Amlodipine (By mouth), Multiple Myeloma (DC), Hypercalcemia (DC)
== END 2025-01-30 12:23 | disposition home or self-care (01) | DRG 640 ==
LOC: EC 12:02 → 5NMEDONC 17:09 → OBSVTOIN 17:10 → 5NMEDONC 17:28
PROVIDERS: ADMIT Family Medicine; ATTEND Family Medicine
PROC: 4A10X4Z Monitoring of Central Nervous Electrical Activity, External Approach (ICD-10-PCS; principal; 2025-01-30)
DX: E83.52 Hypercalcemia (principal); G93.41 Metabolic encephalopathy; C90.00 Multiple myeloma not having achieved remission; R13.10 Dysphagia, unspecified; F32.A Depression, unspecified; I10 Essential (primary) hypertension; K76.0 Fatty (change of) liver, not elsewhere classified; N17.9 Acute kidney failure, unspecified; H27.03 Aphakia, bilateral; E78.5 Hyperlipidemia, unspecified; F41.9 Anxiety disorder, unspecified; G89.3 Neoplasm related pain (acute) (chronic); I83.90 Asymptomatic varicose veins of unspecified lower extremity; I25.10 Atherosclerotic heart disease of native coronary artery without angina pectoris; K21.9 Gastro-esophageal reflux disease without esophagitis; M19.90 Unspecified osteoarthritis, unspecified site; Z79.01 Long term (current) use of anticoagulants; Z79.82 Long term (current) use of aspirin; Z82.49 Family history of ischemic heart disease and other diseases of the circulatory system; Z86.16 Personal history of COVID-19; Z86.718 Personal history of other venous thrombosis and embolism; Z87.311 Personal history of (healed) other pathological fracture; Z87.891 Personal history of nicotine dependence; Z87.442 Personal history of urinary calculi; Z91.041 Radiographic dye allergy status; Z92.21 Personal history of antineoplastic chemotherapy; Z92.3 Personal history of irradiation; Z95.1 Presence of aortocoronary bypass graft; Z95.5 Presence of coronary angioplasty implant and graft; Z91.013 Allergy to seafood; Z87.19 Personal history of other diseases of the digestive system
CPT/HCPCS: 36415; 70450; 70491; 71046; 71110; 71260; 80048; 80053; 80320; 81001; 82140; 82330; 82607; 83735; 84145; 84484; 85025; 85610; 85730; 93005; 93306; 93880; 99285

== ENCOUNTER → 2025-02-15 | Outpatient (CLI) | payer MEDICARE ==
--- NOTE | 2025-02-15 13:34 | MR ---
EXAMINATION TYPE: MR brain wo/w con DATE OF EXAM: 02/15/2025 1:15 PM COMPARISON: 01/26/2025. CLINICAL INDICATION: Male, 70 years old with history of C90.00 MULTIPLE MYELOMA NOT HAVING REMISSION; PHH, multiple myeloma TECHNIQUE: Multi planar, multi sequence imaging was performed through the brain including: T1, T2, In version recovery, susceptibility weighted imaging and gradient echo imaging and Diffusion weighted im aging. The patient was then given intravenous contrast and multi planar, T1 fat-saturation images wer e obtained. IV Contrast: 10 mL Gadobutrol FINDINGS: The ames-white junctions, ventricular system, basal cisterns appear unremarkable. Diffusion-weighted imaging shows no evidence of restricted diffusion to suggest acute/subacute infarct. Intracranial ar terial flow voids are maintained. Midline structures show no abnormality. Scattered foci of high T2 s ignal intensity are seen within the periventricular white matter. The susceptibility weighted images do not reveal any evidence for micro-hemorrhage. After administration of gadolinium, no abnormal enha ncement is seen. Heterogenous appearance of the bone marrow with scattered lesions identified largest in the right mas toid air cells. The 20 mm.r additional left posterior lateral skull measuring 13 mm and many other sm aller lesions are identified throughout the bone marrow. These demonstrate erosive changes in the lef t posterior lateral skull same with the mastoid air cells. Additionally there is a soft tissue mass i n the left neck measuring 25 x 17 mm possibly representing extra medullary hematopoiesis. Paranasal sinuses and mastoid air cells: No significant paranasal sinus disease. Changes fluid in the right mastoid air cells. Visualized orbits: Orbital contents are intact. IMPRESSION: 1. Heterogenous appearance of the bone marrow possibly related to patient's multiple myeloma within numerable lesions identified including near the right mastoid air cells measuring up to 21 mm. Findin gs Compatible with active multiple myeloma. Extra-axial soft tissue mass at the base of the skull on the left likely also secondary to patient's history of multiple myeloma. 2. No evidence of intra-axial mass, acute/subacute infarct, or abnormal enhancement. 3. Nonspecific white matter changes, likely related to small vessel ischemic disease. [facility], , 02/15/2025 1:32 PM
== END | disposition home or self-care (01) ==
LOC: RADMRIMAIN 12:30
PROVIDERS: ATTEND Internal Medicine Hematology & Oncology
DX: C90.00 Multiple myeloma not having achieved remission (principal); R90.82 White matter disease, unspecified
CPT/HCPCS: 70553; A9585

== ENCOUNTER 2025-02-20 15:50 | Emergency (ER) | payer MEDICARE ==
[2025-02-20] MEDS: FAMOTIDINE 20 MG/2 ML VIAL IV STA (16:04)
[2025-02-20] MEDS: methylPREDNISolone SOD SUCCI 125 MG/2 ML VIAL IV STA (16:05)
[2025-02-20] MEDS: diphenhydrAMINE 50 MG/ML 1 ML VIAL IVP STA (16:05)
[2025-02-20] MEDS: NITROGLYCERIN OINT 1 INCH/GM PACKET TOPICAL STA (16:06)
[2025-02-20] MEDS ORDERED: ALBUTEROL NEBULIZED 2.5 MG/3 ML INHALATION STA (16:07)
[2025-02-20] MEDS: ALBUTEROL NEBULIZED 2.5 MG/3 ML INHALATION STA (16:09)
[2025-02-20] MEDS: MORPHINE SULFATE 4 MG/ML SYRINGE IV STA (16:16)
[2025-02-20 16:32] LABS: HCT 32.2 % (39.6-50.0); HGB 10.5 g/dL (13.0-17.0); MCH 31.4 pg (27.0-32.0); MCHC 32.6 g/dL (32.0-37.0); MCV 96.4 fL (80.0-97.0); Platelet Count 105 10*3/uL (140-440); RBC 3.34 10*6/uL (4.40-5.60); RDW 16.5 % (11.5-14.5); WBC 3.78 10*3/uL (4.50-10.00)
[2025-02-20 16:43] LABS: INR 1.4 (<1.2); Partial Thromboplastin Time 28.2 sec (22.0-30.0); Prothrombin Time 15.0 sec (10.0-12.5)
[2025-02-20 16:45] LABS: ALT 58 U/L (4-49); AST 103 U/L (17-59); African American GFR (CKD) 49 (>60 ml/min/1.73 sqM); Albumin 3.5 g/dL (3.5-5.0); Alkaline Phosphatase 110 U/L (38-126); Anion Gap 30 mmol/L; Blood Urea Nitrogen 16 mg/dL (9-20); Calcium 9.8 mg/dL (8.4-10.2); Chloride 105 mmol/L (98-107); Glucose 127 mg/dL (74-99); Non-African American GFR(CKD) 43 (>60 ml/min/1.73 sqM); Potassium 4.2 mmol/L (3.5-5.1); Sodium 142 mmol/L (137-145)
--- NOTE | 2025-02-20 16:55 | ED ---
Allergic Reaction HPI - General Chief complaint: Allergic Reaction Stated complaint: Allergic Rxn Time Seen by Provider: 02/20/25 15:55 Source: patient Mode of arrival: ambulatory Limitations: no limitations - History of Present Illness Initial Comments: This patient is a 70-year-old man who presents to the emergency department to have evaluation for what he believes is allergic reaction. He is having shortness of breath and wheezing. The patient relates that he had gone to the [facility] to be treated for multiple myeloma. He receives immunotherapy infusions. He states that he usually is pretreated with Benadryl but for some reason was not today. The patient had the infusion and then was discharged after a 1 hour observation period. After about another 10 minutes he became very shaky, was feeling cold, was having wheezing and shortness of breath. No fever noted. No productive cough. No chest pain. There is no vomiting or diar sofía Onset/Timin -: minutes(s) Exposure: medication Symptoms: difficulty breathing Severity: moderate Treatment Prior to Arrival: none Previous Allergy History: none - Related Data Home Medications Medication Instructions Recorded Confirmed ALPRAZolam [Xanax] 0.5 mg PO BID 07/02/14 02/20/25 Apixaban [Eliquis] 2.5 mg PO BID 04/16/23 02/20/25 Morphine Sulfate ER [Ms Contin] 30 mg PO BID 04/16/23 02/20/25 Albuterol Sulfate [Albuterol 2 puff INHALATION RT-Q6H PRN 01/27/25 02/20/25 Sulfate Hfa] Aspirin EC [Ecotrin] 325 mg PO DAILY 01/27/25 02/20/25 Nitroglycerin Sl Tabs [Nitrostat] 0.4 mg SL Q5M PRN 01/27/25 02/20/25 Omeprazole [PriLOSEC] 20 mg PO BID 01/27/25 02/20/25 Sennosides [Senokot] 8.6 mg PO BID 01/27/25 02/20/25 Acyclovir [Zovirax] 400 mg PO DIRECTED 02/20/25 02/20/25 Ibuprofen [Motrin Ib] 800 mg PO TID 02/20/25 02/20/25 Pomalyst 4mg 4 gm PO DIRECTED 02/20/25 02/20/25 Sulfamethox-Tmp 800-160Mg [Bactrim 1 tab PO DIRECTED 02/20/25 02/20/25 DS 800-160 mg] dexAMETHasone [Decadron] 20 mg PO DIRECTED 02/20/25 02/20/25 diphenhydrAMINE HCL [Benadryl] 25 mg PO DIRECTED PRN 02/20/25 02/20/25 hydrALAZINE HCL [Apresoline] 50 mg PO QID PRN 02/20/25 02/20/25 Previous Rx's Medication Instructions Recorded Metoprolol Succinate (ER) [Toprol 25 mg PO BID #60 tab 01/30/25 XL] amLODIPine [Norvasc] 5 mg PO DAILY #30 tab 01/30/25 Allergies Allergy/AdvReac Type Severity Reaction Status Date / Time hydrocodone [From [place]] Allergy Rash/Hives Verified 02/20/25 18:55 Iodinated Contrast Media Allergy Rash/Hives Verified 02/20/25 18:55 [Iodinated Contrast Media - IV Dye] shellfish derived Allergy Rash/Hives Verified 02/20/25 18:55 MRI dye Allergy Rash/Hives Uncoded 02/20/25 18:55 Review of Systems ROS Statement: Those systems with pertinent positive or pertinent negative responses have been documented in the HPI. ROS Other: All systems not noted in ROS Statement are negative. Constitutional: Reports: chills, weakness. Denies: fever Respiratory: Reports: dyspnea, wheezes. Denies: cough, hemoptysis Cardiovascular: Reports: palpitations. Denies: chest pain, edema, syncope Gastrointestinal: Denies: abdominal pain, nausea, vomiting, diarrhea Genitourinary: Denies: dysuria, hematuria Musculoskeletal: Denies: back pain Skin: Denies: rash Neurological: Denies: headache, weakness, numbness Past Medical History Past Medical History: Coronary Artery Disease (CAD), Cancer, Chest Pain / Angina, GERD/Reflux, Hyperlipidemia, Hypertension, Osteoarthritis (OA), Pneumonia, Vascular Disorder Additional Past Medical History / Comment(s): Ischemic heart disease, nonsustained VT, tachycardia, PAD L leg, varicosities, bilateral leg edema at times, hiatal hernia, hemorrhoids, back pain, DDD, spinal stenosis, vertigo, sinus problems, multiple myeloma History of Any Multi-Drug Resistant Organisms: None Reported Past Surgical History: Back Surgery, Coronary Bypass/CABG, Heart Catheterization With Stent, Hernia Repair, Orthopedic Surgery, Tonsillectomy Additional Past Surgical History / Comment(s): 1997 CABG 3 vessel, c olonoscopy/benign polypectomy, low back surgery, bilateral rotator cuff repairs, HERNIA REPAIRS X5, R hydrocele with surgery, past bone marrow biospy Past Anesthesia/Blood Transfusion Reactions: Postoperative Nausea & Vomiting (PONV) Date of Last Stent Placement:: 12/30/2002 Past Psychological History: Anxiety, Depression Smoking Status: Former smoker - Past Family History Father Family Medical History: CVA/TIA, Diabetes Mellitus, Deep Vein Thrombosis (DVT), Renal Disease, Vascular Disorder Additional Family Medical History / Comment(s): Abdominal aortic aneurysm Mother Family Medical History: Myocardial Infarction (NM) Additional Family Medical History / Comment(s): Mother of a NM at the age of 44yrs. General Exam Limitations: no limitations General appearance: alert, anxious, in distress Head exam: Present: atraumatic, normocephalic Eye exam: Present: normal appearance. Absent: scleral icterus, conjunctival injection ENT exam: Present: normal oropharynx Neck exam: Present: normal inspection Respiratory exam: Present: respiratory distress, wheezes. Absent: rales, rhonchi, stridor, accessory muscle use, decreased breath sounds Cardiovascular Exam: Present: normal rhythm, tachycardia, systolic murmur. Absent: diastolic murmur, rubs, gallop GI/Abdominal exam: Present: soft. Absent: distended, tenderness, guarding, rebound, rigid, mass Extremities exam: Present: normal inspection, normal capillary refill. Absent: pedal edema, calf tenderness Back exam: Present: normal inspection. Absent: CVA tenderness (R), CVA tenderness (L) Neurological exam: Present: alert Skin exam: Present: warm, dry, intact, normal color. Absent: rash Course Vital Signs 02/20/25 02/20/25 02/20/25 15:50 16:00 16:07 Temperature Pulse Rate 144 H 130 H 137 H Respiratory 36 H 38 H Rate Blood Pressure 176/109 163/107 O2 Sat by Pulse 94 L 97 Oximetry 02/20/25 02/20/25 02/20/25 16:14 16:19 17:00 Temperature Pulse Rate 124 H 122 H 120 H Respiratory 32 H 18 Rate Blood Pressure 135/89 132/79 O2 Sat by Pulse 98 92 L Oximetry 02/20/25 02/20/25 17:57 19:41 Temperature 99.6 F Pulse Rate 115 H 105 H Respiratory 18 20 Rate Blood Pressure 141/76 131/68 O2 Sat by Pulse 94 L 97 Oximetry Medical Decision Making - Medical Decision Making This patient is 70-year-old man arriving here with reaction to his chemotherapy infusion. The patient did have good response to medication here. He was observed a number of hours and continued to feel well. I discussed that my initial plan was to admit him to the hospital but the patient states that he feels much better and would like to go home. He does agree to return if there is any change in his condition. He will continue the medications as outpatient and have close follow-up with his oncologist. Discussed return parameters. Was pt. sent in by a medical professional or institution (, PA, PREVENTATIVE MAINTENANCE TECHNICIAN, urgent care, hospital, or long term...) When possible be specific @ -[No] Did you speak to anyone other than the patient for history (EMS, parent, family, police, friend...)? What history was obtained from this source @ -[Patient's family contributed to history Did you review nursing and triage notes (agree or disagree)? Why? @ -[I reviewed and agree with nursing and triage notes] Were old charts reviewed (outside hosp., previous admission, EMS record, old EKG, old radiological studies, urgent care reports/EKG's, long term records)? Report findings @ -[Yes, old charts were reviewed] Differential Diagnosis (chest pain, altered mental status, abdominal pain women, abdominal pain men, vaginal bleeding, weakness, fever, dyspnea, syncope, headache, dizziness, GI bleed, back pain, seizure, CVA, palpatations, mental health, musculoskeletal)? @ -[Differential Weakness: Hypoglycemia, shock, sepsis, hyponatremia, anemia, infection, NM, ETOH, adverse medicine reaction, overdose, stroke, this is not meant to be an all-inclusive list. EKG interpreted by me (3pts min.). @ -[I interpreted as above] X-rays interpreted by me (1pt min.). @ -[None done] CT interpreted by me (1pt min.). @ -[None done] U/S interpreted by me (1pt. min.). @ -[None done] What testing was considered but not performed or refused? (CT, X-rays, U/S, labs)? Why? @ -[None] What meds were considered but not given or refused? Why? @ -[None] Did you discuss the management of the patient with other professionals (professionals i.e. , PA, PREVENTATIVE MAINTENANCE TECHNICIAN, lab, RT, psych nurse, medical social consultant, rehabilitator, teacher, public health service officer, watch case polisher)? Give summary @ -[No] Was smoking cessation discussed for >3mins.? @ -[No] Was critical care preformed (if so, how long)? @ -[No] Were there social determinants of health that impacted care today? How? (Homelessness, low income, unemployed, alcoholism, drug addiction, transportation, low edu. Level, literacy, decrease access to med. care, snf, rehab)? @ -[No] Was there de-escalation of care discussed even if they declined (Discuss DNR or withdrawal of care, Hospice)? DNR status @ -[No] What co-morbidities impacted this encounter? (DM, HTN, Smoking, COPD, CAD, Cancer, CVA, ARF, Chemo, Hep., AIDS, mental health diagnosis, sleep apnea, morbid obesity)? @ -Multiple myeloma receiving immunotherapy, CAD, hypertension Was patient admitted / discharged? Hospital course, mention meds given and route, prescriptions, significant lab abnormalities, going to OR and other pertinent info. @ -[As above Undiagnosed new problem with uncertain prognosis? @ -[No] Drug Therapy requiring intensive monitoring for toxicity (Heparin, Nitro, Insulin, Cardizem)? @ -[No] Were any procedures done? @ -[No] Diagnosis/symptom? @ -[Acute medication reaction Acute, or Chronic, or Acute on Chronic? @ -[Acute Uncomplicated (without systemic symptoms) or Complicated (systemic symptoms)? @ -[Complicated Side effects of treatment? @ -[No] Exacerbation, Progression, or Severe Exacerbation? @ -[No] Poses a threat to life or bodily function? How? (Chest pain, USA, NM, pneumonia, PE, COPD, DKA, ARF, appy, cholecystitis, CVA, Diverticulitis, Homicidal, Suic idal, threat to staff... and all critical care pts) @ -[Yes All treatments are based on ideal body weight as in ED triage - Lab Data Result diagrams: 02/20/25 16:14 02/20/25 16:14 Lab Results 02/20/25 02/20/25 02/20/25 Range/Units 16:14 16:14 16:14 WBC 3.78 L (4.50-10.00) 10*3/uL RBC 3.34 L (4.40-5.60) 10*6/uL Hgb 10.5 L (13.0-17.0) g/dL Hct 32.2 L (39.6-50.0) % MCV 96.4 (80.0-97.0) fL MCH 31.4 (27.0-32.0) pg MCHC 32.6 (32.0-37.0) g/dL Plt Count 105 L (140-440) 10*3/uL MPV 9.8 (9.5-12.2) fL Immature Gran % (Auto) 3.7 % Neutrophils % (Manual) 54 % Band Neuts % (Manual) 1 % Lymphocytes % (Manual) 36 % Monocytes % (Manual) 2 % Eosinophils % (Manual) 6 % Basophils % (Manual) 1 % Metamyelocytes % 1 % Immature Gran # 0.14 H (0.00-0.04) 10*3/uL Neutrophils # (Manual) 2.07 (1.3-7.7) k/uL Lymphocytes # (Manual) 1.36 (1.0-4.8) k/uL Monocytes # (Manual) 0.08 (0-1.0) k/uL Eosinophils # (Manual) 0.23 (0-0.7) k/uL Basophils # (Manual) 0.04 (0-0.2) k/uL Metamyelocytes # (Man) 0.04 H (0) k/uL Nucleated RBCs 2 H (0-0) /100 WBC Manual Slide Review Performed R[place]andraaux Present PT 15.0 H (10.0-12.5) sec INR 1.4 H (<1.2) APTT 28.2 (22.0-30.0) sec Sodium 142 (137-145) mmol/L Potassium 4.2 (3.5-5.1) mmol/L Chloride 105 (98-107) mmol/L Carbon Dioxide 7 L* (22-30) mmol/L Anion Gap 30 mmol/L BUN 16 (9-20) mg/dL Creatinine 1.61 H (0.66-1.25) mg/dL Est GFR (CKD-EPI)AfAm 49 (>60 ml/min/1.73 sqM) Est GFR (CKD-EPI)NonAf 43 (>60 ml/min/1.73 sqM) Glucose 127 H (74-99) mg/dL Lactic Ac Sepsis Rflx Plasma Lactic Acid Ivan (0.7-2.0) mmol/L Calcium 9.8 (8.4-10.2) mg/dL Total Bilirubin 0.5 (0.2-1.3) mg/dL AST 103 H (17-59) U/L ALT 58 H (4-49) U/L Alkaline Phosphatase 110 (38-126) U/L Troponin I (0.000-0.034) ng/mL NT-Pro-B Natriuret Pep Cancelled Total Protein 14.3 H (6.3-8.2) g/dL Albumin 3.5 (3.5-5.0) g/dL 02/20/25 02/20/25 02/20/25 Range/Units 16:14 16:49 18:58 WBC (4.50-10.00) 10*3/uL RBC (4.40-5.60) 10*6/uL Hgb (13.0-17.0) g/dL Hct (39.6-50.0) % MCV (80.0-97.0) fL MCH (27.0-32.0) pg MCHC (32.0-37.0) g/dL Plt Count (140-440) 10*3/uL MPV (9.5-12.2) fL Immature Gran % (Auto) % Neutrophils % (Manual) % Band Neuts % (Manual) % Lymphocytes % (Manual) % Monocytes % (Manual) % Eosinophils % (Manual) % Basophils % (Manual) % Metamyelocytes % % Immature Gran # (0.00-0.04) 10*3/uL Neutrophils # (Manual) (1.3-7.7) k/uL Lymphocytes # (Manual) (1.0-4.8) k/uL Monocytes # (Manual) (0-1.0) k/uL Eosinophils # (Manual) (0-0.7) k/uL Basophils # (Manual) (0-0.2) k/uL Metamyelocytes # (Man) (0) k/uL Nucleated RBCs (0-0) /100 WBC Manual Slide Review Ton PT (10.0-12.5) sec INR (<1.2) APTT (22.0-30.0) sec Sodium (137-145) mmol/L Potassium (3.5-5.1) mmol/L Chloride (98-107) mmol/L Carbon Dioxide (22-30) mmol/L Anion Gap mmol/L BUN (9-20) mg/dL Creatinine (0.66-1.25) mg/dL Est GFR (CKD-EPI)AfAm (>60 ml/min/1.73 sqM) Est GFR (CKD-EPI)NonAf (>60 ml/min/1.73 sqM) Glucose (74-99) mg/dL Lactic Ac Sepsis Rflx Y Plasma Lactic Acid Ivan 7.6 H* 1.6 (0.7-2.0) mmol/L Calcium (8.4-10.2) mg/dL Total Bilirubin (0.2-1.3) mg/dL AST (17-59) U/L ALT (4-49) U/L Alkaline Phosphatase (38-126) U/L Troponin I (0.000-0.034) ng/mL NT-Pro-B Natriuret Pep Total Protein (6.3-8.2) g/dL Albumin (3.5-5.0) g/dL 02/20/25 Range/Units 19:00 WBC (4.50-10.00) 10*3/uL RBC (4.40-5.60) 10*6/uL Hgb (13.0-17.0) g/dL Hct (39.6-50.0) % MCV (80.0-97.0) fL MCH (27.0-32.0) pg MCHC (32.0-37.0) g/dL Plt Count (140-440) 10*3/uL MPV (9.5-12.2) fL Immature Gran % (Auto) % Neutrophils % (Manual) % Band Neuts % (Manual) % Lymphocytes % (Manual) % Monocytes % (Manual) % Eosinophils % (Manual) % Basophils % (Manual) % Metamyelocytes % % Immature Gran # (0.00-0.04) 10*3/uL Neutrophils # (Manual) (1.3-7.7) k/uL Lymphocytes # (Manual) (1.0-4.8) k/uL Monocytes # (Manual) (0-1.0) k/uL Eosinophils # (Manual) (0-0.7) k/uL Basophils # (Manual) (0-0.2) k/uL Metamyelocytes # (Man) (0) k/uL Nucleated RBCs (0-0) /100 WBC Manual Slide Review Rouleaux PT (10.0-12.5) sec INR (<1.2) APTT (22.0-30.0) sec Sodium (137-145) mmol/L Potassium (3.5-5.1) mmol/L Chloride (98-107) mmol/L Carbon Dioxide (22-30) mmol/L Anion Gap mmol/L BUN (9-20) mg/dL Creatinine (0.66-1.25) mg/dL Est GFR (CKD-EPI)AfAm (>60 ml/min/1.73 sqM) Est GFR (CKD-EPI)NonAf (>60 ml/min/1.73 sqM) Glucose (74-99) mg/dL Lactic Ac Sepsis Rflx Plasma Lactic Acid Ivan (0.7-2.0) mmol/L Calcium (8.4-10.2) mg/dL Total Bilirubin (0.2-1.3) mg/dL AST (17-59) U/L ALT (4-49) U/L Alkaline Phosphatase (38-126) U/L Troponin I <0.012 (0.000-0.034) ng/mL NT-Pro-B Natriuret Pep Total Protein (6.3-8.2) g/dL Albumin (3.5-5.0) g/dL - EKG Data -: EKG Interpreted by [place] EKG shows normal: sinus rhythm, axis (Normal), intervals (Prolonged IA interval at 229 ms, consistent with first-degree AV block. QRS duration 92 ms, QTc 470 ms, both normal), ST-T waves (Normal) Rate: tachycardia Disposition Clinical Impression: Allergic reaction Disposition: HOME SELF-CARE Condition: Fair Instructions (If sedation given, give patient instructions): Anaphylaxis (ED) Is patient prescribed a controlled substance at d/c from ED?: No Referrals: Tyson Freeman DO [Primary Care Provider] - 1-2 days
[2025-02-20 17:00] LABS: Carbon Dioxide 7 mmol/L (22-30)
[2025-02-20 17:01] LABS: Total Protein 14.3 g/dL (6.3-8.2)
--- NOTE | 2025-02-20 17:15 | XR ---
EXAMINATION TYPE: XR chest 2V DATE OF EXAM: 02/20/2025 4:59 PM COMPARISON: Chest radiographs from 01/27/2025, CT neck chest 01/28/2025 TECHNIQUE: XR chest 2V Frontal and lateral views of the chest. CLINICAL INDICATION:Male, 70 years old with history of difficulty breathing; FINDINGS: Lungs/Pleura: There is no evidence of pleural effusion, focal consolidation, or pneumothorax. Pulmonary vascularity: Pulmonary vascular congestion. Heart/mediastinum: Cardiomediastinal silhouette is enlarged and stable. Musculoskeletal: No acute osseous pathology. Midline sternotomy wires are noted and stable. Remote po sterior right seventh rib fracture. IMPRESSION: Cardiomegaly and mild pulmonary vascular congestion. Correlate with BNP for congestive heart failure. [facility], , 02/20/2025 5:12 PM
[2025-02-20 17:27] LABS: Basophils # (M) 0.04 k/uL (0-0.2); Eosinophils # (M) 0.23 k/uL (0-0.7); Lymphocytes # (M) 1.36 k/uL (1.0-4.8); Metamyelocytes # (M) 0.04 k/uL (0); Monocytes # (M) 0.08 k/uL (0-1.0); Neutrophils # (M) 2.07 k/uL (1.3-7.7); Neutrophils % (M) 54 %; Rouleaux Present; Total Cells Counted 200
[2025-02-20] MEDS: SODIUM CHLORIDE 0.9% 1,000 ML IV ONE (17:30)
[2025-02-20 17:58] VITALS: TEMP 99.6
[2025-02-20 19:42] VITALS: BP 131/68; PULSE 105; RESP 20
== END 2025-02-20 20:14 | disposition home or self-care (01) ==
LOC: EC 15:50
DX: T50.995A Adverse effect of other drugs, medicaments and biological substances, initial encounter (principal); Z87.891 Personal history of nicotine dependence; Z91.041 Radiographic dye allergy status; Z91.013 Allergy to seafood; Z88.5 Allergy status to narcotic agent
CPT/HCPCS: 36415; 94640; 93005; 80053; 83605; 84484; 85025; 85610; 85730; 71046; 99284; 96374; 96375 ×2; 96361; J1200; J2919; J1308